=== PATIENT | female | born 1945 | race Caucasian/White ===

== ENCOUNTER → 2016-10-02 | Outpatient (CLI) | payer MEDICARE, OTHER ==
[~2016-10-02] MED LIST: CARV3.122 PO; CLOP75TA PO; HYDR-2161 PO; MELO-156 PO; TOFA5TAB PO; TRAM50TA PO; VALS1TAB27 PO
--- NOTE | 2016-10-02 08:47 | KCIC ---
Ultrasound abdomen limited Indication: Elevated liver enzymes. The pancreas and IVC are poorly visualized. The liver is normal in size. There is diffuse increased echogenicity consistent with fatty infiltration. No discrete liver mass is detected. The gallbladder is stone filled. This does make evaluation of the gallbladder wall difficult. The right kidney is unremarkable. There is no biliary ductal dilatation. No ascites is seen. Impression: Fatty infiltration of the liver. Cholelithiasis. Electronically signed by: Edil Castro MD (Oct 02, 2016 08:45:56)
== END | disposition home or self-care (01) ==
LOC: KCIC US 07:51
PROVIDERS: ATTEND Internal Medicine
DX: R74.8 Abnormal levels of other serum enzymes (principal); K76.0 Fatty (change of) liver, not elsewhere classified; K80.20 Calculus of gallbladder without cholecystitis without obstruction
CPT/HCPCS: 76705

== ENCOUNTER 2017-03-24 19:18 | Inpatient (IN) | payer MEDICARE, OTHER ==
[~2017-03-24] VITALS: Ht 157.5 cm; Wt 107.7 kg
[~2017-03-24 19:18] MED LIST changes: -MELO-156 PO; +MELO7.5T29 PO
[2017-03-24] MEDS ORDERED: CARVEDILOL 12.5 MG TABLET. PO ONE (20:15)
[2017-03-24] MEDS ORDERED: LOSARTAN POTASSIUM 50 MG TABLET. PO ONE (20:15)
[2017-03-24] MEDS ORDERED: CLOPIDOGREL BISULFATE 75 MG TABLET PO ONE (20:15)
[2017-03-24] MEDS ORDERED: MORPHINE SULFATE 10 MG/ML VIAL. IM ONE (20:15)
[2017-03-24] MEDS ORDERED: hydroCHLOROthiazide 25 MG TABLET PO ONE (20:18)
--- NOTE | 2017-03-24 22:48 | PHYS DOC ---
Past Medical History Past Medical History: Arthritis, Diabetes-Type II, Hypertension Past Surgical History: Hysterectomy, Oophorectomy Additional Past Surgical Histo: HEART STENTS, PELVIC PROLAPSE, CARPEL TUNNEL, X2 KNEE REPLACEMENTS Alcohol Use: Occasionally Drug Use: None Adult General Chief Complaint Chief Complaint: LOWER BACK PAIN OR INJURY HPI HPI Patient is a 72 year old female brought to the ED by family members with the complaint of severe low back pain for 2 days. She states "I can hardly walk, I don't feel safe trying to walk". Patient states her pain is severe. Yesterday morning, she woke up with back pain. She did not have a fall or any other injury. Cooking and some laundry and she thinks she overdid it. It kept her up all night last night and it bothered her all day today. It so severe that she feels like she is having trouble standing up. She has tried hydrocodone and tramadol at home without any relief at all. The pain does not go down her legs. She has no urinary symptoms. The pain is located on both sides of her low back and goes down a little bit into her hips. Patient has had similar pain before but never this bad. She was seen at the pain center for pain injection along time ago and she believes that helped. Patient states that she did not take her blood pressure medicine this morning because she was in too much pain. She wasn't able to worry about filling her pill minder's because she just couldn't hardly function. Therefore, she has skipped her daily medicine today and took only hydrocodone and tramadol. PCP Dr. Sharma Medications include carvedilol 25 mg twice a day, valsartan/hydrochlorothiazide 320/25, Plavix 75 mg. Review of Systems Review of Systems Constitutional: Denies fever or chills [] Respiratory: Denies cough or shortness of breath [] Cardiovascular: Denies chest pain GI: Denies abdominal pain, nausea, vomiting, bloody stools or diarrhea [] : Denies dysuria or hematuria [] Musculoskeletal: As in history of present illness I Current Medications Current Medications Current Medications Medications (Trade) Dose Ordered Sig/Saul Start Time Stop Time Status Last Admin Dose Admin Carvedilol (Coreg) 25 mg 1X ONCE 03/24/17 20:15 03/24/17 20:18 DC 03/24/17 20:41 25 MG Clopidogrel Bisulfate (Plavix) 75 mg 1X ONCE 03/24/17 20:15 03/24/17 20:18 DC 03/24/17 20:39 75 MG Hydrochlorothiazide (Hydrodiuril) 25 mg 1X ONCE 03/24/17 20:18 03/24/17 20:19 DC 03/24/17 20:41 25 MG Losartan Potassium (Cozaar) 100 mg 1X ONCE 03/24/17 20:15 03/24/17 20:18 DC 03/24/17 20:39 100 MG Morphine Sulfate 5 mg 1X ONCE 03/24/17 20:15 03/24/17 20:18 DC 03/24/17 20:41 5 MG Allergies Allergies Allergies Coded Allergies Type Severity Reaction Last Updated Verified amlodipine Allergy Intermediate 12/15/15 Yes atorvastatin Allergy Intermediate 12/15/15 Yes ciprofloxacin Allergy Intermediate 12/15/15 Yes ezetimibe Allergy Intermediate 12/15/15 Yes lisinopril Allergy Intermediate 12/15/15 Yes metformin Allergy Intermediate 12/15/15 Yes methotrexate Allergy Intermediate 12/15/15 Yes pravastatin Allergy Intermediate 12/15/15 Yes Physical Exam Physical Exam Constitutional: Obese, Well developed, well nourished, alert, mentating normally , warm and dry. Patient is not able to move hardly at all on the cart. She is not able to turn onto her side for exam without help. HENT: Normocephalic, atraumatic, bilateral external ears normal, nose normal. [] Eyes: conjunctiva normal, no discharge. [] Neck: Normal range of motion, no stridor. [] Cardiovascular:Heart rate regular rhythm, no murmur [] Lungs & Thorax: Bilateral breath sounds clear to auscultation [] Abdomen: Bowel sounds normal, soft, no tenderness, no masses, no pulsatile masses. [] Skin: Warm, dry, no erythema, no rash. [] Back: Patient indicates the area of pain across her lower back on both sides at the level of the top of the gluteal crease. She has some pain going down into the upper buttocks bilaterally. There is no skin color change or skin abnormality in the area of pain. There is no significant worsening of pain with palpation in this area. Extremities: No tenderness, no cyanosis, no clubbing, ROM intact, no edema. Patient is able to actively flex and extend the knee. Right straight leg raise is equivocally positive but does not have pain down her leg only into her buttock. Neurologic: Alert and oriented X 3, normal motor function, normal sensory function, no focal deficits noted. [] Current Patient Data Vital Signs Vital Signs Date Time Temp Pulse Resp B/P (MAP) Pulse Ox O2 Delivery O2 Flow Rate FiO2 03/24/17 22:30 96 18 152/65 (94) 93 Room Air 03/24/17 19:51 99.4 99.4 EKG EKG [] Radiology/Procedures Radiology/Procedures Lumbosacral spine x-ray read by me. There is significant degenerative disease multilevel of the lumbosacral spine. There is multilevel disc space narrowing, osteophyte formation, and L1 and L2 appear to be fused. There is spondylolisthesis of L3-4. There does not appear to be any significant acute abnormality.[] Course & Med Decision Making Course & Med Decision Making Pertinent Labs and Imaging studies reviewed. (See chart for details) 72-year-old female with severe low back pain. She was given a pain shot and that was allowed to work before going to x-ray. X-ray shows significant degenerative disease. The patient has intractable pain and will require inpatient hospitalization for pain management. She is not able to even reposition herself on the bed much less safely stand or ambulate. I believe she' ll need to be admitted for this. I discussed this with the patient and her family who are agreeable. I discussed the case with Dr. Sharma, primary care physician. He will admit the patient. I wrote bridge orders. [] Dragon Disclaimer Dragon Disclaimer This electronic medical record was generated, in whole or in part, using a voice recognition dictation system. Departure Departure Impression: Primary Impression: Low back pain Disposition: ADMITTED INPATIENT Admitting Physician: Shashi Sharma Condition: STABLE Referrals: SHASHI SHARMA MD (PCP) JENNIFER MOODY MD Mar 24, 2017 22:48
[2017-03-24] MEDS ORDERED: fentaNYL PF VIAL 100 MCG/2 ML VIAL IV PRN (23:00)
[2017-03-24] MEDS ORDERED: ONDANSETRON PF 4 MG/2 ML VIAL. IV PRN (23:00)
[2017-03-24] MEDS ORDERED: hydrALAZINE 25 MG TABLET PO PRN (23:00)
[2017-03-24 23:13] LABS: BASO % 0 % (0-3); EOS % 0 % (0-3); HEMATOCRIT 35.8 % (36.0-47.0); LYMPH % 8 % (24-48); MEAN CORPUSCULAR HEMOGLOBIN 31 pg (25-35); MEAN CORPUSCULAR HGB CONC 34 g/dL (31-37); MEAN CORPUSCULAR VOLUME 93 fL (79-100); MONO % 9 % (0-9); NEUT % 83 % (31-73); PLATELET COUNT 219 x10^3/uL (140-400); RED BLOOD COUNT 3.84 x10^6/uL (3.50-5.40); RED CELL DISTRIBUTION WIDTH 13.4 % (11.5-14.5); WHITE BLOOD COUNT 12.3 x10^3/uL (4.0-11.0)
[2017-03-24 23:20] LABS: CALCIUM 9.2 mg/dL (8.5-10.1); CREATININE 0.8 mg/dL (0.6-1.0); GFR 70.1; POTASSIUM 3.7 mmol/L (3.5-5.1)
[2017-03-24 23:26] LABS: ALBUMIN 3.6 g/dL (3.4-5.0); TOTAL BILIRUBIN 1.7 mg/dL (0.2-1.0); TOTAL PROTEIN 7.2 g/dL (6.4-8.2)
[2017-03-24 23:30] VITALS: BP 139/55
[2017-03-25] MEDS ORDERED: OMEG100021 PO (01:50)
[2017-03-25] MEDS ORDERED: MULT1TAB52 PO (01:50)
[2017-03-25] MEDS ORDERED: HYDR-2762 PO (01:50)
[2017-03-25] MEDS ORDERED: VALS1TAB33 PO (01:50)
[2017-03-25] MEDS ORDERED: TOFA5TAB PO (01:50)
[2017-03-25] MEDS ORDERED: MELO15TA23 PO (01:50)
[2017-03-25] MEDS ORDERED: CHOL2000 PO (01:50)
[2017-03-25] MEDS ORDERED: CARV25TA2 PO (01:50)
[2017-03-25] MEDS ORDERED: ASPI-612 PO (01:50)
[2017-03-25] MEDS: fentaNYL PF VIAL 100 MCG/2 ML VIAL IV PRN ×5 (02:50→16:19)
[2017-03-25 03:00] VITALS: BP 124/45
[2017-03-25] MEDS ORDERED: traMADol 50 MG TABLET PO PRN (06:15)
[2017-03-25] MEDS ORDERED: OMEP20CA9 PO (06:50)
[2017-03-25] MEDS ORDERED: CARVEDILOL 12.5 MG TABLET. PO SCH (08:00)
[2017-03-25] MEDS: LOSARTAN POTASSIUM 50 MG TABLET. PO SCH (08:15)
[2017-03-25] MEDS: hydroCHLOROthiazide 25 MG TABLET PO SCH (08:16)
[2017-03-25] MEDS: CLOPIDOGREL BISULFATE 75 MG TABLET PO SCH (08:16)
[2017-03-25] MEDS: CHOLECALCIFEROL (VITAMIN D3) 1,000 UNIT TABLET PO SCH (08:16)
[2017-03-25] MEDS: OMEGA-3 FATTY ACIDS/FISH OIL 1,000 MG CAPSULE. PO SCH (08:16)
[2017-03-25] MEDS: MULTIVITAMIN with MINERAL TABLET. PO SCH (08:16)
[2017-03-25] MEDS: MELOXICAM 7.5 MG TABLET PO SCH (08:17)
[2017-03-25] MEDS: ASPIRIN ENTERIC COATED 81 MG TABLET.DR. PO SCH (08:17)
--- NOTE | 2017-03-25 08:18 | RAD ---
Lumbar spine, 3 views, 03/24/2017: History: Pain, no injury The bony structures are demineralized. There is disc space narrowing throughout the lumbar spine with scattered vacuum discs. There is considerable associated endplate sclerosis at L3-4. There is fusion of the L1 and L2 vertebral bodies. No acute fracture is identified. There are extensive degenerative changes involving the facet joints, particularly in the mid and lower lumbar spine. There is a mild associated grade 1 spondylolisthesis at L3-4, unchanged since CT images of 12/15/2015. Extensive aortoiliac calcific plaquing is present. IMPRESSION: 1. Moderately severe multilevel degenerative change as described above. 2. Mild chronic spondylolisthesis at L3-4 due to facet joint arthropathy. 3. No acute abnormality is detected.
--- NOTE | 2017-03-25 08:53 | EKG ---
[facility] [address] [place] [address] Test Date: 2017-03-24 Test Time: 19:49:42 Pat Name: ERVIN VILLAFUERTE Department: Room: [facility] Gender: F Solution Lead: : 1945 Requested By: ALVARO YEN Order Number: [id number] Reading MD: Flakita Ordonez Measurements Intervals [place] Rate: 170 P: [place]: QRS: -24 QRSD: 144 T: 138 QT: 274 QTc: 464 Interpretive Statements SINUS RHYTHM LEFTWARD AXIS NON SPECIFIC INTRAVENTRICULAR BLOCK QRS(T) CONTOUR ABNORMALITY CONSISTENT WITH ANTEROSEPTAL INFARCT PROBABLY OLD Electronically Signed On 03-28-2017 10:57:04 CDT by Flakita Ordonez
--- NOTE | 2017-03-25 08:57 | PDOC ---
Provider Note Provider Note history and physical dictated # [id number] ALVARO YEN MD Mar 25, 2017 08:57
[2017-03-25] MEDS ORDERED: HYDROcodone/APAP 7.5/325MG 1 TAB TABLET PO SCH (09:00)
[2017-03-25] MEDS ORDERED: IOHEXOL 300 MG/ML 75 ML VIAL IV ONE (09:00)
[2017-03-25] MEDS: TOFACITINIB CITRATE 5 MG PO SCH ×2 (09:00→19:25)
[2017-03-25 09:25] LABS: BILIRUBIN,URINE NEGATIVE (NEG); GLUCOSE,URINE NEGATIVE (NEG); NITRITE,URINE NEGATIVE (NEG); PROTEIN,URINE NEGATIVE (NEG-TRACE); UROBILINOGEN,URINE 0.2 mg/dL (0.2 mg/dL)
[2017-03-25] MEDS ORDERED: CONTRAST GIVEN MC PRN (09:30)
[2017-03-25 09:40] LABS: WBC,URINE OCC /HPF (0-4)
[2017-03-25 09:41] LABS: BACTERIA,URINE FEW /HPF (0-FEW); SQUAMOUS EPITHELIAL CELL,UR FEW /LPF
--- NOTE | 2017-03-25 09:52 | HP ---
ADMIT DATE: 03/25/2017 DATE OF SERVICE: 03/24/2017 PATIENT LOCATION: Room #514 HISTORY OF PRESENT ILLNESS: The patient is a 72-year-old white female with history of rheumatoid arthritis, hypertension, coronary artery disease, bilateral total knee arthroplasties and cholelithiasis who noted a 2-day history of low back pain. It hurt when she turned in bed and moved to the point where hydrocodone and Tylenol did not help and she could not navigate and move around the home. She denies any trauma. She has been doing activities of daily living, house chores and laundry, but no fall or significant trauma that she can recall. She denies any sciatica. She has had back pain in the past, but not to this severity. She is admitted for further evaluation and treatment of her intractable low back pain. After admission, her temperature was about 100.8 degrees. She denies any cough, dysuria or abdominal pain or diarrhea. ALLERGIES AND INTOLERANCES: INCLUDE METHOTREXATE, PRINIVIL, NORVASC, ZETIA, LIPITOR, PRAVASTATIN, AMLODIPINE, METFORMIN, AND CIPROFLOXACIN. MEDICATIONS: Include Plavix 75 mg every day, Meloxicam 15 mg everyday, carvedilol 25 mg b.i.d., losartan HCT 320/25 mg 1 every day, ____ 5 mg 2 tablets daily, tramadol 50 mg 1 tablet t.i.d. p.r.n., multiple vitamin once a day, aspirin 81 mg every day, hydrocodone 7.5/325 mg 1 b.i.d., fish oil 1 g daily, vitamin D 2000 units every day. 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 She also has had bilateral total knee arthroplasties, hysterectomy and unilateral oophorectomy and had the other ovary removed for benign cyst recently. She had surgery for bladder prolapse which has recurred she said. She had bilateral cataract extractions and bilateral carpal tunnel release and bilateral total knee arthroplasties. SOCIAL HISTORY: She does not drink alcohol nor does she smoke cigarettes. She is . Uses a walker. FAMILY HISTORY: Noncontributory. REVIEW OF SYSTEMS: GENERAL: There has been no fever, chills or sweats at home, but she had a fever at this hospital since admission. CARDIOVASCULAR: No chest pain. PULMONARY: No cough or shortness of breath. GASTROINTESTINAL: No diarrhea, abdominal pain. GENITOURINARY: No dysuria. ENDOCRINE: No diabetes mellitus, but she has borderline diabetes. SKIN: No rashes. The rest of systems reviewed are negative except as stated in history of present illness. PHYSICAL EXAMINATION: VITAL SIGNS: Temperature is 100.9 degrees, apical pulse is about 100, respiratory rate is 18, blood pressure 117/59, oxygen saturation was 98% on room air. HEENT: Eyes: Gaze is conjugate. Extraocular muscles are intact. Mouth: Tongue is midline. NECK: There is no cervical lymphadenopathy or thyroid enlargement. HEART: Reveals an S1, S2. There is no S3 or murmur. LUNGS: Clear. ABDOMEN: Soft, nontender. EXTREMITIES: Lower extremities without edema. SKIN: No rashes. Examination of back shows tenderness in the lumbosacral area. NEUROLOGIC: Revealed no focal weakness of arms or legs. She has got scars over her knees from previous bilateral total knee arthroplasty. LABORATORY DATA: White count was 12.3, hemoglobin was 12.0, platelet count was 219,000 with 83 polys and 8 lymphocytes in white cell differential. Sodium 132, potassium 3.7, chloride 95, total CO2 of 28, blood sugar is 153, total bilirubin was increased to 1.7, SGOT 54, SGPT of 76, alkaline phosphatase 88, albumin 3.6. IMAGING: She had an x-ray of her lumbar spine done, which showed moderately severe multilevel degenerative disease and chronic mild spondylosis at L3-L4 with facet joint arthropathy. No acute abnormality. ASSESSMENT: 1. Intractable low back pain. 2. Fever. 3. Hypertension. 4. Coronary artery disease. 5. Rheumatoid arthritis. 6. Elevated liver function tests. 7. Cholelithiasis. PLAN: At this time is to get blood cultures x 2, consult Dr. Arevalo and will order physical therapy. K-pad to the lower back and Lidoderm patch, discontinue the p.r.n. tramadol and hydrocodone ____ oxycodone 5 mg every 4 hours p.r.n. and Flexeril 10 mg t.i.d. p.r.n. and we will change her fentanyl to 25 mcg IV every 4 hours p.r.n. for pain control. We will get an ultrasound of the abdomen with the fever, blood cultures x2, urinalysis, urine culture, get a CAT scan of the lumbar spine with IV contrast given the fever, to rule out diskitis. Again, at baseline get an EKG and a chest x-ray. ALVARO YEN MD DR: LUCINA/jason JOB#: [id number] / [id number]
[2017-03-25] MEDS ORDERED: methylPREDNISolone ACETATE 40 MG/ML VIAL. IM ONE (10:00)
[2017-03-25] MEDS ORDERED: BUPIVACAINE MPF 0.25% 10 ML VIAL. IJ ONE (10:00)
--- NOTE | 2017-03-25 10:21 | RAD ---
Portable chest, 03/25/2017: History: Fever Comparison is made to a study from 01/03/2016. The heart appears to be within normal limits in size. There is calcific plaquing of the aorta. The pulmonary vascularity is normal. There are unchanged linear parenchymal opacities in the left upper lobe laterally compatible scarring versus recurrent atelectasis. The lungs are otherwise clear. There is no evidence of pleural fluid. Moderate hypertrophic spurring is present in the spine. IMPRESSION: Mild left upper lobe linear scarring or atelectasis.
--- NOTE | 2017-03-25 10:26 | RAD ---
Indication:Abnormal liver function tests Grayscale images of the abdomen were obtained. Comparison none. Note is made of a limited ultrasound examination 10/02/2016. Liver:There is increased attenuation of the ultrasound beam by the liver compatible with fatty infiltration. A focal mass lesion is not seen in the visualized liver Gallbladder:Cholelithiasis is noted compatible with the previous right upper quadrant abdominal ultrasound exam. The common bile duct diameter of approximately 7 mm is within normal limits given the patient's age. Spleen:Normal Pancreas:Partially obscured. That portion of the pancreatic head and body which was seen appeared normal Kidneys:Normal Abdominal aorta and IVC:The portion of the inferior vena cava which was seen appeared unremarkable. Only the proximal abdominal aorta was seen which appeared normal. The mid and distal abdominal aorta were obscured by gas Ancillary findings:None Impression:Cholelithiasis Fatty infiltration of the liver. Midline structures partially obscured
[2017-03-25 11:00] VITALS: BP 109/44
[2017-03-25] MEDS ORDERED: methylPREDNISolone ACETATE 40 MG/ML VIAL. ONE (11:00)
[2017-03-25] MEDS ORDERED: BUPIVACAINE MPF 0.25% 10 ML VIAL. ONE (11:00)
[2017-03-25] MEDS: LIDOCAINE (700MG/PATCH) PATCH. TD SCH (11:08)
--- NOTE | 2017-03-25 11:22 | EKG ---
[facility] [address] [place] [address] Test Date: 2017-03-25 Test Time: 11:19:06 Pat Name: ERVIN VILLAFUERTE Department: Room: [facility] Gender: F Compounding Scaler: MARISSA : 1945 Requested By: ALVARO YEN Order Number: [id number] Reading MD: Flakita Ordonez Measurements Intervals [place] Rate: 105 P: [place]: QRS: -29 QRSD: 156 T: 144 QT: 380 QTc: 507 Interpretive Statements IRREGULAR RHYTHM, NO P-WAVE FOUND LEFTWARD AXIS NON SPECIFIC INTRAVENTRICULAR BLOCK QRS(T) CONTOUR ABNORMALITY CONSIDER ANTEROSEPTAL MYOCARDIAL DAMAGE ABNORMAL ECG Electronically Signed On 03-28-2017 11:05:40 CDT by Flakita Ordonez
--- NOTE | 2017-03-25 11:52 | PDOC2 ---
MONALISA KHAN SENIOR USER EXPERIENCE ARCHITECT 03/25/17 1152: CARDIAC CONSULT DATE OF CONSULT Date of Consult DATE: 03/25/17 TIME: 11:35 REASON FOR CONSULT Reason for Consult: New onset AFIB REFERRING PHYSICIAN Referring Physician: Edith SOURCE Source: Chart review, Patient HISTORY OF PRESENT ILLNESS HISTORY OF PRESENT ILLNESS This is a 72 yo female admitted for complains of severe low back pain. Due to this her mobility has been limited the last 2 days. Prior to it she was busy with gathering in the [facility] where she resides, has been cooking and has been doing extra loads of laundry. The day after is when her back started hurting radiating to her right back thigh. No recent falls or injury. It is worse when standing up and no analgesic has helped at home. Upon admission she was noted with elevated BP mainly due to her pain and was also noted with fever. Denies no chills or fever prior to hospitalizations. She then was noted with AFIB RVR. Prior to her admission there has been no complains of chest pain, palpitations, SOA. nausea. She has no prior hx of AFIB. PAST MEDICAL HISTORY Cardiovascular: CAD, HTN, Hyperlipidemia Pulmonary: No pertinent hx CENTRAL NERVOUS SYSTEM: Other (no pertinent history) GI: Diverticulosis Heme/Onc: No pertinent hx Hepatobiliary: Cholelithiasis Psych: No pertinent hx Musculoskeletal: low back pain (lumbar stenosis), Osteoarthritis Rheumatologic: Rheumatoid arthritis Infectious disease: No pertinent hx ENT: Other (cataract) Renal/: Urinary Incontinence (bladder prolapse with repir), Other (bladder prolapse) Endocrine: Diabetes (2) Dermatology: No pertinent hx Grav: 3 Para: 3 PAST SURGICAL HISTORY Past Surgical History: Cataract Removal, Total knee replacement (bilateral), Hysterectomy, Other (carpal tunnel surgery; PCI) FAMILY HISTORY Family History: Heart Disease, Hypertension SOCIAL HISTORY Smoke: No ALCOHOL: none Drugs: None Lives: with Family CURRENT MEDICATIONS CURRENT MEDICATIONS Current Medications Medications (Trade) Dose Ordered Sig/Saul Route PRN Reason Start Time Stop Time Status Last Admin Dose Admin Carvedilol (Coreg) 25 mg 1X ONCE PO 03/24/17 20:15 03/24/17 20:18 DC 03/24/17 20:41 Clopidogrel Bisulfate (Plavix) 75 mg 1X ONCE PO 03/24/17 20:15 03/24/17 20:18 DC 03/24/17 20:39 Losartan Potassium (Cozaar) 100 mg 1X ONCE PO 03/24/17 20:15 03/24/17 20:18 DC 03/24/17 20:39 Hydrochlorothiazide (Hydrodiuril) 25 mg 1X ONCE PO 03/24/17 20:18 03/24/17 20:19 DC 03/24/17 20:41 Morphine Sulfate 5 mg 1X ONCE IM 03/24/17 20:15 03/24/17 20:18 DC 03/24/17 20:41 Fentanyl Citrate (Fentanyl 2ml Vial) 50 mcg PRN Q15MIN PRN IV PAIN GREATER THAN 3/10 03/24/17 23:00 03/25/17 00:00 DC 03/24/17 23:30 Fentanyl Citrate (Fentanyl 2ml Vial) 50 mcg PRN Q2HR PRN IV SEVERE PAIN 03/24/17 23:30 03/25/17 08:46 DC 03/25/17 08:19 Aspirin (Ecotrin) 81 mg DAILY PO 03/25/17 09:00 03/25/17 08:17 Clopidogrel Bisulfate (Plavix) 75 mg DAILY PO 03/25/17 09:00 03/25/17 08:16 Acetaminophen/ Hydrocodone Bitart (Lortab 7.5/325) 1 tab BID PO 03/25/17 09:00 03/25/17 09:00 DC 03/25/17 08:18 Carvedilol (Coreg) 25 mg BIDWMEALS PO 03/25/17 08:00 03/25/17 08:18 Vitamin D (Vitamin D3) 2,000 unit DAILY PO 03/25/17 09:00 03/25/17 08:16 Meloxicam (Mobic) 15 mg DAILY PO 03/25/17 09:00 03/25/17 08:17 Multivitamins (Thera M Plus) 1 tab DAILY PO 03/25/17 09:00 03/25/17 08:16 Fish Oil (Fish Oil) 1,000 mg DAILY PO 03/25/17 09:00 03/25/17 08:16 Losartan Potassium (Cozaar) 100 mg DAILY PO 03/25/17 09:00 03/25/17 08:15 Hydrochlorothiazide (Hydrodiuril) 25 mg DAILY PO 03/25/17 09:00 03/25/17 08:16 Fentanyl Citrate (Fentanyl 2ml Vial) 25 mcg PRN Q4HRS PRN IV SEVERE PAIN 03/25/17 08:45 03/25/17 11:15 Lidocaine (Lidoderm) 1 patch DAILY TD 03/25/17 09:00 03/25/17 11:08 ALLERGIES ALLERGIES: Coded Allergies: amlodipine (Verified Allergy, Intermediate, 12/15/15) atorvastatin (Verified Allergy, Intermediate, 12/15/15) ciprofloxacin (Verified Allergy, Intermediate, 12/15/15) ezetimibe (Verified Allergy, Intermediate, 12/15/15) lisinopril (Verified Allergy, Intermediate, 12/15/15) metformin (Verified Allergy, Intermediate, 12/15/15) methotrexate (Verified Allergy, Intermediate, 12/15/15) pravastatin (Verified Allergy, Intermediate, 12/15/15) ROS Review of System 14 point ROS evaluated with pertinent positives noted per HPI PHYSICAL EXAM General: Alert, Oriented X3, Cooperative, No acute distress HEENT: Atraumatic, Mucous membr. moist/pink Lungs: Other (diffuse faint wheeze) Heart: Other (distant heart sounds) Abdomen: Soft, Other (obese) Extremities: No cyanosis, No edema Skin: No breakdown, No significant lesion Neuro: Normal speech, Sensation intact Psych/Mental Status: Mental status NL, Mood NL MUSCULOSKELETAL: Osteoarthritic changes both hands VITALS VITALS Vital Signs Date Time Temp Pulse Resp B/P (MAP) Pulse Ox O2 Delivery O2 Flow Rate FiO2 03/25/17 11:15 18 03/25/17 08:19 Room Air 03/25/17 08:18 135 117/59 03/25/17 06:38 92 03/25/17 03:00 100.9 100.9 LABS Lab: Laboratory Tests Test 03/24/17 23:00 03/25/17 09:10 White Blood Count 12.3 x10^3/uL (4.0-11.0) Red Blood Count 3.84 x10^6/uL (3.50-5.40) Hemoglobin 12.0 g/dL (12.0-15.5) Hematocrit 35.8 % (36.0-47.0) Mean Corpuscular Volume 93 fL (79-100) Mean Corpuscular Hemoglobin 31 pg (25-35) Mean Corpuscular Hemoglobin Concent 34 g/dL (31-37) Red Cell Distribution Width 13.4 % (11.5-14.5) Platelet Count 219 x10^3/uL (140-400) Neutrophils (%) (Auto) 83 % (31-73) Lymphocytes (%) (Auto) 8 % (24-48) Monocytes (%) (Auto) 9 % (0-9) Eosinophils (%) (Auto) 0 % (0-3) Basophils (%) (Auto) 0 % (0-3) Neutrophils # (Auto) 10.2 x10^3uL (1.8-7.7) Lymphocytes # (Auto) 1.0 x10^3/uL (1.0-4.8) Monocytes # (Auto) 1.1 x10^3/uL (0.0-1.1) Eosinophils # (Auto) 0.0 x10^3/uL (0.0-0.7) Basophils # (Auto) 0.0 x10^3/uL (0.0-0.2) Sodium Level 132 mmol/L (136-145) Potassium Level 3.7 mmol/L (3.5-5.1) Chloride Level 95 mmol/L (98-107) Carbon Dioxide Level 28 mmol/L (21-32) Anion Gap 9 (6-14) Blood Urea Nitrogen 16 mg/dL (7-20) Creatinine 0.8 mg/dL (0.6-1.0) Estimated GFR (Cockcroft-Gault) 70.1 BUN/Creatinine Ratio 20 (6-20) Glucose Level 153 mg/dL (70-99) Calcium Level 9.2 mg/dL (8.5-10.1) Total Bilirubin 1.7 mg/dL (0.2-1.0) Aspartate Amino Transf (AST/SGOT) 54 U/L (15-37) Alanine Aminotransferase (ALT/SGPT) 76 U/L (14-59) Alkaline Phosphatase 88 U/L (46-116) Total Protein 7.2 g/dL (6.4-8.2) Albumin 3.6 g/dL (3.4-5.0) Albumin/Globulin Ratio 1.0 (1.0-1.7) Urine Collection Type Unknown Urine Color Kathy Urine Clarity Clear Urine pH 6.0 Urine Specific [place] 1.015 Urine Protein Negative mg/dL (NEG-TRACE) Urine Glucose (UA) Negative mg/dL (NEG) Urine Ketones (Stick) 15 mg/dL (NEG) Urine Blood Moderate (NEG) Urine Nitrite Negative (NEG) Urine Bilirubin Negative (NEG) Urine Urobilinogen Dipstick 0.2 mg/dL (0.2 mg/dL) Urine Leukocyte Esterase Negative (NEG) Urine RBC 6-10 /HPF (0-2) Urine WBC Occ /HPF (0-4) Urine Squamous Epithelial Cells Few /LPF Urine Bacteria Few /HPF (0-FEW) ECHOCARDIOGRAM ECHOCARDIOGRAM <Conclusion> The left ventricular systolic function is normal. The Ejection Fraction is estimated at 55-60%. Septal motion consistent with conduction abnormality. Mild mitral regurgitation. Mild tricuspid regurgitation. The PA pressure was estimated at 38 mmHg. There is no evidence of significant pericardial effusion. DATE: 01/10/16 1510 ASSESSMENT/PLAN ASSESSMENT/PLAN 1. New onset AFIB with RVR: likely induced by intractable pain and fever. 2. Fever/wheeze: Per PCP 3. Low back pain/lumbar stenosis/radiculopathy: CT pending 4. Accelerated HTN: better 5. CAD: PCI/stent in the past, unknown date but remote. No cardiac symptoms 6. HLP: intolerant to statin 7. 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 TTE has been ordered. Check TSH and lipids 2. Dig IV x1. Will convert coreg to metoprolol for better chronotropic control and notable wheeze. 3. ASA and plavix. Continue with secondary prevention measures. 4. If pt does not convert to SR in the next 24-48 hours then will consider placing on NOAC and reevaluate any need for cardioversion. 5. Will plan for outpt event monitor. Problems: ANNA LENZ MD 03/25/17 1434: CARDIAC CONSULT ALLERGIES ALLERGIES: Coded Allergies: amlodipine (Verified Allergy, Intermediate, 12/15/15) atorvastatin (Verified Allergy, Intermediate, 12/15/15) ciprofloxacin (Verified Allergy, Intermediate, 12/15/15) ezetimibe (Verified Allergy, Intermediate, 12/15/15) lisinopril (Verified Allergy, Intermediate, 12/15/15) metformin (Verified Allergy, Intermediate, 12/15/15) methotrexate (Verified Allergy, Intermediate, 12/15/15) pravastatin (Verified Allergy, Intermediate, 12/15/15) ASSESSMENT/PLAN ASSESSMENT/PLAN Pt. seen and examined. Agree with above BANKING AND FINANCE INSTRUCTOR note. Will follow along. Problems: MONALISA KHAN APRN Mar 25, 2017 11:52 ANNA LENZ MD Mar 25, 2017 14:34
[2017-03-25] MEDS ORDERED: DIGOXIN IV 500 MCG/2 ML AMPUL. IV ONE (12:15)
[2017-03-25] MEDS ORDERED: ALBUTEROL SULFATE 2.5 MG/3 ML NEBU. NEB PRN (14:00)
[2017-03-25] MEDS ORDERED: IPRATROPIUM BROMIDE 0.5 MG/2.5 ML NEBU. NEB PRN (14:15)
[2017-03-25] MEDS: IPRATROPIUM BROMIDE 0.5 MG/2.5 ML NEBU. NEB SCH ×2 (14:54→19:30)
[2017-03-25 15:00] VITALS: BP 120/55
--- NOTE | 2017-03-25 15:49 | CARD ---
APPROVED REPORT EXAM: Two-dimensional and M-mode echocardiogram with Doppler and color Doppler. Other Information Quality : GoodHR: 95bpm Rhythm : Atrial Fibrillation INDICATION Atrial Fibrillation RISK FACTORS Obesity 2D DIMENSIONS RVDd3.5 (2.9-3.5cm)Left Atrium(2D)3.7 (1.6-4.0cm) IVSd0.9 (0.7-1.1cm)Aortic Root(2D)2.0 (2.0-3.7cm) LVDd4.3 (3.9-5.9cm)LVOT Diameter2.3 (1.8-2.4cm) PWd0.9 (0.7-1.1cm)LVDs2.7 (2.5-4.0cm) FS (%) 38.3 %SV57.8 ml LVEF(%)68.9 (>50%) Aortic Valve AoV Peak Cornelio.144.9cm/sAoV VTI26.9cm AO Peak GR.8.4mmHgLVOT Peak Cornelio.129.5cm/s AO Mean GR.5mmHgAVA (VMAX)3.72cm2 Mitral Valve MV E Peak Gr.5mmHgMV E Mean Gr.3mmHg Pulmonary Valve PV Peak Mayjtqpf039.8cm/s Tricuspid Valve TR P. [id number]/sTR Peak Gr.24mmHg LEFT VENTRICLE The left ventricle is normal size. There is normal left ventricular wall thickness. The left ventricu lar systolic function is normal and the ejection fraction is within normal range. The Ejection Fracti on is 65-70%. Septal motion consistent with conduction abnormality. Tissue Doppler imaging reveals mo derate left ventricular diastolic dysfunction. RIGHT VENTRICLE The right ventricle is normal size. There is normal right ventricular wall thickness. The right ventr icular systolic function is normal. ATRIA The left atrium size is normal. The right atrium size is normal. The interatrial septum is intact wit h no evidence for an atrial septal defect or patent foramen ovale as noted on 2-D or Doppler imaging. AORTIC VALVE The aortic valve is mildly sclerotic. The aortic valve is trileaflet. Doppler and Color Flow revealed no significant aortic regurgitation. There is no significant aortic valvular stenosis. MITRAL VALVE Mitral annular calcification is mild. The mitral valve leaflets are thickened. There is no evidence o f mitral valve prolapse. There is no mitral valve stenosis. Doppler and Color Flow revealed no mitral valve regurgitation noted. TRICUSPID VALVE Doppler and Color Flow revealed mild tricuspid regurgitation. The pulmonary artery systolic pressure is estimated at 27 mmHg. PULMONIC VALVE The pulmonary valve is not well visualized but appears to open adequately. Doppler and Color Flow rev ealed no pulmonic valvular regurgitation. There is no pulmonic valvular stenosis by spectral Doppler. GREAT VESSELS The aortic root is normal in size. The ascending aorta is normal in size. The IVC is normal in size a nd collapses >50% with inspiration. PERICARDIAL EFFUSION There is no evidence of significant pericardial effusion. Critical Notification Critical Value: No <Conclusion> The left ventricular systolic function is normal and the ejection fraction is within normal range. Th e Ejection Fraction is 65-70%. Septal motion consistent with conduction abnormality. Tissue Doppler imaging reveals moderate left ventricular diastolic dysfunction. Doppler and Color Flow revealed mild tricuspid regurgitation. The pulmonary artery systolic pressure is estimated at 27 mmHg.
[2017-03-25] MEDS: CYCLOBENZAPRINE 10 MG TABLET. PO PRN (16:15)
--- NOTE | 2017-03-25 16:27 | RAD ---
CT of the lumbar spine without contrast, 03/25/2017: History: Low back pain, fever, possible discitis Noncontrast scans were obtained with multiplanar reconstructions produced. Comparison is made to sagittal reconstructions from a CT abdomen study from 12/15/2015. There is fusion of the L1 and L2 vertebral bodies as also evident on the previous exam. There are vacuum discs at L2-3, L3-4 and L4-5. There are extensive degenerative changes involving the facet joints throughout the lumbar spine. No acute fracture or destructive bony lesion is identified. At L1-2 there is mild posterior marginal spurring. There is moderate posterior ligamentous thickening related to facet joint arthropathy. The central spinal canal is not significantly stenotic. There is mild foraminal encroachment, more so on the right. At L2-3 there is mild posterior disc bulging and spurring. There is moderate posterior ligamentous thickening related to facet joint arthropathy. The combination of findings is causing mild central spinal stenosis in a triangular configuration. The neural foramina are mildly narrowed. At L3-4 there is a mild chronic spondylolisthesis related to extensive facet joint arthropathy. This appears unchanged since 12/15/2015. There is moderate broad-based posterior disc bulging and marginal spurring. There is moderate posterior ligamentous thickening. The combination of findings is causing moderate central spinal stenosis and foraminal encroachment more so on the left. At L4-5 there are extensive degenerative changes involving the facet joints with mild posterior ligamentous thickening. There is mild broad-based posterior disc bulging. The combination of findings is causing borderline narrowing of the central spinal canal and mild bilateral foraminal encroachment. There is a transitional-type vertebra at L5 with a prominent right transverse process at L5 which articulates with the right sacrum and iliac bone. The facet joints at L5-S1 are partially fused. Posterior spurring and disc bulging is causing borderline central spinal stenosis the neural foramina are only minimally narrowed. Incidental note is made of multiple sigmoid diverticula. There is extensive aortoiliac calcific plaquing. IMPRESSION: 1. Moderately severe multilevel degenerative change as described above. 2. Moderate associated central spinal stenosis at L3-4. 3. No acute bony abnormality is detected. PQRS Compliance Statement: One or more of the following individualized dose reduction techniques were utilized for this examination: 1. Automated exposure control 2. Adjustment of the mA and/or kV according to patient size 3. Use of iterative reconstruction technique
[2017-03-25 19:00] VITALS: BP 110/44
[2017-03-25] MEDS: ACETAMINOPHEN 325 MG TABLET. PO PRN (19:32)
[2017-03-25] MEDS: oxyCODONE IR 5 MG TABLET PO PRN (19:35)
[2017-03-25] MEDS: METOPROLOL TART IMMED RELEASE 50 MG TABLET. PO SCH (21:52)
--- NOTE | 2017-03-25 22:06 | CONS ---
DATE OF CONSULTATION: 03/25/2017 ATTENDING PHYSICIAN: Dr. Sharma. REASON FOR CONSULTATION: The patient was seen at the request of Dr. Sharma for rehab evaluation. HISTORY OF PRESENT ILLNESS: This is a 72-year-old female with rheumatoid arthritis, hypertension, coronary artery disease, bilateral total knee arthroplasties, cholelithiasis, admitted with a 2-day history of lower back pain, without any specific injury. She usually takes tramadol and hydrocodone for pain. The patient apparently overdid it, cooking at her high-rise apartment for some green party, and had increased pain. So, she was admitted on 03/24/2017. She was noted with temperature of 100.8 degrees Fahrenheit. She denied any cough, dyspnea, dysuria, abdominal pain or diarrhea. THE PATIENT WITH KNOWN ALLERGIES TO METHOTREXATE, PRINIVIL, NORVASC, ZETIA, LIPITOR, PRAVASTATIN, AMLODIPINE, METFORMIN AND CIPRO. The patient lives in a high-rise apartment. The patient usually gets around. She had surgery for bladder prolapse, but still not working properly. She also had bilateral cataract surgeries, carpal tunnel release and total knee arthroplasties, hysterectomy, unilateral oophorectomy for removal of benign cyst. The patient usually walks with a walker. She does not have any back support brace. PHYSICAL EXAMINATION: Today revealed an elderly female. She is alert, oriented to time, place, person and circumstance, and follows commands appropriately. Moves all 4 extremities voluntarily where she had 4+/5 grade muscle strength with relatively increased weakness in hand intrinsic muscles. She had deformity of both wrists and hands from degenerative changes and rheumatoid arthritis. The patient had equal perceptions of touch and pinprick sensations bilaterally. Deep tendon reflexes are 1-2+ and symmetrical, and she had painful limited movements of her lumbar spine with tenderness to palpation over lumbar paraspinal muscles, extending over to sacroiliac joint area. Straight leg raising test is negative bilaterally. I have not tested her ambulation skills at this time. ASSESSMENT: An elderly female with degenerative joint disease and degenerative disk disease of lumbar vertebrae, with chronic back pain on and off, with increased back pain the last few days. No clinical evidence of ongoing lumbar radiculopathy. The patient with deformities of both hands from degenerative changes and deformities from rheumatoid arthritis. Also with known hypertension, coronary artery disease, status post bilateral total knee arthroplasties, cholelithiasis, obesity. RECOMMENDATIONS: To proceed with injecting painful right sacroiliac joint area with Marcaine and Depo-Medrol solution, which I performed under aseptic skin technique at her request, and she tolerated the procedure satisfactorily, without any side effects. To try her with lumbar corset. I have suggested MRI scan of her lumbar vertebrae to rule out any lumbar spinal stenosis, but she is very hesitant as she could not take any scans without put to sleep. Dr. Sharma, I appreciate asking me to participate in the care of this interesting patient. I will be glad to follow her with you as needed for her rehabilitation. BLAKE GARCIA MD DR: RIDDHI/jason JOB#: [id number] / [id number]
[2017-03-25 23:00] VITALS: BP 120/53
[2017-03-26 03:00] VITALS: BP 164/65
[2017-03-26] MEDS: oxyCODONE IR 5 MG TABLET PO PRN ×3 (04:54→20:14)
[2017-03-26] MEDS: fentaNYL PF VIAL 100 MCG/2 ML VIAL IV PRN (05:42)
[2017-03-26 07:00] VITALS: BP 162/76
[2017-03-26] MEDS: IPRATROPIUM BROMIDE 0.5 MG/2.5 ML NEBU. NEB SCH ×4 (07:47→19:13)
[2017-03-26] MEDS: OMEGA-3 FATTY ACIDS/FISH OIL 1,000 MG CAPSULE. PO SCH (08:22)
[2017-03-26] MEDS: LOSARTAN POTASSIUM 50 MG TABLET. PO SCH (08:22)
[2017-03-26] MEDS: MELOXICAM 7.5 MG TABLET PO SCH (08:23)
[2017-03-26] MEDS: CHOLECALCIFEROL (VITAMIN D3) 1,000 UNIT TABLET PO SCH (08:24)
[2017-03-26] MEDS: MULTIVITAMIN with MINERAL TABLET. PO SCH (08:24)
[2017-03-26] MEDS: METOPROLOL TART IMMED RELEASE 50 MG TABLET. PO SCH ×2 (08:27→20:14)
[2017-03-26] MEDS: LIDOCAINE (700MG/PATCH) PATCH. TD SCH (08:27)
[2017-03-26] MEDS: CLOPIDOGREL BISULFATE 75 MG TABLET PO SCH (08:27)
[2017-03-26] MEDS: CYCLOBENZAPRINE 10 MG TABLET. PO PRN (08:27)
[2017-03-26] MEDS: hydroCHLOROthiazide 25 MG TABLET PO SCH (08:28)
[2017-03-26] MEDS: ASPIRIN ENTERIC COATED 81 MG TABLET.DR. PO SCH (08:28)
--- NOTE | 2017-03-26 08:43 | PDOC ---
PROGRESS NOTES Subjective Subjective She feels better with sacroiliac joint injection. Objective Objective Vital Signs Date Time Temp Pulse Resp B/P (MAP) Pulse Ox O2 Delivery O2 Flow Rate FiO2 03/26/17 08:27 99 162/76 03/26/17 07:49 94 Room Air 03/26/17 06:12 20 03/26/17 03:00 98.8 98.8 Physical Exam Physical Exam She is sitting at edge of bed without lumbar corset and seems to be comfortable. Assessment Assessment Problems Medical Problems: (1) Low back pain Status: Acute Plan Plan of Care To see how she does getting aroun with roller walker and lumbar corset and home with home health follow up or transfer to SNF when medically stable. Comment Review of Relevant I have reviewed the following items russell (where applicable) has been applied. Labs Laboratory Tests Test 03/24/17 23:00 03/25/17 09:10 03/25/17 10:50 White Blood Count 12.3 x10^3/uL (4.0-11.0) Red Blood Count 3.84 x10^6/uL (3.50-5.40) Hemoglobin 12.0 g/dL (12.0-15.5) Hematocrit 35.8 % (36.0-47.0) Mean Corpuscular Volume 93 fL (79-100) Mean Corpuscular Hemoglobin 31 pg (25-35) Mean Corpuscular Hemoglobin Concent 34 g/dL (31-37) Red Cell Distribution Width 13.4 % (11.5-14.5) Platelet Count 219 x10^3/uL (140-400) Neutrophils (%) (Auto) 83 % (31-73) Lymphocytes (%) (Auto) 8 % (24-48) Monocytes (%) (Auto) 9 % (0-9) Eosinophils (%) (Auto) 0 % (0-3) Basophils (%) (Auto) 0 % (0-3) Neutrophils # (Auto) 10.2 x10^3uL (1.8-7.7) Lymphocytes # (Auto) 1.0 x10^3/uL (1.0-4.8) Monocytes # (Auto) 1.1 x10^3/uL (0.0-1.1) Eosinophils # (Auto) 0.0 x10^3/uL (0.0-0.7) Basophils # (Auto) 0.0 x10^3/uL (0.0-0.2) Sodium Level 132 mmol/L (136-145) Potassium Level 3.7 mmol/L (3.5-5.1) Chloride Level 95 mmol/L (98-107) Carbon Dioxide Level 28 mmol/L (21-32) Anion Gap 9 (6-14) Blood Urea Nitrogen 16 mg/dL (7-20) Creatinine 0.8 mg/dL (0.6-1.0) Estimated GFR (Cockcroft-Gault) 70.1 BUN/Creatinine Ratio 20 (6-20) Glucose Level 153 mg/dL (70-99) Calcium Level 9.2 mg/dL (8.5-10.1) Total Bilirubin 1.7 mg/dL (0.2-1.0) Aspartate Amino Transf (AST/SGOT) 54 U/L (15-37) Alanine Aminotransferase (ALT/SGPT) 76 U/L (14-59) Alkaline Phosphatase 88 U/L (46-116) Total Protein 7.2 g/dL (6.4-8.2) Albumin 3.6 g/dL (3.4-5.0) Albumin/Globulin Ratio 1.0 (1.0-1.7) Urine Collection Type Unknown Urine Color Kathy Urine Clarity Clear Urine pH 6.0 Urine Specific [place] 1.015 Urine Protein Negative mg/dL (NEG-TRACE) Urine Glucose (UA) Negative mg/dL (NEG) Urine Ketones (Stick) 15 mg/dL (NEG) Urine Blood Moderate (NEG) Urine Nitrite Negative (NEG) Urine Bilirubin Negative (NEG) Urine Urobilinogen Dipstick 0.2 mg/dL (0.2 mg/dL) Urine Leukocyte Esterase Negative (NEG) Urine RBC 6-10 /HPF (0-2) Urine WBC Occ /HPF (0-4) Urine Squamous Epithelial Cells Few /LPF Urine Bacteria Few /HPF (0-FEW) Magnesium Level 1.9 mg/dL (1.8-2.4) Thyroid Stimulating Hormone (TSH) 0.781 uIU/mL (0.358-3.74) Laboratory Tests Test 03/25/17 09:10 03/25/17 10:50 Urine Collection Type Unknown Urine Color Kathy Urine Clarity Clear Urine pH 6.0 Urine Specific [place] 1.015 Urine Protein Negative mg/dL (NEG-TRACE) Urine Glucose (UA) Negative mg/dL (NEG) Urine Ketones (Stick) 15 mg/dL (NEG) Urine Blood Moderate (NEG) Urine Nitrite Negative (NEG) Urine Bilirubin Negative (NEG) Urine Urobilinogen Dipstick 0.2 mg/dL (0.2 mg/dL) Urine Leukocyte Esterase Negative (NEG) Urine RBC 6-10 /HPF (0-2) Urine WBC Occ /HPF (0-4) Urine Squamous Epithelial Cells Few /LPF Urine Bacteria Few /HPF (0-FEW) Magnesium Level 1.9 mg/dL (1.8-2.4) Thyroid Stimulating Hormone (TSH) 0.781 uIU/mL (0.358-3.74) Medications Current Medications Carvedilol (Coreg) 25 mg 1X ONCE PO Last administered on 03/24/17 20:41; Start 03/24/17 at 20:15; Stop 03/24/17 at 20:18; Status DC Clopidogrel Bisulfate (Plavix) 75 mg 1X ONCE PO Last administered on 20:39; Start 03/24/17 at 20:15; Stop 03/24/17 at 20:18; Status DC Losartan Potassium (Cozaar) 100 mg 1X ONCE PO Last administered on 03/24/17 20:39; Start 03/24/17 at 20:15; Stop 03/24/17 at 20:18; Status DC Hydrochlorothiazide (Hydrodiuril) 25 mg 1X ONCE PO Last administered on 20:41; Start 03/24/17 at 20:18; Stop 03/24/17 at 20:19; Status DC Morphine Sulfate 5 mg 1X ONCE IM Last administered on 03/24/17 20:41; Start 03/24/17 at 20:15; Stop 03/24/17 at 20:18; Status DC Fentanyl Citrate (Fentanyl 2ml Vial) 50 mcg PRN Q15MIN PRN IV PAIN GREATER THAN 3/10 Last administered on 03/24/17 23:30; Start 03/24/17 at 23:00; Stop at 00:00; Status DC Ondansetron HCl (Zofran) 4 mg PRN Q8HRS PRN IV NAUSEA/VOMITING; Start 03/24/17 at 23:00; Stop 03/25/17 at 22:59; Status DC Hydralazine HCl (Apresoline) 25 mg PRN TID PRN PO BP OVER 160; Start 03/24/17 at 23:00 Fentanyl Citrate (Fentanyl 2ml Vial) 50 mcg PRN Q2HR PRN IV SEVERE PAIN Last administered on 03/25/17 08:19; Start 03/24/17 at 23:30; Stop 03/25/17 at 08:46 ; Status DC Aspirin (Ecotrin) 81 mg DAILY PO Last administered on 03/26/17 08:28; Start at 09:00 Clopidogrel Bisulfate (Plavix) 75 mg DAILY PO Last administered on 03/26/17 08 :27; Start 03/25/17 at 09:00 Acetaminophen/ Hydrocodone Bitart (Lortab 7.5/325) 1 tab BID PO Last administered on 03/25/17 08:18; Start 03/25/17 at 09:00; Stop 03/25/17 at 09:00 ; Status DC Tramadol HCl (Ultram) 50 mg PRN TID PRN PO MODERATE PAIN; Start 03/25/17 at 06: 15; Stop 03/25/17 at 08:46; Status DC Carvedilol (Coreg) 25 mg BIDWMEALS PO Last administered on 03/25/17 08:18; Start 03/25/17 at 08:00; Stop 03/25/17 at 12:23; Status DC Vitamin D (Vitamin D3) 2,000 unit DAILY PO Last administered on 03/26/17 08:24 ; Start 03/25/17 at 09:00 Meloxicam (Mobic) 15 mg DAILY PO Last administered on 03/26/17 08:23; Start at 09:00 Multivitamins (Thera M Plus) 1 tab DAILY PO Last administered on 03/26/17 08: 24; Start 03/25/17 at 09:00 Fish Oil (Fish Oil) 1,000 mg DAILY PO Last administered on 03/26/17 08:22; Start 03/25/17 at 09:00 Non-Formulary Medication 5 mg BID PO ; Start 03/25/17 at 09:00; Status UNV Losartan Potassium (Cozaar) 100 mg DAILY PO Last administered on 03/26/17 08: 22; Start 03/25/17 at 09:00 Hydrochlorothiazide (Hydrodiuril) 25 mg DAILY PO Last administered on 08:28; Start 03/25/17 at 09:00 Fentanyl Citrate (Fentanyl 2ml Vial) 25 mcg PRN Q4HRS PRN IV SEVERE PAIN Last administered on 03/26/17 05:42; Start 03/25/17 at 08:45 Lidocaine (Lidoderm) 1 patch DAILY TD Last administered on 03/26/17 08:27; Start 03/25/17 at 09:00 Cyclobenzaprine HCl (Flexeril) 10 mg PRN TID PRN PO MUSCLE SPASMS Last administered on 03/26/17 08:27; Start 03/25/17 at 08:45 Oxycodone HCl (Roxicodone) 5 mg PRN Q6HRS PRN PO PAIN Last administered on 03/26 04:54; Start 03/25/17 at 08:45 Acetaminophen (Tylenol) 325 mg PRN Q4HRS PRN PO MILD PAIN / TEMP Last administered on 03/25/17 19:32; Start 03/25/17 at 08:45 Iohexol (Omnipaque 300 Mg/ml) 75 ml 1X ONCE IV Last administered on 03/25/17 11:43; Start 03/25/17 at 09:00; Stop 03/25/17 at 09:22; Status DC Info (Do NOT chart on this entry -- for MONITORING) 1 each PRN DAILY PRN MC SEE COMMENTS; Start 03/25/17 at 09:30; Stop 03/27/17 at 09:29 Methylprednisolone Acetate (DEPO-Medrol 40MG VIAL) 40 mg 1X ONCE IM ; Start at 10:00; Stop 03/25/17 at 10:02; Status DC Bupivacaine HCl (Sensorcaine-Mpf 0.25%) 10 ml 1X ONCE IJ ; Start 03/25/17 at 10 :00; Stop 03/25/17 at 10:02; Status DC Digoxin (Lanoxin) 500 mcg 1X ONCE IV Last administered on 03/25/17 12:40; Start 03/25/17 at 12:15; Stop 03/25/17 at 12:32; Status DC Metoprolol Tartrate (Lopressor) 100 mg BID PO Last administered on 03/26/17 08 :27; Start 03/25/17 at 21:00 Ipratropium [place] (Atrovent) 0.5 mg RTQID NEB Last administered on 03/26/17 07:47; Start 03/25/17 at 16:00 Albuterol Sulfate (Ventolin Neb Soln) 2.5 mg PRN Q4HRS PRN NEB WHEEZING; Start 03/25/17 at 14:00; Stop 03/25/17 at 14:04; Status DC Ipratropium [place] (Atrovent) 0.5 mg PRN Q4HRS PRN NEB SHORTNESS OF BREATH; Start 03/25/17 at 14:15 Active Scripts Active Reported Omeprazole 20 Mg Capsule.dr 1 Cap PO DAILY Vitamin D (Cholecalciferol (Vitamin D3)) 2,000 Unit Capsule 1 Cap PO DAILY Fish Oil 1,000 mg Softgel ([place]-3/Dha/Epa/Fish Oil) 1,000 Mg Capsule 1,000 Mg PO DAILY Hydrocodone-Apap 7.5-325 (Hydrocodone Bit/Acetaminophen) 1 Each Tablet 1 Tab PO BID Aspirin Ec (Aspirin) 81 Mg Tablet. 1 Tab PO DAILY Multivitamins (Multivitamin) 1 Each Tablet 1 Tab PO DAILY Xeljanz (Tofacitinib Citrate) 5 Mg Tablet 5 Mg PO BID Valsartan-Hctz 320-25 Mg Tab (Valsartan/Hydrochlorothiazide) 1 Each Tablet 1 Each PO DAILY Meloxicam 15 Mg Tablet 1 Tab PO DAILY Carvedilol 25 Mg Tablet 1 Tab PO BID Tramadol Hcl 50 Mg Tablet 1 Tab PO TID PRN Clopidogrel (Clopidogrel Bisulfate) 75 Mg Tablet 1 Tab PO DAILY Vitals/I & O Vital Sign - Last 24 Hours 03/25/17 03/25/17 03/25/17 03/25/17 11:00 11:15 12:40 14:59 Temp 97.7 97.7 Pulse 90 110 Resp 17 18 B/P (MAP) 109/44 (65) Pulse Ox 92 90 O2 Delivery Room Air Room Air 03/25/17 03/25/17 03/25/17 03/25/17 15:00 16:19 19:00 19:32 Temp 97.9 97.9 97.9 97.9 Pulse 89 77 Resp 20 18 22 B/P (MAP) 120/55 (76) 110/44 (66) Pulse Ox 91 92 93 O2 Delivery Room Air Room Air Room Air Room Air 03/25/17 03/25/17 03/25/17 03/25/17 19:35 20:00 21:52 23:00 Temp 99.1 99.1 Pulse 99 93 Resp 18 22 B/P (MAP) 133/66 120/53 (75) Pulse Ox 93 94 O2 Delivery Room Air Room Air Room Air 03/26/17 03/26/17 03/26/17 03/26/17 03:00 04:54 05:42 05:54 Temp 98.8 98.8 Pulse 106 Resp 22 20 20 20 B/P (MAP) 164/65 (98) Pulse Ox 94 94 94 94 O2 Delivery Room Air Room Air Room Air Room Air 03/26/17 03/26/17 03/26/17 03/26/17 06:12 07:49 08:22 08:27 Pulse 99 99 Resp 20 B/P (MAP) 162/76 162/76 Pulse Ox 94 94 O2 Delivery Room Air Room Air BLAKE GARCIA MD Mar 26, 2017 08:43
[2017-03-26] MEDS: TOFACITINIB CITRATE 5 MG PO SCH ×2 (09:00→20:15)
[2017-03-26 10:01] LABS: BASO % 0 % (0-3); EOS % 0 % (0-3); HEMATOCRIT 37.2 % (36.0-47.0); HEMOGLOBIN 12.9 g/dL (12.0-15.5); LYMPH # 0.4 x10^3/uL (1.0-4.8); LYMPH % 3 % (24-48); MEAN CORPUSCULAR HEMOGLOBIN 32 pg (25-35); MEAN CORPUSCULAR HGB CONC 35 g/dL (31-37); MEAN CORPUSCULAR VOLUME 92 fL (79-100); MONO % 5 % (0-9); NEUT % 93 % (31-73); PLATELET COUNT 218 x10^3/uL (140-400); RED BLOOD COUNT 4.03 x10^6/uL (3.50-5.40); RED CELL DISTRIBUTION WIDTH 13.3 % (11.5-14.5); WHITE BLOOD COUNT 15.3 x10^3/uL (4.0-11.0)
--- NOTE | 2017-03-26 10:02 | PDOC ---
PROGRESS NOTES Subjective Subjective back pain a little better but still has a lot of pain. atrial fibrillation yesterday and seen by artist blacksmith. appears nsr on telemetry now. echo with mod LV diastolic dysfunction with prewerved LVEF. ultrasound of abdomen shows cholelithiasis. ct scan of lumbar spine shows spondylosis with L3-4 central spinal stenosis. denies sciatica. Objective Objective Vital Signs Date Time Temp Pulse Resp B/P (MAP) Pulse Ox O2 Delivery O2 Flow Rate FiO2 03/26/17 08:27 99 162/76 03/26/17 07:49 94 Room Air 03/26/17 07:00 98.6 18 98.6 Physical Exam Abdomen: Soft Heart: Regular rate, Normal S1, Normal S2 Extremities: No edema General: Alert HEENT: Atraumatic Lungs: Clear to auscultation Neuro: Normal speech Psych/Mental Status: Mental status NL Skin: No rashes Assessment Assessment Problems1. 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 Fever.resolved 3. Hypertension. 4. Coronary artery disease. 5. Rheumatoid arthritis. 6. Elevated liver function tests. 7. Cholelithiasis. paroxysmal atrial fibrillation fatty liver Medical Problems: (1) Low back pain Status: Acute Plan Plan of Care continue analgeiscs and PT await cardiology input continue metoprolol lab tomorrow Comment Review of Relevant I have reviewed the following items russell (where applicable) has been applied. Labs Laboratory Tests Test 03/24/17 23:00 03/25/17 09:10 03/25/17 10:50 White Blood Count 12.3 x10^3/uL (4.0-11.0) Red Blood Count 3.84 x10^6/uL (3.50-5.40) Hemoglobin 12.0 g/dL (12.0-15.5) Hematocrit 35.8 % (36.0-47.0) Mean Corpuscular Volume 93 fL (79-100) Mean Corpuscular Hemoglobin 31 pg (25-35) Mean Corpuscular Hemoglobin Concent 34 g/dL (31-37) Red Cell Distribution Width 13.4 % (11.5-14.5) Platelet Count 219 x10^3/uL (140-400) Neutrophils (%) (Auto) 83 % (31-73) Lymphocytes (%) (Auto) 8 % (24-48) Monocytes (%) (Auto) 9 % (0-9) Eosinophils (%) (Auto) 0 % (0-3) Basophils (%) (Auto) 0 % (0-3) Neutrophils # (Auto) 10.2 x10^3uL (1.8-7.7) Lymphocytes # (Auto) 1.0 x10^3/uL (1.0-4.8) Monocytes # (Auto) 1.1 x10^3/uL (0.0-1.1) Eosinophils # (Auto) 0.0 x10^3/uL (0.0-0.7) Basophils # (Auto) 0.0 x10^3/uL (0.0-0.2) Sodium Level 132 mmol/L (136-145) Potassium Level 3.7 mmol/L (3.5-5.1) Chloride Level 95 mmol/L (98-107) Carbon Dioxide Level 28 mmol/L (21-32) Anion Gap 9 (6-14) Blood Urea Nitrogen 16 mg/dL (7-20) Creatinine 0.8 mg/dL (0.6-1.0) Estimated GFR (Cockcroft-Gault) 70.1 BUN/Creatinine Ratio 20 (6-20) Glucose Level 153 mg/dL (70-99) Calcium Level 9.2 mg/dL (8.5-10.1) Total Bilirubin 1.7 mg/dL (0.2-1.0) Aspartate Amino Transf (AST/SGOT) 54 U/L (15-37) Alanine Aminotransferase (ALT/SGPT) 76 U/L (14-59) Alkaline Phosphatase 88 U/L (46-116) Total Protein 7.2 g/dL (6.4-8.2) Albumin 3.6 g/dL (3.4-5.0) Albumin/Globulin Ratio 1.0 (1.0-1.7) Urine Collection Type Unknown Urine Color Kathy Urine Clarity Clear Urine pH 6.0 Urine Specific [place] 1.015 Urine Protein Negative mg/dL (NEG-TRACE) Urine Glucose (UA) Negative mg/dL (NEG) Urine Ketones (Stick) 15 mg/dL (NEG) Urine Blood Moderate (NEG) Urine Nitrite Negative (NEG) Urine Bilirubin Negative (NEG) Urine Urobilinogen Dipstick 0.2 mg/dL (0.2 mg/dL) Urine Leukocyte Esterase Negative (NEG) Urine RBC 6-10 /HPF (0-2) Urine WBC Occ /HPF (0-4) Urine Squamous Epithelial Cells Few /LPF Urine Bacteria Few /HPF (0-FEW) Magnesium Level 1.9 mg/dL (1.8-2.4) Thyroid Stimulating Hormone (TSH) 0.781 uIU/mL (0.358-3.74) Laboratory Tests Test 03/25/17 10:50 Magnesium Level 1.9 mg/dL (1.8-2.4) Thyroid Stimulating Hormone (TSH) 0.781 uIU/mL (0.358-3.74) Medications Current Medications Carvedilol (Coreg) 25 mg 1X ONCE PO Last administered on 03/24/17 20:41; Start 03/24/17 at 20:15; Stop 03/24/17 at 20:18; Status DC Clopidogrel Bisulfate (Plavix) 75 mg 1X ONCE PO Last administered on 20:39; Start 03/24/17 at 20:15; Stop 03/24/17 at 20:18; Status DC Losartan Potassium (Cozaar) 100 mg 1X ONCE PO Last administered on 03/24/17 20:39; Start 03/24/17 at 20:15; Stop 03/24/17 at 20:18; Status DC Hydrochlorothiazide (Hydrodiuril) 25 mg 1X ONCE PO Last administered on 20:41; Start 03/24/17 at 20:18; Stop 03/24/17 at 20:19; Status DC Morphine Sulfate 5 mg 1X ONCE IM Last administered on 03/24/17 20:41; Start 03/24/17 at 20:15; Stop 03/24/17 at 20:18; Status DC Fentanyl Citrate (Fentanyl 2ml Vial) 50 mcg PRN Q15MIN PRN IV PAIN GREATER THAN 3/10 Last administered on 03/24/17 23:30; Start 03/24/17 at 23:00; Stop at 00:00; Status DC Ondansetron HCl (Zofran) 4 mg PRN Q8HRS PRN IV NAUSEA/VOMITING; Start 03/24/17 at 23:00; Stop 03/25/17 at 22:59; Status DC Hydralazine HCl (Apresoline) 25 mg PRN TID PRN PO BP OVER 160; Start 03/24/17 at 23:00 Fentanyl Citrate (Fentanyl 2ml Vial) 50 mcg PRN Q2HR PRN IV SEVERE PAIN Last administered on 03/25/17 08:19; Start 03/24/17 at 23:30; Stop 03/25/17 at 08:46 ; Status DC Aspirin (Ecotrin) 81 mg DAILY PO Last administered on 03/26/17 08:28; Start at 09:00 Clopidogrel Bisulfate (Plavix) 75 mg DAILY PO Last administered on 03/26/17 08 :27; Start 03/25/17 at 09:00 Acetaminophen/ Hydrocodone Bitart (Lortab 7.5/325) 1 tab BID PO Last administered on 03/25/17 08:18; Start 03/25/17 at 09:00; Stop 03/25/17 at 09:00 ; Status DC Tramadol HCl (Ultram) 50 mg PRN TID PRN PO MODERATE PAIN; Start 03/25/17 at 06: 15; Stop 03/25/17 at 08:46; Status DC Carvedilol (Coreg) 25 mg BIDWMEALS PO Last administered on 03/25/17 08:18; Start 03/25/17 at 08:00; Stop 03/25/17 at 12:23; Status DC Vitamin D (Vitamin D3) 2,000 unit DAILY PO Last administered on 03/26/17 08:24 ; Start 03/25/17 at 09:00 Meloxicam (Mobic) 15 mg DAILY PO Last administered on 03/26/17 08:23; Start at 09:00 Multivitamins (Thera M Plus) 1 tab DAILY PO Last administered on 03/26/17 08: 24; Start 03/25/17 at 09:00 Fish Oil (Fish Oil) 1,000 mg DAILY PO Last administered on 03/26/17 08:22; Start 03/25/17 at 09:00 Non-Formulary Medication 5 mg BID PO ; Start 03/25/17 at 09:00; Status UNV Losartan Potassium (Cozaar) 100 mg DAILY PO Last administered on 03/26/17 08: 22; Start 03/25/17 at 09:00 Hydrochlorothiazide (Hydrodiuril) 25 mg DAILY PO Last administered on 08:28; Start 03/25/17 at 09:00 Fentanyl Citrate (Fentanyl 2ml Vial) 25 mcg PRN Q4HRS PRN IV SEVERE PAIN Last administered on 03/26/17 05:42; Start 03/25/17 at 08:45 Lidocaine (Lidoderm) 1 patch DAILY TD Last administered on 03/26/17 08:27; Start 03/25/17 at 09:00 Cyclobenzaprine HCl (Flexeril) 10 mg PRN TID PRN PO MUSCLE SPASMS Last administered on 03/26/17 08:27; Start 03/25/17 at 08:45 Oxycodone HCl (Roxicodone) 5 mg PRN Q6HRS PRN PO PAIN Last administered on 03/26 04:54; Start 03/25/17 at 08:45 Acetaminophen (Tylenol) 325 mg PRN Q4HRS PRN PO MILD PAIN / TEMP Last administered on 03/25/17 19:32; Start 03/25/17 at 08:45 Iohexol (Omnipaque 300 Mg/ml) 75 ml 1X ONCE IV Last administered on 03/25/17 11:43; Start 03/25/17 at 09:00; Stop 03/25/17 at 09:22; Status DC Info (Do NOT chart on this entry -- for MONITORING) 1 each PRN DAILY PRN MC SEE COMMENTS; Start 03/25/17 at 09:30; Stop 03/27/17 at 09:29 Methylprednisolone Acetate (DEPO-Medrol 40MG VIAL) 40 mg 1X ONCE IM ; Start at 10:00; Stop 03/25/17 at 10:02; Status DC Bupivacaine HCl (Sensorcaine-Mpf 0.25%) 10 ml 1X ONCE IJ ; Start 03/25/17 at 10 :00; Stop 03/25/17 at 10:02; Status DC Digoxin (Lanoxin) 500 mcg 1X ONCE IV Last administered on 03/25/17 12:40; Start 03/25/17 at 12:15; Stop 03/25/17 at 12:32; Status DC Metoprolol Tartrate (Lopressor) 100 mg BID PO Last administered on 03/26/17 08 :27; Start 03/25/17 at 21:00 Ipratropium [place] (Atrovent) 0.5 mg RTQID NEB Last administered on 03/26/17 07:47; Start 03/25/17 at 16:00 Albuterol Sulfate (Ventolin Neb Soln) 2.5 mg PRN Q4HRS PRN NEB WHEEZING; Start 03/25/17 at 14:00; Stop 03/25/17 at 14:04; Status DC Ipratropium [place] (Atrovent) 0.5 mg PRN Q4HRS PRN NEB SHORTNESS OF BREATH; Start 03/25/17 at 14:15 Active Scripts Active Reported Omeprazole 20 Mg Capsule.dr 1 Cap PO DAILY Vitamin D (Cholecalciferol (Vitamin D3)) 2,000 Unit Capsule 1 Cap PO DAILY Fish Oil 1,000 mg Softgel ([place]-3/Dha/Epa/Fish Oil) 1,000 Mg Capsule 1,000 Mg PO DAILY Hydrocodone-Apap 7.5-325 (Hydrocodone Bit/Acetaminophen) 1 Each Tablet 1 Tab PO BID Aspirin Ec (Aspirin) 81 Mg Tablet.dr 1 Tab PO DAILY Multivitamins (Multivitamin) 1 Each Tablet 1 Tab PO DAILY Xeljanz (Tofacitinib Citrate) 5 Mg Tablet 5 Mg PO BID Valsartan-Hctz 320-25 Mg Tab (Valsartan/Hydrochlorothiazide) 1 Each Tablet 1 Each PO DAILY Meloxicam 15 Mg Tablet 1 Tab PO DAILY Carvedilol 25 Mg Tablet 1 Tab PO BID Tramadol Hcl 50 Mg Tablet 1 Tab PO TID PRN Clopidogrel (Clopidogrel Bisulfate) 75 Mg Tablet 1 Tab PO DAILY Vitals/I & O Vital Sign - Last 24 Hours 03/25/17 03/25/17 03/25/17 03/25/17 11:00 11:15 12:40 14:59 Temp 97.7 97.7 Pulse 90 110 Resp 17 18 B/P (MAP) 109/44 (65) Pulse Ox 92 90 O2 Delivery Room Air Room Air 03/25/17 03/25/17 03/25/17 03/25/17 15:00 16:19 19:00 19:32 Temp 97.9 97.9 97.9 97.9 Pulse 89 77 Resp 20 18 22 B/P (MAP) 120/55 (76) 110/44 (66) Pulse Ox 91 92 93 O2 Delivery Room Air Room Air Room Air Room Air 03/25/17 03/25/17 03/25/17 03/25/17 19:35 20:00 21:52 23:00 Temp 99.1 99.1 Pulse 99 93 Resp 18 22 B/P (MAP) 133/66 120/53 (75) Pulse Ox 93 94 O2 Delivery Room Air Room Air Room Air 03/26/17 03/26/17 03/26/17 03/26/17 03:00 04:54 05:42 05:54 Temp 98.8 98.8 Pulse 106 Resp 22 20 20 20 B/P (MAP) 164/65 (98) Pulse Ox 94 94 94 94 O2 Delivery Room Air Room Air Room Air Room Air 03/26/17 03/26/17 03/26/17 03/26/17 06:12 07:00 07:49 08:22 Temp 98.6 98.6 Pulse 99 99 Resp 20 18 B/P (MAP) 162/76 (104) 162/76 Pulse Ox 94 93 94 O2 Delivery Room Air Room Air Room Air 03/26/17 08:27 Pulse 99 B/P (MAP) 162/76 ALVARO YEN MD Mar 26, 2017 10:02
[2017-03-26 10:06] LABS: INR 1.2 (0.8-1.1); PROTHROMBIN TIME PATIENT 14.5 SEC (11.7-14.0)
[2017-03-26 10:17] LABS: ALBUMIN/GLOBULIN RATIO 0.8 (1.0-1.7); CALCIUM 9.3 mg/dL (8.5-10.1); CREATININE 0.9 mg/dL (0.6-1.0); GFR 61.2; POTASSIUM 3.4 mmol/L (3.5-5.1); TOTAL BILIRUBIN 1.8 mg/dL (0.2-1.0); TOTAL PROTEIN 6.6 g/dL (6.4-8.2)
--- NOTE | 2017-03-26 10:28 | PDOC ---
MONALISA KHAN PROGRAM PROJECT MANAGER 03/26/17 1028: CARDIO Progress Notes Date and Time Date of Service 03/26/2017 Time of Evaluation 1000 Subjective Subjective: No Chest Pain, No shortness of breath, No Palpitations, Other ( still has lower back pain) Vitals Vitals Vital Signs Date Time Temp Pulse Resp B/P (MAP) Pulse Ox O2 Delivery O2 Flow Rate FiO2 03/26/17 08:27 99 162/76 03/26/17 08:00 Room Air 03/26/17 07:49 94 03/26/17 07:00 98.6 18 98.6 Weight Weight [ ] Laboratory Labs Laboratory Tests Test 03/25/17 10:50 Magnesium Level 1.9 mg/dL (1.8-2.4) Thyroid Stimulating Hormone (TSH) 0.781 uIU/mL (0.358-3.74) Physical Exam HEENT: Neck Supple W Full Motion Chest: Symmetric LUNGS: Clear to Auscultation Heart: S1S2, irregularly irregular (AFIB) Abdomen: Soft N/T Extremities: No Calf Tenderness Neurology: alert, oriented, follow commands Assessment Assessment 1. New onset AFIB with RVR: remains on AFIB with RVR episodes.Asymptomatic. EF and wall motion normal per TTE 2. Fever/wheeze: better. 3. Low back pain/lumbar stenosis/radiculopathy 4. Accelerated HTN: labile 5. CAD: PCI/stent in the past, unknown date but remote. No cardiac symptoms 6. HLP: intolerant to statin 7. 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 TTE has been ordered. 2. Dig IV 250 mcg x1. Continue metoprolol, will decrease losartan to accommodate addition of cardizem as well as uptitration 3. DC ASA and continue plavix with addition of xarelto. Discussed this with pt. 4. If pt does not convert to SR tomorrow then will consider for TONI cardioversion. NPO after midnight. 5. Will plan for outpt event monitor. . ANNA LENZ MD 03/26/17 1118: CARDIO Progress Notes Plan Plan Pt. seen and examined. She wishes to pursue conservative rate control Plan for titration of dilt/toprol and I discussed with her possibility of tachybrady and pacer in the future if needed. Treat pain issues first, close f/u on an outpt basis for consideration of TONI/ CVN then. thanks. Will follow along. MONALISA KHAN APRN Mar 26, 2017 10:28 ANNA LENZ MD Mar 26, 2017 11:18
[2017-03-26] MEDS ORDERED: DIGOXIN IV 500 MCG/2 ML AMPUL. IV ONE (10:45)
[2017-03-26 10:54] LABS: CHOLESTEROL/HDL RATIO 5.3
[2017-03-26 11:23] VITALS: BP 140/61
[2017-03-26 13:23] LABS: PLT ESTIMATE ADEQUATE (ADEQUATE)
[2017-03-26] MEDS: ACETAMINOPHEN 325 MG TABLET. PO PRN (15:07)
[2017-03-26 15:17] VITALS: BP 163/79
[2017-03-26] MEDS: RIVAROXABAN 10 MG TABLET. PO SCH (17:16)
[2017-03-26 19:00] VITALS: BP 145/80
[2017-03-26 23:00] VITALS: BP 136/56
[2017-03-27] MEDS: oxyCODONE IR 5 MG TABLET PO PRN ×3 (02:22→20:56)
[2017-03-27 03:00] VITALS: BP 128/53
[2017-03-27 07:00] VITALS: BP 144/60
[2017-03-27] MEDS: IPRATROPIUM BROMIDE 0.5 MG/2.5 ML NEBU. NEB SCH ×4 (07:20→19:31)
[2017-03-27] MEDS: LIDOCAINE (700MG/PATCH) PATCH. TD SCH (08:15)
[2017-03-27] MEDS: fentaNYL PF VIAL 100 MCG/2 ML VIAL IV PRN (08:15)
[2017-03-27] MEDS ORDERED: VANCOMYCIN 2 GM in IV NORMAL SALINE 500ML BAG 500 ML IV ONE (09:00)
[2017-03-27] MEDS: TOFACITINIB CITRATE 5 MG PO SCH ×2 (09:00→20:54)
[2017-03-27] MEDS ORDERED: VANCOMYCIN 1 GM in IV NORMAL SALINE 250ML 250 ML IV ONE (09:00)
--- NOTE | 2017-03-27 09:21 | PDOC ---
Infectious Disease Note Vital Sign Vital Signs Vital Signs Date Time Temp Pulse Resp B/P (MAP) Pulse Ox O2 Delivery O2 Flow Rate FiO2 03/27/17 08:15 Nasal Cannula 03/27/17 07:21 95 2.0 03/27/17 07:00 98.4 97 20 144/60 (88) 98.4 Labs Lab Laboratory Tests Test 03/26/17 09:30 White Blood Count 15.3 x10^3/uL (4.0-11.0) Red Blood Count 4.03 x10^6/uL (3.50-5.40) Hemoglobin 12.9 g/dL (12.0-15.5) Hematocrit 37.2 % (36.0-47.0) Mean Corpuscular Volume 92 fL (79-100) Mean Corpuscular Hemoglobin 32 pg (25-35) Mean Corpuscular Hemoglobin Concent 35 g/dL (31-37) Red Cell Distribution Width 13.3 % (11.5-14.5) Platelet Count 218 x10^3/uL (140-400) Neutrophils (%) (Auto) 93 % (31-73) Lymphocytes (%) (Auto) 3 % (24-48) Monocytes (%) (Auto) 5 % (0-9) Eosinophils (%) (Auto) 0 % (0-3) Basophils (%) (Auto) 0 % (0-3) Neutrophils # (Auto) 14.2 x10^3uL (1.8-7.7) Lymphocytes # (Auto) 0.4 x10^3/uL (1.0-4.8) Monocytes # (Auto) 0.7 x10^3/uL (0.0-1.1) Eosinophils # (Auto) 0.0 x10^3/uL (0.0-0.7) Basophils # (Auto) 0.0 x10^3/uL (0.0-0.2) Segmented Neutrophils % 79 % (35-66) Band Neutrophils % 14 % (0-9) Lymphocytes % 4 % (24-48) Monocytes % 3 % (0-10) Platelet Estimate Adequate (ADEQUATE) Prothrombin Time 14.5 SEC (11.7-14.0) Prothromb Time International Ratio 1.2 (0.8-1.1) Sodium Level 131 mmol/L (136-145) Potassium Level 3.4 mmol/L (3.5-5.1) Chloride Level 93 mmol/L (98-107) Carbon Dioxide Level 27 mmol/L (21-32) Anion Gap 11 (6-14) Blood Urea Nitrogen 23 mg/dL (7-20) Creatinine 0.9 mg/dL (0.6-1.0) Estimated GFR (Cockcroft-Gault) 61.2 BUN/Creatinine Ratio 26 (6-20) Glucose Level 230 mg/dL (70-99) Calcium Level 9.3 mg/dL (8.5-10.1) Total Bilirubin 1.8 mg/dL (0.2-1.0) Aspartate Amino Transf (AST/SGOT) 45 U/L (15-37) Alanine Aminotransferase (ALT/SGPT) 59 U/L (14-59) Alkaline Phosphatase 80 U/L (46-116) Total Protein 6.6 g/dL (6.4-8.2) Albumin 3.0 g/dL (3.4-5.0) Albumin/Globulin Ratio 0.8 (1.0-1.7) Triglycerides Level 159 mg/dL (0-150) Cholesterol Level 212 mg/dL (0-200) LDL Cholesterol, Calculated 140 mg/dL (0-100) VLDL Cholesterol, Calculated 32 mg/dL (0-40) Non-HDL Cholesterol Calculated 172 mg/dL (0-129) HDL Cholesterol 40 mg/dL (40-60) Cholesterol/HDL Ratio 5.3 Objective Assessment BC + G + cocci Fever Back pain RA Plan Plan of Care vancomycin for now will check culture final results and adjust further workup to see where this is coming from pt is immunosuppressed SELINA CORTES MD Mar 27, 2017 09:21
--- NOTE | 2017-03-27 09:40 | PDOC ---
PROGRESS NOTES Subjective Subjective She admits continued low back pain and would like to have injection on left side of her low back. Objective Objective Vital Signs Date Time Temp Pulse Resp B/P (MAP) Pulse Ox O2 Delivery O2 Flow Rate FiO2 03/27/17 08:15 Nasal Cannula 03/27/17 07:21 95 2.0 03/27/17 07:00 98.4 97 20 144/60 (88) 98.4 Physical Exam Physical Exam She is sitting up in bedside chair and seems to be in no acute distress. She dis not have lumbar corset on and she continues with tenderness to palpation ove lumbar aprea with painfully limited lumbar spine ROM. Assessment Assessment Problems Medical Problems: (1) Low back pain Status: Acute Plan Plan of Care To consider injecting left sacroiliac joint tomorrow or on out patient basis if she goes home.She is not interested in going to SNF. Comment Review of Relevant I have reviewed the following items russell (where applicable) has been applied. Labs Laboratory Tests Test 03/25/17 10:50 03/26/17 09:30 Magnesium Level 1.9 mg/dL (1.8-2.4) Thyroid Stimulating Hormone (TSH) 0.781 uIU/mL (0.358-3.74) White Blood Count 15.3 x10^3/uL (4.0-11.0) Red Blood Count 4.03 x10^6/uL (3.50-5.40) Hemoglobin 12.9 g/dL (12.0-15.5) Hematocrit 37.2 % (36.0-47.0) Mean Corpuscular Volume 92 fL (79-100) Mean Corpuscular Hemoglobin 32 pg (25-35) Mean Corpuscular Hemoglobin Concent 35 g/dL (31-37) Red Cell Distribution Width 13.3 % (11.5-14.5) Platelet Count 218 x10^3/uL (140-400) Neutrophils (%) (Auto) 93 % (31-73) Lymphocytes (%) (Auto) 3 % (24-48) Monocytes (%) (Auto) 5 % (0-9) Eosinophils (%) (Auto) 0 % (0-3) Basophils (%) (Auto) 0 % (0-3) Neutrophils # (Auto) 14.2 x10^3uL (1.8-7.7) Lymphocytes # (Auto) 0.4 x10^3/uL (1.0-4.8) Monocytes # (Auto) 0.7 x10^3/uL (0.0-1.1) Eosinophils # (Auto) 0.0 x10^3/uL (0.0-0.7) Basophils # (Auto) 0.0 x10^3/uL (0.0-0.2) Segmented Neutrophils % 79 % (35-66) Band Neutrophils % 14 % (0-9) Lymphocytes % 4 % (24-48) Monocytes % 3 % (0-10) Platelet Estimate Adequate (ADEQUATE) Prothrombin Time 14.5 SEC (11.7-14.0) Prothromb Time International Ratio 1.2 (0.8-1.1) Sodium Level 131 mmol/L (136-145) Potassium Level 3.4 mmol/L (3.5-5.1) Chloride Level 93 mmol/L (98-107) Carbon Dioxide Level 27 mmol/L (21-32) Anion Gap 11 (6-14) Blood Urea Nitrogen 23 mg/dL (7-20) Creatinine 0.9 mg/dL (0.6-1.0) Estimated GFR (Cockcroft-Gault) 61.2 BUN/Creatinine Ratio 26 (6-20) Glucose Level 230 mg/dL (70-99) Calcium Level 9.3 mg/dL (8.5-10.1) Total Bilirubin 1.8 mg/dL (0.2-1.0) Aspartate Amino Transf (AST/SGOT) 45 U/L (15-37) Alanine Aminotransferase (ALT/SGPT) 59 U/L (14-59) Alkaline Phosphatase 80 U/L (46-116) Total Protein 6.6 g/dL (6.4-8.2) Albumin 3.0 g/dL (3.4-5.0) Albumin/Globulin Ratio 0.8 (1.0-1.7) Triglycerides Level 159 mg/dL (0-150) Cholesterol Level 212 mg/dL (0-200) LDL Cholesterol, Calculated 140 mg/dL (0-100) VLDL Cholesterol, Calculated 32 mg/dL (0-40) Non-HDL Cholesterol Calculated 172 mg/dL (0-129) HDL Cholesterol 40 mg/dL (40-60) Cholesterol/HDL Ratio 5.3 Microbiology 9/18/17 Blood Culture - Final, Complete 03/25/17 Urine Culture - Preliminary, Resulted 03/25/17 Urine Culture Result 1 (XENIA) - Preliminary, Resulted Medications Current Medications Carvedilol (Coreg) 25 mg 1X ONCE PO Last administered on 03/24/17 20:41; Start 03/24/17 at 20:15; Stop 03/24/17 at 20:18; Status DC Clopidogrel Bisulfate (Plavix) 75 mg 1X ONCE PO Last administered on 20:39; Start 03/24/17 at 20:15; Stop 03/24/17 at 20:18; Status DC Losartan Potassium (Cozaar) 100 mg 1X ONCE PO Last administered on 03/24/17 20:39; Start 03/24/17 at 20:15; Stop 03/24/17 at 20:18; Status DC Hydrochlorothiazide (Hydrodiuril) 25 mg 1X ONCE PO Last administered on 20:41; Start 03/24/17 at 20:18; Stop 03/24/17 at 20:19; Status DC Morphine Sulfate 5 mg 1X ONCE IM Last administered on 03/24/17 20:41; Start 03/24/17 at 20:15; Stop 03/24/17 at 20:18; Status DC Fentanyl Citrate (Fentanyl 2ml Vial) 50 mcg PRN Q15MIN PRN IV PAIN GREATER THAN 3/10 Last administered on 03/24/17 23:30; Start 03/24/17 at 23:00; Stop at 00:00; Status DC Ondansetron HCl (Zofran) 4 mg PRN Q8HRS PRN IV NAUSEA/VOMITING; Start 03/24/17 at 23:00; Stop 03/25/17 at 22:59; Status DC Hydralazine HCl (Apresoline) 25 mg PRN TID PRN PO BP OVER 160; Start 03/24/17 at 23:00 Fentanyl Citrate (Fentanyl 2ml Vial) 50 mcg PRN Q2HR PRN IV SEVERE PAIN Last administered on 03/25/17 08:19; Start 03/24/17 at 23:30; Stop 03/25/17 at 08:46 ; Status DC Aspirin (Ecotrin) 81 mg DAILY PO Last administered on 03/26/17 08:28; Start at 09:00; Stop 03/26/17 at 10:25; Status DC Clopidogrel Bisulfate (Plavix) 75 mg DAILY PO Last administered on 03/26/17 08 :27; Start 03/25/17 at 09:00 Acetaminophen/ Hydrocodone Bitart (Lortab 7.5/325) 1 tab BID PO Last administered on 03/25/17 08:18; Start 03/25/17 at 09:00; Stop 03/25/17 at 09:00 ; Status DC Tramadol HCl (Ultram) 50 mg PRN TID PRN PO MODERATE PAIN; Start 03/25/17 at 06: 15; Stop 03/25/17 at 08:46; Status DC Carvedilol (Coreg) 25 mg BIDWMEALS PO Last administered on 03/25/17 08:18; Start 03/25/17 at 08:00; Stop 03/25/17 at 12:23; Status DC Vitamin D (Vitamin D3) 2,000 unit DAILY PO Last administered on 03/26/17 08:24 ; Start 03/25/17 at 09:00 Meloxicam (Mobic) 15 mg DAILY PO Last administered on 03/26/17 08:23; Start at 09:00 Multivitamins (Thera M Plus) 1 tab DAILY PO Last administered on 03/26/17 08: 24; Start 03/25/17 at 09:00 Fish Oil (Fish Oil) 1,000 mg DAILY PO Last administered on 03/26/17 08:22; Start 03/25/17 at 09:00 Non-Formulary Medication 5 mg BID PO ; Start 03/25/17 at 09:00; Status UNV Losartan Potassium (Cozaar) 100 mg DAILY PO Last administered on 03/26/17 08: 22; Start 03/25/17 at 09:00; Stop 03/26/17 at 10:25; Status DC Hydrochlorothiazide (Hydrodiuril) 25 mg DAILY PO Last administered on 08:28; Start 03/25/17 at 09:00 Fentanyl Citrate (Fentanyl 2ml Vial) 25 mcg PRN Q4HRS PRN IV SEVERE PAIN Last administered on 03/27/17 08:15; Start 03/25/17 at 08:45 Lidocaine (Lidoderm) 1 patch DAILY TD Last administered on 03/27/17 08:15; Start 03/25/17 at 09:00 Cyclobenzaprine HCl (Flexeril) 10 mg PRN TID PRN PO MUSCLE SPASMS Last administered on 03/26/17 08:27; Start 03/25/17 at 08:45 Oxycodone HCl (Roxicodone) 5 mg PRN Q6HRS PRN PO PAIN Last administered on 03/27 02:22; Start 03/25/17 at 08:45 Acetaminophen (Tylenol) 325 mg PRN Q4HRS PRN PO MILD PAIN / TEMP Last administered on 03/26/17 15:07; Start 03/25/17 at 08:45 Iohexol (Omnipaque 300 Mg/ml) 75 ml 1X ONCE IV Last administered on 03/25/17 11:43; Start 03/25/17 at 09:00; Stop 03/25/17 at 09:22; Status DC Info (Do NOT chart on this entry -- for MONITORING) 1 each PRN DAILY PRN MC SEE COMMENTS; Start 03/25/17 at 09:30; Stop 03/27/17 at 09:29; Status DC Methylprednisolone Acetate (DEPO-Medrol 40MG VIAL) 40 mg 1X ONCE IM ; Start at 10:00; Stop 03/25/17 at 10:02; Status DC Bupivacaine HCl (Sensorcaine-Mpf 0.25%) 10 ml 1X ONCE IJ ; Start 03/25/17 at 10 :00; Stop 03/25/17 at 10:02; Status DC Digoxin (Lanoxin) 500 mcg 1X ONCE IV Last administered on 03/25/17 12:40; Start 03/25/17 at 12:15; Stop 03/25/17 at 12:32; Status DC Metoprolol Tartrate (Lopressor) 100 mg BID PO Last administered on 03/26/17 20 :14; Start 03/25/17 at 21:00 Ipratropium [place] (Atrovent) 0.5 mg RTQID NEB Last administered on 03/27/17 07:20; Start 03/25/17 at 16:00 Albuterol Sulfate (Ventolin Neb Soln) 2.5 mg PRN Q4HRS PRN NEB WHEEZING; Start 03/25/17 at 14:00; Stop 03/25/17 at 14:04; Status DC Ipratropium [place] (Atrovent) 0.5 mg PRN Q4HRS PRN NEB SHORTNESS OF BREATH; Start 03/25/17 at 14:15 Losartan Potassium (Cozaar) 50 mg DAILY PO ; Start 03/27/17 at 09:00 Diltiazem HCl (Cardizem 24hr Cd) 120 mg DAILY PO Last administered on 11:38; Start 03/26/17 at 11:00 Rivaroxaban (Xarelto) 20 mg DAILYWSUP PO Last administered on 03/26/17 17:16; Start 03/26/17 at 17:00 Digoxin (Lanoxin) 250 mcg 1X ONCE IV Last administered on 03/26/17 11:41; Start 03/26/17 at 10:45; Stop 03/26/17 at 10:46; Status DC Info (Anti-Coagulation Monitoring By Pharmacy) 1 each PRN DAILY PRN MC SEE COMMENTS; Start 03/26/17 at 10:30 Vancomycin HCl 1 gm/Sodium Chloride 250 ml @ 250 mls/hr 1X ONCE IV ; Start at 09:00; Stop 03/27/17 at 09:59; Status UNV Vancomycin HCl (Vanco Per Pharmacy) 1 each PRN DAILY PRN MC SEE COMMENTS; Start 03/27/17 at 09:00 Vancomycin HCl 2 gm/Sodium Chloride 500 ml @ 250 mls/hr 1X ONCE IV ; Start at 09:00; Stop 03/27/17 at 10:59 Active Scripts Active Reported Omeprazole 20 Mg Capsule. 1 Cap PO DAILY Vitamin D (Cholecalciferol (Vitamin D3)) 2,000 Unit Capsule 1 Cap PO DAILY Fish Oil 1,000 mg Softgel ([place]-3/Dha/Epa/Fish Oil) 1,000 Mg Capsule 1,000 Mg PO DAILY Hydrocodone-Apap 7.5-325 (Hydrocodone Bit/Acetaminophen) 1 Each Tablet 1 Tab PO BID Aspirin Ec (Aspirin) 81 Mg Tablet. 1 Tab PO DAILY Multivitamins (Multivitamin) 1 Each Tablet 1 Tab PO DAILY Xeljanz (Tofacitinib Citrate) 5 Mg Tablet 5 Mg PO BID Valsartan-Hctz 320-25 Mg Tab (Valsartan/Hydrochlorothiazide) 1 Each Tablet 1 Each PO DAILY Meloxicam 15 Mg Tablet 1 Tab PO DAILY Carvedilol 25 Mg Tablet 1 Tab PO BID Tramadol Hcl 50 Mg Tablet 1 Tab PO TID PRN Clopidogrel (Clopidogrel Bisulfate) 75 Mg Tablet 1 Tab PO DAILY Vitals/I & O Vital Sign - Last 24 Hours 03/26/17 03/26/17 03/26/17 03/26/17 10:36 11:23 11:24 11:38 Temp 98.2 98.2 Pulse 98 Resp 18 B/P (MAP) 140/61 (87) Pulse Ox 94 O2 Delivery Room Air Room Air Room Air Room Air 03/26/17 03/26/17 03/26/17 03/26/17 11:38 11:41 15:17 15:41 Temp 103.3 103.3 Pulse 98 98 96 Resp 18 B/P (MAP) 140/61 140/61 163/79 (107) Pulse Ox 94 O2 Delivery Room Air Room Air 03/26/17 03/26/17 03/26/17 03/26/17 19:00 19:15 20:00 20:14 Temp 97.9 97.9 Pulse 78 Resp 20 B/P (MAP) 145/80 (101) Pulse Ox 92 93 93 O2 Delivery Room Air Room Air Room Air Room Air 03/26/17 03/26/17 03/27/17 03/27/17 20:14 23:00 02:22 03:00 Temp 99.3 99.9 99.3 99.9 Pulse 78 89 86 Resp 20 20 B/P (MAP) 145/80 136/56 (82) 128/53 (78) Pulse Ox 91 94 95 O2 Delivery Room Air Nasal Cannula Room Air O2 Flow Rate 2.0 03/27/17 03/27/17 03/27/17 03/27/17 03:22 07:00 07:21 08:15 Temp 98.4 98.4 Pulse 97 Resp 20 B/P (MAP) 144/60 (88) Pulse Ox 95 95 95 O2 Delivery Room Air Room Air Nasal Cannula Nasal Cannula O2 Flow Rate 2.0 2.0 BLAKE GARCIA MD Mar 27, 2017 09:40
[2017-03-27] MEDS ORDERED: IOHEXOL 300 MG/ML 75 ML VIAL IV ONE (09:45)
[2017-03-27] MEDS ORDERED: IOHEXOL 240 MG/ML 50ML VIAL. PO ONE (09:45)
[2017-03-27] MEDS ORDERED: CONTRAST GIVEN MC PRN (09:45)
--- NOTE | 2017-03-27 09:57 | PDOC ---
MONALISA KHAN ICT CUSTOMER SUPPORT OFFICER 03/27/17 0957: CARDIO Progress Notes Date and Time Date of Service 03/27/2017 Time of Evaluation 0950 Subjective Subjective: No Chest Pain, No shortness of breath, No Palpitations, Other (pt sitting up more comfortable today) Vitals Vitals Vital Signs Date Time Temp Pulse Resp B/P (MAP) Pulse Ox O2 Delivery O2 Flow Rate FiO2 03/27/17 08:15 Nasal Cannula 03/27/17 07:21 95 2.0 03/27/17 07:00 98.4 97 20 144/60 (88) 98.4 Weight Weight [ ] Microbiology Micro Microbiology 03/25/17 Blood Culture - Final, Complete 03/25/17 Urine Culture - Preliminary, Resulted 03/25/17 Urine Culture Result 1 (XENIA) - Preliminary, Resulted Physical Exam HEENT: Neck Supple W Full Motion Chest: Symmetric LUNGS: Clear to Auscultation Heart: S1S2, irregularly irregular (AFIB) Abdomen: Soft N/T Extremities: No Edema, No Calf Tenderness Neurology: alert, oriented, follow commands Assessment Assessment 1. New onset AFIB with RVR: remains on AFIB (asymptomatic) but better controlled HR 80-90s. EF and wall motion normal per TTE 2. Fever/wheeze: Tmax overnight 103s 3. Low back pain/lumbar stenosis/radiculopathy 4. Accelerated HTN: controlled 5. CAD: PCI/stent in the past, unknown date but remote. No cardiac symptoms 6. HLP: intolerant to statin. LDL 141 7. 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 May consider praluent or repatha with noted statin intolerance. 2. Continue with cardizem/metoprolol. Plavix and xarelto. No ASA. Replace K 3. Discussed with pt and was expecting cardioversion today. Given that pt still has refractory lower back pain and still having episodes of fever will defer CV 4. Will arrange for [facility] to also note tolerance to AV marisela blocking agents and further evaluate for any tachy bharati issue. Will also consider stress test as an outpt 5. Pending result of [facility]OT and if pacemaker is not warranted then will reevaluate in 3-4 weeks for cardioversion unless pt converts to SR. ANNA LENZ MD 03/27/17 7823: CARDIO Progress Notes Plan Plan Pt. seen and examined. 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 Rate controlled. On anticoagulation Supportive care for now. Outpt f/u in 2-4 weeks. Will follow along peripherally. MONALISA KHAN APRN Mar 27, 2017 09:57 ANNA LENZ MD Mar 27, 2017 18:13
[2017-03-27] MEDS ORDERED: POTASSIUM CHLORIDE 20 MEQ TABLET.ER. PO ONE ×2 (10:00→16:45)
[2017-03-27] MEDS ORDERED: IOHEXOL 300 MG/ML 75 ML VIAL ONE (10:58)
[2017-03-27] MEDS ORDERED: IOHEXOL 240 MG/ML 50ML VIAL. ONE (10:58)
[2017-03-27 11:00] VITALS: BP 143/74
[2017-03-27] MEDS: MELOXICAM 7.5 MG TABLET PO SCH (11:30)
[2017-03-27] MEDS: CHOLECALCIFEROL (VITAMIN D3) 1,000 UNIT TABLET PO SCH (11:31)
[2017-03-27] MEDS: OMEGA-3 FATTY ACIDS/FISH OIL 1,000 MG CAPSULE. PO SCH (11:31)
[2017-03-27] MEDS: CLOPIDOGREL BISULFATE 75 MG TABLET PO SCH (11:31)
[2017-03-27] MEDS: hydroCHLOROthiazide 25 MG TABLET PO SCH (11:31)
[2017-03-27] MEDS: METOPROLOL TART IMMED RELEASE 50 MG TABLET. PO SCH ×2 (11:34→20:56)
[2017-03-27] MEDS: LOSARTAN POTASSIUM 50 MG TABLET. PO SCH (11:34)
[2017-03-27] MEDS: VANCOMYCIN PER PHARMACY MC PRN (11:41)
--- NOTE | 2017-03-27 11:46 | RAD ---
Indication fever. Assess for occult infection. Axial images through the chest abdomen and pelvis were obtained. Both oral and IV contrast were administered. Approximately 75 cc of Omnipaque 300 was administered intravenously. No prior CT imaging of the chest is available. Note is made of a previous examination of the abdomen and pelvis 12/15/2015. CT chest: Findings. The right lobe of the thyroid is enlarged with some associated mediastinal extension. Additionally there is a suggested 2.5 cm nodule associated with the right lobe of the thyroid. This could be further evaluated with ultrasound. The thoracic aorta is unremarkable. Moderately extensive coronary artery calcification is noted. There is no significant hilar or mediastinal adenopathy. There is some volume loss in the left upper lobe likely reflecting pleural-parenchymal scarring. Similar changes are seen on a plain film examination of the chest 01/03/2016. An acute finding in the chest or dominant soft tissue mass in either lung is not seen. There are degenerative changes about the shoulders. CT abdomen and pelvis: Findings. There is a small ventral abdominal wall hernia containing only fat and appears uncomplicated. The liver appears essentially unremarkable. There is likely a small flash hemangioma in the right lobe. This is suggested on the previous exam. The spleen appears unremarkable. There is cholelithiasis. Tiny hiatus hernia is noted. No pancreatic abnormality is seen. There are no adrenal masses. There are small bilateral renal cysts. An acute finding in the abdomen is not seen. In the pelvis occasional diverticula are seen associated with the large bowel. These are most numerous in the sigmoid colon. Active inflammation is is not seen. Acute finding in the pelvis is not apparent. Degenerative changes are noted in the lumbar spine IMPRESSION: No acute finding seen in the chest, abdomen or pelvis. Chronic pleural parenchymal changes in the left upper lobe Enlargement of the right lobe of the thyroid. There is a 2.5 cm nodule additionally noted in the right lobe. PQRS Compliance Statement: One or more of the following individualized dose reduction techniques were utilized for this examination: 1. Automated exposure control 2. Adjustment of the mA and/or kV according to patient size 3. Use of iterative reconstruction technique
[2017-03-27] MEDS: MULTIVITAMIN with MINERAL TABLET. PO SCH (11:51)
--- NOTE | 2017-03-27 12:20 | CONS ---
DATE OF CONSULTATION: 03/27/2017 REQUESTING PHYSICIAN: Dr. Shashi Sharma. REASON FOR CONSULTATION: Blood culture positive. HISTORY OF PRESENT ILLNESS: This is a 72-year-old female who has multiple medical problems including obesity who suddenly started having severe low back pain on Saturday. She says off and on she has back pain, but nothing like this. She came in. She did not have any fever at home, but she was noted to have 103 fever here. The patient had blood culture done, is now positive. The patient is started on vancomycin and consult has been requested. The patient did have leukocytosis. The patient had chest x-ray, which was unremarkable. Lumbar spine CT, which was not showing any acute changes. The patient did get SI joint steroid injection by Dr. Nelson. The patient denies any nausea, vomiting, diarrhea. Denies any chest pain, shortness of breath, abdominal pain. Back pain is a little bit better, she says. PAST MEDICAL HISTORY: Positive for rheumatoid arthritis. The patient is immunosuppressed by ____ that she is taking. The patient also has coronary artery disease, morbid obesity, diabetes mellitus, hypertension, cholelithiasis, bilateral knee replacement done. The patient had surgery for bladder prolapse, hysterectomy and oophorectomy done. SOCIAL HISTORY: Negative for smoking, alcohol, or illicit drug use. ALLERGIES: SHE IS ALLERGIC TO AMLODIPINE, ATORVASTATIN, CIPROFLOXACIN, EZETIMIBE, LISINOPRIL, METFORMIN, METHOTREXATE AND PRAVASTATIN. CURRENT MEDICATIONS: Reviewed. The patient is on vancomycin. REVIEW OF SYSTEMS: As per HPI, all other systems reviewed are negative. PHYSICAL EXAMINATION: GENERAL: Alert, oriented female, not in distress. VITAL SIGNS: Stable. Temperatures have improved from 103.3. HEENT: NAD. NECK: Supple, no JVP, no lymphadenopathy. LUNGS: Clear. HEART: S1, S2 regular. ABDOMEN: Benign. EXTREMITIES: No edema, cyanosis. SKIN: Unremarkable. NEUROLOGIC: The patient is neurologically intact. LABORATORY DATA: White count is 15,000. BUN and creatinine is normal. Urinalysis unremarkable. Blood culture is positive with tiny gram-positive cocci 3 out of 4 bottles. Further ID is pending. IMPRESSION: 1. Blood culture positive with tiny gram-positive cocci, identification pending. Origin is unclear. 2. Fever. 3. Leukocytosis. 4. Rheumatoid arthritis, on immunosuppression. 5. Diabetes. 6. Hypertension. 7. Obesity. 8. Coronary artery disease. 9. Severe back pain. RECOMMENDATIONS: I would continue vancomycin for the time being. Once the identification of the organism is known, we will adjust and will further workup to see where this is coming from. The patient clearly with blood culture positive and back pain is concerning for diskitis. It has not shown yet with lumbar spine CT. We will also get chest CT and continue to follow. Thank you very much, Dr. Sharma, for giving me the opportunity to participate in this patient's care. SELINA CORTES MD DR: ASTRID/jason JOB#: [id number] / [id number]
[2017-03-27] MEDS: ANTI-COAG MONITOR BY PHARMACY. MC PRN (12:55)
[2017-03-27 15:00] VITALS: BP 135/74
--- NOTE | 2017-03-27 16:40 | PDOC ---
PROGRESS NOTES Subjective Subjective seen earlier today. blood cultures positive for small GPC. . started iv vancomycin. has leukocytosis and fever. temp 103.3 yesterday and was not notified. low grade fever today. still in a fibe with controlled VR. still has low back pain but better.,ct scan of abdomenand plevis and chest negative for infection. has thyroid nodule right lobe. 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 Fever 3. Hypertension. 4. Coronary artery disease. 5. Rheumatoid arthritis. 6. Elevated liver function tests. 7. Cholelithiasis. paroxysmal atrial fibrillation fatty liver GPC small cocci bacteremia leukocytosis nodule right thyroid lobe Medical Problems: (1) Low back pain Status: Acute Plan Plan of Care continue iv vancomycin await final blood culture results continue xarelto and metoprolol and diltiazem continue analgesics continue PT lab tomorrow kcl today novolog insulin sliding scale Comment Review of Relevant I have reviewed the following items russell (where applicable) has been applied. Labs Laboratory Tests Test 03/26/17 09:30 White Blood Count 15.3 x10^3/uL (4.0-11.0) Red Blood Count 4.03 x10^6/uL (3.50-5.40) Hemoglobin 12.9 g/dL (12.0-15.5) Hematocrit 37.2 % (36.0-47.0) Mean Corpuscular Volume 92 fL (79-100) Mean Corpuscular Hemoglobin 32 pg (25-35) Mean Corpuscular Hemoglobin Concent 35 g/dL (31-37) Red Cell Distribution Width 13.3 % (11.5-14.5) Platelet Count 218 x10^3/uL (140-400) Neutrophils (%) (Auto) 93 % (31-73) Lymphocytes (%) (Auto) 3 % (24-48) Monocytes (%) (Auto) 5 % (0-9) Eosinophils (%) (Auto) 0 % (0-3) Basophils (%) (Auto) 0 % (0-3) Neutrophils # (Auto) 14.2 x10^3uL (1.8-7.7) Lymphocytes # (Auto) 0.4 x10^3/uL (1.0-4.8) Monocytes # (Auto) 0.7 x10^3/uL (0.0-1.1) Eosinophils # (Auto) 0.0 x10^3/uL (0.0-0.7) Basophils # (Auto) 0.0 x10^3/uL (0.0-0.2) Segmented Neutrophils % 79 % (35-66) Band Neutrophils % 14 % (0-9) Lymphocytes % 4 % (24-48) Monocytes % 3 % (0-10) Platelet Estimate Adequate (ADEQUATE) Prothrombin Time 14.5 SEC (11.7-14.0) Prothromb Time International Ratio 1.2 (0.8-1.1) Sodium Level 131 mmol/L (136-145) Potassium Level 3.4 mmol/L (3.5-5.1) Chloride Level 93 mmol/L (98-107) Carbon Dioxide Level 27 mmol/L (21-32) Anion Gap 11 (6-14) Blood Urea Nitrogen 23 mg/dL (7-20) Creatinine 0.9 mg/dL (0.6-1.0) Estimated GFR (Cockcroft-Gault) 61.2 BUN/Creatinine Ratio 26 (6-20) Glucose Level 230 mg/dL (70-99) Calcium Level 9.3 mg/dL (8.5-10.1) Total Bilirubin 1.8 mg/dL (0.2-1.0) Aspartate Amino Transf (AST/SGOT) 45 U/L (15-37) Alanine Aminotransferase (ALT/SGPT) 59 U/L (14-59) Alkaline Phosphatase 80 U/L (46-116) Total Protein 6.6 g/dL (6.4-8.2) Albumin 3.0 g/dL (3.4-5.0) Albumin/Globulin Ratio 0.8 (1.0-1.7) Triglycerides Level 159 mg/dL (0-150) Cholesterol Level 212 mg/dL (0-200) LDL Cholesterol, Calculated 140 mg/dL (0-100) VLDL Cholesterol, Calculated 32 mg/dL (0-40) Non-HDL Cholesterol Calculated 172 mg/dL (0-129) HDL Cholesterol 40 mg/dL (40-60) Cholesterol/HDL Ratio 5.3 Microbiology 03/25/17 Blood Culture - Final, Complete 03/25/17 Urine Culture - Final, Complete 03/25/17 Urine Culture Result 1 (XENIA) - Final, Complete Medications Current Medications Carvedilol (Coreg) 25 mg 1X ONCE PO Last administered on 03/24/17 20:41; Start 03/24/17 at 20:15; Stop 03/24/17 at 20:18; Status DC Clopidogrel Bisulfate (Plavix) 75 mg 1X ONCE PO Last administered on 20:39; Start 03/24/17 at 20:15; Stop 03/24/17 at 20:18; Status DC Losartan Potassium (Cozaar) 100 mg 1X ONCE PO Last administered on 03/24/17 20:39; Start 03/24/17 at 20:15; Stop 03/24/17 at 20:18; Status DC Hydrochlorothiazide (Hydrodiuril) 25 mg 1X ONCE PO Last administered on 20:41; Start 03/24/17 at 20:18; Stop 03/24/17 at 20:19; Status DC Morphine Sulfate 5 mg 1X ONCE IM Last administered on 03/24/17 20:41; Start 03/24/17 at 20:15; Stop 03/24/17 at 20:18; Status DC Fentanyl Citrate (Fentanyl 2ml Vial) 50 mcg PRN Q15MIN PRN IV PAIN GREATER THAN 3/10 Last administered on 03/24/17 23:30; Start 03/24/17 at 23:00; Stop at 00:00; Status DC Ondansetron HCl (Zofran) 4 mg PRN Q8HRS PRN IV NAUSEA/VOMITING; Start 03/24/17 at 23:00; Stop 03/25/17 at 22:59; Status DC Hydralazine HCl (Apresoline) 25 mg PRN TID PRN PO BP OVER 160; Start 03/24/17 at 23:00 Fentanyl Citrate (Fentanyl 2ml Vial) 50 mcg PRN Q2HR PRN IV SEVERE PAIN Last administered on 03/25/17 08:19; Start 03/24/17 at 23:30; Stop 03/25/17 at 08:46 ; Status DC Aspirin (Ecotrin) 81 mg DAILY PO Last administered on 03/26/17 08:28; Start at 09:00; Stop 03/26/17 at 10:25; Status DC Clopidogrel Bisulfate (Plavix) 75 mg DAILY PO Last administered on 03/27/17 11 :31; Start 03/25/17 at 09:00 Acetaminophen/ Hydrocodone Bitart (Lortab 7.5/325) 1 tab BID PO Last administered on 03/25/17 08:18; Start 03/25/17 at 09:00; Stop 03/25/17 at 09:00 ; Status DC Tramadol HCl (Ultram) 50 mg PRN TID PRN PO MODERATE PAIN; Start 03/25/17 at 06: 15; Stop 03/25/17 at 08:46; Status DC Carvedilol (Coreg) 25 mg BIDWMEALS PO Last administered on 03/25/17 08:18; Start 03/25/17 at 08:00; Stop 03/25/17 at 12:23; Status DC Vitamin D (Vitamin D3) 2,000 unit DAILY PO Last administered on 03/27/17 11:31 ; Start 03/25/17 at 09:00 Meloxicam (Mobic) 15 mg DAILY PO Last administered on 03/27/17 11:30; Start at 09:00 Multivitamins (Thera M Plus) 1 tab DAILY PO Last administered on 03/27/17 11: 51; Start 03/25/17 at 09:00 Fish Oil (Fish Oil) 1,000 mg DAILY PO Last administered on 03/27/17 11:31; Start 03/25/17 at 09:00 Non-Formulary Medication 5 mg BID PO ; Start 03/25/17 at 09:00; Status UNV Losartan Potassium (Cozaar) 100 mg DAILY PO Last administered on 03/26/17 08: 22; Start 03/25/17 at 09:00; Stop 03/26/17 at 10:25; Status DC Hydrochlorothiazide (Hydrodiuril) 25 mg DAILY PO Last administered on 11:31; Start 03/25/17 at 09:00 Fentanyl Citrate (Fentanyl 2ml Vial) 25 mcg PRN Q4HRS PRN IV SEVERE PAIN Last administered on 03/27/17 08:15; Start 03/25/17 at 08:45 Lidocaine (Lidoderm) 1 patch DAILY TD Last administered on 03/27/17 08:15; Start 03/25/17 at 09:00 Cyclobenzaprine HCl (Flexeril) 10 mg PRN TID PRN PO MUSCLE SPASMS Last administered on 03/26/17 08:27; Start 03/25/17 at 08:45 Oxycodone HCl (Roxicodone) 5 mg PRN Q6HRS PRN PO PAIN Last administered on 03/27 11:30; Start 03/25/17 at 08:45 Acetaminophen (Tylenol) 325 mg PRN Q4HRS PRN PO MILD PAIN / TEMP Last administered on 03/26/17 15:07; Start 03/25/17 at 08:45 Iohexol (Omnipaque 300 Mg/ml) 75 ml 1X ONCE IV Last administered on 03/25/17 11:43; Start 03/25/17 at 09:00; Stop 03/25/17 at 09:22; Status DC Info (Do NOT chart on this entry -- for MONITORING) 1 each PRN DAILY PRN MC SEE COMMENTS; Start 03/25/17 at 09:30; Stop 03/27/17 at 09:29; Status DC Methylprednisolone Acetate (DEPO-Medrol 40MG VIAL) 40 mg 1X ONCE IM ; Start at 10:00; Stop 03/25/17 at 10:02; Status DC Bupivacaine HCl (Sensorcaine-Mpf 0.25%) 10 ml 1X ONCE IJ ; Start 03/25/17 at 10 :00; Stop 03/25/17 at 10:02; Status DC Digoxin (Lanoxin) 500 mcg 1X ONCE IV Last administered on 03/25/17 12:40; Start 03/25/17 at 12:15; Stop 03/25/17 at 12:32; Status DC Metoprolol Tartrate (Lopressor) 100 mg BID PO Last administered on 03/27/17 11 :34; Start 03/25/17 at 21:00 Ipratropium [place] (Atrovent) 0.5 mg RTQID NEB Last administered on 03/27/17 14:47; Start 03/25/17 at 16:00 Albuterol Sulfate (Ventolin Neb Soln) 2.5 mg PRN Q4HRS PRN NEB WHEEZING; Start 03/25/17 at 14:00; Stop 03/25/17 at 14:04; Status DC Ipratropium [place] (Atrovent) 0.5 mg PRN Q4HRS PRN NEB SHORTNESS OF BREATH; Start 03/25/17 at 14:15 Losartan Potassium (Cozaar) 50 mg DAILY PO Last administered on 03/27/17 11:34 ; Start 03/27/17 at 09:00 Diltiazem HCl (Cardizem 24hr Cd) 120 mg DAILY PO Last administered on 11:29; Start 03/26/17 at 11:00 Rivaroxaban (Xarelto) 20 mg DAILYWSUP PO Last administered on 03/26/17 17:16; Start 03/26/17 at 17:00 Digoxin (Lanoxin) 250 mcg 1X ONCE IV Last administered on 03/26/17 11:41; Start 03/26/17 at 10:45; Stop 03/26/17 at 10:46; Status DC Info (Anti-Coagulation Monitoring By Pharmacy) 1 each PRN DAILY PRN MC SEE COMMENTS Last administered on 03/27/17 12:55; Start 03/26/17 at 10:30 Vancomycin HCl 1 gm/Sodium Chloride 250 ml @ 250 mls/hr 1X ONCE IV ; Start at 09:00; Stop 03/27/17 at 09:59; Status UNV Vancomycin HCl (Vanco Per Pharmacy) 1 each PRN DAILY PRN MC SEE COMMENTS Last administered on 03/27/17 11:41; Start 03/27/17 at 09:00 Vancomycin HCl 2 gm/Sodium Chloride 500 ml @ 250 mls/hr 1X ONCE IV Last administered on 03/27/17 11:35; Start 03/27/17 at 09:00; Stop 03/27/17 at 10:59 ; Status DC Iohexol (Omnipaque 240 Mg/ml) 30 ml 1X ONCE PO Last administered on 03/27/17 11:08; Start 03/27/17 at 09:45; Stop 03/27/17 at 09:46; Status DC Iohexol (Omnipaque 300 Mg/ml) 75 ml 1X ONCE IV Last administered on 03/27/17 09:45; Start 03/27/17 at 09:45; Stop 03/27/17 at 09:46; Status DC Info (Do NOT chart on this entry -- for MONITORING) 1 each PRN DAILY PRN MC SEE COMMENTS; Start 03/27/17 at 09:45; Stop 03/29/17 at 09:44 Potassium Chloride (Klor-Con) 20 meq 1X ONCE PO Last administered on 11:31; Start 03/27/17 at 10:00; Stop 03/27/17 at 10:01; Status DC Iohexol (Omnipaque 240 Mg/ml) 50 ml STK-MED ONCE .ROUTE ; Start 03/27/17 at 10: 58; Stop 03/27/17 at 10:59; Status DC Iohexol (Omnipaque 300 Mg/ml) 75 ml STK-MED ONCE .ROUTE ; Start 03/27/17 at 10: 58; Stop 03/27/17 at 10:59; Status DC Vancomycin HCl 1.75 gm/Sodium Chloride 500 ml @ 250 mls/hr Q24H IV ; Start at 11:00 Vancomycin HCl 1 each 1X ONCE MC ; Start 03/29/17 at 10:30; Stop 03/29/17 at 10 :31 Active Scripts Active Reported Omeprazole 20 Mg Capsule. 1 Cap PO DAILY Vitamin D (Cholecalciferol (Vitamin D3)) 2,000 Unit Capsule 1 Cap PO DAILY Fish Oil 1,000 mg Softgel ([place]-3/Dha/Epa/Fish Oil) 1,000 Mg Capsule 1,000 Mg PO DAILY Hydrocodone-Apap 7.5-325 (Hydrocodone Bit/Acetaminophen) 1 Each Tablet 1 Tab PO BID Aspirin Ec (Aspirin) 81 Mg Tablet. 1 Tab PO DAILY Multivitamins (Multivitamin) 1 Each Tablet 1 Tab PO DAILY Xeljanz (Tofacitinib Citrate) 5 Mg Tablet 5 Mg PO BID Valsartan-Hctz 320-25 Mg Tab (Valsartan/Hydrochlorothiazide) 1 Each Tablet 1 Each PO DAILY Meloxicam 15 Mg Tablet 1 Tab PO DAILY Carvedilol 25 Mg Tablet 1 Tab PO BID Tramadol Hcl 50 Mg Tablet 1 Tab PO TID PRN Clopidogrel (Clopidogrel Bisulfate) 75 Mg Tablet 1 Tab PO DAILY Vitals/I & O Vital Sign - Last 24 Hours 03/26/17 03/26/17 03/26/17 03/26/17 19:00 19:15 20:00 20:14 Temp 97.9 97.9 Pulse 78 Resp 20 B/P (MAP) 145/80 (101) Pulse Ox 92 93 93 O2 Delivery Room Air Room Air Room Air Room Air 03/26/17 03/26/17 03/27/17 03/27/17 20:14 23:00 02:22 03:00 Temp 99.3 99.9 99.3 99.9 Pulse 78 89 86 Resp 20 20 B/P (MAP) 145/80 136/56 (82) 128/53 (78) Pulse Ox 91 94 95 O2 Delivery Room Air Nasal Cannula Room Air O2 Flow Rate 2.0 03/27/17 03/27/17 03/27/17 03/27/17 03:22 07:00 07:21 08:00 Temp 98.4 98.4 Pulse 97 Resp 20 B/P (MAP) 144/60 (88) Pulse Ox 95 95 95 O2 Delivery Room Air Nasal Cannula Room Air O2 Flow Rate 2.0 2.0 2.0 03/27/17 03/27/17 03/27/17 03/27/17 08:15 10:40 11:00 11:29 Temp 99.7 99.7 Pulse 98 98 Resp 20 B/P (MAP) 143/74 (97) 143/74 Pulse Ox 95 94 O2 Delivery Nasal Cannula Room Air Room Air O2 Flow Rate 2.0 03/27/17 03/27/17 03/27/17 03/27/17 11:30 11:34 11:34 11:41 Pulse 98 98 B/P (MAP) 143/74 143/74 Pulse Ox 95 O2 Delivery Room Air Room Air 03/27/17 03/27/17 12:30 14:48 O2 Delivery Room Air Room Air Intake and Output 03/27/17 03/27/17 03/28/17 15:00 23:00 07:00 Intake Total 240 ml Balance 240 ml ALVARO YEN MD Mar 27, 2017 16:40
[2017-03-27] MEDS: RIVAROXABAN 10 MG TABLET. PO SCH (17:28)
[2017-03-27] MEDS: INSULIN ASPART 300 UNITS/3 ML INSULN.PEN SQ SCH (17:33)
[2017-03-27 19:15] VITALS: BP 151/83
[2017-03-27 23:09] VITALS: BP 154/59
[2017-03-28 03:00] VITALS: BP 144/66
[2017-03-28] MEDS: oxyCODONE IR 5 MG TABLET PO PRN ×4 (03:55→23:21)
[2017-03-28 07:00] VITALS: BP 161/97
[2017-03-28] MEDS: IPRATROPIUM BROMIDE 0.5 MG/2.5 ML NEBU. NEB SCH ×4 (07:19→19:11)
[2017-03-28] MEDS: LOSARTAN POTASSIUM 50 MG TABLET. PO SCH (08:21)
[2017-03-28] MEDS: CHOLECALCIFEROL (VITAMIN D3) 1,000 UNIT TABLET PO SCH (08:21)
[2017-03-28] MEDS: OMEGA-3 FATTY ACIDS/FISH OIL 1,000 MG CAPSULE. PO SCH (08:21)
[2017-03-28] MEDS: hydroCHLOROthiazide 25 MG TABLET PO SCH (08:21)
[2017-03-28] MEDS: MULTIVITAMIN with MINERAL TABLET. PO SCH (08:21)
[2017-03-28] MEDS: METOPROLOL TART IMMED RELEASE 50 MG TABLET. PO SCH ×2 (08:22→19:56)
[2017-03-28] MEDS: CLOPIDOGREL BISULFATE 75 MG TABLET PO SCH (08:22)
[2017-03-28] MEDS: MELOXICAM 7.5 MG TABLET PO SCH (08:22)
[2017-03-28] MEDS: LIDOCAINE (700MG/PATCH) PATCH. TD SCH (08:23)
[2017-03-28] MEDS: INSULIN ASPART 300 UNITS/3 ML INSULN.PEN SQ SCH ×3 (08:32→16:30)
[2017-03-28 08:34] LABS: BASO % 0 % (0-3); EOS % 1 % (0-3); HEMATOCRIT 35.4 % (36.0-47.0); HEMOGLOBIN 12.4 g/dL (12.0-15.5); LYMPH # 0.6 x10^3/uL (1.0-4.8); LYMPH % 4 % (24-48); MEAN CORPUSCULAR HEMOGLOBIN 32 pg (25-35); MEAN CORPUSCULAR HGB CONC 35 g/dL (31-37); MEAN CORPUSCULAR VOLUME 90 fL (79-100); MONO % 8 % (0-9); NEUT % 87 % (31-73); PLATELET COUNT 257 x10^3/uL (140-400); RED BLOOD COUNT 3.93 x10^6/uL (3.50-5.40); RED CELL DISTRIBUTION WIDTH 13.5 % (11.5-14.5); WHITE BLOOD COUNT 15.9 x10^3/uL (4.0-11.0)
[2017-03-28 08:39] LABS: CALCIUM 8.8 mg/dL (8.5-10.1); CREATININE 0.8 mg/dL (0.6-1.0); GFR 70.1
[2017-03-28] MEDS: TOFACITINIB CITRATE 5 MG PO SCH (09:00)
--- NOTE | 2017-03-28 09:31 | PDOC ---
PROGRESS NOTES Subjective Subjective She admits continued low back pain and would like to have injection to her left side of her low back. Objective Objective Vital Signs Date Time Temp Pulse Resp B/P (MAP) Pulse Ox O2 Delivery O2 Flow Rate FiO2 03/28/17 08:23 96 144/66 03/28/17 08:00 Room Air 2.0 03/28/17 07:25 98 03/28/17 07:00 98.1 18 98.1 Physical Exam Physical Exam She is comfortable sitting in bedside chair and does not like to wear back brace as it is too tight and squeezes. Assessment Assessment Problems Medical Problems: (1) Low back pain Status: Acute Plan Plan of Care To hold off injection at this time,as she had bacteremia. Comment Review of Relevant I have reviewed the following items russell (where applicable) has been applied. Labs Laboratory Tests Test 03/26/17 09:30 03/27/17 17:09 03/27/17 20:48 03/28/17 07:07 White Blood Count 15.3 x10^3/uL (4.0-11.0) Red Blood Count 4.03 x10^6/uL (3.50-5.40) Hemoglobin 12.9 g/dL (12.0-15.5) Hematocrit 37.2 % (36.0-47.0) Mean Corpuscular Volume 92 fL (79-100) Mean Corpuscular Hemoglobin 32 pg (25-35) Mean Corpuscular Hemoglobin Concent 35 g/dL (31-37) Red Cell Distribution Width 13.3 % (11.5-14.5) Platelet Count 218 x10^3/uL (140-400) Neutrophils (%) (Auto) 93 % (31-73) Lymphocytes (%) (Auto) 3 % (24-48) Monocytes (%) (Auto) 5 % (0-9) Eosinophils (%) (Auto) 0 % (0-3) Basophils (%) (Auto) 0 % (0-3) Neutrophils # (Auto) 14.2 x10^3uL (1.8-7.7) Lymphocytes # (Auto) 0.4 x10^3/uL (1.0-4.8) Monocytes # (Auto) 0.7 x10^3/uL (0.0-1.1) Eosinophils # (Auto) 0.0 x10^3/uL (0.0-0.7) Basophils # (Auto) 0.0 x10^3/uL (0.0-0.2) Segmented Neutrophils % 79 % (35-66) Band Neutrophils % 14 % (0-9) Lymphocytes % 4 % (24-48) Monocytes % 3 % (0-10) Platelet Estimate Adequate (ADEQUATE) Prothrombin Time 14.5 SEC (11.7-14.0) Prothromb Time International Ratio 1.2 (0.8-1.1) Sodium Level 131 mmol/L (136-145) Potassium Level 3.4 mmol/L (3.5-5.1) Chloride Level 93 mmol/L (98-107) Carbon Dioxide Level 27 mmol/L (21-32) Anion Gap 11 (6-14) Blood Urea Nitrogen 23 mg/dL (7-20) Creatinine 0.9 mg/dL (0.6-1.0) Estimated GFR (Cockcroft-Gault) 61.2 BUN/Creatinine Ratio 26 (6-20) Glucose Level 230 mg/dL (70-99) Calcium Level 9.3 mg/dL (8.5-10.1) Total Bilirubin 1.8 mg/dL (0.2-1.0) Aspartate Amino Transf (AST/SGOT) 45 U/L (15-37) Alanine Aminotransferase (ALT/SGPT) 59 U/L (14-59) Alkaline Phosphatase 80 U/L (46-116) Total Protein 6.6 g/dL (6.4-8.2) Albumin 3.0 g/dL (3.4-5.0) Albumin/Globulin Ratio 0.8 (1.0-1.7) Triglycerides Level 159 mg/dL (0-150) Cholesterol Level 212 mg/dL (0-200) LDL Cholesterol, Calculated 140 mg/dL (0-100) VLDL Cholesterol, Calculated 32 mg/dL (0-40) Non-HDL Cholesterol Calculated 172 mg/dL (0-129) HDL Cholesterol 40 mg/dL (40-60) Cholesterol/HDL Ratio 5.3 Glucose (Fingerstick) 178 mg/dL (70-99) 190 mg/dL (70-99) 153 mg/dL (70-99) Test 03/28/17 08:10 White Blood Count 15.9 x10^3/uL (4.0-11.0) Red Blood Count 3.93 x10^6/uL (3.50-5.40) Hemoglobin 12.4 g/dL (12.0-15.5) Hematocrit 35.4 % (36.0-47.0) Mean Corpuscular Volume 90 fL (79-100) Mean Corpuscular Hemoglobin 32 pg (25-35) Mean Corpuscular Hemoglobin Concent 35 g/dL (31-37) Red Cell Distribution Width 13.5 % (11.5-14.5) Platelet Count 257 x10^3/uL (140-400) Neutrophils (%) (Auto) 87 % (31-73) Lymphocytes (%) (Auto) 4 % (24-48) Monocytes (%) (Auto) 8 % (0-9) Eosinophils (%) (Auto) 1 % (0-3) Basophils (%) (Auto) 0 % (0-3) Neutrophils # (Auto) 13.8 x10^3uL (1.8-7.7) Lymphocytes # (Auto) 0.6 x10^3/uL (1.0-4.8) Monocytes # (Auto) 1.3 x10^3/uL (0.0-1.1) Eosinophils # (Auto) 0.1 x10^3/uL (0.0-0.7) Basophils # (Auto) 0.0 x10^3/uL (0.0-0.2) Sodium Level 125 mmol/L (136-145) Potassium Level 3.0 mmol/L (3.5-5.1) Chloride Level 89 mmol/L (98-107) Carbon Dioxide Level 27 mmol/L (21-32) Anion Gap 9 (6-14) Blood Urea Nitrogen 18 mg/dL (7-20) Creatinine 0.8 mg/dL (0.6-1.0) Estimated GFR (Cockcroft-Gault) 70.1 Glucose Level 162 mg/dL (70-99) Calcium Level 8.8 mg/dL (8.5-10.1) Laboratory Tests Test 03/27/17 17:09 03/27/17 20:48 03/28/17 07:07 03/28/17 08:10 Glucose (Fingerstick) 178 mg/dL (70-99) 190 mg/dL (70-99) 153 mg/dL (70-99) White Blood Count 15.9 x10^3/uL (4.0-11.0) Red Blood Count 3.93 x10^6/uL (3.50-5.40) Hemoglobin 12.4 g/dL (12.0-15.5) Hematocrit 35.4 % (36.0-47.0) Mean Corpuscular Volume 90 fL (79-100) Mean Corpuscular Hemoglobin 32 pg (25-35) Mean Corpuscular Hemoglobin Concent 35 g/dL (31-37) Red Cell Distribution Width 13.5 % (11.5-14.5) Platelet Count 257 x10^3/uL (140-400) Neutrophils (%) (Auto) 87 % (31-73) Lymphocytes (%) (Auto) 4 % (24-48) Monocytes (%) (Auto) 8 % (0-9) Eosinophils (%) (Auto) 1 % (0-3) Basophils (%) (Auto) 0 % (0-3) Neutrophils # (Auto) 13.8 x10^3uL (1.8-7.7) Lymphocytes # (Auto) 0.6 x10^3/uL (1.0-4.8) Monocytes # (Auto) 1.3 x10^3/uL (0.0-1.1) Eosinophils # (Auto) 0.1 x10^3/uL (0.0-0.7) Basophils # (Auto) 0.0 x10^3/uL (0.0-0.2) Sodium Level 125 mmol/L (136-145) Potassium Level 3.0 mmol/L (3.5-5.1) Chloride Level 89 mmol/L (98-107) Carbon Dioxide Level 27 mmol/L (21-32) Anion Gap 9 (6-14) Blood Urea Nitrogen 18 mg/dL (7-20) Creatinine 0.8 mg/dL (0.6-1.0) Estimated GFR (Cockcroft-Gault) 70.1 Glucose Level 162 mg/dL (70-99) Calcium Level 8.8 mg/dL (8.5-10.1) Microbiology 03/25/17 Blood Culture - Final, Complete 03/25/17 Urine Culture - Final, Complete 03/25/17 Urine Culture Result 1 (XENIA) - Final, Complete Medications Current Medications Carvedilol (Coreg) 25 mg 1X ONCE PO Last administered on 03/24/17 20:41; Start 03/24/17 at 20:15; Stop 03/24/17 at 20:18; Status DC Clopidogrel Bisulfate (Plavix) 75 mg 1X ONCE PO Last administered on 20:39; Start 03/24/17 at 20:15; Stop 03/24/17 at 20:18; Status DC Losartan Potassium (Cozaar) 100 mg 1X ONCE PO Last administered on 03/24/17 20:39; Start 03/24/17 at 20:15; Stop 03/24/17 at 20:18; Status DC Hydrochlorothiazide (Hydrodiuril) 25 mg 1X ONCE PO Last administered on 20:41; Start 03/24/17 at 20:18; Stop 03/24/17 at 20:19; Status DC Morphine Sulfate 5 mg 1X ONCE IM Last administered on 03/24/17 20:41; Start 03/24/17 at 20:15; Stop 03/24/17 at 20:18; Status DC Fentanyl Citrate (Fentanyl 2ml Vial) 50 mcg PRN Q15MIN PRN IV PAIN GREATER THAN 3/10 Last administered on 03/24/17 23:30; Start 03/24/17 at 23:00; Stop at 00:00; Status DC Ondansetron HCl (Zofran) 4 mg PRN Q8HRS PRN IV NAUSEA/VOMITING; Start 03/24/17 at 23:00; Stop 03/25/17 at 22:59; Status DC Hydralazine HCl (Apresoline) 25 mg PRN TID PRN PO BP OVER 160; Start 03/24/17 at 23:00 Fentanyl Citrate (Fentanyl 2ml Vial) 50 mcg PRN Q2HR PRN IV SEVERE PAIN Last administered on 03/25/17 08:19; Start 03/24/17 at 23:30; Stop 03/25/17 at 08:46 ; Status DC Aspirin (Ecotrin) 81 mg DAILY PO Last administered on 03/26/17 08:28; Start at 09:00; Stop 03/26/17 at 10:25; Status DC Clopidogrel Bisulfate (Plavix) 75 mg DAILY PO Last administered on 03/28/17 08 :22; Start 03/25/17 at 09:00 Acetaminophen/ Hydrocodone Bitart (Lortab 7.5/325) 1 tab BID PO Last administered on 03/25/17 08:18; Start 03/25/17 at 09:00; Stop 03/25/17 at 09:00 ; Status DC Tramadol HCl (Ultram) 50 mg PRN TID PRN PO MODERATE PAIN; Start 03/25/17 at 06: 15; Stop 03/25/17 at 08:46; Status DC Carvedilol (Coreg) 25 mg BIDWMEALS PO Last administered on 03/25/17 08:18; Start 03/25/17 at 08:00; Stop 03/25/17 at 12:23; Status DC Vitamin D (Vitamin D3) 2,000 unit DAILY PO Last administered on 03/28/17 08:21 ; Start 03/25/17 at 09:00 Meloxicam (Mobic) 15 mg DAILY PO Last administered on 03/28/17 08:22; Start at 09:00 Multivitamins (Thera M Plus) 1 tab DAILY PO Last administered on 03/28/17 08: 21; Start 03/25/17 at 09:00 Fish Oil (Fish Oil) 1,000 mg DAILY PO Last administered on 03/28/17 08:21; Start 03/25/17 at 09:00 Non-Formulary Medication 5 mg BID PO ; Start 03/25/17 at 09:00; Status UNV Losartan Potassium (Cozaar) 100 mg DAILY PO Last administered on 03/26/17 08: 22; Start 03/25/17 at 09:00; Stop 03/26/17 at 10:25; Status DC Hydrochlorothiazide (Hydrodiuril) 25 mg DAILY PO Last administered on 08:21; Start 03/25/17 at 09:00 Fentanyl Citrate (Fentanyl 2ml Vial) 25 mcg PRN Q4HRS PRN IV SEVERE PAIN Last administered on 03/27/17 08:15; Start 03/25/17 at 08:45 Lidocaine (Lidoderm) 1 patch DAILY TD Last administered on 03/28/17 08:23; Start 03/25/17 at 09:00 Cyclobenzaprine HCl (Flexeril) 10 mg PRN TID PRN PO MUSCLE SPASMS Last administered on 03/26/17 08:27; Start 03/25/17 at 08:45 Oxycodone HCl (Roxicodone) 5 mg PRN Q6HRS PRN PO PAIN Last administered on 03/28 03:55; Start 03/25/17 at 08:45 Acetaminophen (Tylenol) 325 mg PRN Q4HRS PRN PO MILD PAIN / TEMP Last administered on 03/26/17 15:07; Start 03/25/17 at 08:45 Iohexol (Omnipaque 300 Mg/ml) 75 ml 1X ONCE IV Last administered on 03/25/17 11:43; Start 03/25/17 at 09:00; Stop 03/25/17 at 09:22; Status DC Info (Do NOT chart on this entry -- for MONITORING) 1 each PRN DAILY PRN MC SEE COMMENTS; Start 03/25/17 at 09:30; Stop 03/27/17 at 09:29; Status DC Methylprednisolone Acetate (DEPO-Medrol 40MG VIAL) 40 mg 1X ONCE IM ; Start at 10:00; Stop 03/25/17 at 10:02; Status DC Bupivacaine HCl (Sensorcaine-Mpf 0.25%) 10 ml 1X ONCE IJ ; Start 03/25/17 at 10 :00; Stop 03/25/17 at 10:02; Status DC Digoxin (Lanoxin) 500 mcg 1X ONCE IV Last administered on 03/25/17 12:40; Start 03/25/17 at 12:15; Stop 03/25/17 at 12:32; Status DC Metoprolol Tartrate (Lopressor) 100 mg BID PO Last administered on 03/28/17 08 :22; Start 03/25/17 at 21:00 Ipratropium [place] (Atrovent) 0.5 mg RTQID NEB Last administered on 03/28/17 07:19; Start 03/25/17 at 16:00 Albuterol Sulfate (Ventolin Neb Soln) 2.5 mg PRN Q4HRS PRN NEB WHEEZING; Start 03/25/17 at 14:00; Stop 03/25/17 at 14:04; Status DC Ipratropium [place] (Atrovent) 0.5 mg PRN Q4HRS PRN NEB SHORTNESS OF BREATH; Start 03/25/17 at 14:15 Losartan Potassium (Cozaar) 50 mg DAILY PO Last administered on 03/28/17 08:21 ; Start 03/27/17 at 09:00 Diltiazem HCl (Cardizem 24hr Cd) 120 mg DAILY PO Last administered on 08:23; Start 03/26/17 at 11:00 Rivaroxaban (Xarelto) 20 mg DAILYWSUP PO Last administered on 03/27/17 17:28; Start 03/26/17 at 17:00 Digoxin (Lanoxin) 250 mcg 1X ONCE IV Last administered on 03/26/17 11:41; Start 03/26/17 at 10:45; Stop 03/26/17 at 10:46; Status DC Info (Anti-Coagulation Monitoring By Pharmacy) 1 each PRN DAILY PRN MC SEE COMMENTS Last administered on 03/27/17 12:55; Start 03/26/17 at 10:30 Vancomycin HCl 1 gm/Sodium Chloride 250 ml @ 250 mls/hr 1X ONCE IV ; Start at 09:00; Stop 03/27/17 at 09:59; Status UNV Vancomycin HCl (Vanco Per Pharmacy) 1 each PRN DAILY PRN MC SEE COMMENTS Last administered on 03/27/17 11:41; Start 03/27/17 at 09:00 Vancomycin HCl 2 gm/Sodium Chloride 500 ml @ 250 mls/hr 1X ONCE IV Last administered on 03/27/17 11:35; Start 03/27/17 at 09:00; Stop 03/27/17 at 10:59 ; Status DC Iohexol (Omnipaque 240 Mg/ml) 30 ml 1X ONCE PO Last administered on 03/27/17 11:08; Start 03/27/17 at 09:45; Stop 03/27/17 at 09:46; Status DC Iohexol (Omnipaque 300 Mg/ml) 75 ml 1X ONCE IV Last administered on 03/27/17 09:45; Start 03/27/17 at 09:45; Stop 03/27/17 at 09:46; Status DC Info (Do NOT chart on this entry -- for MONITORING) 1 each PRN DAILY PRN MC SEE COMMENTS; Start 03/27/17 at 09:45; Stop 03/29/17 at 09:44 Potassium Chloride (Klor-Con) 20 meq 1X ONCE PO Last administered on 11:31; Start 03/27/17 at 10:00; Stop 03/27/17 at 10:01; Status DC Iohexol (Omnipaque 240 Mg/ml) 50 ml STK-MED ONCE .ROUTE ; Start 03/27/17 at 10: 58; Stop 03/27/17 at 10:59; Status DC Iohexol (Omnipaque 300 Mg/ml) 75 ml STK-MED ONCE .ROUTE ; Start 03/27/17 at 10: 58; Stop 03/27/17 at 10:59; Status DC Vancomycin HCl 1.75 gm/Sodium Chloride 500 ml @ 250 mls/hr Q24H IV ; Start at 11:00 Vancomycin HCl 1 each 1X ONCE MC ; Start 03/29/17 at 10:30; Stop 03/29/17 at 10 :31 Potassium Chloride (Klor-Con) 20 meq 1X ONCE PO Last administered on 17:27; Start 03/27/17 at 16:45; Stop 03/27/17 at 16:46; Status DC Insulin Aspart (NovoLOG) 0-6 UNITS TIDWMEALS SQ Last administered on 03/28/17 08:32; Start 03/27/17 at 17:00 Active Scripts Active Reported Omeprazole 20 Mg Capsule. 1 Cap PO DAILY Vitamin D (Cholecalciferol (Vitamin D3)) 2,000 Unit Capsule 1 Cap PO DAILY Fish Oil 1,000 mg Softgel ([place]-3/Dha/Epa/Fish Oil) 1,000 Mg Capsule 1,000 Mg PO DAILY Hydrocodone-Apap 7.5-325 (Hydrocodone Bit/Acetaminophen) 1 Each Tablet 1 Tab PO BID Aspirin Ec (Aspirin) 81 Mg Tablet. 1 Tab PO DAILY Multivitamins (Multivitamin) 1 Each Tablet 1 Tab PO DAILY Xeljanz (Tofacitinib Citrate) 5 Mg Tablet 5 Mg PO BID Valsartan-Hctz 320-25 Mg Tab (Valsartan/Hydrochlorothiazide) 1 Each Tablet 1 Each PO DAILY Meloxicam 15 Mg Tablet 1 Tab PO DAILY Carvedilol 25 Mg Tablet 1 Tab PO BID Tramadol Hcl 50 Mg Tablet 1 Tab PO TID PRN Clopidogrel (Clopidogrel Bisulfate) 75 Mg Tablet 1 Tab PO DAILY Vitals/I & O Vital Sign - Last 24 Hours 03/27/17 03/27/17 03/27/17 03/27/17 10:40 11:00 11:29 11:30 Temp 99.7 99.7 Pulse 98 98 Resp 20 B/P (MAP) 143/74 (97) 143/74 Pulse Ox 95 94 O2 Delivery Room Air Room Air Room Air O2 Flow Rate 2.0 03/27/17 03/27/17 03/27/17 03/27/17 11:34 11:34 11:41 14:48 Pulse 98 98 B/P (MAP) 143/74 143/74 Pulse Ox 95 O2 Delivery Room Air Room Air 03/27/17 03/27/17 03/27/17 03/27/17 15:00 19:15 19:32 20:00 Temp 99.7 98.6 99.7 98.6 Pulse 80 109 Resp 20 16 B/P (MAP) 135/74 (94) 151/83 (105) Pulse Ox 94 91 O2 Delivery Room Air Room Air Room Air Room Air 03/27/17 03/27/17 03/27/17 03/28/17 20:56 20:56 23:09 03:00 Temp 99.1 98.7 99.1 98.7 Pulse 109 104 96 Resp 16 16 B/P (MAP) 151/83 154/59 (90) 144/66 (92) Pulse Ox 93 94 91 O2 Delivery Room Air Room Air Room Air 03/28/17 03/28/17 03/28/17 03/28/17 03:55 05:00 07:00 07:25 Temp 98.1 98.1 Pulse 90 Resp 18 B/P (MAP) 161/97 (118) Pulse Ox 93 93 92 98 O2 Delivery Room Air Room Air Room Air Room Air 03/28/17 03/28/17 03/28/17 03/28/17 08:00 08:21 08:22 08:23 Pulse 96 96 96 B/P (MAP) 144/66 144/66 144/66 O2 Delivery Room Air O2 Flow Rate 2.0 BLAKE GARCIA MD Mar 28, 2017 09:31
--- NOTE | 2017-03-28 09:53 | PDOC ---
Infectious Disease Note Subjective Subjective pt feeling better, back pain is better ROS ROS GEN: Denies fevers, chills, sweats HEENT: Denies blurred vision, sore throat CV: Denies chest pain RESP: Denies shortness of air, cough GI: Denies n/v/d NEURO: Denies confusion, dizziness MSK: Denies weakness, joint pain/swelling Vital Sign Vital Signs Vital Signs Date Time Temp Pulse Resp B/P (MAP) Pulse Ox O2 Delivery O2 Flow Rate FiO2 03/28/17 09:42 98 Room Air 2.0 03/28/17 08:23 96 144/66 03/28/17 07:00 98.1 18 98.1 Physical Exam PHYSICAL EXAM GENERAL: NAD, Alert HEENT: PERRL, OC/OP NECK: Supple, no JVD, no LN LUNGS: Clear HEART: S1S2, no gallop, no murmur ABD: Soft, NT, no organomegaly, no rebound EXT: No edema, no cyanosis 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, 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, no focal neurologic deficit SKIN: No rash IV: ok Labs Lab Laboratory Tests Test 03/27/17 17:09 03/27/17 20:48 03/28/17 07:07 03/28/17 08:10 Glucose (Fingerstick) 178 mg/dL (70-99) 190 mg/dL (70-99) 153 mg/dL (70-99) White Blood Count 15.9 x10^3/uL (4.0-11.0) Red Blood Count 3.93 x10^6/uL (3.50-5.40) Hemoglobin 12.4 g/dL (12.0-15.5) Hematocrit 35.4 % (36.0-47.0) Mean Corpuscular Volume 90 fL (79-100) Mean Corpuscular Hemoglobin 32 pg (25-35) Mean Corpuscular Hemoglobin Concent 35 g/dL (31-37) Red Cell Distribution Width 13.5 % (11.5-14.5) Platelet Count 257 x10^3/uL (140-400) Neutrophils (%) (Auto) 87 % (31-73) Lymphocytes (%) (Auto) 4 % (24-48) Monocytes (%) (Auto) 8 % (0-9) Eosinophils (%) (Auto) 1 % (0-3) Basophils (%) (Auto) 0 % (0-3) Neutrophils # (Auto) 13.8 x10^3uL (1.8-7.7) Lymphocytes # (Auto) 0.6 x10^3/uL (1.0-4.8) Monocytes # (Auto) 1.3 x10^3/uL (0.0-1.1) Eosinophils # (Auto) 0.1 x10^3/uL (0.0-0.7) Basophils # (Auto) 0.0 x10^3/uL (0.0-0.2) Sodium Level 125 mmol/L (136-145) Potassium Level 3.0 mmol/L (3.5-5.1) Chloride Level 89 mmol/L (98-107) Carbon Dioxide Level 27 mmol/L (21-32) Anion Gap 9 (6-14) Blood Urea Nitrogen 18 mg/dL (7-20) Creatinine 0.8 mg/dL (0.6-1.0) Estimated GFR (Cockcroft-Gault) 70.1 Glucose Level 162 mg/dL (70-99) Calcium Level 8.8 mg/dL (8.5-10.1) Micro BLOOD CULTURE Final TINY GRAM POSITIVE COCCI IN 3 OF 4 BOTTLES OF 2 SETS DRAWN. CALLED TO JOEY BAUTISTA ON 5N 03/27/17 AT 0835 BY Kirk INIGUEZ. CULTURES HAVE BEEN SENT TO [facility] FOR FURTHER IDENTIFICATION. Objective Assessment BC + G + cocci , id pending Fever Back pain RA Plan Plan of Care vancomycin for now will check culture final results and adjust further workup to see where this is coming from pt is immunosuppressed ct neg SELINA CORTES MD Mar 28, 2017 09:53
[2017-03-28 11:00] VITALS: BP 174/72
--- NOTE | 2017-03-28 11:03 | PDOC ---
PROGRESS NOTES Subjective Subjective low back pain improved . walked with PT. lab reviewed. serum sodium 125 and potassium 3.0. bun and creatinine okay. will d/c hctz and mobic and place on fluid restriction and order osmolality studies. ldl 140 but has statin intolerance. 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 better 2. Fever. better 3. Hypertension. 4. Coronary artery disease. 5. Rheumatoid arthritis. 6. Elevated liver function tests. 7. Cholelithiasis. new onset atrial fibrillation fatty liver GPC small cocci bacteremia leukocytosis nodule right thyroid lobe hyponatremia hypokalemia Medical Problems: (1) Low back pain Status: Acute Plan Plan of Care replete kcl oral fluid restriction 1200 cc serum and urine osmolality and random urine sodium d/c hctz d/c meloxicam lab tomorrow PT await final blood cultures continue iv vancomycin continue xarelto and metoprolol and diltiazem Comment Review of Relevant I have reviewed the following items russell (where applicable) has been applied. Labs Laboratory Tests Test 03/27/17 17:09 03/27/17 20:48 03/28/17 07:07 03/28/17 08:10 Glucose (Fingerstick) 178 mg/dL (70-99) 190 mg/dL (70-99) 153 mg/dL (70-99) White Blood Count 15.9 x10^3/uL (4.0-11.0) Red Blood Count 3.93 x10^6/uL (3.50-5.40) Hemoglobin 12.4 g/dL (12.0-15.5) Hematocrit 35.4 % (36.0-47.0) Mean Corpuscular Volume 90 fL (79-100) Mean Corpuscular Hemoglobin 32 pg (25-35) Mean Corpuscular Hemoglobin Concent 35 g/dL (31-37) Red Cell Distribution Width 13.5 % (11.5-14.5) Platelet Count 257 x10^3/uL (140-400) Neutrophils (%) (Auto) 87 % (31-73) Lymphocytes (%) (Auto) 4 % (24-48) Monocytes (%) (Auto) 8 % (0-9) Eosinophils (%) (Auto) 1 % (0-3) Basophils (%) (Auto) 0 % (0-3) Neutrophils # (Auto) 13.8 x10^3uL (1.8-7.7) Lymphocytes # (Auto) 0.6 x10^3/uL (1.0-4.8) Monocytes # (Auto) 1.3 x10^3/uL (0.0-1.1) Eosinophils # (Auto) 0.1 x10^3/uL (0.0-0.7) Basophils # (Auto) 0.0 x10^3/uL (0.0-0.2) Sodium Level 125 mmol/L (136-145) Potassium Level 3.0 mmol/L (3.5-5.1) Chloride Level 89 mmol/L (98-107) Carbon Dioxide Level 27 mmol/L (21-32) Anion Gap 9 (6-14) Blood Urea Nitrogen 18 mg/dL (7-20) Creatinine 0.8 mg/dL (0.6-1.0) Estimated GFR (Cockcroft-Gault) 70.1 Glucose Level 162 mg/dL (70-99) Calcium Level 8.8 mg/dL (8.5-10.1) Laboratory Tests Test 03/27/17 17:09 03/27/17 20:48 03/28/17 07:07 03/28/17 08:10 Glucose (Fingerstick) 178 mg/dL (70-99) 190 mg/dL (70-99) 153 mg/dL (70-99) White Blood Count 15.9 x10^3/uL (4.0-11.0) Red Blood Count 3.93 x10^6/uL (3.50-5.40) Hemoglobin 12.4 g/dL (12.0-15.5) Hematocrit 35.4 % (36.0-47.0) Mean Corpuscular Volume 90 fL (79-100) Mean Corpuscular Hemoglobin 32 pg (25-35) Mean Corpuscular Hemoglobin Concent 35 g/dL (31-37) Red Cell Distribution Width 13.5 % (11.5-14.5) Platelet Count 257 x10^3/uL (140-400) Neutrophils (%) (Auto) 87 % (31-73) Lymphocytes (%) (Auto) 4 % (24-48) Monocytes (%) (Auto) 8 % (0-9) Eosinophils (%) (Auto) 1 % (0-3) Basophils (%) (Auto) 0 % (0-3) Neutrophils # (Auto) 13.8 x10^3uL (1.8-7.7) Lymphocytes # (Auto) 0.6 x10^3/uL (1.0-4.8) Monocytes # (Auto) 1.3 x10^3/uL (0.0-1.1) Eosinophils # (Auto) 0.1 x10^3/uL (0.0-0.7) Basophils # (Auto) 0.0 x10^3/uL (0.0-0.2) Sodium Level 125 mmol/L (136-145) Potassium Level 3.0 mmol/L (3.5-5.1) Chloride Level 89 mmol/L (98-107) Carbon Dioxide Level 27 mmol/L (21-32) Anion Gap 9 (6-14) Blood Urea Nitrogen 18 mg/dL (7-20) Creatinine 0.8 mg/dL (0.6-1.0) Estimated GFR (Cockcroft-Gault) 70.1 Glucose Level 162 mg/dL (70-99) Calcium Level 8.8 mg/dL (8.5-10.1) Microbiology 03/27/17 Blood Culture - Preliminary, Resulted NO GROWTH AFTER 1 DAY 03/25/17 Urine Culture - Final, Complete 03/25/17 Urine Culture Result 1 ([facility]) - Final, Complete Medications Current Medications Carvedilol (Coreg) 25 mg 1X ONCE PO Last administered on 03/24/17t 20:41; Start 03/24/17 at 20:15; Stop 03/24/17 at 20:18; Status DC Clopidogrel Bisulfate (Plavix) 75 mg 1X ONCE PO Last administered on 20:39; Start 03/24/17 at 20:15; Stop 03/24/17 at 20:18; Status DC Losartan Potassium (Cozaar) 100 mg 1X ONCE PO Last administered on 03/24/17 20:39; Start 03/24/17 at 20:15; Stop 03/24/17 at 20:18; Status DC Hydrochlorothiazide (Hydrodiuril) 25 mg 1X ONCE PO Last administered on 20:41; Start 03/24/17 at 20:18; Stop 03/24/17 at 20:19; Status DC Morphine Sulfate 5 mg 1X ONCE IM Last administered on 03/24/17 20:41; Start 03/24/17 at 20:15; Stop 03/24/17 at 20:18; Status DC Fentanyl Citrate (Fentanyl 2ml Vial) 50 mcg PRN Q15MIN PRN IV PAIN GREATER THAN 3/10 Last administered on 03/24/17 23:30; Start 03/24/17 at 23:00; Stop at 00:00; Status DC Ondansetron HCl (Zofran) 4 mg PRN Q8HRS PRN IV NAUSEA/VOMITING; Start 03/24/17 at 23:00; Stop 03/25/17 at 22:59; Status DC Hydralazine HCl (Apresoline) 25 mg PRN TID PRN PO BP OVER 160; Start 03/24/17 at 23:00 Fentanyl Citrate (Fentanyl 2ml Vial) 50 mcg PRN Q2HR PRN IV SEVERE PAIN Last administered on 03/25/17 08:19; Start 03/24/17 at 23:30; Stop 03/25/17 at 08:46 ; Status DC Aspirin (Ecotrin) 81 mg DAILY PO Last administered on 03/26/17 08:28; Start at 09:00; Stop 03/26/17 at 10:25; Status DC Clopidogrel Bisulfate (Plavix) 75 mg DAILY PO Last administered on 03/28/17 08 :22; Start 03/25/17 at 09:00 Acetaminophen/ Hydrocodone Bitart (Lortab 7.5/325) 1 tab BID PO Last administered on 03/25/17 08:18; Start 03/25/17 at 09:00; Stop 03/25/17 at 09:00 ; Status DC Tramadol HCl (Ultram) 50 mg PRN TID PRN PO MODERATE PAIN; Start 03/25/17 at 06: 15; Stop 03/25/17 at 08:46; Status DC Carvedilol (Coreg) 25 mg BIDWMEALS PO Last administered on 03/25/17 08:18; Start 03/25/17 at 08:00; Stop 03/25/17 at 12:23; Status DC Vitamin D (Vitamin D3) 2,000 unit DAILY PO Last administered on 03/28/17 08:21 ; Start 03/25/17 at 09:00 Meloxicam (Mobic) 15 mg DAILY PO Last administered on 03/28/17 08:22; Start at 09:00 Multivitamins (Thera M Plus) 1 tab DAILY PO Last administered on 03/28/17 08: 21; Start 03/25/17 at 09:00 Fish Oil (Fish Oil) 1,000 mg DAILY PO Last administered on 03/28/17 08:21; Start 03/25/17 at 09:00 Non-Formulary Medication 5 mg BID PO ; Start 03/25/17 at 09:00; Status UNV Losartan Potassium (Cozaar) 100 mg DAILY PO Last administered on 03/26/17 08: 22; Start 03/25/17 at 09:00; Stop 03/26/17 at 10:25; Status DC Hydrochlorothiazide (Hydrodiuril) 25 mg DAILY PO Last administered on 08:21; Start 03/25/17 at 09:00 Fentanyl Citrate (Fentanyl 2ml Vial) 25 mcg PRN Q4HRS PRN IV SEVERE PAIN Last administered on 03/27/17 08:15; Start 03/25/17 at 08:45 Lidocaine (Lidoderm) 1 patch DAILY TD Last administered on 03/28/17 08:23; Start 03/25/17 at 09:00 Cyclobenzaprine HCl (Flexeril) 10 mg PRN TID PRN PO MUSCLE SPASMS Last administered on 03/26/17 08:27; Start 03/25/17 at 08:45 Oxycodone HCl (Roxicodone) 5 mg PRN Q6HRS PRN PO PAIN Last administered on 03/28 09:42; Start 03/25/17 at 08:45 Acetaminophen (Tylenol) 325 mg PRN Q4HRS PRN PO MILD PAIN / TEMP Last administered on 03/26/17 15:07; Start 03/25/17 at 08:45 Iohexol (Omnipaque 300 Mg/ml) 75 ml 1X ONCE IV Last administered on 03/25/17 11:43; Start 03/25/17 at 09:00; Stop 03/25/17 at 09:22; Status DC Info (Do NOT chart on this entry -- for MONITORING) 1 each PRN DAILY PRN MC SEE COMMENTS; Start 03/25/17 at 09:30; Stop 03/27/17 at 09:29; Status DC Methylprednisolone Acetate (DEPO-Medrol 40MG VIAL) 40 mg 1X ONCE IM ; Start at 10:00; Stop 03/25/17 at 10:02; Status DC Bupivacaine HCl (Sensorcaine-Mpf 0.25%) 10 ml 1X ONCE IJ ; Start 03/25/17 at 10 :00; Stop 03/25/17 at 10:02; Status DC Digoxin (Lanoxin) 500 mcg 1X ONCE IV Last administered on 03/25/17 12:40; Start 03/25/17 at 12:15; Stop 03/25/17 at 12:32; Status DC Metoprolol Tartrate (Lopressor) 100 mg BID PO Last administered on 03/28/17 08 :22; Start 03/25/17 at 21:00 Ipratropium [place] (Atrovent) 0.5 mg RTQID NEB Last administered on 03/28/17 07:19; Start 03/25/17 at 16:00 Albuterol Sulfate (Ventolin Neb Soln) 2.5 mg PRN Q4HRS PRN NEB WHEEZING; Start 03/25/17 at 14:00; Stop 03/25/17 at 14:04; Status DC Ipratropium [place] (Atrovent) 0.5 mg PRN Q4HRS PRN NEB SHORTNESS OF BREATH; Start 03/25/17 at 14:15 Losartan Potassium (Cozaar) 50 mg DAILY PO Last administered on 03/28/17 08:21 ; Start 03/27/17 at 09:00 Diltiazem HCl (Cardizem 24hr Cd) 120 mg DAILY PO Last administered on 08:23; Start 03/26/17 at 11:00 Rivaroxaban (Xarelto) 20 mg DAILYWSUP PO Last administered on 03/27/17 17:28; Start 03/26/17 at 17:00 Digoxin (Lanoxin) 250 mcg 1X ONCE IV Last administered on 03/26/17 11:41; Start 03/26/17 at 10:45; Stop 03/26/17 at 10:46; Status DC Info (Anti-Coagulation Monitoring By Pharmacy) 1 each PRN DAILY PRN MC SEE COMMENTS Last administered on 03/27/17 12:55; Start 03/26/17 at 10:30 Vancomycin HCl 1 gm/Sodium Chloride 250 ml @ 250 mls/hr 1X ONCE IV ; Start at 09:00; Stop 03/27/17 at 09:59; Status UNV Vancomycin HCl (Vanco Per Pharmacy) 1 each PRN DAILY PRN MC SEE COMMENTS Last administered on 03/27/17 11:41; Start 03/27/17 at 09:00 Vancomycin HCl 2 gm/Sodium Chloride 500 ml @ 250 mls/hr 1X ONCE IV Last administered on 03/27/17 11:35; Start 03/27/17 at 09:00; Stop 03/27/17 at 10:59 ; Status DC Iohexol (Omnipaque 240 Mg/ml) 30 ml 1X ONCE PO Last administered on 03/27/17 11:08; Start 03/27/17 at 09:45; Stop 03/27/17 at 09:46; Status DC Iohexol (Omnipaque 300 Mg/ml) 75 ml 1X ONCE IV Last administered on 03/27/17 09:45; Start 03/27/17 at 09:45; Stop 03/27/17 at 09:46; Status DC Info (Do NOT chart on this entry -- for MONITORING) 1 each PRN DAILY PRN MC SEE COMMENTS; Start 03/27/17 at 09:45; Stop 03/29/17 at 09:44 Potassium Chloride (Klor-Con) 20 meq 1X ONCE PO Last administered on 11:31; Start 03/27/17 at 10:00; Stop 03/27/17 at 10:01; Status DC Iohexol (Omnipaque 240 Mg/ml) 50 ml STK-MED ONCE .ROUTE ; Start 03/27/17 at 10: 58; Stop 03/27/17 at 10:59; Status DC Iohexol (Omnipaque 300 Mg/ml) 75 ml STK-MED ONCE .ROUTE ; Start 03/27/17 at 10: 58; Stop 03/27/17 at 10:59; Status DC Vancomycin HCl 1.75 gm/Sodium Chloride 500 ml @ 250 mls/hr Q24H IV ; Start at 11:00 Vancomycin HCl 1 each 1X ONCE MC ; Start 03/29/17 at 10:30; Stop 03/29/17 at 10 :31 Potassium Chloride (Klor-Con) 20 meq 1X ONCE PO Last administered on 17:27; Start 03/27/17 at 16:45; Stop 03/27/17 at 16:46; Status DC Insulin Aspart (NovoLOG) 0-6 UNITS TIDWMEALS SQ Last administered on 03/28/17 08:32; Start 03/27/17 at 17:00 Active Scripts Active Reported Omeprazole 20 Mg Capsule. 1 Cap PO DAILY Vitamin D (Cholecalciferol (Vitamin D3)) 2,000 Unit Capsule 1 Cap PO DAILY Fish Oil 1,000 mg Softgel ([place]-3/Dha/Epa/Fish Oil) 1,000 Mg Capsule 1,000 Mg PO DAILY Hydrocodone-Apap 7.5-325 (Hydrocodone Bit/Acetaminophen) 1 Each Tablet 1 Tab PO BID Aspirin Ec (Aspirin) 81 Mg Tablet. 1 Tab PO DAILY Multivitamins (Multivitamin) 1 Each Tablet 1 Tab PO DAILY Xeljanz (Tofacitinib Citrate) 5 Mg Tablet 5 Mg PO BID Valsartan-Hctz 320-25 Mg Tab (Valsartan/Hydrochlorothiazide) 1 Each Tablet 1 Each PO DAILY Meloxicam 15 Mg Tablet 1 Tab PO DAILY Carvedilol 25 Mg Tablet 1 Tab PO BID Tramadol Hcl 50 Mg Tablet 1 Tab PO TID PRN Clopidogrel (Clopidogrel Bisulfate) 75 Mg Tablet 1 Tab PO DAILY Vitals/I & O Vital Sign - Last 24 Hours 03/27/17 03/27/17 03/27/17 03/27/17 11:00 11:29 11:30 11:34 Temp 99.7 99.7 Pulse 98 98 98 Resp 20 B/P (MAP) 143/74 (97) 143/74 143/74 Pulse Ox 94 O2 Delivery Room Air Room Air 03/27/17 03/27/17 03/27/17 03/27/17 11:34 11:41 14:48 15:00 Temp 99.7 99.7 Pulse 98 80 Resp 20 B/P (MAP) 143/74 135/74 (94) Pulse Ox 95 94 O2 Delivery Room Air Room Air Room Air 03/27/17 03/27/17 03/27/17 03/27/17 19:15 19:32 20:00 20:56 Temp 98.6 98.6 Pulse 109 Resp 16 B/P (MAP) 151/83 (105) Pulse Ox 91 93 O2 Delivery Room Air Room Air Room Air Room Air 03/27/17 03/27/17 03/28/17 03/28/17 20:56 23:09 03:00 03:55 Temp 99.1 98.7 99.1 98.7 Pulse 109 104 96 Resp 16 16 B/P (MAP) 151/83 154/59 (90) 144/66 (92) Pulse Ox 94 91 93 O2 Delivery Room Air Room Air Room Air 03/28/17 03/28/17 03/28/17 03/28/17 07:00 07:25 08:00 08:21 Temp 98.1 98.1 Pulse 90 96 Resp 18 B/P (MAP) 161/97 (118) 144/66 Pulse Ox 92 98 O2 Delivery Room Air Room Air Room Air O2 Flow Rate 2.0 03/28/17 03/28/17 03/28/17 03/28/17 08:22 08:23 09:42 10:52 Pulse 96 96 B/P (MAP) 144/66 144/66 Pulse Ox 98 98 O2 Delivery Room Air Room Air O2 Flow Rate 2.0 2.0 Intake and Output 03/28/17 03/28/17 03/29/17 14:59 22:59 06:59 Intake Total 480 ml Balance 480 ml ALVARO YEN MD Mar 28, 2017 11:03
[2017-03-28] MEDS ORDERED: POTASSIUM CHLORIDE 20 MEQ TABLET.ER. PO ONE (11:30)
[2017-03-28] MEDS ORDERED: ANTI-COAG MONITOR BY PHARMACY. MC PRN (12:00)
[2017-03-28] MEDS: VANCOMYCIN 1.75 GM in IV NORMAL SALINE 500ML BAG 500 ML IV SCH (12:02)
[2017-03-28] MEDS: ANTI-COAG MONITOR BY PHARMACY. MC PRN (12:30)
[2017-03-28] MEDS: VANCOMYCIN PER PHARMACY MC PRN (12:47)
[2017-03-28 15:00] VITALS: BP 140/88
[2017-03-28] MEDS: RIVAROXABAN 10 MG TABLET. PO SCH (17:00)
[2017-03-28 19:15] VITALS: BP 175/82
[2017-03-28] MEDS: fentaNYL PF VIAL 100 MCG/2 ML VIAL IV PRN (19:57)
[2017-03-28 23:13] VITALS: BP 184/79
[2017-03-29] VITALS (7 sets, daily range): BP systolic 135–173; BP diastolic 60–97
[2017-03-29] MEDS: oxyCODONE IR 5 MG TABLET PO PRN ×3 (05:14→20:43)
[2017-03-29] MEDS: IPRATROPIUM BROMIDE 0.5 MG/2.5 ML NEBU. NEB SCH ×4 (07:22→19:29)
[2017-03-29] MEDS: LOSARTAN POTASSIUM 50 MG TABLET. PO SCH ×2 (08:38→09:21)
[2017-03-29] MEDS: OMEGA-3 FATTY ACIDS/FISH OIL 1,000 MG CAPSULE. PO SCH (08:38)
[2017-03-29] MEDS: METOPROLOL TART IMMED RELEASE 50 MG TABLET. PO SCH ×2 (08:39→20:42)
[2017-03-29] MEDS: CLOPIDOGREL BISULFATE 75 MG TABLET PO SCH (08:40)
[2017-03-29] MEDS: MULTIVITAMIN with MINERAL TABLET. PO SCH (08:40)
[2017-03-29] MEDS: CHOLECALCIFEROL (VITAMIN D3) 1,000 UNIT TABLET PO SCH (08:41)
[2017-03-29] MEDS: INSULIN ASPART 300 UNITS/3 ML INSULN.PEN SQ SCH ×3 (08:47→17:00)
[2017-03-29] MEDS: fentaNYL PF VIAL 100 MCG/2 ML VIAL IV PRN (08:57)
[2017-03-29] MEDS: LIDOCAINE (700MG/PATCH) PATCH. TD SCH (09:01)
--- NOTE | 2017-03-29 09:08 | PDOC ---
PROGRESS NOTES Subjective Subjective lab pending. blood pressure is high and will increase losartan. blood sugars are high and will start glimepiride. blood cultures pending. back pain better. afebrile. Objective Objective Vital Signs Date Time Temp Pulse Resp B/P (MAP) Pulse Ox O2 Delivery O2 Flow Rate FiO2 03/29/17 08:57 20 96 Room Air 03/29/17 08:39 95 165/97 03/29/17 07:00 98.0 98.0 03/28/17 18:22 2.0 Physical Exam Abdomen: Soft Heart: Regular rate, Normal S1, Normal S2 Extremities: Other (trace edema legs) General: Alert HEENT: Atraumatic Lungs: Clear to auscultation Neuro: Normal speech Psych/Mental Status: Mental status NL Skin: No rashes Assessment Assessment ProblemsIntractable low back pain due to lumbar DJD. better 2. Fever. better 3. Hypertension. 4. Coronary artery disease. 5. Rheumatoid arthritis. 6. Elevated liver function tests. 7. Cholelithiasis. new onset atrial fibrillation fatty liver GPC small cocci bacteremia leukocytosis nodule right thyroid lobe hyponatremia hypokalemia diabetes mellitus type 2 with hyperglycemia Medical Problems: (1) Low back pain Status: Acute Plan Plan of Care increase losartan start glimepiride and continue novolog insulin sliding scale await final blood cultures continue iv vancomycin lab pending and repeat tomorrow fluid restrict continue PT continue xarelto and diltiazem and metoprolol Comment Review of Relevant I have reviewed the following items russell (where applicable) has been applied. Labs Laboratory Tests Test 03/27/17 17:09 03/27/17 20:48 03/28/17 07:07 03/28/17 08:10 Glucose (Fingerstick) 178 mg/dL (70-99) 190 mg/dL (70-99) 153 mg/dL (70-99) White Blood Count 15.9 x10^3/uL (4.0-11.0) Red Blood Count 3.93 x10^6/uL (3.50-5.40) Hemoglobin 12.4 g/dL (12.0-15.5) Hematocrit 35.4 % (36.0-47.0) Mean Corpuscular Volume 90 fL (79-100) Mean Corpuscular Hemoglobin 32 pg (25-35) Mean Corpuscular Hemoglobin Concent 35 g/dL (31-37) Red Cell Distribution Width 13.5 % (11.5-14.5) Platelet Count 257 x10^3/uL (140-400) Neutrophils (%) (Auto) 87 % (31-73) Lymphocytes (%) (Auto) 4 % (24-48) Monocytes (%) (Auto) 8 % (0-9) Eosinophils (%) (Auto) 1 % (0-3) Basophils (%) (Auto) 0 % (0-3) Neutrophils # (Auto) 13.8 x10^3uL (1.8-7.7) Lymphocytes # (Auto) 0.6 x10^3/uL (1.0-4.8) Monocytes # (Auto) 1.3 x10^3/uL (0.0-1.1) Eosinophils # (Auto) 0.1 x10^3/uL (0.0-0.7) Basophils # (Auto) 0.0 x10^3/uL (0.0-0.2) Sodium Level 125 mmol/L (136-145) Potassium Level 3.0 mmol/L (3.5-5.1) Chloride Level 89 mmol/L (98-107) Carbon Dioxide Level 27 mmol/L (21-32) Anion Gap 9 (6-14) Blood Urea Nitrogen 18 mg/dL (7-20) Creatinine 0.8 mg/dL (0.6-1.0) Estimated GFR (Cockcroft-Gault) 70.1 Glucose Level 162 mg/dL (70-99) Serum Osmolality 267 mOsm/Kg (279-304) Calcium Level 8.8 mg/dL (8.5-10.1) Test 03/28/17 10:59 03/28/17 16:15 03/28/17 20:53 03/29/17 07:22 Glucose (Fingerstick) 203 mg/dL (70-99) 129 mg/dL (70-99) 179 mg/dL (70-99) 169 mg/dL (70-99) Laboratory Tests Test 03/28/17 10:59 03/28/17 16:15 03/28/17 20:53 03/29/17 07:22 Glucose (Fingerstick) 203 mg/dL (70-99) 129 mg/dL (70-99) 179 mg/dL (70-99) 169 mg/dL (70-99) Microbiology 03/27/17 Blood Culture - Final, Complete 03/25/17 Urine Culture - Final, Complete 03/25/17 Urine Culture Result 1 (XENIA) - Final, Complete Medications Current Medications Carvedilol (Coreg) 25 mg 1X ONCE PO Last administered on 03/24/17 20:41; Start 03/24/17 at 20:15; Stop 03/24/17 at 20:18; Status DC Clopidogrel Bisulfate (Plavix) 75 mg 1X ONCE PO Last administered on 20:39; Start 03/24/17 at 20:15; Stop 03/24/17 at 20:18; Status DC Losartan Potassium (Cozaar) 100 mg 1X ONCE PO Last administered on 03/24/17 20:39; Start 03/24/17 at 20:15; Stop 03/24/17 at 20:18; Status DC Hydrochlorothiazide (Hydrodiuril) 25 mg 1X ONCE PO Last administered on 20:41; Start 03/24/17 at 20:18; Stop 03/24/17 at 20:19; Status DC Morphine Sulfate 5 mg 1X ONCE IM Last administered on 03/24/17 20:41; Start 03/24/17 at 20:15; Stop 03/24/17 at 20:18; Status DC Fentanyl Citrate (Fentanyl 2ml Vial) 50 mcg PRN Q15MIN PRN IV PAIN GREATER THAN 3/10 Last administered on 03/24/17 23:30; Start 03/24/17 at 23:00; Stop at 00:00; Status DC Ondansetron HCl (Zofran) 4 mg PRN Q8HRS PRN IV NAUSEA/VOMITING; Start 03/24/17 at 23:00; Stop 03/25/17 at 22:59; Status DC Hydralazine HCl (Apresoline) 25 mg PRN TID PRN PO BP OVER 160 Last administered on 03/28/17 23:21; Start 03/24/17 at 23:00 Fentanyl Citrate (Fentanyl 2ml Vial) 50 mcg PRN Q2HR PRN IV SEVERE PAIN Last administered on 03/25/17 08:19; Start 03/24/17 at 23:30; Stop 03/25/17 at 08:46 ; Status DC Aspirin (Ecotrin) 81 mg DAILY PO Last administered on 03/26/17 08:28; Start at 09:00; Stop 03/26/17 at 10:25; Status DC Clopidogrel Bisulfate (Plavix) 75 mg DAILY PO Last administered on 03/29/17 08 :40; Start 03/25/17 at 09:00 Acetaminophen/ Hydrocodone Bitart (Lortab 7.5/325) 1 tab BID PO Last administered on 03/25/17 08:18; Start 03/25/17 at 09:00; Stop 03/25/17 at 09:00 ; Status DC Tramadol HCl (Ultram) 50 mg PRN TID PRN PO MODERATE PAIN; Start 03/25/17 at 06: 15; Stop 03/25/17 at 08:46; Status DC Carvedilol (Coreg) 25 mg BIDWMEALS PO Last administered on 03/25/17 08:18; Start 03/25/17 at 08:00; Stop 03/25/17 at 12:23; Status DC Vitamin D (Vitamin D3) 2,000 unit DAILY PO Last administered on 03/29/17 08:41 ; Start 03/25/17 at 09:00 Meloxicam (Mobic) 15 mg DAILY PO Last administered on 03/28/17 08:22; Start at 09:00; Stop 03/28/17 at 10:57; Status DC Multivitamins (Thera M Plus) 1 tab DAILY PO Last administered on 03/29/17 08: 40; Start 03/25/17 at 09:00 Fish Oil (Fish Oil) 1,000 mg DAILY PO Last administered on 03/29/17 08:38; Start 03/25/17 at 09:00 Non-Formulary Medication 5 mg BID PO ; Start 03/25/17 at 09:00; Stop 03/28/17 at 15:40; Status DC Losartan Potassium (Cozaar) 100 mg DAILY PO Last administered on 03/26/17 08: 22; Start 03/25/17 at 09:00; Stop 03/26/17 at 10:25; Status DC Hydrochlorothiazide (Hydrodiuril) 25 mg DAILY PO Last administered on 08:21; Start 03/25/17 at 09:00; Stop 03/28/17 at 10:57; Status DC Fentanyl Citrate (Fentanyl 2ml Vial) 25 mcg PRN Q4HRS PRN IV SEVERE PAIN Last administered on 03/29/17 08:57; Start 03/25/17 at 08:45 Lidocaine (Lidoderm) 1 patch DAILY TD Last administered on 03/29/17 09:01; Start 03/25/17 at 09:00 Cyclobenzaprine HCl (Flexeril) 10 mg PRN TID PRN PO MUSCLE SPASMS Last administered on 03/26/17 08:27; Start 03/25/17 at 08:45 Oxycodone HCl (Roxicodone) 5 mg PRN Q6HRS PRN PO PAIN Last administered on 03/29 05:14; Start 03/25/17 at 08:45 Acetaminophen (Tylenol) 325 mg PRN Q4HRS PRN PO MILD PAIN / TEMP Last administered on 03/26/17 15:07; Start 03/25/17 at 08:45 Iohexol (Omnipaque 300 Mg/ml) 75 ml 1X ONCE IV Last administered on 03/25/17 11:43; Start 03/25/17 at 09:00; Stop 03/25/17 at 09:22; Status DC Info (Do NOT chart on this entry -- for MONITORING) 1 each PRN DAILY PRN MC SEE COMMENTS; Start 03/25/17 at 09:30; Stop 03/27/17 at 09:29; Status DC Methylprednisolone Acetate (DEPO-Medrol 40MG VIAL) 40 mg 1X ONCE IM ; Start at 10:00; Stop 03/25/17 at 10:02; Status DC Bupivacaine HCl (Sensorcaine-Mpf 0.25%) 10 ml 1X ONCE IJ ; Start 03/25/17 at 10 :00; Stop 03/25/17 at 10:02; Status DC Digoxin (Lanoxin) 500 mcg 1X ONCE IV Last administered on 03/25/17 12:40; Start 03/25/17 at 12:15; Stop 03/25/17 at 12:32; Status DC Metoprolol Tartrate (Lopressor) 100 mg BID PO Last administered on 03/29/17 08 :39; Start 03/25/17 at 21:00 Ipratropium [place] (Atrovent) 0.5 mg RTQID NEB Last administered on 03/29/17 07:22; Start 03/25/17 at 16:00 Albuterol Sulfate (Ventolin Neb Soln) 2.5 mg PRN Q4HRS PRN NEB WHEEZING; Start 03/25/17 at 14:00; Stop 03/25/17 at 14:04; Status DC Ipratropium [place] (Atrovent) 0.5 mg PRN Q4HRS PRN NEB SHORTNESS OF BREATH; Start 03/25/17 at 14:15 Losartan Potassium (Cozaar) 50 mg DAILY PO Last administered on 03/29/17 08:38 ; Start 03/27/17 at 09:00; Stop 03/29/17 at 09:02; Status DC Diltiazem HCl (Cardizem 24hr Cd) 120 mg DAILY PO Last administered on 08:38; Start 03/26/17 at 11:00 Rivaroxaban (Xarelto) 20 mg DAILYWSUP PO Last administered on 03/28/17 17:00; Start 03/26/17 at 17:00 Digoxin (Lanoxin) 250 mcg 1X ONCE IV Last administered on 03/26/17 11:41; Start 03/26/17 at 10:45; Stop 03/26/17 at 10:46; Status DC Info (Anti-Coagulation Monitoring By Pharmacy) 1 each PRN DAILY PRN MC SEE COMMENTS Last administered on 03/28/17 12:30; Start 03/26/17 at 10:30 Vancomycin HCl 1 gm/Sodium Chloride 250 ml @ 250 mls/hr 1X ONCE IV ; Start at 09:00; Stop 03/27/17 at 09:59; Status UNV Vancomycin HCl (Vanco Per Pharmacy) 1 each PRN DAILY PRN MC SEE COMMENTS Last administered on 03/28/17 12:47; Start 03/27/17 at 09:00 Vancomycin HCl 2 gm/Sodium Chloride 500 ml @ 250 mls/hr 1X ONCE IV Last administered on 03/27/17 11:35; Start 03/27/17 at 09:00; Stop 03/27/17 at 10:59 ; Status DC Iohexol (Omnipaque 240 Mg/ml) 30 ml 1X ONCE PO Last administered on 03/27/17 11:08; Start 03/27/17 at 09:45; Stop 03/27/17 at 09:46; Status DC Iohexol (Omnipaque 300 Mg/ml) 75 ml 1X ONCE IV Last administered on 03/27/17 09:45; Start 03/27/17 at 09:45; Stop 03/27/17 at 09:46; Status DC Info (Do NOT chart on this entry -- for MONITORING) 1 each PRN DAILY PRN MC SEE COMMENTS; Start 03/27/17 at 09:45; Stop 03/29/17 at 09:44 Potassium Chloride (Klor-Con) 20 meq 1X ONCE PO Last administered on 11:31; Start 03/27/17 at 10:00; Stop 03/27/17 at 10:01; Status DC Iohexol (Omnipaque 240 Mg/ml) 50 ml STK-MED ONCE .ROUTE ; Start 03/27/17 at 10: 58; Stop 03/27/17 at 10:59; Status DC Iohexol (Omnipaque 300 Mg/ml) 75 ml STK-MED ONCE .ROUTE ; Start 03/27/17 at 10: 58; Stop 03/27/17 at 10:59; Status DC Vancomycin HCl 1.75 gm/Sodium Chloride 500 ml @ 250 mls/hr Q24H IV Last administered on 03/28/17 12:02; Start 03/28/17 at 11:00 Vancomycin HCl 1 each 1X ONCE MC ; Start 03/29/17 at 10:30; Stop 03/29/17 at 10 :31 Potassium Chloride (Klor-Con) 20 meq 1X ONCE PO Last administered on 17:27; Start 03/27/17 at 16:45; Stop 03/27/17 at 16:46; Status DC Insulin Aspart (NovoLOG) 0-6 UNITS TIDWMEALS SQ Last administered on 03/29/17 08:47; Start 03/27/17 at 17:00 Potassium Chloride (Klor-Con) 40 meq 1X ONCE PO Last administered on 11:17; Start 03/28/17 at 11:30; Stop 03/28/17 at 11:31; Status DC Info (Anti-Coagulation Monitoring By Pharmacy) 1 each PRN DAILY PRN MC SEE COMMENTS; Start 03/28/17 at 12:00; Status Cancel Losartan Potassium (Cozaar) 100 mg DAILY PO ; Start 03/29/17 at 09:00; Status UNV Active Scripts Active Reported Omeprazole 20 Mg Capsule. 1 Cap PO DAILY Vitamin D (Cholecalciferol (Vitamin D3)) 2,000 Unit Capsule 1 Cap PO DAILY Fish Oil 1,000 mg Softgel ([place]-3/Dha/Epa/Fish Oil) 1,000 Mg Capsule 1,000 Mg PO DAILY Hydrocodone-Apap 7.5-325 (Hydrocodone Bit/Acetaminophen) 1 Each Tablet 1 Tab PO BID Aspirin Ec (Aspirin) 81 Mg Tablet. 1 Tab PO DAILY Multivitamins (Multivitamin) 1 Each Tablet 1 Tab PO DAILY Xeljanz (Tofacitinib Citrate) 5 Mg Tablet 5 Mg PO BID Valsartan-Hctz 320-25 Mg Tab (Valsartan/Hydrochlorothiazide) 1 Each Tablet 1 Each PO DAILY Meloxicam 15 Mg Tablet 1 Tab PO DAILY Carvedilol 25 Mg Tablet 1 Tab PO BID Tramadol Hcl 50 Mg Tablet 1 Tab PO TID PRN Clopidogrel (Clopidogrel Bisulfate) 75 Mg Tablet 1 Tab PO DAILY Vitals/I & O Vital Sign - Last 24 Hours 03/28/17 03/28/17 03/28/17 03/28/17 09:42 11:00 11:20 15:00 Temp 99.7 97.5 99.7 97.5 Pulse 88 85 Resp 18 18 B/P (MAP) 174/72 (106) 140/88 (105) Pulse Ox 98 94 96 95 O2 Delivery Room Air Room Air Room Air Room Air O2 Flow Rate 2.0 03/28/17 03/28/17 03/28/17 03/28/17 15:16 17:11 18:22 19:13 Pulse Ox 95 95 O2 Delivery Room Air Room Air Room Air Room Air O2 Flow Rate 2.0 2.0 03/28/17 03/28/17 03/28/17 03/28/17 19:15 19:56 19:57 23:13 Temp 98.3 98.4 98.3 98.4 Pulse 98 98 90 Resp 16 20 16 B/P (MAP) 175/82 (113) 175/82 184/79 (114) Pulse Ox 92 95 O2 Delivery Room Air Room Air Room Air 03/28/17 03/28/17 03/29/17 03/29/17 23:21 23:21 00:30 03:00 Temp 98.1 98.1 Pulse 90 95 Resp 18 19 B/P (MAP) 184/79 137/65 (89) 151/92 (111) Pulse Ox 96 O2 Delivery Room Air 03/29/17 03/29/17 03/29/17 03/29/17 05:14 07:00 07:24 08:38 Temp 98.0 98.0 Pulse 95 95 Resp 18 17 B/P (MAP) 165/97 (119) 165/97 Pulse Ox 97 96 O2 Delivery Room Air Room Air Room Air 03/29/17 03/29/17 03/29/17 08:38 08:39 08:57 Pulse 95 95 Resp 20 B/P (MAP) 165/97 165/97 Pulse Ox 96 O2 Delivery Room Air ALVARO YEN MD Mar 29, 2017 09:08
[2017-03-29] MEDS: GLIMEPIRIDE 2 MG TABLET. PO SCH (09:21)
--- NOTE | 2017-03-29 10:06 | PDOC ---
Infectious Disease Note Subjective Subjective pt feeling better, back pain is better ROS ROS GEN: Denies fevers, chills, sweats HEENT: Denies blurred vision, sore throat CV: Denies chest pain RESP: Denies shortness of air, cough GI: Denies n/v/d NEURO: Denies confusion, dizziness MSK: Denies weakness, joint pain/swelling Vital Sign Vital Signs Vital Signs Date Time Temp Pulse Resp B/P (MAP) Pulse Ox O2 Delivery O2 Flow Rate FiO2 03/29/17 09:21 95 165/97 03/29/17 08:57 20 96 Room Air 03/29/17 07:00 98.0 98.0 03/28/17 18:22 2.0 Physical Exam PHYSICAL EXAM GENERAL: NAD, Alert HEENT: PERRL, OC/OP NECK: Supple, no JVD, no LN LUNGS: Clear HEART: S1S2, no gallop, no murmur ABD: Soft, NT, no organomegaly, no rebound EXT: No edema, no cyanosis ACCOUNT ADMINISTRATOR: Alert, 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, no focal neurologic deficit SKIN: No rash IV: ok Labs Lab Laboratory Tests Test 03/28/17 10:59 03/28/17 16:15 03/28/17 20:53 03/29/17 07:22 Glucose (Fingerstick) 203 mg/dL (70-99) 129 mg/dL (70-99) 179 mg/dL (70-99) 169 mg/dL (70-99) Micro BLOOD CULTURE Final TINY GRAM POSITIVE COCCI IN 3 OF 4 BOTTLES OF 2 SETS DRAWN. CALLED TO JOEY BAUTISTA ON 5N 03/27/17 AT 0835 BY Kirk INIGUEZ. CULTURES HAVE BEEN SENT TO [facility] FOR FURTHER IDENTIFICATION. Objective Assessment BC + G + cocci , id pending,,, repeat bc on 03/27 is also +, endocarditis possible Fever Back pain RA Plan Plan of Care vancomycin for now, add rocephine will check culture final results and adjust further workup to see where this is coming from pt is immunosuppressed ct neg d/w dr Sharma, TONI saturday SELINA CORTES MD Mar 29, 2017 10:06
[2017-03-29 11:00] LABS: BASO % 0 % (0-3); EOS % 0 % (0-3); HEMATOCRIT 35.6 % (36.0-47.0); HEMOGLOBIN 12.5 g/dL (12.0-15.5); LYMPH # 0.7 x10^3/uL (1.0-4.8); LYMPH % 5 % (24-48); MEAN CORPUSCULAR HEMOGLOBIN 32 pg (25-35); MEAN CORPUSCULAR HGB CONC 35 g/dL (31-37); MEAN CORPUSCULAR VOLUME 91 fL (79-100); MONO % 10 % (0-9); NEUT % 85 % (31-73); PLATELET COUNT 277 x10^3/uL (140-400); RED CELL DISTRIBUTION WIDTH 13.6 % (11.5-14.5); WHITE BLOOD COUNT 16.1 x10^3/uL (4.0-11.0)
[2017-03-29] MEDS: VANCOMYCIN 1.75 GM in IV NORMAL SALINE 500ML BAG 500 ML IV SCH (11:00)
[2017-03-29 11:07] LABS: CALCIUM 8.6 mg/dL (8.5-10.1); CREATININE 0.7 mg/dL (0.6-1.0); GFR 81.8; MAGNESIUM 1.9 mg/dL (1.8-2.4)
[2017-03-29] MEDS: VANCOMYCIN PER PHARMACY MC PRN ×3 (12:31→14:03)
[2017-03-29] MEDS: VANCOMYCIN 1.5 GM in IV NORMAL SALINE 500ML BAG 500 ML IV SCH (13:14)
[2017-03-29] MEDS: ACETAMINOPHEN 325 MG TABLET. PO PRN (13:14)
[2017-03-29] MEDS: CYCLOBENZAPRINE 10 MG TABLET. PO PRN ×2 (13:15→20:42)
[2017-03-29] MEDS: ANTI-COAG MONITOR BY PHARMACY. MC PRN (14:01)
[2017-03-29] MEDS: RIVAROXABAN 10 MG TABLET. PO SCH (17:33)
--- NOTE | 2017-03-29 19:31 | PDOC ---
PROGRESS NOTES Subjective Subjective She feels better. Objective Objective Vital Signs Date Time Temp Pulse Resp B/P (MAP) Pulse Ox O2 Delivery O2 Flow Rate FiO2 03/29/17 15:31 Room Air 03/29/17 15:00 97.9 94 16 135/60 (85) 99 97.9 03/28/17 18:22 2.0 Intake and Output 03/30/17 07:00 Intake Total 1220 ml Balance 1220 ml Intake Oral 1220 ml # Voids 4 Physical Exam Physical Exam She is lying on her left side and does not seem to be in any significant pain. Assessment Assessment Problems Medical Problems: (1) Low back pain Status: Acute Plan Plan of Care I spoke to . Comment Review of Relevant I have reviewed the following items russell (where applicable) has been applied. Labs Laboratory Tests Test 03/27/17 20:48 03/28/17 07:07 03/28/17 08:10 03/28/17 10:59 Glucose (Fingerstick) 190 mg/dL (70-99) 153 mg/dL (70-99) 203 mg/dL (70-99) White Blood Count 15.9 x10^3/uL (4.0-11.0) Red Blood Count 3.93 x10^6/uL (3.50-5.40) Hemoglobin 12.4 g/dL (12.0-15.5) Hematocrit 35.4 % (36.0-47.0) Mean Corpuscular Volume 90 fL (79-100) Mean Corpuscular Hemoglobin 32 pg (25-35) Mean Corpuscular Hemoglobin Concent 35 g/dL (31-37) Red Cell Distribution Width 13.5 % (11.5-14.5) Platelet Count 257 x10^3/uL (140-400) Neutrophils (%) (Auto) 87 % (31-73) Lymphocytes (%) (Auto) 4 % (24-48) Monocytes (%) (Auto) 8 % (0-9) Eosinophils (%) (Auto) 1 % (0-3) Basophils (%) (Auto) 0 % (0-3) Neutrophils # (Auto) 13.8 x10^3uL (1.8-7.7) Lymphocytes # (Auto) 0.6 x10^3/uL (1.0-4.8) Monocytes # (Auto) 1.3 x10^3/uL (0.0-1.1) Eosinophils # (Auto) 0.1 x10^3/uL (0.0-0.7) Basophils # (Auto) 0.0 x10^3/uL (0.0-0.2) Sodium Level 125 mmol/L (136-145) Potassium Level 3.0 mmol/L (3.5-5.1) Chloride Level 89 mmol/L (98-107) Carbon Dioxide Level 27 mmol/L (21-32) Anion Gap 9 (6-14) Blood Urea Nitrogen 18 mg/dL (7-20) Creatinine 0.8 mg/dL (0.6-1.0) Estimated GFR (Cockcroft-Gault) 70.1 Glucose Level 162 mg/dL (70-99) Serum Osmolality 267 mOsm/Kg (279-304) Calcium Level 8.8 mg/dL (8.5-10.1) Test 03/28/17 16:15 03/28/17 20:53 03/29/17 07:22 03/29/17 10:45 Glucose (Fingerstick) 129 mg/dL (70-99) 179 mg/dL (70-99) 169 mg/dL (70-99) White Blood Count 16.1 x10^3/uL (4.0-11.0) Red Blood Count 3.90 x10^6/uL (3.50-5.40) Hemoglobin 12.5 g/dL (12.0-15.5) Hematocrit 35.6 % (36.0-47.0) Mean Corpuscular Volume 91 fL (79-100) Mean Corpuscular Hemoglobin 32 pg (25-35) Mean Corpuscular Hemoglobin Concent 35 g/dL (31-37) Red Cell Distribution Width 13.6 % (11.5-14.5) Platelet Count 277 x10^3/uL (140-400) Neutrophils (%) (Auto) 85 % (31-73) Lymphocytes (%) (Auto) 5 % (24-48) Monocytes (%) (Auto) 10 % (0-9) Eosinophils (%) (Auto) 0 % (0-3) Basophils (%) (Auto) 0 % (0-3) Neutrophils # (Auto) 13.7 x10^3uL (1.8-7.7) Lymphocytes # (Auto) 0.7 x10^3/uL (1.0-4.8) Monocytes # (Auto) 1.6 x10^3/uL (0.0-1.1) Eosinophils # (Auto) 0.1 x10^3/uL (0.0-0.7) Basophils # (Auto) 0.0 x10^3/uL (0.0-0.2) Sodium Level 125 mmol/L (136-145) Potassium Level 3.0 mmol/L (3.5-5.1) Chloride Level 89 mmol/L (98-107) Carbon Dioxide Level 29 mmol/L (21-32) Anion Gap 7 (6-14) Blood Urea Nitrogen 16 mg/dL (7-20) Creatinine 0.7 mg/dL (0.6-1.0) Estimated GFR (Cockcroft-Gault) 81.8 Glucose Level 206 mg/dL (70-99) Calcium Level 8.6 mg/dL (8.5-10.1) Magnesium Level 1.9 mg/dL (1.8-2.4) Vancomycin Level Trough 6.0 mcg/mL (10.0-20.0) Vancomycin Last Dose Date Vancomycin Last Dose Time 1100 Test 03/29/17 11:59 03/29/17 16:32 Glucose (Fingerstick) 151 mg/dL (70-99) 137 mg/dL (70-99) Laboratory Tests Test 03/28/17 20:53 03/29/17 07:22 03/29/17 10:45 03/29/17 11:59 Glucose (Fingerstick) 179 mg/dL (70-99) 169 mg/dL (70-99) 151 mg/dL (70-99) White Blood Count 16.1 x10^3/uL (4.0-11.0) Red Blood Count 3.90 x10^6/uL (3.50-5.40) Hemoglobin 12.5 g/dL (12.0-15.5) Hematocrit 35.6 % (36.0-47.0) Mean Corpuscular Volume 91 fL (79-100) Mean Corpuscular Hemoglobin 32 pg (25-35) Mean Corpuscular Hemoglobin Concent 35 g/dL (31-37) Red Cell Distribution Width 13.6 % (11.5-14.5) Platelet Count 277 x10^3/uL (140-400) Neutrophils (%) (Auto) 85 % (31-73) Lymphocytes (%) (Auto) 5 % (24-48) Monocytes (%) (Auto) 10 % (0-9) Eosinophils (%) (Auto) 0 % (0-3) Basophils (%) (Auto) 0 % (0-3) Neutrophils # (Auto) 13.7 x10^3uL (1.8-7.7) Lymphocytes # (Auto) 0.7 x10^3/uL (1.0-4.8) Monocytes # (Auto) 1.6 x10^3/uL (0.0-1.1) Eosinophils # (Auto) 0.1 x10^3/uL (0.0-0.7) Basophils # (Auto) 0.0 x10^3/uL (0.0-0.2) Sodium Level 125 mmol/L (136-145) Potassium Level 3.0 mmol/L (3.5-5.1) Chloride Level 89 mmol/L (98-107) Carbon Dioxide Level 29 mmol/L (21-32) Anion Gap 7 (6-14) Blood Urea Nitrogen 16 mg/dL (7-20) Creatinine 0.7 mg/dL (0.6-1.0) Estimated GFR (Cockcroft-Gault) 81.8 Glucose Level 206 mg/dL (70-99) Calcium Level 8.6 mg/dL (8.5-10.1) Magnesium Level 1.9 mg/dL (1.8-2.4) Vancomycin Level Trough 6.0 mcg/mL (10.0-20.0) Vancomycin Last Dose Date Vancomycin Last Dose Time 1100 Test 03/29/17 16:32 Glucose (Fingerstick) 137 mg/dL (70-99) Microbiology 03/27/17 Blood Culture - Final, Complete 03/25/17 Urine Culture - Final, Complete 03/25/17 Urine Culture Result 1 (XENIA) - Final, Complete Medications Current Medications Carvedilol (Coreg) 25 mg 1X ONCE PO Last administered on 03/24/17t 20:41; Start 03/24/17 at 20:15; Stop 03/24/17 at 20:18; Status DC Clopidogrel Bisulfate (Plavix) 75 mg 1X ONCE PO Last administered on 20:39; Start 03/24/17 at 20:15; Stop 03/24/17 at 20:18; Status DC Losartan Potassium (Cozaar) 100 mg 1X ONCE PO Last administered on 03/24/17 20:39; Start 03/24/17 at 20:15; Stop 03/24/17 at 20:18; Status DC Hydrochlorothiazide (Hydrodiuril) 25 mg 1X ONCE PO Last administered on 20:41; Start 03/24/17 at 20:18; Stop 03/24/17 at 20:19; Status DC Morphine Sulfate 5 mg 1X ONCE IM Last administered on 03/24/17 20:41; Start 03/24/17 at 20:15; Stop 03/24/17 at 20:18; Status DC Fentanyl Citrate (Fentanyl 2ml Vial) 50 mcg PRN Q15MIN PRN IV PAIN GREATER THAN 3/10 Last administered on 03/24/17 23:30; Start 03/24/17 at 23:00; Stop at 00:00; Status DC Ondansetron HCl (Zofran) 4 mg PRN Q8HRS PRN IV NAUSEA/VOMITING; Start 03/24/17 at 23:00; Stop 03/25/17 at 22:59; Status DC Hydralazine HCl (Apresoline) 25 mg PRN TID PRN PO BP OVER 160 Last administered on 03/28/17 23:21; Start 03/24/17 at 23:00 Fentanyl Citrate (Fentanyl 2ml Vial) 50 mcg PRN Q2HR PRN IV SEVERE PAIN Last administered on 03/25/17 08:19; Start 03/24/17 at 23:30; Stop 03/25/17 at 08:46 ; Status DC Aspirin (Ecotrin) 81 mg DAILY PO Last administered on 03/26/17 08:28; Start at 09:00; Stop 03/26/17 at 10:25; Status DC Clopidogrel Bisulfate (Plavix) 75 mg DAILY PO Last administered on 03/29/17 08 :40; Start 03/25/17 at 09:00 Acetaminophen/ Hydrocodone Bitart (Lortab 7.5/325) 1 tab BID PO Last administered on 03/25/17 08:18; Start 03/25/17 at 09:00; Stop 03/25/17 at 09:00 ; Status DC Tramadol HCl (Ultram) 50 mg PRN TID PRN PO MODERATE PAIN; Start 03/25/17 at 06: 15; Stop 03/25/17 at 08:46; Status DC Carvedilol (Coreg) 25 mg BIDWMEALS PO Last administered on 03/25/17 08:18; Start 03/25/17 at 08:00; Stop 03/25/17 at 12:23; Status DC Vitamin D (Vitamin D3) 2,000 unit DAILY PO Last administered on 03/29/17 08:41 ; Start 03/25/17 at 09:00 Meloxicam (Mobic) 15 mg DAILY PO Last administered on 03/28/17 08:22; Start at 09:00; Stop 03/28/17 at 10:57; Status DC Multivitamins (Thera M Plus) 1 tab DAILY PO Last administered on 03/29/17 08: 40; Start 03/25/17 at 09:00 Fish Oil (Fish Oil) 1,000 mg DAILY PO Last administered on 03/29/17 08:38; Start 03/25/17 at 09:00 Non-Formulary Medication 5 mg BID PO ; Start 03/25/17 at 09:00; Stop 03/28/17 at 15:40; Status DC Losartan Potassium (Cozaar) 100 mg DAILY PO Last administered on 03/26/17 08: 22; Start 03/25/17 at 09:00; Stop 03/26/17 at 10:25; Status DC Hydrochlorothiazide (Hydrodiuril) 25 mg DAILY PO Last administered on 08:21; Start 03/25/17 at 09:00; Stop 03/28/17 at 10:57; Status DC Fentanyl Citrate (Fentanyl 2ml Vial) 25 mcg PRN Q4HRS PRN IV SEVERE PAIN Last administered on 03/29/17 08:57; Start 03/25/17 at 08:45 Lidocaine (Lidoderm) 1 patch DAILY TD Last administered on 03/29/17 09:01; Start 03/25/17 at 09:00 Cyclobenzaprine HCl (Flexeril) 10 mg PRN TID PRN PO MUSCLE SPASMS Last administered on 03/29/17 13:15; Start 03/25/17 at 08:45 Oxycodone HCl (Roxicodone) 5 mg PRN Q6HRS PRN PO PAIN Last administered on 03/29 13:15; Start 03/25/17 at 08:45 Acetaminophen (Tylenol) 325 mg PRN Q4HRS PRN PO MILD PAIN / TEMP Last administered on 03/29/17 13:14; Start 03/25/17 at 08:45 Iohexol (Omnipaque 300 Mg/ml) 75 ml 1X ONCE IV Last administered on 03/25/17 11:43; Start 03/25/17 at 09:00; Stop 03/25/17 at 09:22; Status DC Info (Do NOT chart on this entry -- for MONITORING) 1 each PRN DAILY PRN MC SEE COMMENTS; Start 03/25/17 at 09:30; Stop 03/27/17 at 09:29; Status DC Methylprednisolone Acetate (DEPO-Medrol 40MG VIAL) 40 mg 1X ONCE IM ; Start at 10:00; Stop 03/25/17 at 10:02; Status DC Bupivacaine HCl (Sensorcaine-Mpf 0.25%) 10 ml 1X ONCE IJ ; Start 03/25/17 at 10 :00; Stop 03/25/17 at 10:02; Status DC Digoxin (Lanoxin) 500 mcg 1X ONCE IV Last administered on 03/25/17 12:40; Start 03/25/17 at 12:15; Stop 03/25/17 at 12:32; Status DC Metoprolol Tartrate (Lopressor) 100 mg BID PO Last administered on 03/29/17 08 :39; Start 03/25/17 at 21:00 Ipratropium [place] (Atrovent) 0.5 mg RTQID NEB Last administered on 03/29/17 15:30; Start 03/25/17 at 16:00 Albuterol Sulfate (Ventolin Neb Soln) 2.5 mg PRN Q4HRS PRN NEB WHEEZING; Start 03/25/17 at 14:00; Stop 03/25/17 at 14:04; Status DC Ipratropium [place] (Atrovent) 0.5 mg PRN Q4HRS PRN NEB SHORTNESS OF BREATH; Start 03/25/17 at 14:15 Losartan Potassium (Cozaar) 50 mg DAILY PO Last administered on 03/29/17 08:38 ; Start 03/27/17 at 09:00; Stop 03/29/17 at 09:02; Status DC Diltiazem HCl (Cardizem 24hr Cd) 120 mg DAILY PO Last administered on 08:38; Start 03/26/17 at 11:00 Rivaroxaban (Xarelto) 20 mg DAILYWSUP PO Last administered on 03/29/17 17:33; Start 03/26/17 at 17:00 Digoxin (Lanoxin) 250 mcg 1X ONCE IV Last administered on 03/26/17 11:41; Start 03/26/17 at 10:45; Stop 03/26/17 at 10:46; Status DC Info (Anti-Coagulation Monitoring By Pharmacy) 1 each PRN DAILY PRN MC SEE COMMENTS Last administered on 03/29/17 14:01; Start 03/26/17 at 10:30 Vancomycin HCl 1 gm/Sodium Chloride 250 ml @ 250 mls/hr 1X ONCE IV ; Start at 09:00; Stop 03/27/17 at 09:59; Status UNV Vancomycin HCl (Vanco Per Pharmacy) 1 each PRN DAILY PRN MC SEE COMMENTS Last administered on 03/29/17 14:03; Start 03/27/17 at 09:00 Vancomycin HCl 2 gm/Sodium Chloride 500 ml @ 250 mls/hr 1X ONCE IV Last administered on 03/27/17 11:35; Start 03/27/17 at 09:00; Stop 03/27/17 at 10:59 ; Status DC Iohexol (Omnipaque 240 Mg/ml) 30 ml 1X ONCE PO Last administered on 03/27/17 11:08; Start 03/27/17 at 09:45; Stop 03/27/17 at 09:46; Status DC Iohexol (Omnipaque 300 Mg/ml) 75 ml 1X ONCE IV Last administered on 03/27/17 09:45; Start 03/27/17 at 09:45; Stop 03/27/17 at 09:46; Status DC Info (Do NOT chart on this entry -- for MONITORING) 1 each PRN DAILY PRN MC SEE COMMENTS; Start 03/27/17 at 09:45; Stop 03/29/17 at 09:44; Status DC Potassium Chloride (Klor-Con) 20 meq 1X ONCE PO Last administered on 11:31; Start 03/27/17 at 10:00; Stop 03/27/17 at 10:01; Status DC Iohexol (Omnipaque 240 Mg/ml) 50 ml STK-MED ONCE .ROUTE ; Start 03/27/17 at 10: 58; Stop 03/27/17 at 10:59; Status DC Iohexol (Omnipaque 300 Mg/ml) 75 ml STK-MED ONCE .ROUTE ; Start 03/27/17 at 10: 58; Stop 03/27/17 at 10:59; Status DC Vancomycin HCl 1.75 gm/Sodium Chloride 500 ml @ 250 mls/hr Q24H IV Last administered on 03/28/17 12:02; Start 03/28/17 at 11:00; Stop 03/29/17 at 12:29 ; Status DC Vancomycin HCl 1 each 1X ONCE MC ; Start 03/29/17 at 10:30; Stop 03/29/17 at 10 :31; Status DC Potassium Chloride (Klor-Con) 20 meq 1X ONCE PO Last administered on 17:27; Start 03/27/17 at 16:45; Stop 03/27/17 at 16:46; Status DC Insulin Aspart (NovoLOG) 0-6 UNITS TIDWMEALS SQ Last administered on 03/29/17 13:26; Start 03/27/17 at 17:00 Potassium Chloride (Klor-Con) 40 meq 1X ONCE PO Last administered on 11:17; Start 03/28/17 at 11:30; Stop 03/28/17 at 11:31; Status DC Info (Anti-Coagulation Monitoring By Pharmacy) 1 each PRN DAILY PRN MC SEE COMMENTS; Start 03/28/17 at 12:00; Status Cancel Losartan Potassium (Cozaar) 100 mg DAILY PO Last administered on 03/29/17 09: 21; Start 03/29/17 at 09:00 Glimepiride (Amaryl) 1 mg DAILY PO Last administered on 03/29/17 09:21; Start 03/29/17 at 10:00 Ceftriaxone Sodium 2 gm/ Sodium Chloride 100 ml @ 200 mls/hr Q12HR IV Last administered on 03/29/17 11:13; Start 03/29/17 at 10:00 Vancomycin HCl 1.5 gm/Sodium Chloride 500 ml @ 250 mls/hr Q12H IV Last administered on 03/29/17 13:14; Start 03/29/17 at 13:00 Active Scripts Active Reported Omeprazole 20 Mg Capsule.dr 1 Cap PO DAILY Vitamin D (Cholecalciferol (Vitamin D3)) 2,000 Unit Capsule 1 Cap PO DAILY Fish Oil 1,000 mg Softgel ([place]-3/Dha/Epa/Fish Oil) 1,000 Mg Capsule 1,000 Mg PO DAILY Hydrocodone-Apap 7.5-325 (Hydrocodone Bit/Acetaminophen) 1 Each Tablet 1 Tab PO BID Aspirin Ec (Aspirin) 81 Mg Tablet. 1 Tab PO DAILY Multivitamins (Multivitamin) 1 Each Tablet 1 Tab PO DAILY Xeljanz (Tofacitinib Citrate) 5 Mg Tablet 5 Mg PO BID Valsartan-Hctz 320-25 Mg Tab (Valsartan/Hydrochlorothiazide) 1 Each Tablet 1 Each PO DAILY Meloxicam 15 Mg Tablet 1 Tab PO DAILY Carvedilol 25 Mg Tablet 1 Tab PO BID Tramadol Hcl 50 Mg Tablet 1 Tab PO TID PRN Clopidogrel (Clopidogrel Bisulfate) 75 Mg Tablet 1 Tab PO DAILY Vitals/I & O Vital Sign - Last 24 Hours 03/28/17 03/28/17 03/28/17 03/28/17 19:56 19:57 23:13 23:21 Temp 98.4 98.4 Pulse 98 90 90 Resp 20 16 B/P (MAP) 175/82 184/79 (114) 184/79 Pulse Ox 95 O2 Delivery Room Air Room Air 03/28/17 03/29/17 03/29/17 03/29/17 23:21 00:30 03:00 05:14 Temp 98.1 98.1 Pulse 95 Resp 18 19 18 B/P (MAP) 137/65 (89) 151/92 (111) Pulse Ox 96 O2 Delivery Room Air Room Air 03/29/17 03/29/17 03/29/17/22/17 07:00 07:24 08:00 08:38 Temp 98.0 98.0 Pulse 95 95 Resp 17 B/P (MAP) 165/97 (119) 165/97 Pulse Ox 97 96 O2 Delivery Room Air Room Air Room Air 03/29/17 03/29/17 03/29/17 03/29/17 08:38 08:39 08:57 09:21 Pulse 95 95 95 Resp 20 B/P (MAP) 165/97 165/97 165/97 Pulse Ox 96 O2 Delivery Room Air 03/29/17 03/29/17 03/29/17 03/29/17 09:27 11:00 11:20 13:15 Temp 98.1 98.1 Pulse 90 Resp 20 17 20 B/P (MAP) 149/95 (113) Pulse Ox 96 94 96 O2 Delivery Room Air Room Air Room Air Room Air 03/29/17 03/29/17 03/29/17 14:15 15:00 15:31 Temp 97.9 97.9 Pulse 94 Resp 20 16 B/P (MAP) 135/60 (85) Pulse Ox 99 99 O2 Delivery Room Air Room Air Room Air Intake and Output 03/29/17 03/29/17 03/30/17 15:00 23:00 07:00 Intake Total 1220 ml Balance 1220 ml BLAKE GARCIA MD Mar 29, 2017 19:31
[2017-03-30] MEDS: ACETAMINOPHEN 325 MG TABLET. PO PRN ×2 (01:07→18:13)
[2017-03-30] MEDS: VANCOMYCIN 1.5 GM in IV NORMAL SALINE 500ML BAG 500 ML IV SCH ×2 (01:07→13:27)
[2017-03-30 03:00] VITALS: BP 146/85
[2017-03-30 06:23] LABS: BASO # 0.1 x10^3/uL (0.0-0.2); BASO % 0 % (0-3); EOS % 0 % (0-3); HEMATOCRIT 37.2 % (36.0-47.0); HEMOGLOBIN 12.6 g/dL (12.0-15.5); LYMPH # 1.1 x10^3/uL (1.0-4.8); LYMPH % 6 % (24-48); MEAN CORPUSCULAR HEMOGLOBIN 31 pg (25-35); MEAN CORPUSCULAR HGB CONC 34 g/dL (31-37); MEAN CORPUSCULAR VOLUME 91 fL (79-100); MONO % 12 % (0-9); NEUT % 81 % (31-73); PLATELET COUNT 290 x10^3/uL (140-400); RED BLOOD COUNT 4.07 x10^6/uL (3.50-5.40); RED CELL DISTRIBUTION WIDTH 14.2 % (11.5-14.5); WHITE BLOOD COUNT 18.6 x10^3/uL (4.0-11.0)
[2017-03-30 06:35] LABS: CALCIUM 9.2 mg/dL (8.5-10.1); CREATININE 0.6 mg/dL (0.6-1.0); GFR 97.7
[2017-03-30 06:41] LABS: POTASSIUM 2.9 mmol/L (3.5-5.1)
[2017-03-30 07:00] VITALS: BP_SYST 167; BP_SYST 177; BP_DIAS 100; BP_DIAS 104
[2017-03-30] MEDS: IPRATROPIUM BROMIDE 0.5 MG/2.5 ML NEBU. NEB SCH ×4 (07:06→18:36)
[2017-03-30] MEDS ORDERED: POTASSIUM CHLORIDE 20 MEQ TABLET.ER. PO ONE ×2 (07:30→12:00)
[2017-03-30] MEDS: oxyCODONE IR 5 MG TABLET PO PRN ×2 (07:46→16:11)
[2017-03-30] MEDS: INSULIN ASPART 300 UNITS/3 ML INSULN.PEN SQ SCH ×3 (07:54→16:54)
[2017-03-30] MEDS: GLIMEPIRIDE 2 MG TABLET. PO SCH (08:55)
[2017-03-30] MEDS: OMEGA-3 FATTY ACIDS/FISH OIL 1,000 MG CAPSULE. PO SCH (08:56)
[2017-03-30] MEDS: CHOLECALCIFEROL (VITAMIN D3) 1,000 UNIT TABLET PO SCH (08:56)
[2017-03-30] MEDS: LIDOCAINE (700MG/PATCH) PATCH. TD SCH (08:56)
[2017-03-30] MEDS: LOSARTAN POTASSIUM 50 MG TABLET. PO SCH (08:56)
[2017-03-30] MEDS: METOPROLOL TART IMMED RELEASE 50 MG TABLET. PO SCH ×2 (08:56→21:02)
[2017-03-30] MEDS: CLOPIDOGREL BISULFATE 75 MG TABLET PO SCH (08:56)
[2017-03-30] MEDS: MULTIVITAMIN with MINERAL TABLET. PO SCH (08:56)
--- NOTE | 2017-03-30 10:08 | PDOC ---
PROGRESS NOTES Subjective Subjective low back pain better. afebrile. wbc higher 28.6. sodium better 131. potassium low 2.9 . no diuretics or vomiting or diarrhea. fbs 159. blood pressure is high. Objective Objective Vital Signs Date Time Temp Pulse Resp B/P (MAP) Pulse Ox O2 Delivery O2 Flow Rate FiO2 03/30/17 08:56 88 177/100 03/30/17 08:46 18 96 Room Air 2.0 03/30/17 07:00 97.5 97.5 Physical Exam Abdomen: Soft Heart: Regular rate, Normal S1, Normal S2 Extremities: No edema General: Alert HEENT: Atraumatic Lungs: Clear to auscultation Neuro: Normal speech Psych/Mental Status: Mental status NL Skin: No rashes Assessment Assessment Problemsntractable low back pain due to lumbar DJD. better 2. Fever. better 3. Hypertension.BP high 4. Coronary artery disease. 5. Rheumatoid arthritis. 6. Elevated liver function tests. 7. Cholelithiasis. new onset atrial fibrillation. VR controlled fatty liver GPC small cocci bacteremia leukocytosis nodule right thyroid lobe hyponatremia better hypokalemia diabetes mellitus type 2 with hyperglycemia Medical Problems: (1) Low back pain Status: Acute Plan Plan of Care continue iv rocephin and vancomycin await final blood culture report start spironolactone and increase diltiazem and continue metoprolol continue losartan replete kcl fluid restriction continue glimepiride TONI saturday Comment Review of Relevant I have reviewed the following items russell (where applicable) has been applied. Labs Laboratory Tests Test 03/28/17 10:59 03/28/17 16:15 03/28/17 20:53 03/29/17 07:22 Glucose (Fingerstick) 203 mg/dL (70-99) 129 mg/dL (70-99) 179 mg/dL (70-99) 169 mg/dL (70-99) Test 03/29/17 10:45 03/29/17 11:59 03/29/17 16:32 03/29/17 22:08 White Blood Count 16.1 x10^3/uL (4.0-11.0) Red Blood Count 3.90 x10^6/uL (3.50-5.40) Hemoglobin 12.5 g/dL (12.0-15.5) Hematocrit 35.6 % (36.0-47.0) Mean Corpuscular Volume 91 fL (79-100) Mean Corpuscular Hemoglobin 32 pg (25-35) Mean Corpuscular Hemoglobin Concent 35 g/dL (31-37) Red Cell Distribution Width 13.6 % (11.5-14.5) Platelet Count 277 x10^3/uL (140-400) Neutrophils (%) (Auto) 85 % (31-73) Lymphocytes (%) (Auto) 5 % (24-48) Monocytes (%) (Auto) 10 % (0-9) Eosinophils (%) (Auto) 0 % (0-3) Basophils (%) (Auto) 0 % (0-3) Neutrophils # (Auto) 13.7 x10^3uL (1.8-7.7) Lymphocytes # (Auto) 0.7 x10^3/uL (1.0-4.8) Monocytes # (Auto) 1.6 x10^3/uL (0.0-1.1) Eosinophils # (Auto) 0.1 x10^3/uL (0.0-0.7) Basophils # (Auto) 0.0 x10^3/uL (0.0-0.2) Sodium Level 125 mmol/L (136-145) Potassium Level 3.0 mmol/L (3.5-5.1) Chloride Level 89 mmol/L (98-107) Carbon Dioxide Level 29 mmol/L (21-32) Anion Gap 7 (6-14) Blood Urea Nitrogen 16 mg/dL (7-20) Creatinine 0.7 mg/dL (0.6-1.0) Estimated GFR (Cockcroft-Gault) 81.8 Glucose Level 206 mg/dL (70-99) Calcium Level 8.6 mg/dL (8.5-10.1) Magnesium Level 1.9 mg/dL (1.8-2.4) Vancomycin Level Trough 6.0 mcg/mL (10.0-20.0) Vancomycin Last Dose Date Vancomycin Last Dose Time 1100 Glucose (Fingerstick) 151 mg/dL (70-99) 137 mg/dL (70-99) 189 mg/dL (70-99) Test 03/30/17 06:15 03/30/17 07:10 White Blood Count 18.6 x10^3/uL (4.0-11.0) Red Blood Count 4.07 x10^6/uL (3.50-5.40) Hemoglobin 12.6 g/dL (12.0-15.5) Hematocrit 37.2 % (36.0-47.0) Mean Corpuscular Volume 91 fL (79-100) Mean Corpuscular Hemoglobin 31 pg (25-35) Mean Corpuscular Hemoglobin Concent 34 g/dL (31-37) Red Cell Distribution Width 14.2 % (11.5-14.5) Platelet Count 290 x10^3/uL (140-400) Neutrophils (%) (Auto) 81 % (31-73) Lymphocytes (%) (Auto) 6 % (24-48) Monocytes (%) (Auto) 12 % (0-9) Eosinophils (%) (Auto) 0 % (0-3) Basophils (%) (Auto) 0 % (0-3) Neutrophils # (Auto) 15.1 x10^3uL (1.8-7.7) Lymphocytes # (Auto) 1.1 x10^3/uL (1.0-4.8) Monocytes # (Auto) 2.3 x10^3/uL (0.0-1.1) Eosinophils # (Auto) 0.1 x10^3/uL (0.0-0.7) Basophils # (Auto) 0.1 x10^3/uL (0.0-0.2) Sodium Level 131 mmol/L (136-145) Potassium Level 2.9 mmol/L (3.5-5.1) Chloride Level 94 mmol/L (98-107) Carbon Dioxide Level 26 mmol/L (21-32) Anion Gap 11 (6-14) Blood Urea Nitrogen 15 mg/dL (7-20) Creatinine 0.6 mg/dL (0.6-1.0) Estimated GFR (Cockcroft-Gault) 97.7 Glucose Level 164 mg/dL (70-99) Calcium Level 9.2 mg/dL (8.5-10.1) Glucose (Fingerstick) 159 mg/dL (70-99) Laboratory Tests Test 03/29/17 10:45 03/29/17 11:59 03/29/17 16:32 03/29/17 22:08 White Blood Count 16.1 x10^3/uL (4.0-11.0) Red Blood Count 3.90 x10^6/uL (3.50-5.40) Hemoglobin 12.5 g/dL (12.0-15.5) Hematocrit 35.6 % (36.0-47.0) Mean Corpuscular Volume 91 fL (79-100) Mean Corpuscular Hemoglobin 32 pg (25-35) Mean Corpuscular Hemoglobin Concent 35 g/dL (31-37) Red Cell Distribution Width 13.6 % (11.5-14.5) Platelet Count 277 x10^3/uL (140-400) Neutrophils (%) (Auto) 85 % (31-73) Lymphocytes (%) (Auto) 5 % (24-48) Monocytes (%) (Auto) 10 % (0-9) Eosinophils (%) (Auto) 0 % (0-3) Basophils (%) (Auto) 0 % (0-3) Neutrophils # (Auto) 13.7 x10^3uL (1.8-7.7) Lymphocytes # (Auto) 0.7 x10^3/uL (1.0-4.8) Monocytes # (Auto) 1.6 x10^3/uL (0.0-1.1) Eosinophils # (Auto) 0.1 x10^3/uL (0.0-0.7) Basophils # (Auto) 0.0 x10^3/uL (0.0-0.2) Sodium Level 125 mmol/L (136-145) Potassium Level 3.0 mmol/L (3.5-5.1) Chloride Level 89 mmol/L (98-107) Carbon Dioxide Level 29 mmol/L (21-32) Anion Gap 7 (6-14) Blood Urea Nitrogen 16 mg/dL (7-20) Creatinine 0.7 mg/dL (0.6-1.0) Estimated GFR (Cockcroft-Gault) 81.8 Glucose Level 206 mg/dL (70-99) Calcium Level 8.6 mg/dL (8.5-10.1) Magnesium Level 1.9 mg/dL (1.8-2.4) Vancomycin Level Trough 6.0 mcg/mL (10.0-20.0) Vancomycin Last Dose Date Vancomycin Last Dose Time 1100 Glucose (Fingerstick) 151 mg/dL (70-99) 137 mg/dL (70-99) 189 mg/dL (70-99) Test 03/30/17 06:15 03/30/17 07:10 White Blood Count 18.6 x10^3/uL (4.0-11.0) Red Blood Count 4.07 x10^6/uL (3.50-5.40) Hemoglobin 12.6 g/dL (12.0-15.5) Hematocrit 37.2 % (36.0-47.0) Mean Corpuscular Volume 91 fL (79-100) Mean Corpuscular Hemoglobin 31 pg (25-35) Mean Corpuscular Hemoglobin Concent 34 g/dL (31-37) Red Cell Distribution Width 14.2 % (11.5-14.5) Platelet Count 290 x10^3/uL (140-400) Neutrophils (%) (Auto) 81 % (31-73) Lymphocytes (%) (Auto) 6 % (24-48) Monocytes (%) (Auto) 12 % (0-9) Eosinophils (%) (Auto) 0 % (0-3) Basophils (%) (Auto) 0 % (0-3) Neutrophils # (Auto) 15.1 x10^3uL (1.8-7.7) Lymphocytes # (Auto) 1.1 x10^3/uL (1.0-4.8) Monocytes # (Auto) 2.3 x10^3/uL (0.0-1.1) Eosinophils # (Auto) 0.1 x10^3/uL (0.0-0.7) Basophils # (Auto) 0.1 x10^3/uL (0.0-0.2) Sodium Level 131 mmol/L (136-145) Potassium Level 2.9 mmol/L (3.5-5.1) Chloride Level 94 mmol/L (98-107) Carbon Dioxide Level 26 mmol/L (21-32) Anion Gap 11 (6-14) Blood Urea Nitrogen 15 mg/dL (7-20) Creatinine 0.6 mg/dL (0.6-1.0) Estimated GFR (Cockcroft-Gault) 97.7 Glucose Level 164 mg/dL (70-99) Calcium Level 9.2 mg/dL (8.5-10.1) Glucose (Fingerstick) 159 mg/dL (70-99) Microbiology 03/27/17 Blood Culture - Final, Complete 03/25/17 Urine Culture - Final, Complete 03/25/17 Urine Culture Result 1 (XENIA) - Final, Complete Medications Current Medications Carvedilol (Coreg) 25 mg 1X ONCE PO Last administered on 03/24/17 20:41; Start 03/24/17 at 20:15; Stop 03/24/17 at 20:18; Status DC Clopidogrel Bisulfate (Plavix) 75 mg 1X ONCE PO Last administered on 20:39; Start 03/24/17 at 20:15; Stop 03/24/17 at 20:18; Status DC Losartan Potassium (Cozaar) 100 mg 1X ONCE PO Last administered on 03/24/17 20:39; Start 03/24/17 at 20:15; Stop 03/24/17 at 20:18; Status DC Hydrochlorothiazide (Hydrodiuril) 25 mg 1X ONCE PO Last administered on 20:41; Start 03/24/17 at 20:18; Stop 03/24/17 at 20:19; Status DC Morphine Sulfate 5 mg 1X ONCE IM Last administered on 03/24/17 20:41; Start 03/24/17 at 20:15; Stop 03/24/17 at 20:18; Status DC Fentanyl Citrate (Fentanyl 2ml Vial) 50 mcg PRN Q15MIN PRN IV PAIN GREATER THAN 3/10 Last administered on 03/24/17 23:30; Start 03/24/17 at 23:00; Stop at 00:00; Status DC Ondansetron HCl (Zofran) 4 mg PRN Q8HRS PRN IV NAUSEA/VOMITING; Start 03/24/17 at 23:00; Stop 03/25/17 at 22:59; Status DC Hydralazine HCl (Apresoline) 25 mg PRN TID PRN PO BP OVER 160 Last administered on 03/28/17 23:21; Start 03/24/17 at 23:00 Fentanyl Citrate (Fentanyl 2ml Vial) 50 mcg PRN Q2HR PRN IV SEVERE PAIN Last administered on 03/25/17 08:19; Start 03/24/17 at 23:30; Stop 03/25/17 at 08:46 ; Status DC Aspirin (Ecotrin) 81 mg DAILY PO Last administered on 03/26/17 08:28; Start at 09:00; Stop 03/26/17 at 10:25; Status DC Clopidogrel Bisulfate (Plavix) 75 mg DAILY PO Last administered on 03/30/17 08 :56; Start 03/25/17 at 09:00 Acetaminophen/ Hydrocodone Bitart (Lortab 7.5/325) 1 tab BID PO Last administered on 03/25/17 08:18; Start 03/25/17 at 09:00; Stop 03/25/17 at 09:00 ; Status DC Tramadol HCl (Ultram) 50 mg PRN TID PRN PO MODERATE PAIN; Start 03/25/17 at 06: 15; Stop 03/25/17 at 08:46; Status DC Carvedilol (Coreg) 25 mg BIDWMEALS PO Last administered on 03/25/17 08:18; Start 03/25/17 at 08:00; Stop 03/25/17 at 12:23; Status DC Vitamin D (Vitamin D3) 2,000 unit DAILY PO Last administered on 03/30/17 08:56 ; Start 03/25/17 at 09:00 Meloxicam (Mobic) 15 mg DAILY PO Last administered on 03/28/17 08:22; Start at 09:00; Stop 03/28/17 at 10:57; Status DC Multivitamins (Thera M Plus) 1 tab DAILY PO Last administered on 03/30/17 08: 56; Start 03/25/17 at 09:00 Fish Oil (Fish Oil) 1,000 mg DAILY PO Last administered on 03/30/17 08:56; Start 03/25/17 at 09:00 Non-Formulary Medication 5 mg BID PO ; Start 03/25/17 at 09:00; Stop 03/28/17 at 15:40; Status DC Losartan Potassium (Cozaar) 100 mg DAILY PO Last administered on 03/26/17 08: 22; Start 03/25/17 at 09:00; Stop 03/26/17 at 10:25; Status DC Hydrochlorothiazide (Hydrodiuril) 25 mg DAILY PO Last administered on 08:21; Start 03/25/17 at 09:00; Stop 03/28/17 at 10:57; Status DC Fentanyl Citrate (Fentanyl 2ml Vial) 25 mcg PRN Q4HRS PRN IV SEVERE PAIN Last administered on 03/29/17 08:57; Start 03/25/17 at 08:45 Lidocaine (Lidoderm) 1 patch DAILY TD Last administered on 03/30/17 08:56; Start 03/25/17 at 09:00 Cyclobenzaprine HCl (Flexeril) 10 mg PRN TID PRN PO MUSCLE SPASMS Last administered on 03/29/17 20:42; Start 03/25/17 at 08:45 Oxycodone HCl (Roxicodone) 5 mg PRN Q6HRS PRN PO PAIN Last administered on 03/30 07:46; Start 03/25/17 at 08:45 Acetaminophen (Tylenol) 325 mg PRN Q4HRS PRN PO MILD PAIN / TEMP Last administered on 03/30/17 01:07; Start 03/25/17 at 08:45 Iohexol (Omnipaque 300 Mg/ml) 75 ml 1X ONCE IV Last administered on 03/25/17 11:43; Start 03/25/17 at 09:00; Stop 03/25/17 at 09:22; Status DC Info (Do NOT chart on this entry -- for MONITORING) 1 each PRN DAILY PRN MC SEE COMMENTS; Start 03/25/17 at 09:30; Stop 03/27/17 at 09:29; Status DC Methylprednisolone Acetate (DEPO-Medrol 40MG VIAL) 40 mg 1X ONCE IM ; Start at 10:00; Stop 03/25/17 at 10:02; Status DC Bupivacaine HCl (Sensorcaine-Mpf 0.25%) 10 ml 1X ONCE IJ ; Start 03/25/17 at 10 :00; Stop 03/25/17 at 10:02; Status DC Digoxin (Lanoxin) 500 mcg 1X ONCE IV Last administered on 03/25/17 12:40; Start 03/25/17 at 12:15; Stop 03/25/17 at 12:32; Status DC Metoprolol Tartrate (Lopressor) 100 mg BID PO Last administered on 03/30/17 08 :56; Start 03/25/17 at 21:00 Ipratropium [place] (Atrovent) 0.5 mg RTQID NEB Last administered on 03/30/17 07:06; Start 03/25/17 at 16:00 Albuterol Sulfate (Ventolin Neb Soln) 2.5 mg PRN Q4HRS PRN NEB WHEEZING; Start 03/25/17 at 14:00; Stop 03/25/17 at 14:04; Status DC Ipratropium [place] (Atrovent) 0.5 mg PRN Q4HRS PRN NEB SHORTNESS OF BREATH; Start 03/25/17 at 14:15 Losartan Potassium (Cozaar) 50 mg DAILY PO Last administered on 03/29/17 08:38 ; Start 03/27/17 at 09:00; Stop 03/29/17 at 09:02; Status DC Diltiazem HCl (Cardizem 24hr Cd) 120 mg DAILY PO Last administered on 08:55; Start 03/26/17 at 11:00 Rivaroxaban (Xarelto) 20 mg DAILYWSUP PO Last administered on 03/29/17 17:33; Start 03/26/17 at 17:00 Digoxin (Lanoxin) 250 mcg 1X ONCE IV Last administered on 03/26/17 11:41; Start 03/26/17 at 10:45; Stop 03/26/17 at 10:46; Status DC Info (Anti-Coagulation Monitoring By Pharmacy) 1 each PRN DAILY PRN MC SEE COMMENTS Last administered on 03/29/17 14:01; Start 03/26/17 at 10:30 Vancomycin HCl 1 gm/Sodium Chloride 250 ml @ 250 mls/hr 1X ONCE IV ; Start at 09:00; Stop 03/27/17 at 09:59; Status UNV Vancomycin HCl (Vanco Per Pharmacy) 1 each PRN DAILY PRN MC SEE COMMENTS Last administered on 03/29/17 14:03; Start 03/27/17 at 09:00 Vancomycin HCl 2 gm/Sodium Chloride 500 ml @ 250 mls/hr 1X ONCE IV Last administered on 03/27/17 11:35; Start 03/27/17 at 09:00; Stop 03/27/17 at 10:59 ; Status DC Iohexol (Omnipaque 240 Mg/ml) 30 ml 1X ONCE PO Last administered on 03/27/17 11:08; Start 03/27/17 at 09:45; Stop 03/27/17 at 09:46; Status DC Iohexol (Omnipaque 300 Mg/ml) 75 ml 1X ONCE IV Last administered on 03/27/17 09:45; Start 03/27/17 at 09:45; Stop 03/27/17 at 09:46; Status DC Info (Do NOT chart on this entry -- for MONITORING) 1 each PRN DAILY PRN MC SEE COMMENTS; Start 03/27/17 at 09:45; Stop 03/29/17 at 09:44; Status DC Potassium Chloride (Klor-Con) 20 meq 1X ONCE PO Last administered on 11:31; Start 03/27/17 at 10:00; Stop 03/27/17 at 10:01; Status DC Iohexol (Omnipaque 240 Mg/ml) 50 ml STK-MED ONCE .ROUTE ; Start 03/27/17 at 10: 58; Stop 03/27/17 at 10:59; Status DC Iohexol (Omnipaque 300 Mg/ml) 75 ml STK-MED ONCE .ROUTE ; Start 03/27/17 at 10: 58; Stop 03/27/17 at 10:59; Status DC Vancomycin HCl 1.75 gm/Sodium Chloride 500 ml @ 250 mls/hr Q24H IV Last administered on 03/28/17 12:02; Start 03/28/17 at 11:00; Stop 03/29/17 at 12:29 ; Status DC Vancomycin HCl 1 each 1X ONCE MC ; Start 03/29/17 at 10:30; Stop 03/29/17 at 10 :31; Status DC Potassium Chloride (Klor-Con) 20 meq 1X ONCE PO Last administered on 17:27; Start 03/27/17 at 16:45; Stop 03/27/17 at 16:46; Status DC Insulin Aspart (NovoLOG) 0-6 UNITS TIDWMEALS SQ Last administered on 03/30/17 07:54; Start 03/27/17 at 17:00 Potassium Chloride (Klor-Con) 40 meq 1X ONCE PO Last administered on 11:17; Start 03/28/17 at 11:30; Stop 03/28/17 at 11:31; Status DC Info (Anti-Coagulation Monitoring By Pharmacy) 1 each PRN DAILY PRN MC SEE COMMENTS; Start 03/28/17 at 12:00; Status Cancel Losartan Potassium (Cozaar) 100 mg DAILY PO Last administered on 03/30/17 08: 56; Start 03/29/17 at 09:00 Glimepiride (Amaryl) 1 mg DAILY PO Last administered on 03/30/17 08:55; Start 03/29/17 at 10:00 Ceftriaxone Sodium 2 gm/ Sodium Chloride 100 ml @ 200 mls/hr Q12HR IV Last administered on 03/30/17 08:55; Start 03/29/17 at 10:00 Vancomycin HCl 1.5 gm/Sodium Chloride 500 ml @ 250 mls/hr Q12H IV Last administered on 03/30/17 01:07; Start 03/29/17 at 13:00 Potassium Chloride (Klor-Con) 40 meq 1X ONCE PO ; Start 03/30/17 at 12:00; Stop 03/30/17 at 12:01 Potassium Chloride (Klor-Con) 40 meq 1X ONCE PO Last administered on 07:45; Start 03/30/17 at 07:30; Stop 03/30/17 at 07:31; Status DC Active Scripts Active Reported Omeprazole 20 Mg Capsule. 1 Cap PO DAILY Vitamin D (Cholecalciferol (Vitamin D3)) 2,000 Unit Capsule 1 Cap PO DAILY Fish Oil 1,000 mg Softgel ([place]-3/Dha/Epa/Fish Oil) 1,000 Mg Capsule 1,000 Mg PO DAILY Hydrocodone-Apap 7.5-325 (Hydrocodone Bit/Acetaminophen) 1 Each Tablet 1 Tab PO BID Aspirin Ec (Aspirin) 81 Mg Tablet. 1 Tab PO DAILY Multivitamins (Multivitamin) 1 Each Tablet 1 Tab PO DAILY Xeljanz (Tofacitinib Citrate) 5 Mg Tablet 5 Mg PO BID Valsartan-Hctz 320-25 Mg Tab (Valsartan/Hydrochlorothiazide) 1 Each Tablet 1 Each PO DAILY Meloxicam 15 Mg Tablet 1 Tab PO DAILY Carvedilol 25 Mg Tablet 1 Tab PO BID Tramadol Hcl 50 Mg Tablet 1 Tab PO TID PRN Clopidogrel (Clopidogrel Bisulfate) 75 Mg Tablet 1 Tab PO DAILY Vitals/I & O Vital Sign - Last 24 Hours 03/29/17 03/29/17 03/29/17 03/29/17 11:00 11:20 13:15 15:00 Temp 98.1 97.9 98.1 97.9 Pulse 90 94 Resp 17 20 16 B/P (MAP) 149/95 (113) 135/60 (85) Pulse Ox 94 96 99 O2 Delivery Room Air Room Air Room Air Room Air 03/29/17 03/29/17 03/29/17 03/29/17 15:31 19:00 19:30 20:01 Temp 98.7 98.7 Pulse 98 Resp 18 B/P (MAP) 173/82 (112) Pulse Ox 97 96 O2 Delivery Room Air Room Air Room Air Room Air 03/29/17 03/29/17 03/29/17 03/30/17 20:42 20:43 23:00 03:00 Temp 98.6 96.5 98.6 96.5 Pulse 98 84 89 Resp 18 18 18 B/P (MAP) 173/82 149/83 (105) 146/85 (105) Pulse Ox 96 95 97 O2 Delivery Room Air Room Air Room Air 03/30/17 03/30/17 03/30/17 03/30/17 07:00 07:00 07:06 07:46 Temp 97.5 97.5 Pulse 88 Resp 18 18 B/P (MAP) 167/104 (125) 177/100 (125) Pulse Ox 97 96 96 O2 Delivery Room Air Room Air Room Air O2 Flow Rate 2.0 03/30/17 03/30/17 03/30/17 03/30/17 07:50 08:46 08:55 08:56 Pulse 88 88 Resp 18 B/P (MAP) 177/100 177/100 Pulse Ox 96 O2 Delivery Room Air Room Air O2 Flow Rate 2.0 03/30/17 08:56 Pulse 88 B/P (MAP) 177/100 ALVARO YEN MD Mar 30, 2017 10:08
[2017-03-30 11:00] VITALS: BP 182/92
[2017-03-30] MEDS: SPIRONOLACTONE 25 MG TABLET PO SCH (11:19)
--- NOTE | 2017-03-30 13:24 | PDOC ---
PROGRESS NOTES Subjective Subjective She feels better with her low back pain. Objective Objective Vital Signs Date Time Temp Pulse Resp B/P (MAP) Pulse Ox O2 Delivery O2 Flow Rate FiO2 03/30/17 11:19 Room Air 03/30/17 11:19 88 177/100 03/30/17 11:00 97.6 18 96 97.6 03/30/17 08:46 2.0 Intake and Output 03/31/17 07:00 Intake Total 240 ml Balance 240 ml Intake Oral 240 ml Physical Exam Physical Exam She is independent with her mobility at roller walker level. Assessment Assessment Problems Medical Problems: (1) Low back pain Status: Acute Plan Plan of Care Agree with present care efforts. Comment Review of Relevant I have reviewed the following items russell (where applicable) has been applied. Labs Laboratory Tests Test 03/28/17 16:15 03/28/17 20:53 03/29/17 07:22 03/29/17 10:45 Glucose (Fingerstick) 129 mg/dL (70-99) 179 mg/dL (70-99) 169 mg/dL (70-99) White Blood Count 16.1 x10^3/uL (4.0-11.0) Red Blood Count 3.90 x10^6/uL (3.50-5.40) Hemoglobin 12.5 g/dL (12.0-15.5) Hematocrit 35.6 % (36.0-47.0) Mean Corpuscular Volume 91 fL (79-100) Mean Corpuscular Hemoglobin 32 pg (25-35) Mean Corpuscular Hemoglobin Concent 35 g/dL (31-37) Red Cell Distribution Width 13.6 % (11.5-14.5) Platelet Count 277 x10^3/uL (140-400) Neutrophils (%) (Auto) 85 % (31-73) Lymphocytes (%) (Auto) 5 % (24-48) Monocytes (%) (Auto) 10 % (0-9) Eosinophils (%) (Auto) 0 % (0-3) Basophils (%) (Auto) 0 % (0-3) Neutrophils # (Auto) 13.7 x10^3uL (1.8-7.7) Lymphocytes # (Auto) 0.7 x10^3/uL (1.0-4.8) Monocytes # (Auto) 1.6 x10^3/uL (0.0-1.1) Eosinophils # (Auto) 0.1 x10^3/uL (0.0-0.7) Basophils # (Auto) 0.0 x10^3/uL (0.0-0.2) Sodium Level 125 mmol/L (136-145) Potassium Level 3.0 mmol/L (3.5-5.1) Chloride Level 89 mmol/L (98-107) Carbon Dioxide Level 29 mmol/L (21-32) Anion Gap 7 (6-14) Blood Urea Nitrogen 16 mg/dL (7-20) Creatinine 0.7 mg/dL (0.6-1.0) Estimated GFR (Cockcroft-Gault) 81.8 Glucose Level 206 mg/dL (70-99) Calcium Level 8.6 mg/dL (8.5-10.1) Magnesium Level 1.9 mg/dL (1.8-2.4) Vancomycin Level Trough 6.0 mcg/mL (10.0-20.0) Vancomycin Last Dose Date Vancomycin Last Dose Time 1100 Test 03/29/17 11:59 03/29/17 16:32 03/29/17 22:08 03/30/17 06:15 Glucose (Fingerstick) 151 mg/dL (70-99) 137 mg/dL (70-99) 189 mg/dL (70-99) White Blood Count 18.6 x10^3/uL (4.0-11.0) Red Blood Count 4.07 x10^6/uL (3.50-5.40) Hemoglobin 12.6 g/dL (12.0-15.5) Hematocrit 37.2 % (36.0-47.0) Mean Corpuscular Volume 91 fL (79-100) Mean Corpuscular Hemoglobin 31 pg (25-35) Mean Corpuscular Hemoglobin Concent 34 g/dL (31-37) Red Cell Distribution Width 14.2 % (11.5-14.5) Platelet Count 290 x10^3/uL (140-400) Neutrophils (%) (Auto) 81 % (31-73) Lymphocytes (%) (Auto) 6 % (24-48) Monocytes (%) (Auto) 12 % (0-9) Eosinophils (%) (Auto) 0 % (0-3) Basophils (%) (Auto) 0 % (0-3) Neutrophils # (Auto) 15.1 x10^3uL (1.8-7.7) Lymphocytes # (Auto) 1.1 x10^3/uL (1.0-4.8) Monocytes # (Auto) 2.3 x10^3/uL (0.0-1.1) Eosinophils # (Auto) 0.1 x10^3/uL (0.0-0.7) Basophils # (Auto) 0.1 x10^3/uL (0.0-0.2) Sodium Level 131 mmol/L (136-145) Potassium Level 2.9 mmol/L (3.5-5.1) Chloride Level 94 mmol/L (98-107) Carbon Dioxide Level 26 mmol/L (21-32) Anion Gap 11 (6-14) Blood Urea Nitrogen 15 mg/dL (7-20) Creatinine 0.6 mg/dL (0.6-1.0) Estimated GFR (Cockcroft-Gault) 97.7 Glucose Level 164 mg/dL (70-99) Calcium Level 9.2 mg/dL (8.5-10.1) Test 03/30/17 07:10 03/30/17 11:15 Glucose (Fingerstick) 159 mg/dL (70-99) 218 mg/dL (70-99) Laboratory Tests Test 03/29/17 16:32 03/29/17 22:08 03/30/17 06:15 03/30/17 07:10 Glucose (Fingerstick) 137 mg/dL (70-99) 189 mg/dL (70-99) 159 mg/dL (70-99) White Blood Count 18.6 x10^3/uL (4.0-11.0) Red Blood Count 4.07 x10^6/uL (3.50-5.40) Hemoglobin 12.6 g/dL (12.0-15.5) Hematocrit 37.2 % (36.0-47.0) Mean Corpuscular Volume 91 fL (79-100) Mean Corpuscular Hemoglobin 31 pg (25-35) Mean Corpuscular Hemoglobin Concent 34 g/dL (31-37) Red Cell Distribution Width 14.2 % (11.5-14.5) Platelet Count 290 x10^3/uL (140-400) Neutrophils (%) (Auto) 81 % (31-73) Lymphocytes (%) (Auto) 6 % (24-48) Monocytes (%) (Auto) 12 % (0-9) Eosinophils (%) (Auto) 0 % (0-3) Basophils (%) (Auto) 0 % (0-3) Neutrophils # (Auto) 15.1 x10^3uL (1.8-7.7) Lymphocytes # (Auto) 1.1 x10^3/uL (1.0-4.8) Monocytes # (Auto) 2.3 x10^3/uL (0.0-1.1) Eosinophils # (Auto) 0.1 x10^3/uL (0.0-0.7) Basophils # (Auto) 0.1 x10^3/uL (0.0-0.2) Sodium Level 131 mmol/L (136-145) Potassium Level 2.9 mmol/L (3.5-5.1) Chloride Level 94 mmol/L (98-107) Carbon Dioxide Level 26 mmol/L (21-32) Anion Gap 11 (6-14) Blood Urea Nitrogen 15 mg/dL (7-20) Creatinine 0.6 mg/dL (0.6-1.0) Estimated GFR (Cockcroft-Gault) 97.7 Glucose Level 164 mg/dL (70-99) Calcium Level 9.2 mg/dL (8.5-10.1) Test 03/30/17 11:15 Glucose (Fingerstick) 218 mg/dL (70-99) Microbiology 03/29/17 Blood Culture - Preliminary, Resulted NO GROWTH AFTER 1 DAY 03/25/17 Urine Culture - Final, Complete 03/25/17 Urine Culture Result 1 (XENIA) - Final, Complete Medications Current Medications Carvedilol (Coreg) 25 mg 1X ONCE PO Last administered on 03/24/17 20:41; Start 03/24/17 at 20:15; Stop 03/24/17 at 20:18; Status DC Clopidogrel Bisulfate (Plavix) 75 mg 1X ONCE PO Last administered on 20:39; Start 03/24/17 at 20:15; Stop 03/24/17 at 20:18; Status DC Losartan Potassium (Cozaar) 100 mg 1X ONCE PO Last administered on 03/24/17 20:39; Start 03/24/17 at 20:15; Stop 03/24/17 at 20:18; Status DC Hydrochlorothiazide (Hydrodiuril) 25 mg 1X ONCE PO Last administered on 20:41; Start 03/24/17 at 20:18; Stop 03/24/17 at 20:19; Status DC Morphine Sulfate 5 mg 1X ONCE IM Last administered on 03/24/17 20:41; Start 03/24/17 at 20:15; Stop 03/24/17 at 20:18; Status DC Fentanyl Citrate (Fentanyl 2ml Vial) 50 mcg PRN Q15MIN PRN IV PAIN GREATER THAN 3/10 Last administered on 03/24/17 23:30; Start 03/24/17 at 23:00; Stop at 00:00; Status DC Ondansetron HCl (Zofran) 4 mg PRN Q8HRS PRN IV NAUSEA/VOMITING; Start 03/24/17 at 23:00; Stop 03/25/17 at 22:59; Status DC Hydralazine HCl (Apresoline) 25 mg PRN TID PRN PO BP OVER 160 Last administered on 03/28/17 23:21; Start 03/24/17 at 23:00 Fentanyl Citrate (Fentanyl 2ml Vial) 50 mcg PRN Q2HR PRN IV SEVERE PAIN Last administered on 03/25/17 08:19; Start 03/24/17 at 23:30; Stop 03/25/17 at 08:46 ; Status DC Aspirin (Ecotrin) 81 mg DAILY PO Last administered on 03/26/17 08:28; Start at 09:00; Stop 03/26/17 at 10:25; Status DC Clopidogrel Bisulfate (Plavix) 75 mg DAILY PO Last administered on 03/30/17 08 :56; Start 03/25/17 at 09:00 Acetaminophen/ Hydrocodone Bitart (Lortab 7.5/325) 1 tab BID PO Last administered on 03/25/17 08:18; Start 03/25/17 at 09:00; Stop 03/25/17 at 09:00 ; Status DC Tramadol HCl (Ultram) 50 mg PRN TID PRN PO MODERATE PAIN; Start 03/25/17 at 06: 15; Stop 03/25/17 at 08:46; Status DC Carvedilol (Coreg) 25 mg BIDWMEALS PO Last administered on 03/25/17 08:18; Start 03/25/17 at 08:00; Stop 03/25/17 at 12:23; Status DC Vitamin D (Vitamin D3) 2,000 unit DAILY PO Last administered on 03/30/17 08:56 ; Start 03/25/17 at 09:00 Meloxicam (Mobic) 15 mg DAILY PO Last administered on 03/28/17 08:22; Start at 09:00; Stop 03/28/17 at 10:57; Status DC Multivitamins (Thera M Plus) 1 tab DAILY PO Last administered on 03/30/17 08: 56; Start 03/25/17 at 09:00 Fish Oil (Fish Oil) 1,000 mg DAILY PO Last administered on 03/30/17 08:56; Start 03/25/17 at 09:00 Non-Formulary Medication 5 mg BID PO ; Start 03/25/17 at 09:00; Stop 03/28/17 at 15:40; Status DC Losartan Potassium (Cozaar) 100 mg DAILY PO Last administered on 03/26/17 08: 22; Start 03/25/17 at 09:00; Stop 03/26/17 at 10:25; Status DC Hydrochlorothiazide (Hydrodiuril) 25 mg DAILY PO Last administered on 08:21; Start 03/25/17 at 09:00; Stop 03/28/17 at 10:57; Status DC Fentanyl Citrate (Fentanyl 2ml Vial) 25 mcg PRN Q4HRS PRN IV SEVERE PAIN Last administered on 03/29/17 08:57; Start 03/25/17 at 08:45 Lidocaine (Lidoderm) 1 patch DAILY TD Last administered on 03/30/17 08:56; Start 03/25/17 at 09:00 Cyclobenzaprine HCl (Flexeril) 10 mg PRN TID PRN PO MUSCLE SPASMS Last administered on 03/29/17 20:42; Start 03/25/17 at 08:45 Oxycodone HCl (Roxicodone) 5 mg PRN Q6HRS PRN PO PAIN Last administered on 03/30 07:46; Start 03/25/17 at 08:45 Acetaminophen (Tylenol) 325 mg PRN Q4HRS PRN PO MILD PAIN / TEMP Last administered on 03/30/17 01:07; Start 03/25/17 at 08:45 Iohexol (Omnipaque 300 Mg/ml) 75 ml 1X ONCE IV Last administered on 03/25/17 11:43; Start 03/25/17 at 09:00; Stop 03/25/17 at 09:22; Status DC Info (Do NOT chart on this entry -- for MONITORING) 1 each PRN DAILY PRN MC SEE COMMENTS; Start 03/25/17 at 09:30; Stop 03/27/17 at 09:29; Status DC Methylprednisolone Acetate (DEPO-Medrol 40MG VIAL) 40 mg 1X ONCE IM ; Start at 10:00; Stop 03/25/17 at 10:02; Status DC Bupivacaine HCl (Sensorcaine-Mpf 0.25%) 10 ml 1X ONCE IJ ; Start 03/25/17 at 10 :00; Stop 03/25/17 at 10:02; Status DC Digoxin (Lanoxin) 500 mcg 1X ONCE IV Last administered on 03/25/17 12:40; Start 03/25/17 at 12:15; Stop 03/25/17 at 12:32; Status DC Metoprolol Tartrate (Lopressor) 100 mg BID PO Last administered on 03/30/17 08 :56; Start 03/25/17 at 21:00 Ipratropium [place] (Atrovent) 0.5 mg RTQID NEB Last administered on 03/30/17 11:18; Start 03/25/17 at 16:00 Albuterol Sulfate (Ventolin Neb Soln) 2.5 mg PRN Q4HRS PRN NEB WHEEZING; Start 03/25/17 at 14:00; Stop 03/25/17 at 14:04; Status DC Ipratropium [place] (Atrovent) 0.5 mg PRN Q4HRS PRN NEB SHORTNESS OF BREATH; Start 03/25/17 at 14:15 Losartan Potassium (Cozaar) 50 mg DAILY PO Last administered on 03/29/17 08:38 ; Start 03/27/17 at 09:00; Stop 03/29/17 at 09:02; Status DC Diltiazem HCl (Cardizem 24hr Cd) 120 mg DAILY PO Last administered on 08:55; Start 03/26/17 at 11:00; Stop 03/30/17 at 10:06; Status DC Rivaroxaban (Xarelto) 20 mg DAILYWSUP PO Last administered on 03/29/17 17:33; Start 03/26/17 at 17:00 Digoxin (Lanoxin) 250 mcg 1X ONCE IV Last administered on 03/26/17 11:41; Start 03/26/17 at 10:45; Stop 03/26/17 at 10:46; Status DC Info (Anti-Coagulation Monitoring By Pharmacy) 1 each PRN DAILY PRN MC SEE COMMENTS Last administered on 03/29/17 14:01; Start 03/26/17 at 10:30 Vancomycin HCl 1 gm/Sodium Chloride 250 ml @ 250 mls/hr 1X ONCE IV ; Start at 09:00; Stop 03/27/17 at 09:59; Status UNV Vancomycin HCl (Vanco Per Pharmacy) 1 each PRN DAILY PRN MC SEE COMMENTS Last administered on 03/29/17 14:03; Start 03/27/17 at 09:00 Vancomycin HCl 2 gm/Sodium Chloride 500 ml @ 250 mls/hr 1X ONCE IV Last administered on 03/27/17 11:35; Start 03/27/17 at 09:00; Stop 03/27/17 at 10:59 ; Status DC Iohexol (Omnipaque 240 Mg/ml) 30 ml 1X ONCE PO Last administered on 03/27/17 11:08; Start 03/27/17 at 09:45; Stop 03/27/17 at 09:46; Status DC Iohexol (Omnipaque 300 Mg/ml) 75 ml 1X ONCE IV Last administered on 03/27/17 09:45; Start 03/27/17 at 09:45; Stop 03/27/17 at 09:46; Status DC Info (Do NOT chart on this entry -- for MONITORING) 1 each PRN DAILY PRN MC SEE COMMENTS; Start 03/27/17 at 09:45; Stop 03/29/17 at 09:44; Status DC Potassium Chloride (Klor-Con) 20 meq 1X ONCE PO Last administered on 11:31; Start 03/27/17 at 10:00; Stop 03/27/17 at 10:01; Status DC Iohexol (Omnipaque 240 Mg/ml) 50 ml STK-MED ONCE .ROUTE ; Start 03/27/17 at 10: 58; Stop 03/27/17 at 10:59; Status DC Iohexol (Omnipaque 300 Mg/ml) 75 ml STK-MED ONCE .ROUTE ; Start 03/27/17 at 10: 58; Stop 03/27/17 at 10:59; Status DC Vancomycin HCl 1.75 gm/Sodium Chloride 500 ml @ 250 mls/hr Q24H IV Last administered on 03/28/17 12:02; Start 03/28/17 at 11:00; Stop 03/29/17 at 12:29 ; Status DC Vancomycin HCl 1 each 1X ONCE MC ; Start 03/29/17 at 10:30; Stop 03/29/17 at 10 :31; Status DC Potassium Chloride (Klor-Con) 20 meq 1X ONCE PO Last administered on 17:27; Start 03/27/17 at 16:45; Stop 03/27/17 at 16:46; Status DC Insulin Aspart (NovoLOG) 0-6 UNITS TIDWMEALS SQ Last administered on 03/30/17 11:40; Start 03/27/17 at 17:00 Potassium Chloride (Klor-Con) 40 meq 1X ONCE PO Last administered on 11:17; Start 03/28/17 at 11:30; Stop 03/28/17 at 11:31; Status DC Info (Anti-Coagulation Monitoring By Pharmacy) 1 each PRN DAILY PRN MC SEE COMMENTS; Start 03/28/17 at 12:00; Status Cancel Losartan Potassium (Cozaar) 100 mg DAILY PO Last administered on 03/30/17 08: 56; Start 03/29/17 at 09:00 Glimepiride (Amaryl) 1 mg DAILY PO Last administered on 03/30/17 08:55; Start 03/29/17 at 10:00 Ceftriaxone Sodium 2 gm/ Sodium Chloride 100 ml @ 200 mls/hr Q12HR IV Last administered on 03/30/17 08:55; Start 03/29/17 at 10:00 Vancomycin HCl 1.5 gm/Sodium Chloride 500 ml @ 250 mls/hr Q12H IV Last administered on 03/30/17 01:07; Start 03/29/17 at 13:00 Potassium Chloride (Klor-Con) 40 meq 1X ONCE PO Last administered on 11:24; Start 03/30/17 at 12:00; Stop 03/30/17 at 12:01; Status DC Potassium Chloride (Klor-Con) 40 meq 1X ONCE PO Last administered on 07:45; Start 03/30/17 at 07:30; Stop 03/30/17 at 07:31; Status DC Diltiazem HCl (Cardizem 24hr Cd) 240 mg DAILY PO ; Start 03/31/17 at 09:00 Spironolactone (Aldactone) 25 mg DAILY PO Last administered on 03/30/17 11:19 ; Start 03/30/17 at 11:00 Diltiazem HCl (Cardizem 24hr Cd) 120 mg 1X ONCE PO Last administered on 11:19; Start 03/30/17 at 10:30; Stop 03/30/17 at 10:31; Status DC Active Scripts Active Reported Omeprazole 20 Mg Capsule.dr 1 Cap PO DAILY Vitamin D (Cholecalciferol (Vitamin D3)) 2,000 Unit Capsule 1 Cap PO DAILY Fish Oil 1,000 mg Softgel ([place]-3/Dha/Epa/Fish Oil) 1,000 Mg Capsule 1,000 Mg PO DAILY Hydrocodone-Apap 7.5-325 (Hydrocodone Bit/Acetaminophen) 1 Each Tablet 1 Tab PO BID Aspirin Ec (Aspirin) 81 Mg Tablet.dr 1 Tab PO DAILY Multivitamins (Multivitamin) 1 Each Tablet 1 Tab PO DAILY Xeljanz (Tofacitinib Citrate) 5 Mg Tablet 5 Mg PO BID Valsartan-Hctz 320-25 Mg Tab (Valsartan/Hydrochlorothiazide) 1 Each Tablet 1 Each PO DAILY Meloxicam 15 Mg Tablet 1 Tab PO DAILY Carvedilol 25 Mg Tablet 1 Tab PO BID Tramadol Hcl 50 Mg Tablet 1 Tab PO TID PRN Clopidogrel (Clopidogrel Bisulfate) 75 Mg Tablet 1 Tab PO DAILY Vitals/I & O Vital Sign - Last 24 Hours 03/29/17 03/29/17 03/29/17 03/29/17 15:00 15:31 19:00 19:30 Temp 97.9 98.7 97.9 98.7 Pulse 94 98 Resp 16 18 B/P (MAP) 135/60 (85) 173/82 (112) Pulse Ox 99 97 96 O2 Delivery Room Air Room Air Room Air Room Air 03/29/17 03/29/17 03/29/17 03/29/17 20:01 20:42 20:43 23:00 Temp 98.6 98.6 Pulse 98 84 Resp 18 18 B/P (MAP) 173/82 149/83 (105) Pulse Ox 96 95 O2 Delivery Room Air Room Air Room Air 03/30/17 03/30/17 03/30/17 03/30/17 03:00 07:00 07:00 07:06 Temp 96.5 97.5 96.5 97.5 Pulse 89 88 Resp 18 18 B/P (MAP) 146/85 (105) 167/104 (125) 177/100 (125) Pulse Ox 97 97 96 O2 Delivery Room Air Room Air Room Air 03/30/17 03/30/17 03/30/17 03/30/17 07:46 07:50 08:46 08:55 Pulse 88 Resp 18 18 B/P (MAP) 177/100 Pulse Ox 96 96 O2 Delivery Room Air Room Air Room Air O2 Flow Rate 2.0 2.0 03/30/17 03/30/17 03/30/17 03/30/17 08:56 08:56 11:00 11:19 Temp 97.6 97.6 Pulse 88 88 83 88 Resp 18 B/P (MAP) 177/100 177/100 182/92 (122) 177/100 Pulse Ox 96 O2 Delivery Room Air 03/30/17 11:19 O2 Delivery Room Air Intake and Output 03/30/17 03/30/17 03/31/17 15:00 23:00 07:00 Intake Total 240 ml Balance 240 ml BLAKE GARCIA MD Mar 30, 2017 13:23
[2017-03-30] MEDS: VANCOMYCIN PER PHARMACY MC PRN (13:48)
[2017-03-30 15:00] VITALS: BP 142/64
[2017-03-30] MEDS: RIVAROXABAN 10 MG TABLET. PO SCH (16:11)
[2017-03-30 19:00] VITALS: BP_SYST 169; BP_SYST 187; BP_DIAS 91; BP_DIAS 92
[2017-03-30] MEDS: CYCLOBENZAPRINE 10 MG TABLET. PO PRN (21:10)
--- NOTE | 2017-03-30 21:41 | PN ---
DATE: 03/30/2017 SUBJECTIVE: The patient is a 72-year-old female with history of rheumatoid arthritis, on Humira. She has had bilateral knee arthroplasties and presented with lower back pain. Subsequently, blood cultures have shown 5/8 positive for Streptococcus constellatus. She is on vancomycin and is feeling much better; however, she is waiting for a TONI on Saturday. REVIEW OF SYSTEMS: Otherwise negative. MEDICATIONS: She is currently on vancomycin and Rocephin. OBJECTIVE: VITAL SIGNS: Temperature is 97.6, pulse rate is 88, respiratory rate is 18, blood pressure 177/100, SpO2 is 96% on room air. GENERAL: Reveals an elderly lady, in no apparent distress at rest. She is sitting up in a chair eating her dinner. Otherwise, she is alert, awake, oriented. HEENT: Eyes, nose, mouth and throat are unremarkable. NECK: Supple, with no JVD, carotid bruits or thyromegaly. CHEST: Has equal excursion bilaterally. LUNGS: Clear to auscultation. Bases are reduced. CARDIAC: Reveals S1 and S2, which are regular. I do not hear any murmurs. ABDOMEN: Obese, soft, nontender with no masses. SKIN: Warm and dry with no rashes. EXTREMITIES: Reveal no cyanosis or clubbing. She has no Os[place] nodes or [place] lesions. NEUROLOGIC: She is alert, awake, oriented with no focal neuro deficits observed. LABORATORY DATA: Show hemoglobin of 12, hematocrit of 36, white cell count of 12.3 down from 15.3, platelet count is 219. She has 83 polys and 8 lymphocytes. Blood cultures done on 03/29/2017 are negative. On 03/27/2017, she had 1 positive out of 2 with Streptococcus constellatus. On 03/25/2017, she had 3/4 positive with Streptococcus constellatus. BUN is 15, creatinine 0.6, sodium is 131, potassium 2.9, chloride 94, CO2 of 26. ASSESSMENT: 1. Streptococcal bacteremia. 2. Back pain, rule out epidural or vertebral osteomyelitis. 3. Bilateral knee arthroplasties, so far do not seem to be affected. 4. Leukocytosis. 5. Hypertension. PLAN: The patient will proceed for TONI on Saturday. A CRP, ESR and rheumatoid factor have been ordered. Continue vancomycin dosed by pharmacy as well as Rocephin. QUAN TIERNEY MD DR: Ricardo JOB#: [id number] / [id number]
[2017-03-30 23:00] VITALS: BP 133/65
[2017-03-31] MEDS: VANCOMYCIN 1.5 GM in IV NORMAL SALINE 500ML BAG 500 ML IV SCH ×2 (00:29→13:04)
[2017-03-31] MEDS: oxyCODONE IR 5 MG TABLET PO PRN ×4 (00:29→21:07)
[2017-03-31] MEDS: ACETAMINOPHEN 325 MG TABLET. PO PRN ×3 (00:36→21:07)
[2017-03-31 07:00] VITALS: BP 202/89
[2017-03-31] MEDS: IPRATROPIUM BROMIDE 0.5 MG/2.5 ML NEBU. NEB SCH ×5 (07:17→19:55)
[2017-03-31] MEDS: INSULIN ASPART 300 UNITS/3 ML INSULN.PEN SQ SCH ×3 (08:02→16:27)
[2017-03-31 08:10] LABS: BASO % 0 % (0-3); EOS % 1 % (0-3); HEMOGLOBIN 12.1 g/dL (12.0-15.5); LYMPH % 6 % (24-48); MEAN CORPUSCULAR HEMOGLOBIN 31 pg (25-35); MEAN CORPUSCULAR HGB CONC 34 g/dL (31-37); MEAN CORPUSCULAR VOLUME 92 fL (79-100); MONO % 9 % (0-9); NEUT % 84 % (31-73); PLATELET COUNT 323 x10^3/uL (140-400); RED BLOOD COUNT 3.91 x10^6/uL (3.50-5.40); RED CELL DISTRIBUTION WIDTH 13.6 % (11.5-14.5); WHITE BLOOD COUNT 18.6 x10^3/uL (4.0-11.0)
[2017-03-31 08:16] LABS: CALCIUM 8.6 mg/dL (8.5-10.1); CREATININE 0.6 mg/dL (0.6-1.0); GFR 97.7; POTASSIUM 3.3 mmol/L (3.5-5.1)
[2017-03-31] MEDS: GLIMEPIRIDE 2 MG TABLET. PO SCH (08:52)
[2017-03-31] MEDS: SPIRONOLACTONE 25 MG TABLET PO SCH (08:52)
[2017-03-31] MEDS: CHOLECALCIFEROL (VITAMIN D3) 1,000 UNIT TABLET PO SCH (08:53)
[2017-03-31] MEDS: OMEGA-3 FATTY ACIDS/FISH OIL 1,000 MG CAPSULE. PO SCH (08:53)
[2017-03-31] MEDS: METOPROLOL TART IMMED RELEASE 50 MG TABLET. PO SCH ×2 (08:53→21:02)
[2017-03-31] MEDS: LOSARTAN POTASSIUM 50 MG TABLET. PO SCH (08:53)
[2017-03-31] MEDS: CLOPIDOGREL BISULFATE 75 MG TABLET PO SCH (08:53)
[2017-03-31] MEDS: LIDOCAINE (700MG/PATCH) PATCH. TD SCH (08:54)
[2017-03-31] MEDS: MULTIVITAMIN with MINERAL TABLET. PO SCH (09:06)
--- NOTE | 2017-03-31 09:51 | PDOC ---
PROGRESS NOTES Subjective Subjective blood cultures grew streptococcus constellatus. repeat blood culture from 03/29 als o positive for GPC. feels better with less back pain. notes constipation. lab reviewed. sodium 134 and potassium low 3.3 and wbc 18.6.. blood pressure high yesterday and okay this morning.. blood sugars are high. Objective Objective Vital Signs Date Time Temp Pulse Resp B/P (MAP) Pulse Ox O2 Delivery O2 Flow Rate FiO2 03/31/17 08:54 18 99 Room Air 03/31/17 08:53 98 133/65 03/31/17 07:00 99.1 99.1 03/30/17 19:50 2.0 Intake and Output 04/01/17 07:00 Intake Total 350 ml Balance 350 ml Intake Oral 350 ml Physical Exam Abdomen: Soft Heart: Regular rate, Normal S1, Normal S2 Extremities: No edema General: Alert HEENT: Atraumatic Lungs: Clear to auscultation Neuro: Normal speech Psych/Mental Status: Mental status NL Skin: No rashes Assessment Assessment Problems 1. streptococcus constellatus bacteremia 2. low back pain improved 3. Hypertension.BP high 4. Coronary artery disease. 5. Rheumatoid arthritis. 6. Elevated liver function tests. 7. Cholelithiasis. new onset atrial fibrillation. VR mildly increased fatty liver leukocytosis nodule right thyroid lobe hyponatremia better hypokalemia diabetes mellitus type 2 with hyperglycemia constipation Medical Problems: (1) Low back pain Status: Acute Plan Plan of Care continue iv vancomycin and rocephin TONI tomorrow replete kcl continue fluid restriction lactulose today continue xarelto and diltiazem and metoprolol increase glimepiride Comment Review of Relevant I have reviewed the following items russell (where applicable) has been applied. Labs Laboratory Tests Test 03/29/17 10:45 03/29/17 11:59 03/29/17 16:32 03/29/17 22:08 White Blood Count 16.1 x10^3/uL (4.0-11.0) Red Blood Count 3.90 x10^6/uL (3.50-5.40) Hemoglobin 12.5 g/dL (12.0-15.5) Hematocrit 35.6 % (36.0-47.0) Mean Corpuscular Volume 91 fL (79-100) Mean Corpuscular Hemoglobin 32 pg (25-35) Mean Corpuscular Hemoglobin Concent 35 g/dL (31-37) Red Cell Distribution Width 13.6 % (11.5-14.5) Platelet Count 277 x10^3/uL (140-400) Neutrophils (%) (Auto) 85 % (31-73) Lymphocytes (%) (Auto) 5 % (24-48) Monocytes (%) (Auto) 10 % (0-9) Eosinophils (%) (Auto) 0 % (0-3) Basophils (%) (Auto) 0 % (0-3) Neutrophils # (Auto) 13.7 x10^3uL (1.8-7.7) Lymphocytes # (Auto) 0.7 x10^3/uL (1.0-4.8) Monocytes # (Auto) 1.6 x10^3/uL (0.0-1.1) Eosinophils # (Auto) 0.1 x10^3/uL (0.0-0.7) Basophils # (Auto) 0.0 x10^3/uL (0.0-0.2) Sodium Level 125 mmol/L (136-145) Potassium Level 3.0 mmol/L (3.5-5.1) Chloride Level 89 mmol/L (98-107) Carbon Dioxide Level 29 mmol/L (21-32) Anion Gap 7 (6-14) Blood Urea Nitrogen 16 mg/dL (7-20) Creatinine 0.7 mg/dL (0.6-1.0) Estimated GFR (Cockcroft-Gault) 81.8 Glucose Level 206 mg/dL (70-99) Calcium Level 8.6 mg/dL (8.5-10.1) Magnesium Level 1.9 mg/dL (1.8-2.4) Vancomycin Level Trough 6.0 mcg/mL (10.0-20.0) Vancomycin Last Dose Date Vancomycin Last Dose Time 1100 Glucose (Fingerstick) 151 mg/dL (70-99) 137 mg/dL (70-99) 189 mg/dL (70-99) Test 03/30/17 06:15 03/30/17 07:10 03/30/17 11:15 03/30/17 16:23 White Blood Count 18.6 x10^3/uL (4.0-11.0) Red Blood Count 4.07 x10^6/uL (3.50-5.40) Hemoglobin 12.6 g/dL (12.0-15.5) Hematocrit 37.2 % (36.0-47.0) Mean Corpuscular Volume 91 fL (79-100) Mean Corpuscular Hemoglobin 31 pg (25-35) Mean Corpuscular Hemoglobin Concent 34 g/dL (31-37) Red Cell Distribution Width 14.2 % (11.5-14.5) Platelet Count 290 x10^3/uL (140-400) Neutrophils (%) (Auto) 81 % (31-73) Lymphocytes (%) (Auto) 6 % (24-48) Monocytes (%) (Auto) 12 % (0-9) Eosinophils (%) (Auto) 0 % (0-3) Basophils (%) (Auto) 0 % (0-3) Neutrophils # (Auto) 15.1 x10^3uL (1.8-7.7) Lymphocytes # (Auto) 1.1 x10^3/uL (1.0-4.8) Monocytes # (Auto) 2.3 x10^3/uL (0.0-1.1) Eosinophils # (Auto) 0.1 x10^3/uL (0.0-0.7) Basophils # (Auto) 0.1 x10^3/uL (0.0-0.2) Sodium Level 131 mmol/L (136-145) Potassium Level 2.9 mmol/L (3.5-5.1) Chloride Level 94 mmol/L (98-107) Carbon Dioxide Level 26 mmol/L (21-32) Anion Gap 11 (6-14) Blood Urea Nitrogen 15 mg/dL (7-20) Creatinine 0.6 mg/dL (0.6-1.0) Estimated GFR (Cockcroft-Gault) 97.7 Glucose Level 164 mg/dL (70-99) Calcium Level 9.2 mg/dL (8.5-10.1) Glucose (Fingerstick) 159 mg/dL (70-99) 218 mg/dL (70-99) 146 mg/dL (70-99) Test 03/30/17 19:35 03/30/17 21:11 03/31/17 07:03/31/17 07:41 Erythrocyte Sedimentation Rate 89 (0-25) C-Reactive Protein, Quantitative 169.1 mg/L (0-3.3) Glucose (Fingerstick) 160 mg/dL (70-99) White Blood Count 18.6 x10^3/uL (4.0-11.0) Red Blood Count 3.91 x10^6/uL (3.50-5.40) Hemoglobin 12.1 g/dL (12.0-15.5) Hematocrit 36.0 % (36.0-47.0) Mean Corpuscular Volume 92 fL (79-100) Mean Corpuscular Hemoglobin 31 pg (25-35) Mean Corpuscular Hemoglobin Concent 34 g/dL (31-37) Red Cell Distribution Width 13.6 % (11.5-14.5) Platelet Count 323 x10^3/uL (140-400) Neutrophils (%) (Auto) 84 % (31-73) Lymphocytes (%) (Auto) 6 % (24-48) Monocytes (%) (Auto) 9 % (0-9) Eosinophils (%) (Auto) 1 % (0-3) Basophils (%) (Auto) 0 % (0-3) Neutrophils # (Auto) 15.6 x10^3uL (1.8-7.7) Lymphocytes # (Auto) 1.0 x10^3/uL (1.0-4.8) Monocytes # (Auto) 1.7 x10^3/uL (0.0-1.1) Eosinophils # (Auto) 0.2 x10^3/uL (0.0-0.7) Basophils # (Auto) 0.0 x10^3/uL (0.0-0.2) Sodium Level 134 mmol/L (136-145) Potassium Level 3.3 mmol/L (3.5-5.1) Chloride Level 95 mmol/L (98-107) Carbon Dioxide Level 30 mmol/L (21-32) Anion Gap 9 (6-14) Blood Urea Nitrogen 12 mg/dL (7-20) Creatinine 0.6 mg/dL (0.6-1.0) Estimated GFR (Cockcroft-Gault) 97.7 Glucose Level 151 mg/dL (70-99) Calcium Level 8.6 mg/dL (8.5-10.1) Magnesium Level 2.0 mg/dL (1.8-2.4) Laboratory Tests Test 03/30/17 11:15 03/30/17 16:23 03/30/17 19:35 03/30/17 21:11 Glucose (Fingerstick) 218 mg/dL (70-99) 146 mg/dL (70-99) 160 mg/dL (70-99) Erythrocyte Sedimentation Rate 89 (0-25) C-Reactive Protein, Quantitative 169.1 mg/L (0-3.3) Test 03/31/17 07:27 03/31/17 07:41 White Blood Count 18.6 x10^3/uL (4.0-11.0) Red Blood Count 3.91 x10^6/uL (3.50-5.40) Hemoglobin 12.1 g/dL (12.0-15.5) Hematocrit 36.0 % (36.0-47.0) Mean Corpuscular Volume 92 fL (79-100) Mean Corpuscular Hemoglobin 31 pg (25-35) Mean Corpuscular Hemoglobin Concent 34 g/dL (31-37) Red Cell Distribution Width 13.6 % (11.5-14.5) Platelet Count 323 x10^3/uL (140-400) Neutrophils (%) (Auto) 84 % (31-73) Lymphocytes (%) (Auto) 6 % (24-48) Monocytes (%) (Auto) 9 % (0-9) Eosinophils (%) (Auto) 1 % (0-3) Basophils (%) (Auto) 0 % (0-3) Neutrophils # (Auto) 15.6 x10^3uL (1.8-7.7) Lymphocytes # (Auto) 1.0 x10^3/uL (1.0-4.8) Monocytes # (Auto) 1.7 x10^3/uL (0.0-1.1) Eosinophils # (Auto) 0.2 x10^3/uL (0.0-0.7) Basophils # (Auto) 0.0 x10^3/uL (0.0-0.2) Sodium Level 134 mmol/L (136-145) Potassium Level 3.3 mmol/L (3.5-5.1) Chloride Level 95 mmol/L (98-107) Carbon Dioxide Level 30 mmol/L (21-32) Anion Gap 9 (6-14) Blood Urea Nitrogen 12 mg/dL (7-20) Creatinine 0.6 mg/dL (0.6-1.0) Estimated GFR (Cockcroft-Gault) 97.7 Glucose Level 151 mg/dL (70-99) Calcium Level 8.6 mg/dL (8.5-10.1) Magnesium Level 2.0 mg/dL (1.8-2.4) Microbiology 03/29/17 Blood Culture - Preliminary, Resulted NO GROWTH AFTER 1 DAY 03/25/17 Urine Culture - Final, Complete 03/25/17 Urine Culture Result 1 (XENIA) - Final, Complete Medications Current Medications Carvedilol (Coreg) 25 mg 1X ONCE PO Last administered on 03/24/17 20:41; Start 03/24/17 at 20:15; Stop 03/24/17 at 20:18; Status DC Clopidogrel Bisulfate (Plavix) 75 mg 1X ONCE PO Last administered on 20:39; Start 03/24/17 at 20:15; Stop 03/24/17 at 20:18; Status DC Losartan Potassium (Cozaar) 100 mg 1X ONCE PO Last administered on 03/24/17 20:39; Start 03/24/17 at 20:15; Stop 03/24/17 at 20:18; Status DC Hydrochlorothiazide (Hydrodiuril) 25 mg 1X ONCE PO Last administered on 20:41; Start 03/24/17 at 20:18; Stop 03/24/17 at 20:19; Status DC Morphine Sulfate 5 mg 1X ONCE IM Last administered on 03/24/17 20:41; Start 03/24/17 at 20:15; Stop 03/24/17 at 20:18; Status DC Fentanyl Citrate (Fentanyl 2ml Vial) 50 mcg PRN Q15MIN PRN IV PAIN GREATER THAN 3/10 Last administered on 03/24/17 23:30; Start 03/24/17 at 23:00; Stop at 00:00; Status DC Ondansetron HCl (Zofran) 4 mg PRN Q8HRS PRN IV NAUSEA/VOMITING; Start 03/24/17 at 23:00; Stop 03/25/17 at 22:59; Status DC Hydralazine HCl (Apresoline) 25 mg PRN TID PRN PO BP OVER 160 Last administered on 03/28/17 23:21; Start 03/24/17 at 23:00 Fentanyl Citrate (Fentanyl 2ml Vial) 50 mcg PRN Q2HR PRN IV SEVERE PAIN Last administered on 03/25/17 08:19; Start 03/24/17 at 23:30; Stop 03/25/17 at 08:46 ; Status DC Aspirin (Ecotrin) 81 mg DAILY PO Last administered on 03/26/17 08:28; Start at 09:00; Stop 03/26/17 at 10:25; Status DC Clopidogrel Bisulfate (Plavix) 75 mg DAILY PO Last administered on 03/31/17 08 :53; Start 03/25/17 at 09:00 Acetaminophen/ Hydrocodone Bitart (Lortab 7.5/325) 1 tab BID PO Last administered on 03/25/17 08:18; Start 03/25/17 at 09:00; Stop 03/25/17 at 09:00 ; Status DC Tramadol HCl (Ultram) 50 mg PRN TID PRN PO MODERATE PAIN; Start 03/25/17 at 06: 15; Stop 03/25/17 at 08:46; Status DC Carvedilol (Coreg) 25 mg BIDWMEALS PO Last administered on 03/25/17 08:18; Start 03/25/17 at 08:00; Stop 03/25/17 at 12:23; Status DC Vitamin D (Vitamin D3) 2,000 unit DAILY PO Last administered on 03/31/17 08:53 ; Start 03/25/17 at 09:00 Meloxicam (Mobic) 15 mg DAILY PO Last administered on 03/28/17 08:22; Start at 09:00; Stop 03/28/17 at 10:57; Status DC Multivitamins (Thera M Plus) 1 tab DAILY PO Last administered on 03/31/17 09: 06; Start 03/25/17 at 09:00 Fish Oil (Fish Oil) 1,000 mg DAILY PO Last administered on 03/31/17 08:53; Start 03/25/17 at 09:00 Non-Formulary Medication 5 mg BID PO ; Start 03/25/17 at 09:00; Stop 03/28/17 at 15:40; Status DC Losartan Potassium (Cozaar) 100 mg DAILY PO Last administered on 03/26/17 08: 22; Start 03/25/17 at 09:00; Stop 03/26/17 at 10:25; Status DC Hydrochlorothiazide (Hydrodiuril) 25 mg DAILY PO Last administered on 08:21; Start 03/25/17 at 09:00; Stop 03/28/17 at 10:57; Status DC Fentanyl Citrate (Fentanyl 2ml Vial) 25 mcg PRN Q4HRS PRN IV SEVERE PAIN Last administered on 03/29/17 08:57; Start 03/25/17 at 08:45 Lidocaine (Lidoderm) 1 patch DAILY TD Last administered on 03/31/17 08:54; Start 03/25/17 at 09:00 Cyclobenzaprine HCl (Flexeril) 10 mg PRN TID PRN PO MUSCLE SPASMS Last administered on 03/30/17 21:10; Start 03/25/17 at 08:45 Oxycodone HCl (Roxicodone) 5 mg PRN Q6HRS PRN PO PAIN Last administered on 03/31 08:54; Start 03/25/17 at 08:45 Acetaminophen (Tylenol) 325 mg PRN Q4HRS PRN PO MILD PAIN / TEMP Last administered on 03/31/17 00:36; Start 03/25/17 at 08:45 Iohexol (Omnipaque 300 Mg/ml) 75 ml 1X ONCE IV Last administered on 03/25/17 11:43; Start 03/25/17 at 09:00; Stop 03/25/17 at 09:22; Status DC Info (Do NOT chart on this entry -- for MONITORING) 1 each PRN DAILY PRN MC SEE COMMENTS; Start 03/25/17 at 09:30; Stop 03/27/17 at 09:29; Status DC Methylprednisolone Acetate (DEPO-Medrol 40MG VIAL) 40 mg 1X ONCE IM ; Start at 10:00; Stop 03/25/17 at 10:02; Status DC Bupivacaine HCl (Sensorcaine-Mpf 0.25%) 10 ml 1X ONCE IJ ; Start 03/25/17 at 10 :00; Stop 03/25/17 at 10:02; Status DC Digoxin (Lanoxin) 500 mcg 1X ONCE IV Last administered on 03/25/17 12:40; Start 03/25/17 at 12:15; Stop 03/25/17 at 12:32; Status DC Metoprolol Tartrate (Lopressor) 100 mg BID PO Last administered on 03/31/17 08 :53; Start 03/25/17 at 21:00 Ipratropium [place] (Atrovent) 0.5 mg RTQID NEB Last administered on 03/31/17 07:17; Start 03/25/17 at 16:00 Albuterol Sulfate (Ventolin Neb Soln) 2.5 mg PRN Q4HRS PRN NEB WHEEZING; Start 03/25/17 at 14:00; Stop 03/25/17 at 14:04; Status DC Ipratropium [place] (Atrovent) 0.5 mg PRN Q4HRS PRN NEB SHORTNESS OF BREATH; Start 03/25/17 at 14:15 Losartan Potassium (Cozaar) 50 mg DAILY PO Last administered on 03/29/17 08:38 ; Start 03/27/17 at 09:00; Stop 03/29/17 at 09:02; Status DC Diltiazem HCl (Cardizem 24hr Cd) 120 mg DAILY PO Last administered on 08:55; Start 03/26/17 at 11:00; Stop 03/30/17 at 10:06; Status DC Rivaroxaban (Xarelto) 20 mg DAILYWSUP PO Last administered on 03/30/17 16:11; Start 03/26/17 at 17:00 Digoxin (Lanoxin) 250 mcg 1X ONCE IV Last administered on 03/26/17 11:41; Start 03/26/17 at 10:45; Stop 03/26/17 at 10:46; Status DC Info (Anti-Coagulation Monitoring By Pharmacy) 1 each PRN DAILY PRN MC SEE COMMENTS Last administered on 03/29/17 14:01; Start 03/26/17 at 10:30 Vancomycin HCl 1 gm/Sodium Chloride 250 ml @ 250 mls/hr 1X ONCE IV ; Start at 09:00; Stop 03/27/17 at 09:59; Status UNV Vancomycin HCl (Vanco Per Pharmacy) 1 each PRN DAILY PRN MC SEE COMMENTS Last administered on 03/30/17 13:48; Start 03/27/17 at 09:00 Vancomycin HCl 2 gm/Sodium Chloride 500 ml @ 250 mls/hr 1X ONCE IV Last administered on 03/27/17 11:35; Start 03/27/17 at 09:00; Stop 03/27/17 at 10:59 ; Status DC Iohexol (Omnipaque 240 Mg/ml) 30 ml 1X ONCE PO Last administered on 03/27/17 11:08; Start 03/27/17 at 09:45; Stop 03/27/17 at 09:46; Status DC Iohexol (Omnipaque 300 Mg/ml) 75 ml 1X ONCE IV Last administered on 03/27/17 09:45; Start 03/27/17 at 09:45; Stop 03/27/17 at 09:46; Status DC Info (Do NOT chart on this entry -- for MONITORING) 1 each PRN DAILY PRN MC SEE COMMENTS; Start 03/27/17 at 09:45; Stop 03/29/17 at 09:44; Status DC Potassium Chloride (Klor-Con) 20 meq 1X ONCE PO Last administered on 11:31; Start 03/27/17 at 10:00; Stop 03/27/17 at 10:01; Status DC Iohexol (Omnipaque 240 Mg/ml) 50 ml STK-MED ONCE .ROUTE ; Start 03/27/17 at 10: 58; Stop 03/27/17 at 10:59; Status DC Iohexol (Omnipaque 300 Mg/ml) 75 ml STK-MED ONCE .ROUTE ; Start 03/27/17 at 10: 58; Stop 03/27/17 at 10:59; Status DC Vancomycin HCl 1.75 gm/Sodium Chloride 500 ml @ 250 mls/hr Q24H IV Last administered on 03/28/17 12:02; Start 03/28/17 at 11:00; Stop 03/29/17 at 12:29 ; Status DC Vancomycin HCl 1 each 1X ONCE MC ; Start 03/29/17 at 10:30; Stop 03/29/17 at 10 :31; Status DC Potassium Chloride (Klor-Con) 20 meq 1X ONCE PO Last administered on 17:27; Start 03/27/17 at 16:45; Stop 03/27/17 at 16:46; Status DC Insulin Aspart (NovoLOG) 0-6 UNITS TIDWMEALS SQ Last administered on 03/31/17 08:02; Start 03/27/17 at 17:00 Potassium Chloride (Klor-Con) 40 meq 1X ONCE PO Last administered on 11:17; Start 03/28/17 at 11:30; Stop 03/28/17 at 11:31; Status DC Info (Anti-Coagulation Monitoring By Pharmacy) 1 each PRN DAILY PRN MC SEE COMMENTS; Start 03/28/17 at 12:00; Status Cancel Losartan Potassium (Cozaar) 100 mg DAILY PO Last administered on 03/31/17 08: 53; Start 03/29/17 at 09:00 Glimepiride (Amaryl) 1 mg DAILY PO Last administered on 03/31/17 08:52; Start 03/29/17 at 10:00 Ceftriaxone Sodium 2 gm/ Sodium Chloride 100 ml @ 200 mls/hr Q12HR IV Last administered on 03/31/17 08:52; Start 03/29/17 at 10:00 Vancomycin HCl 1.5 gm/Sodium Chloride 500 ml @ 250 mls/hr Q12H IV Last administered on 03/31/17 00:29; Start 03/29/17 at 13:00 Potassium Chloride (Klor-Con) 40 meq 1X ONCE PO Last administered on 11:24; Start 03/30/17 at 12:00; Stop 03/30/17 at 12:01; Status DC Potassium Chloride (Klor-Con) 40 meq 1X ONCE PO Last administered on 07:45; Start 03/30/17 at 07:30; Stop 03/30/17 at 07:31; Status DC Diltiazem HCl (Cardizem 24hr Cd) 240 mg DAILY PO Last administered on 08:52; Start 03/31/17 at 09:00 Spironolactone (Aldactone) 25 mg DAILY PO Last administered on 03/31/17 08:52 ; Start 03/30/17 at 11:00 Diltiazem HCl (Cardizem 24hr Cd) 120 mg 1X ONCE PO Last administered on t 11:19; Start 03/30/17 at 10:30; Stop 03/30/17 at 10:31; Status DC Bupivacaine HCl (Sensorcaine-Mpf 0.25%) 10 ml STK-MED ONCE .ROUTE ; Start at 11:00; Stop 03/30/17 at 15:10; Status DC Methylprednisolone Acetate (DEPO-Medrol 40MG VIAL) 40 mg STK-MED ONCE .ROUTE ; Start 03/25/17 at 11:00; Stop 03/30/17 at 15:10; Status DC Active Scripts Active Reported Omeprazole 20 Mg Capsule.dr 1 Cap PO DAILY Vitamin D (Cholecalciferol (Vitamin D3)) 2,000 Unit Capsule 1 Cap PO DAILY Fish Oil 1,000 mg Softgel ([place]-3/Dha/Epa/Fish Oil) 1,000 Mg Capsule 1,000 Mg PO DAILY Hydrocodone-Apap 7.5-325 (Hydrocodone Bit/Acetaminophen) 1 Each Tablet 1 Tab PO BID Aspirin Ec (Aspirin) 81 Mg Tablet.dr 1 Tab PO DAILY Multivitamins (Multivitamin) 1 Each Tablet 1 Tab PO DAILY Xeljanz (Tofacitinib Citrate) 5 Mg Tablet 5 Mg PO BID Valsartan-Hctz 320-25 Mg Tab (Valsartan/Hydrochlorothiazide) 1 Each Tablet 1 Each PO DAILY Meloxicam 15 Mg Tablet 1 Tab PO DAILY Carvedilol 25 Mg Tablet 1 Tab PO BID Tramadol Hcl 50 Mg Tablet 1 Tab PO TID PRN Clopidogrel (Clopidogrel Bisulfate) 75 Mg Tablet 1 Tab PO DAILY Vitals/I & O Vital Sign - Last 24 Hours 03/30/17 03/30/17 03/30/17 03/30/17 11:00 11:19 11:19 15:00 Temp 97.6 97.6 97.6 97.6 Pulse 83 88 89 Resp 18 18 B/P (MAP) 182/92 (122) 177/100 142/64 (90) Pulse Ox 96 98 O2 Delivery Room Air Room Air Room Air 03/30/17 03/30/17 03/30/17 03/30/17 15:24 16:11 17:11 18:38 Resp 18 Pulse Ox 95 95 95 O2 Delivery Room Air Room Air Room Air O2 Flow Rate 2.0 03/30/17 03/30/17 03/30/17 03/30/17 19:00 19:50 21:02 23:00 Temp 98.1 97.3 98.1 97.3 Pulse 79 79 98 Resp 18 18 B/P (MAP) 169/92 (117) 168/92 133/65 (87) Pulse Ox 97 95 O2 Delivery Room Air Room Air Room Air O2 Flow Rate 2.0 03/31/17 03/31/17 03/31/17 03/31/17 00:29 01:29 07:00 07:19 Temp 99.1 99.1 Pulse 107 Resp 20 20 18 B/P (MAP) 202/89 (126) Pulse Ox 97 99 O2 Delivery Room Air Room Air Room Air Room Air 03/31/17 03/31/17 03/31/17 03/31/17 08:52 08:53 08:53 08:54 Pulse 98 98 98 Resp 18 B/P (MAP) 133/65 133/65 133/65 Pulse Ox 99 O2 Delivery Room Air Intake and Output 03/31/17 03/31/17 04/01/17 15:00 23:00 07:00 Intake Total 350 ml Balance 350 ml ALVARO YEN MD Mar 31, 2017 09:51
[2017-03-31] MEDS ORDERED: POTASSIUM CHLORIDE 20 MEQ TABLET.ER. PO ONE (10:00)
[2017-03-31] MEDS: LACTULOSE 20 GM/30 ML SOLUTION. PO SCH ×2 (10:36→13:04)
[2017-03-31 11:00] VITALS: BP 147/85
[2017-03-31] MEDS: VANCOMYCIN PER PHARMACY MC PRN (14:01)
[2017-03-31 15:00] VITALS: BP 148/82
--- NOTE | 2017-03-31 15:32 | PDOC ---
Infectious Disease Note Subjective Subjective Feeling better today, less pain ROS ROS GEN: Denies fevers, chills, sweats CV: Denies chest pain RESP: Denies shortness of air, cough GI: Denies n/v/d Vital Sign Vital Signs Vital Signs Date Time Temp Pulse Resp B/P (MAP) Pulse Ox O2 Delivery O2 Flow Rate FiO2 03/31/17 11:20 Room Air 03/31/17 11:00 98.1 87 18 147/85 (105) 98 98.1 03/30/17 19:50 2.0 Physical Exam PHYSICAL EXAM GENERAL: Up in the chair, smiling LUNGS: Clear HEART: S1 and S2, no murmur appreciated ABD: Soft, NT EXT: No gross edema, no cyanosis [employer]: Alert, 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, no focal neurologic deficit SKIN: No rash IV: ok Labs Lab Laboratory Tests Test 03/30/17 16:23 03/30/17 19:35 03/30/17 21:11 03/31/17 07:27 Glucose (Fingerstick) 146 mg/dL (70-99) 160 mg/dL (70-99) Erythrocyte Sedimentation Rate 89 (0-25) C-Reactive Protein, Quantitative 169.1 mg/L (0-3.3) White Blood Count 18.6 x10^3/uL (4.0-11.0) Red Blood Count 3.91 x10^6/uL (3.50-5.40) Hemoglobin 12.1 g/dL (12.0-15.5) Hematocrit 36.0 % (36.0-47.0) Mean Corpuscular Volume 92 fL (79-100) Mean Corpuscular Hemoglobin 31 pg (25-35) Mean Corpuscular Hemoglobin Concent 34 g/dL (31-37) Red Cell Distribution Width 13.6 % (11.5-14.5) Platelet Count 323 x10^3/uL (140-400) Neutrophils (%) (Auto) 84 % (31-73) Lymphocytes (%) (Auto) 6 % (24-48) Monocytes (%) (Auto) 9 % (0-9) Eosinophils (%) (Auto) 1 % (0-3) Basophils (%) (Auto) 0 % (0-3) Neutrophils # (Auto) 15.6 x10^3uL (1.8-7.7) Lymphocytes # (Auto) 1.0 x10^3/uL (1.0-4.8) Monocytes # (Auto) 1.7 x10^3/uL (0.0-1.1) Eosinophils # (Auto) 0.2 x10^3/uL (0.0-0.7) Basophils # (Auto) 0.0 x10^3/uL (0.0-0.2) Sodium Level 134 mmol/L (136-145) Potassium Level 3.3 mmol/L (3.5-5.1) Chloride Level 95 mmol/L (98-107) Carbon Dioxide Level 30 mmol/L (21-32) Anion Gap 9 (6-14) Blood Urea Nitrogen 12 mg/dL (7-20) Creatinine 0.6 mg/dL (0.6-1.0) Estimated GFR (Cockcroft-Gault) 97.7 Glucose Level 151 mg/dL (70-99) Calcium Level 8.6 mg/dL (8.5-10.1) Rheumatoid Factor 43.6 IU/mL (0.0-13.9) Test 03/31/17 07:41 03/31/17 11:01 Magnesium Level 2.0 mg/dL (1.8-2.4) Glucose (Fingerstick) 185 mg/dL (70-99) CT CHEST ABD PELVIS W/CONTRAST IMPRESSION: No acute finding seen in the chest, abdomen or pelvis. Chronic pleural parenchymal changes in the left upper lobe Enlargement of the right lobe of the thyroid. There is a 2.5 cm nodule additionally noted in the right lobe. Micro 03/29. BLOOD CULTURE Preliminary NO GROWTH AFTER 2 DAYS Objective Assessment Streptococcus constellatus bacteremia. POA, 03/25 & 03/27. Repeat BC from 03/29 NGTD Back pain, rule out epidural or vertebral osteomyelitis. CT degenerative changes & central spinal stenosis, s/p sacroiliac joint injection (Depo-Medrol, 03/25) Bilateral knee arthroplasties, so far do not seem to be affected. Leukocytosis. s/p Depo-Medrol 03/25 Hypertension. Plan Plan of Care vancomycin and Rocephin f/u BC TONI Saturday CRP 169.1 RF 43.6 ESR 89 D/w family Patient seen and examined. Chart reviewed in detail. Case discussed with COMPUTER EQUIPMENT REPAIRER. Agree with above plan. DIAZ ANN APRN Mar 31, 2017 15:32 QUAN TIERNEY MD Mar 31, 2017 21:12
[2017-03-31] MEDS: RIVAROXABAN 10 MG TABLET. PO SCH (16:25)
[2017-03-31 19:00] VITALS: BP 161/88
[2017-03-31 23:00] VITALS: BP 139/104
[2017-04-01] MEDS: VANCOMYCIN PER PHARMACY MC PRN (01:31)
[2017-04-01] MEDS: VANCOMYCIN 1.5 GM in IV NORMAL SALINE 500ML BAG 500 ML IV SCH (01:31)
[2017-04-01 03:00] VITALS: BP 134/88
[2017-04-01] MEDS: oxyCODONE IR 5 MG TABLET PO PRN ×4 (03:00→21:09)
[2017-04-01] MEDS: ACETAMINOPHEN 325 MG TABLET. PO PRN ×4 (03:00→18:45)
[2017-04-01 04:47] LABS: CALCIUM 8.7 mg/dL (8.5-10.1); CREATININE 0.8 mg/dL (0.6-1.0); GFR 70.1; POTASSIUM 3.4 mmol/L (3.5-5.1)
[2017-04-01 05:14] LABS: BASO # 0.1 x10^3/uL (0.0-0.2); BASO % 1 % (0-3); EOS % 1 % (0-3); HEMATOCRIT 34.5 % (36.0-47.0); HEMOGLOBIN 11.8 g/dL (12.0-15.5); LYMPH # 1.3 x10^3/uL (1.0-4.8); LYMPH % 8 % (24-48); MEAN CORPUSCULAR HEMOGLOBIN 31 pg (25-35); MEAN CORPUSCULAR HGB CONC 34 g/dL (31-37); MEAN CORPUSCULAR VOLUME 92 fL (79-100); MONO % 7 % (0-9); NEUT % 83 % (31-73); PLATELET COUNT 361 x10^3/uL (140-400); RED BLOOD COUNT 3.76 x10^6/uL (3.50-5.40); RED CELL DISTRIBUTION WIDTH 14.5 % (11.5-14.5); WHITE BLOOD COUNT 15.9 x10^3/uL (4.0-11.0)
[2017-04-01 07:00] VITALS: BP 156/98
[2017-04-01] MEDS: IPRATROPIUM BROMIDE 0.5 MG/2.5 ML NEBU. NEB SCH ×4 (07:52→20:31)
[2017-04-01] MEDS: INSULIN ASPART 300 UNITS/3 ML INSULN.PEN SQ SCH ×3 (08:00→17:00)
[2017-04-01] MEDS: LIDOCAINE (700MG/PATCH) PATCH. TD SCH (08:59)
[2017-04-01] MEDS ORDERED: 0.9 % SODIUM CHLORIDE 10 ML DISP.SYRIN. IV PRN (09:00)
[2017-04-01] MEDS ORDERED: LIDOCAINE 2% TOPICAL JELLY 5GM TUBE. TP ONE (09:00)
[2017-04-01] MEDS ORDERED: LIDOCAINE 2% VISCOUS 15 ML SOLUTION. MM ONE (09:00)
[2017-04-01] MEDS: METOPROLOL TART IMMED RELEASE 50 MG TABLET. PO SCH ×2 (09:04→21:10)
[2017-04-01] MEDS: LOSARTAN POTASSIUM 50 MG TABLET. PO SCH (09:05)
[2017-04-01] MEDS: SPIRONOLACTONE 25 MG TABLET PO SCH (09:06)
[2017-04-01] MEDS ORDERED: BENZOCAINE ONE 20% MUCOSAL SPRAY. ×2 (09:32→09:33)
[2017-04-01] MEDS ORDERED: LIDOCAINE 2% TOPICAL JELLY 30GM TUBE. TP ONE (09:32)
--- NOTE | 2017-04-01 10:00 | PDOC ---
PROGRESS NOTES Subjective Subjective She admits continued low back pain and would like to have an injection to that area. Objective Objective Vital Signs Date Time Temp Pulse Resp B/P (MAP) Pulse Ox O2 Delivery O2 Flow Rate FiO2 04/01/17 09:06 84 156/98 04/01/17 08:59 96 Room Air 04/01/17 07:00 97.8 20 97.8 03/30/17 19:50 2.0 Physical Exam Physical Exam She is sitting at edge of bed and continues with tenderness to palpation over sacroiliac joints bilaterally and no change noted with her neurological examination. Assessment Assessment Problems Medical Problems: (1) Low back pain Status: Acute Plan Plan of Care With her bacteremia,I am not sure she can have any injections to her joints or spine. Comment Review of Relevant I have reviewed the following items russell (where applicable) has been applied. Labs Laboratory Tests Test 03/30/17 11:15 03/30/17 16:23 03/30/17 19:35 03/30/17 21:11 Glucose (Fingerstick) 218 mg/dL (70-99) 146 mg/dL (70-99) 160 mg/dL (70-99) Erythrocyte Sedimentation Rate 89 (0-25) C-Reactive Protein, Quantitative 169.1 mg/L (0-3.3) Test 03/31/17 07:27 03/31/17 07:41 03/31/17 11:01 03/31/17 16:11 White Blood Count 18.6 x10^3/uL (4.0-11.0) Red Blood Count 3.91 x10^6/uL (3.50-5.40) Hemoglobin 12.1 g/dL (12.0-15.5) Hematocrit 36.0 % (36.0-47.0) Mean Corpuscular Volume 92 fL (79-100) Mean Corpuscular Hemoglobin 31 pg (25-35) Mean Corpuscular Hemoglobin Concent 34 g/dL (31-37) Red Cell Distribution Width 13.6 % (11.5-14.5) Platelet Count 323 x10^3/uL (140-400) Neutrophils (%) (Auto) 84 % (31-73) Lymphocytes (%) (Auto) 6 % (24-48) Monocytes (%) (Auto) 9 % (0-9) Eosinophils (%) (Auto) 1 % (0-3) Basophils (%) (Auto) 0 % (0-3) Neutrophils # (Auto) 15.6 x10^3uL (1.8-7.7) Lymphocytes # (Auto) 1.0 x10^3/uL (1.0-4.8) Monocytes # (Auto) 1.7 x10^3/uL (0.0-1.1) Eosinophils # (Auto) 0.2 x10^3/uL (0.0-0.7) Basophils # (Auto) 0.0 x10^3/uL (0.0-0.2) Sodium Level 134 mmol/L (136-145) Potassium Level 3.3 mmol/L (3.5-5.1) Chloride Level 95 mmol/L (98-107) Carbon Dioxide Level 30 mmol/L (21-32) Anion Gap 9 (6-14) Blood Urea Nitrogen 12 mg/dL (7-20) Creatinine 0.6 mg/dL (0.6-1.0) Estimated GFR (Cockcroft-Gault) 97.7 Glucose Level 151 mg/dL (70-99) Calcium Level 8.6 mg/dL (8.5-10.1) Rheumatoid Factor 43.6 IU/mL (0.0-13.9) Magnesium Level 2.0 mg/dL (1.8-2.4) Glucose (Fingerstick) 185 mg/dL (70-99) 144 mg/dL (70-99) Test 03/31/17 20:58 04/01/17 00:30 04/01/17 04:00 04/01/17 07:15 Glucose (Fingerstick) 141 mg/dL (70-99) 135 mg/dL (70-99) Vancomycin Level Trough 14.6 mcg/mL (10.0-20.0) Vancomycin Last Dose Date Vancomycin Last Dose Time White Blood Count 15.9 x10^3/uL (4.0-11.0) Red Blood Count 3.76 x10^6/uL (3.50-5.40) Hemoglobin 11.8 g/dL (12.0-15.5) Hematocrit 34.5 % (36.0-47.0) Mean Corpuscular Volume 92 fL (79-100) Mean Corpuscular Hemoglobin 31 pg (25-35) Mean Corpuscular Hemoglobin Concent 34 g/dL (31-37) Red Cell Distribution Width 14.5 % (11.5-14.5) Platelet Count 361 x10^3/uL (140-400) Neutrophils (%) (Auto) 83 % (31-73) Lymphocytes (%) (Auto) 8 % (24-48) Monocytes (%) (Auto) 7 % (0-9) Eosinophils (%) (Auto) 1 % (0-3) Basophils (%) (Auto) 1 % (0-3) Neutrophils # (Auto) 13.1 x10^3uL (1.8-7.7) Lymphocytes # (Auto) 1.3 x10^3/uL (1.0-4.8) Monocytes # (Auto) 1.2 x10^3/uL (0.0-1.1) Eosinophils # (Auto) 0.2 x10^3/uL (0.0-0.7) Basophils # (Auto) 0.1 x10^3/uL (0.0-0.2) Sodium Level 134 mmol/L (136-145) Potassium Level 3.4 mmol/L (3.5-5.1) Chloride Level 98 mmol/L (98-107) Carbon Dioxide Level 30 mmol/L (21-32) Anion Gap 6 (6-14) Blood Urea Nitrogen 12 mg/dL (7-20) Creatinine 0.8 mg/dL (0.6-1.0) Estimated GFR (Cockcroft-Gault) 70.1 Glucose Level 163 mg/dL (70-99) Calcium Level 8.7 mg/dL (8.5-10.1) Laboratory Tests Test 03/31/17 11:01 03/31/17 16:11 03/31/17 20:58 04/01/17 00:30 Glucose (Fingerstick) 185 mg/dL (70-99) 144 mg/dL (70-99) 141 mg/dL (70-99) Vancomycin Level Trough 14.6 mcg/mL (10.0-20.0) Vancomycin Last Dose Date Vancomycin Last Dose Time Test 04/01/17 04:00 04/01/17 07:15 White Blood Count 15.9 x10^3/uL (4.0-11.0) Red Blood Count 3.76 x10^6/uL (3.50-5.40) Hemoglobin 11.8 g/dL (12.0-15.5) Hematocrit 34.5 % (36.0-47.0) Mean Corpuscular Volume 92 fL (79-100) Mean Corpuscular Hemoglobin 31 pg (25-35) Mean Corpuscular Hemoglobin Concent 34 g/dL (31-37) Red Cell Distribution Width 14.5 % (11.5-14.5) Platelet Count 361 x10^3/uL (140-400) Neutrophils (%) (Auto) 83 % (31-73) Lymphocytes (%) (Auto) 8 % (24-48) Monocytes (%) (Auto) 7 % (0-9) Eosinophils (%) (Auto) 1 % (0-3) Basophils (%) (Auto) 1 % (0-3) Neutrophils # (Auto) 13.1 x10^3uL (1.8-7.7) Lymphocytes # (Auto) 1.3 x10^3/uL (1.0-4.8) Monocytes # (Auto) 1.2 x10^3/uL (0.0-1.1) Eosinophils # (Auto) 0.2 x10^3/uL (0.0-0.7) Basophils # (Auto) 0.1 x10^3/uL (0.0-0.2) Sodium Level 134 mmol/L (136-145) Potassium Level 3.4 mmol/L (3.5-5.1) Chloride Level 98 mmol/L (98-107) Carbon Dioxide Level 30 mmol/L (21-32) Anion Gap 6 (6-14) Blood Urea Nitrogen 12 mg/dL (7-20) Creatinine 0.8 mg/dL (0.6-1.0) Estimated GFR (Cockcroft-Gault) 70.1 Glucose Level 163 mg/dL (70-99) Calcium Level 8.7 mg/dL (8.5-10.1) Glucose (Fingerstick) 135 mg/dL (70-99) Microbiology 03/29/17 Blood Culture - Preliminary, Resulted NO GROWTH AFTER 2 DAYS 03/25/17 Urine Culture - Final, Complete 03/25/17 Urine Culture Result 1 (XENIA) - Final, Complete Medications Current Medications Carvedilol (Coreg) 25 mg 1X ONCE PO Last administered on 03/24/17 20:41; Start 03/24/17 at 20:15; Stop 03/24/17 at 20:18; Status DC Clopidogrel Bisulfate (Plavix) 75 mg 1X ONCE PO Last administered on 20:39; Start 03/24/17 at 20:15; Stop 03/24/17 at 20:18; Status DC Losartan Potassium (Cozaar) 100 mg 1X ONCE PO Last administered on 03/24/17 20:39; Start 03/24/17 at 20:15; Stop 03/24/17 at 20:18; Status DC Hydrochlorothiazide (Hydrodiuril) 25 mg 1X ONCE PO Last administered on 20:41; Start 03/24/17 at 20:18; Stop 03/24/17 at 20:19; Status DC Morphine Sulfate 5 mg 1X ONCE IM Last administered on 03/24/17 20:41; Start 03/24/17 at 20:15; Stop 03/24/17 at 20:18; Status DC Fentanyl Citrate (Fentanyl 2ml Vial) 50 mcg PRN Q15MIN PRN IV PAIN GREATER THAN 3/10 Last administered on 03/24/17 23:30; Start 03/24/17 at 23:00; Stop at 00:00; Status DC Ondansetron HCl (Zofran) 4 mg PRN Q8HRS PRN IV NAUSEA/VOMITING; Start 03/24/17 at 23:00; Stop 03/25/17 at 22:59; Status DC Hydralazine HCl (Apresoline) 25 mg PRN TID PRN PO BP OVER 160 Last administered on 03/28/17 23:21; Start 03/24/17 at 23:00 Fentanyl Citrate (Fentanyl 2ml Vial) 50 mcg PRN Q2HR PRN IV SEVERE PAIN Last administered on 03/25/17 08:19; Start 03/24/17 at 23:30; Stop 03/25/17 at 08:46 ; Status DC Aspirin (Ecotrin) 81 mg DAILY PO Last administered on 03/26/17 08:28; Start at 09:00; Stop 03/26/17 at 10:25; Status DC Clopidogrel Bisulfate (Plavix) 75 mg DAILY PO Last administered on 03/31/17 08 :53; Start 03/25/17 at 09:00 Acetaminophen/ Hydrocodone Bitart (Lortab 7.5/325) 1 tab BID PO Last administered on 03/25/17 08:18; Start 03/25/17 at 09:00; Stop 03/25/17 at 09:00 ; Status DC Tramadol HCl (Ultram) 50 mg PRN TID PRN PO MODERATE PAIN; Start 03/25/17 at 06: 15; Stop 03/25/17 at 08:46; Status DC Carvedilol (Coreg) 25 mg BIDWMEALS PO Last administered on 03/25/17 08:18; Start 03/25/17 at 08:00; Stop 03/25/17 at 12:23; Status DC Vitamin D (Vitamin D3) 2,000 unit DAILY PO Last administered on 03/31/17 08:53 ; Start 03/25/17 at 09:00 Meloxicam (Mobic) 15 mg DAILY PO Last administered on 03/28/17 08:22; Start at 09:00; Stop 03/28/17 at 10:57; Status DC Multivitamins (Thera M Plus) 1 tab DAILY PO Last administered on 03/31/17 09: 06; Start 03/25/17 at 09:00 Fish Oil (Fish Oil) 1,000 mg DAILY PO Last administered on 03/31/17 08:53; Start 03/25/17 at 09:00 Non-Formulary Medication 5 mg BID PO ; Start 03/25/17 at 09:00; Stop 03/28/17 at 15:40; Status DC Losartan Potassium (Cozaar) 100 mg DAILY PO Last administered on 03/26/17 08: 22; Start 03/25/17 at 09:00; Stop 03/26/17 at 10:25; Status DC Hydrochlorothiazide (Hydrodiuril) 25 mg DAILY PO Last administered on 08:21; Start 03/25/17 at 09:00; Stop 03/28/17 at 10:57; Status DC Fentanyl Citrate (Fentanyl 2ml Vial) 25 mcg PRN Q4HRS PRN IV SEVERE PAIN Last administered on 03/29/17 08:57; Start 03/25/17 at 08:45 Lidocaine (Lidoderm) 1 patch DAILY TD Last administered on 04/01/17 08:59; Start 03/25/17 at 09:00 Cyclobenzaprine HCl (Flexeril) 10 mg PRN TID PRN PO MUSCLE SPASMS Last administered on 03/30/17 21:10; Start 03/25/17 at 08:45 Oxycodone HCl (Roxicodone) 5 mg PRN Q6HRS PRN PO PAIN Last administered on 04/01 08:59; Start 03/25/17 at 08:45 Acetaminophen (Tylenol) 325 mg PRN Q4HRS PRN PO MILD PAIN / TEMP Last administered on 04/01/17 08:59; Start 03/25/17 at 08:45 Iohexol (Omnipaque 300 Mg/ml) 75 ml 1X ONCE IV Last administered on 03/25/17 11:43; Start 03/25/17 at 09:00; Stop 03/25/17 at 09:22; Status DC Info (Do NOT chart on this entry -- for MONITORING) 1 each PRN DAILY PRN MC SEE COMMENTS; Start 03/25/17 at 09:30; Stop 03/27/17 at 09:29; Status DC Methylprednisolone Acetate (DEPO-Medrol 40MG VIAL) 40 mg 1X ONCE IM ; Start at 10:00; Stop 03/25/17 at 10:02; Status DC Bupivacaine HCl (Sensorcaine-Mpf 0.25%) 10 ml 1X ONCE IJ ; Start 03/25/17 at 10 :00; Stop 03/25/17 at 10:02; Status DC Digoxin (Lanoxin) 500 mcg 1X ONCE IV Last administered on 03/25/17 12:40; Start 03/25/17 at 12:15; Stop 03/25/17 at 12:32; Status DC Metoprolol Tartrate (Lopressor) 100 mg BID PO Last administered on 04/01/17 09 :04; Start 03/25/17 at 21:00 Ipratropium [place] (Atrovent) 0.5 mg RTQID NEB Last administered on 04/01/17 07:52; Start 03/25/17 at 16:00 Albuterol Sulfate (Ventolin Neb Soln) 2.5 mg PRN Q4HRS PRN NEB WHEEZING; Start 03/25/17 at 14:00; Stop 03/25/17 at 14:04; Status DC Ipratropium [place] (Atrovent) 0.5 mg PRN Q4HRS PRN NEB SHORTNESS OF BREATH; Start 03/25/17 at 14:15 Losartan Potassium (Cozaar) 50 mg DAILY PO Last administered on 03/29/17 08:38 ; Start 03/27/17 at 09:00; Stop 03/29/17 at 09:02; Status DC Diltiazem HCl (Cardizem 24hr Cd) 120 mg DAILY PO Last administered on 08:55; Start 03/26/17 at 11:00; Stop 03/30/17 at 10:06; Status DC Rivaroxaban (Xarelto) 20 mg DAILYWSUP PO Last administered on 03/31/17 16:25; Start 03/26/17 at 17:00 Digoxin (Lanoxin) 250 mcg 1X ONCE IV Last administered on 03/26/17 11:41; Start 03/26/17 at 10:45; Stop 03/26/17 at 10:46; Status DC Info (Anti-Coagulation Monitoring By Pharmacy) 1 each PRN DAILY PRN MC SEE COMMENTS Last administered on 03/29/17 14:01; Start 03/26/17 at 10:30 Vancomycin HCl 1 gm/Sodium Chloride 250 ml @ 250 mls/hr 1X ONCE IV ; Start at 09:00; Stop 03/27/17 at 09:59; Status UNV Vancomycin HCl (Vanco Per Pharmacy) 1 each PRN DAILY PRN MC SEE COMMENTS Last administered on 04/01/17 01:31; Start 03/27/17 at 09:00 Vancomycin HCl 2 gm/Sodium Chloride 500 ml @ 250 mls/hr 1X ONCE IV Last administered on 03/27/17 11:35; Start 03/27/17 at 09:00; Stop 03/27/17 at 10:59 ; Status DC Iohexol (Omnipaque 240 Mg/ml) 30 ml 1X ONCE PO Last administered on 03/27/17 11:08; Start 03/27/17 at 09:45; Stop 03/27/17 at 09:46; Status DC Iohexol (Omnipaque 300 Mg/ml) 75 ml 1X ONCE IV Last administered on 03/27/17 09:45; Start 03/27/17 at 09:45; Stop 03/27/17 at 09:46; Status DC Info (Do NOT chart on this entry -- for MONITORING) 1 each PRN DAILY PRN MC SEE COMMENTS; Start 03/27/17 at 09:45; Stop 03/29/17 at 09:44; Status DC Potassium Chloride (Klor-Con) 20 meq 1X ONCE PO Last administered on 11:31; Start 03/27/17 at 10:00; Stop 03/27/17 at 10:01; Status DC Iohexol (Omnipaque 240 Mg/ml) 50 ml STK-MED ONCE .ROUTE ; Start 03/27/17 at 10: 58; Stop 03/27/17 at 10:59; Status DC Iohexol (Omnipaque 300 Mg/ml) 75 ml STK-MED ONCE .ROUTE ; Start 03/27/17 at 10: 58; Stop 03/27/17 at 10:59; Status DC Vancomycin HCl 1.75 gm/Sodium Chloride 500 ml @ 250 mls/hr Q24H IV Last administered on 03/28/17 12:02; Start 03/28/17 at 11:00; Stop 03/29/17 at 12:29 ; Status DC Vancomycin HCl 1 each 1X ONCE MC ; Start 03/29/17 at 10:30; Stop 03/29/17 at 10 :31; Status DC Potassium Chloride (Klor-Con) 20 meq 1X ONCE PO Last administered on 17:27; Start 03/27/17 at 16:45; Stop 03/27/17 at 16:46; Status DC Insulin Aspart (NovoLOG) 0-6 UNITS TIDWMEALS SQ Last administered on 03/31/17 11:48; Start 03/27/17 at 17:00 Potassium Chloride (Klor-Con) 40 meq 1X ONCE PO Last administered on 11:17; Start 03/28/17 at 11:30; Stop 03/28/17 at 11:31; Status DC Info (Anti-Coagulation Monitoring By Pharmacy) 1 each PRN DAILY PRN MC SEE COMMENTS; Start 03/28/17 at 12:00; Status Cancel Losartan Potassium (Cozaar) 100 mg DAILY PO Last administered on 04/01/17 09: 05; Start 03/29/17 at 09:00 Glimepiride (Amaryl) 1 mg DAILY PO Last administered on 03/31/17 08:52; Start 03/29/17 at 10:00; Stop 03/31/17 at 09:48; Status DC Ceftriaxone Sodium 2 gm/ Sodium Chloride 100 ml @ 200 mls/hr Q12HR IV Last administered on 04/01/17 09:31; Start 03/29/17 at 10:00 Vancomycin HCl 1.5 gm/Sodium Chloride 500 ml @ 250 mls/hr Q12H IV Last administered on 04/01/17 01:31; Start 03/29/17 at 13:00 Potassium Chloride (Klor-Con) 40 meq 1X ONCE PO Last administered on 11:24; Start 03/30/17 at 12:00; Stop 03/30/17 at 12:01; Status DC Potassium Chloride (Klor-Con) 40 meq 1X ONCE PO Last administered on 07:45; Start 03/30/17 at 07:30; Stop 03/30/17 at 07:31; Status DC Diltiazem HCl (Cardizem 24hr Cd) 240 mg DAILY PO Last administered on 09:06; Start 03/31/17 at 09:00 Spironolactone (Aldactone) 25 mg DAILY PO Last administered on 04/01/17 09:06 ; Start 03/30/17 at 11:00 Diltiazem HCl (Cardizem 24hr Cd) 120 mg 1X ONCE PO Last administered on 11:19; Start 03/30/17 at 10:30; Stop 03/30/17 at 10:31; Status DC Bupivacaine HCl (Sensorcaine-Mpf 0.25%) 10 ml STK-MED ONCE .ROUTE ; Start at 11:00; Stop 03/30/17 at 15:10; Status DC Methylprednisolone Acetate (DEPO-Medrol 40MG VIAL) 40 mg STK-MED ONCE .ROUTE ; Start 03/25/17 at 11:00; Stop 03/30/17 at 15:10; Status DC Glimepiride (Amaryl) 2 mg DAILY PO ; Start 04/01/17 at 09:00 Potassium Chloride (Klor-Con) 40 meq 1X ONCE PO Last administered on 10:36; Start 03/31/17 at 10:00; Stop 03/31/17 at 10:01; Status DC Lactulose 20 gm Q2H PO Last administered on 03/31/17 13:04; Start 03/31/17 at 10:00; Stop 03/31/17 at 12:01; Status DC Vancomycin HCl 1 each 1X ONCE MC Last administered on 04/01/17 00:30; Start 04/01/17 at 00:30; Stop 04/01/17 at 00:31; Status DC Sodium Chloride (Normal Saline Flush) 10 ml QSHIFT PRN IV AFTER MEDS AND BLOOD DRAWS; Start 04/01/17 at 09:00 Lidocaine HCl (Xylocaine 2% Topical 5gm Tube) 1 britt 1X ONCE TP ; Start at 09:00; Stop 04/01/17 at 09:01; Status DC Lidocaine HCl (Viscous Lidocaine) 15 ml 1X ONCE MM ; Start 04/01/17 at 09:00; Stop 04/01/17 at 09:01; Status DC Benzocaine (Hurricaine One) 1 spray STK-MED ONCE .ROUTE ; Start 04/01/17 at 09: 32; Stop 04/01/17 at 09:33; Status DC Lidocaine HCl (Xylocaine 2% Topical 30gm Tube) 30 britt STK-MED ONCE TP ; Start at 09:32; Stop 04/01/17 at 09:33; Status DC Benzocaine (Hurricaine One) 1 spray STK-MED ONCE .ROUTE ; Start 04/01/17 at 09: 33; Stop 04/01/17 at 09:34; Status DC Active Scripts Active Reported Omeprazole 20 Mg Capsule. 1 Cap PO DAILY Vitamin D (Cholecalciferol (Vitamin D3)) 2,000 Unit Capsule 1 Cap PO DAILY Fish Oil 1,000 mg Softgel ([place]-3/Dha/Epa/Fish Oil) 1,000 Mg Capsule 1,000 Mg PO DAILY Hydrocodone-Apap 7.5-325 (Hydrocodone Bit/Acetaminophen) 1 Each Tablet 1 Tab PO BID Aspirin Ec (Aspirin) 81 Mg Tablet. 1 Tab PO DAILY Multivitamins (Multivitamin) 1 Each Tablet 1 Tab PO DAILY Xeljanz (Tofacitinib Citrate) 5 Mg Tablet 5 Mg PO BID Valsartan-Hctz 320-25 Mg Tab (Valsartan/Hydrochlorothiazide) 1 Each Tablet 1 Each PO DAILY Meloxicam 15 Mg Tablet 1 Tab PO DAILY Carvedilol 25 Mg Tablet 1 Tab PO BID Tramadol Hcl 50 Mg Tablet 1 Tab PO TID PRN Clopidogrel (Clopidogrel Bisulfate) 75 Mg Tablet 1 Tab PO DAILY Vitals/I & O Vital Sign - Last 24 Hours 03/31/17 03/31/17 03/31/17 03/31/17 11:00 11:20 15:00 15:44 Temp 98.1 97.6 98.1 97.6 Pulse 87 89 Resp 18 18 B/P (MAP) 147/85 (105) 148/82 (104) Pulse Ox 98 97 O2 Delivery Room Air Room Air Room Air Room Air 03/31/17 03/31/17 03/31/17 03/31/17 16:25 17:25 19:00 19:56 Temp 97.9 97.9 Pulse 99 Resp 18 18 B/P (MAP) 161/88 (112) Pulse Ox 98 98 99 97 O2 Delivery Room Air Room Air Room Air 03/31/17 03/31/17 03/31/17 03/31/17 21:00 21:02 21:07 23:00 Temp 98.2 98.2 Pulse 88 93 Resp 20 18 B/P (MAP) 161/88 139/104 (116) Pulse Ox 95 O2 Delivery Room Air Room Air Room Air 04/01/17 04/01/17 04/01/17 04/01/17 03:00 03:00 04:00 07:00 Temp 98.6 97.8 98.6 97.8 Pulse 88 85 Resp 20 20 20 20 B/P (MAP) 134/88 (103) 156/98 (117) Pulse Ox 95 96 O2 Delivery Room Air Room Air Room Air Room Air 04/01/17 04/01/17 04/01/17 04/01/17 07:52 08:59 09:04 09:05 Pulse 84 84 B/P (MAP) 156/98 156/98 Pulse Ox 96 96 O2 Delivery Room Air Room Air 04/01/17 09:06 Pulse 84 B/P (MAP) 156/98 BLAKE GARCIA MD Apr 01, 2017 09:59
[2017-04-01] MEDS ORDERED: PROPOFOL 20 ML IV ONE (10:30)
--- NOTE | 2017-04-01 10:33 | PDOC ---
PROGRESS NOTES Subjective Subjective has less back pain. feels better. will have TONI this morning. lab reviewed. potassium 3.4 and sodium 134. Objective Objective Vital Signs Date Time Temp Pulse Resp B/P (MAP) Pulse Ox O2 Delivery O2 Flow Rate FiO2 04/01/17 09:06 84 156/98 04/01/17 08:59 96 Room Air 04/01/17 07:00 97.8 20 97.8 03/30/17 19:50 2.0 Physical Exam Abdomen: Soft Heart: Normal S1, Normal S2 Extremities: Other (1 plus edema legs) General: Alert HEENT: Atraumatic Lungs: Clear to auscultation Neuro: Normal gait Psych/Mental Status: Mental status NL Skin: No rashes Assessment Assessment Problems1. streptococcus constellatus bacteremia 2. low back pain improved 3. Hypertension 4. Coronary artery disease. 5. Rheumatoid arthritis. 6. Elevated liver function tests. 7. Cholelithiasis. new onset atrial fibrillation. fatty liver leukocytosis nodule right thyroid lobe hyponatremia better hypokalemia diabetes mellitus type 2 Medical Problems: (1) Low back pain Status: Acute Plan Plan of Care TONI today continue iv vancomycin and rocephin kcl today Comment Review of Relevant I have reviewed the following items russell (where applicable) has been applied. Labs Laboratory Tests Test 03/30/17 11:15 03/30/17 16:23 03/30/17 19:35 03/30/17 21:11 Glucose (Fingerstick) 218 mg/dL (70-99) 146 mg/dL (70-99) 160 mg/dL (70-99) Erythrocyte Sedimentation Rate 89 (0-25) C-Reactive Protein, Quantitative 169.1 mg/L (0-3.3) Test 03/31/17 07:27 03/31/17 07:41 03/31/17 11:01 03/31/17 16:11 White Blood Count 18.6 x10^3/uL (4.0-11.0) Red Blood Count 3.91 x10^6/uL (3.50-5.40) Hemoglobin 12.1 g/dL (12.0-15.5) Hematocrit 36.0 % (36.0-47.0) Mean Corpuscular Volume 92 fL (79-100) Mean Corpuscular Hemoglobin 31 pg (25-35) Mean Corpuscular Hemoglobin Concent 34 g/dL (31-37) Red Cell Distribution Width 13.6 % (11.5-14.5) Platelet Count 323 x10^3/uL (140-400) Neutrophils (%) (Auto) 84 % (31-73) Lymphocytes (%) (Auto) 6 % (24-48) Monocytes (%) (Auto) 9 % (0-9) Eosinophils (%) (Auto) 1 % (0-3) Basophils (%) (Auto) 0 % (0-3) Neutrophils # (Auto) 15.6 x10^3uL (1.8-7.7) Lymphocytes # (Auto) 1.0 x10^3/uL (1.0-4.8) Monocytes # (Auto) 1.7 x10^3/uL (0.0-1.1) Eosinophils # (Auto) 0.2 x10^3/uL (0.0-0.7) Basophils # (Auto) 0.0 x10^3/uL (0.0-0.2) Sodium Level 134 mmol/L (136-145) Potassium Level 3.3 mmol/L (3.5-5.1) Chloride Level 95 mmol/L (98-107) Carbon Dioxide Level 30 mmol/L (21-32) Anion Gap 9 (6-14) Blood Urea Nitrogen 12 mg/dL (7-20) Creatinine 0.6 mg/dL (0.6-1.0) Estimated GFR (Cockcroft-Gault) 97.7 Glucose Level 151 mg/dL (70-99) Calcium Level 8.6 mg/dL (8.5-10.1) Rheumatoid Factor 43.6 IU/mL (0.0-13.9) Magnesium Level 2.0 mg/dL (1.8-2.4) Glucose (Fingerstick) 185 mg/dL (70-99) 144 mg/dL (70-99) Test 03/31/17 20:58 04/01/17 00:30 04/01/17 04:00 04/01/17 07:15 Glucose (Fingerstick) 141 mg/dL (70-99) 135 mg/dL (70-99) Vancomycin Level Trough 14.6 mcg/mL (10.0-20.0) Vancomycin Last Dose Date Vancomycin Last Dose Time White Blood Count 15.9 x10^3/uL (4.0-11.0) Red Blood Count 3.76 x10^6/uL (3.50-5.40) Hemoglobin 11.8 g/dL (12.0-15.5) Hematocrit 34.5 % (36.0-47.0) Mean Corpuscular Volume 92 fL (79-100) Mean Corpuscular Hemoglobin 31 pg (25-35) Mean Corpuscular Hemoglobin Concent 34 g/dL (31-37) Red Cell Distribution Width 14.5 % (11.5-14.5) Platelet Count 361 x10^3/uL (140-400) Neutrophils (%) (Auto) 83 % (31-73) Lymphocytes (%) (Auto) 8 % (24-48) Monocytes (%) (Auto) 7 % (0-9) Eosinophils (%) (Auto) 1 % (0-3) Basophils (%) (Auto) 1 % (0-3) Neutrophils # (Auto) 13.1 x10^3uL (1.8-7.7) Lymphocytes # (Auto) 1.3 x10^3/uL (1.0-4.8) Monocytes # (Auto) 1.2 x10^3/uL (0.0-1.1) Eosinophils # (Auto) 0.2 x10^3/uL (0.0-0.7) Basophils # (Auto) 0.1 x10^3/uL (0.0-0.2) Sodium Level 134 mmol/L (136-145) Potassium Level 3.4 mmol/L (3.5-5.1) Chloride Level 98 mmol/L (98-107) Carbon Dioxide Level 30 mmol/L (21-32) Anion Gap 6 (6-14) Blood Urea Nitrogen 12 mg/dL (7-20) Creatinine 0.8 mg/dL (0.6-1.0) Estimated GFR (Cockcroft-Gault) 70.1 Glucose Level 163 mg/dL (70-99) Calcium Level 8.7 mg/dL (8.5-10.1) Laboratory Tests Test 03/31/17 11:01 03/31/17 16:11 03/31/17 20:58 04/01/17 00:30 Glucose (Fingerstick) 185 mg/dL (70-99) 144 mg/dL (70-99) 141 mg/dL (70-99) Vancomycin Level Trough 14.6 mcg/mL (10.0-20.0) Vancomycin Last Dose Date Vancomycin Last Dose Time Test 04/01/17 04:00 04/01/17 07:15 White Blood Count 15.9 x10^3/uL (4.0-11.0) Red Blood Count 3.76 x10^6/uL (3.50-5.40) Hemoglobin 11.8 g/dL (12.0-15.5) Hematocrit 34.5 % (36.0-47.0) Mean Corpuscular Volume 92 fL (79-100) Mean Corpuscular Hemoglobin 31 pg (25-35) Mean Corpuscular Hemoglobin Concent 34 g/dL (31-37) Red Cell Distribution Width 14.5 % (11.5-14.5) Platelet Count 361 x10^3/uL (140-400) Neutrophils (%) (Auto) 83 % (31-73) Lymphocytes (%) (Auto) 8 % (24-48) Monocytes (%) (Auto) 7 % (0-9) Eosinophils (%) (Auto) 1 % (0-3) Basophils (%) (Auto) 1 % (0-3) Neutrophils # (Auto) 13.1 x10^3uL (1.8-7.7) Lymphocytes # (Auto) 1.3 x10^3/uL (1.0-4.8) Monocytes # (Auto) 1.2 x10^3/uL (0.0-1.1) Eosinophils # (Auto) 0.2 x10^3/uL (0.0-0.7) Basophils # (Auto) 0.1 x10^3/uL (0.0-0.2) Sodium Level 134 mmol/L (136-145) Potassium Level 3.4 mmol/L (3.5-5.1) Chloride Level 98 mmol/L (98-107) Carbon Dioxide Level 30 mmol/L (21-32) Anion Gap 6 (6-14) Blood Urea Nitrogen 12 mg/dL (7-20) Creatinine 0.8 mg/dL (0.6-1.0) Estimated GFR (Cockcroft-Gault) 70.1 Glucose Level 163 mg/dL (70-99) Calcium Level 8.7 mg/dL (8.5-10.1) Glucose (Fingerstick) 135 mg/dL (70-99) Microbiology 03/29/17 Blood Culture - Preliminary, Resulted NO GROWTH AFTER 2 DAYS 03/25/17 Urine Culture - Final, Complete 03/25/17 Urine Culture Result 1 (XENIA) - Final, Complete Medications Current Medications Carvedilol (Coreg) 25 mg 1X ONCE PO Last administered on 03/24/17 20:41; Start 03/24/17 at 20:15; Stop 03/24/17 at 20:18; Status DC Clopidogrel Bisulfate (Plavix) 75 mg 1X ONCE PO Last administered on 20:39; Start 03/24/17 at 20:15; Stop 03/24/17 at 20:18; Status DC Losartan Potassium (Cozaar) 100 mg 1X ONCE PO Last administered on 03/24/17 20:39; Start 03/24/17 at 20:15; Stop 03/24/17 at 20:18; Status DC Hydrochlorothiazide (Hydrodiuril) 25 mg 1X ONCE PO Last administered on 20:41; Start 03/24/17 at 20:18; Stop 03/24/17 at 20:19; Status DC Morphine Sulfate 5 mg 1X ONCE IM Last administered on 03/24/17 20:41; Start 03/24/17 at 20:15; Stop 03/24/17 at 20:18; Status DC Fentanyl Citrate (Fentanyl 2ml Vial) 50 mcg PRN Q15MIN PRN IV PAIN GREATER THAN 3/10 Last administered on 03/24/17 23:30; Start 03/24/17 at 23:00; Stop at 00:00; Status DC Ondansetron HCl (Zofran) 4 mg PRN Q8HRS PRN IV NAUSEA/VOMITING; Start 03/24/17 at 23:00; Stop 03/25/17 at 22:59; Status DC Hydralazine HCl (Apresoline) 25 mg PRN TID PRN PO BP OVER 160 Last administered on 03/28/17 23:21; Start 03/24/17 at 23:00 Fentanyl Citrate (Fentanyl 2ml Vial) 50 mcg PRN Q2HR PRN IV SEVERE PAIN Last administered on 03/25/17 08:19; Start 03/24/17 at 23:30; Stop 03/25/17 at 08:46 ; Status DC Aspirin (Ecotrin) 81 mg DAILY PO Last administered on 03/26/17 08:28; Start at 09:00; Stop 03/26/17 at 10:25; Status DC Clopidogrel Bisulfate (Plavix) 75 mg DAILY PO Last administered on 03/31/17 08 :53; Start 03/25/17 at 09:00 Acetaminophen/ Hydrocodone Bitart (Lortab 7.5/325) 1 tab BID PO Last administered on 03/25/17 08:18; Start 03/25/17 at 09:00; Stop 03/25/17 at 09:00 ; Status DC Tramadol HCl (Ultram) 50 mg PRN TID PRN PO MODERATE PAIN; Start 03/25/17 at 06: 15; Stop 03/25/17 at 08:46; Status DC Carvedilol (Coreg) 25 mg BIDWMEALS PO Last administered on 03/25/17 08:18; Start 03/25/17 at 08:00; Stop 03/25/17 at 12:23; Status DC Vitamin D (Vitamin D3) 2,000 unit DAILY PO Last administered on 03/31/17 08:53 ; Start 03/25/17 at 09:00 Meloxicam (Mobic) 15 mg DAILY PO Last administered on 03/28/17 08:22; Start at 09:00; Stop 03/28/17 at 10:57; Status DC Multivitamins (Thera M Plus) 1 tab DAILY PO Last administered on 03/31/17 09: 06; Start 03/25/17 at 09:00 Fish Oil (Fish Oil) 1,000 mg DAILY PO Last administered on 03/31/17 08:53; Start 03/25/17 at 09:00 Non-Formulary Medication 5 mg BID PO ; Start 03/25/17 at 09:00; Stop 03/28/17 at 15:40; Status DC Losartan Potassium (Cozaar) 100 mg DAILY PO Last administered on 03/26/17 08: 22; Start 03/25/17 at 09:00; Stop 03/26/17 at 10:25; Status DC Hydrochlorothiazide (Hydrodiuril) 25 mg DAILY PO Last administered on 08:21; Start 03/25/17 at 09:00; Stop 03/28/17 at 10:57; Status DC Fentanyl Citrate (Fentanyl 2ml Vial) 25 mcg PRN Q4HRS PRN IV SEVERE PAIN Last administered on 03/29/17 08:57; Start 03/25/17 at 08:45 Lidocaine (Lidoderm) 1 patch DAILY TD Last administered on 04/01/17 08:59; Start 03/25/17 at 09:00 Cyclobenzaprine HCl (Flexeril) 10 mg PRN TID PRN PO MUSCLE SPASMS Last administered on 03/30/17 21:10; Start 03/25/17 at 08:45 Oxycodone HCl (Roxicodone) 5 mg PRN Q6HRS PRN PO PAIN Last administered on 04/01 08:59; Start 03/25/17 at 08:45 Acetaminophen (Tylenol) 325 mg PRN Q4HRS PRN PO MILD PAIN / TEMP Last administered on 04/01/17 08:59; Start 03/25/17 at 08:45 Iohexol (Omnipaque 300 Mg/ml) 75 ml 1X ONCE IV Last administered on 03/25/17 11:43; Start 03/25/17 at 09:00; Stop 03/25/17 at 09:22; Status DC Info (Do NOT chart on this entry -- for MONITORING) 1 each PRN DAILY PRN MC SEE COMMENTS; Start 03/25/17 at 09:30; Stop 03/27/17 at 09:29; Status DC Methylprednisolone Acetate (DEPO-Medrol 40MG VIAL) 40 mg 1X ONCE IM ; Start at 10:00; Stop 03/25/17 at 10:02; Status DC Bupivacaine HCl (Sensorcaine-Mpf 0.25%) 10 ml 1X ONCE IJ ; Start 03/25/17 at 10 :00; Stop 03/25/17 at 10:02; Status DC Digoxin (Lanoxin) 500 mcg 1X ONCE IV Last administered on 03/25/17 12:40; Start 03/25/17 at 12:15; Stop 03/25/17 at 12:32; Status DC Metoprolol Tartrate (Lopressor) 100 mg BID PO Last administered on 04/01/17 09 :04; Start 03/25/17 at 21:00 Ipratropium [place] (Atrovent) 0.5 mg RTQID NEB Last administered on 04/01/17 07:52; Start 03/25/17 at 16:00 Albuterol Sulfate (Ventolin Neb Soln) 2.5 mg PRN Q4HRS PRN NEB WHEEZING; Start 03/25/17 at 14:00; Stop 03/25/17 at 14:04; Status DC Ipratropium [place] (Atrovent) 0.5 mg PRN Q4HRS PRN NEB SHORTNESS OF BREATH; Start 03/25/17 at 14:15 Losartan Potassium (Cozaar) 50 mg DAILY PO Last administered on 03/29/17 08:38 ; Start 03/27/17 at 09:00; Stop 03/29/17 at 09:02; Status DC Diltiazem HCl (Cardizem 24hr Cd) 120 mg DAILY PO Last administered on 08:55; Start 03/26/17 at 11:00; Stop 03/30/17 at 10:06; Status DC Rivaroxaban (Xarelto) 20 mg DAILYWSUP PO Last administered on 03/31/17 16:25; Start 03/26/17 at 17:00 Digoxin (Lanoxin) 250 mcg 1X ONCE IV Last administered on 03/26/17 11:41; Start 03/26/17 at 10:45; Stop 03/26/17 at 10:46; Status DC Info (Anti-Coagulation Monitoring By Pharmacy) 1 each PRN DAILY PRN MC SEE COMMENTS Last administered on 03/29/17 14:01; Start 03/26/17 at 10:30 Vancomycin HCl 1 gm/Sodium Chloride 250 ml @ 250 mls/hr 1X ONCE IV ; Start at 09:00; Stop 03/27/17 at 09:59; Status UNV Vancomycin HCl (Vanco Per Pharmacy) 1 each PRN DAILY PRN MC SEE COMMENTS Last administered on 04/01/17 01:31; Start 03/27/17 at 09:00 Vancomycin HCl 2 gm/Sodium Chloride 500 ml @ 250 mls/hr 1X ONCE IV Last administered on 03/27/17 11:35; Start 03/27/17 at 09:00; Stop 03/27/17 at 10:59 ; Status DC Iohexol (Omnipaque 240 Mg/ml) 30 ml 1X ONCE PO Last administered on 03/27/17 11:08; Start 03/27/17 at 09:45; Stop 03/27/17 at 09:46; Status DC Iohexol (Omnipaque 300 Mg/ml) 75 ml 1X ONCE IV Last administered on 03/27/17 09:45; Start 03/27/17 at 09:45; Stop 03/27/17 at 09:46; Status DC Info (Do NOT chart on this entry -- for MONITORING) 1 each PRN DAILY PRN MC SEE COMMENTS; Start 03/27/17 at 09:45; Stop 03/29/17 at 09:44; Status DC Potassium Chloride (Klor-Con) 20 meq 1X ONCE PO Last administered on 11:31; Start 03/27/17 at 10:00; Stop 03/27/17 at 10:01; Status DC Iohexol (Omnipaque 240 Mg/ml) 50 ml STK-MED ONCE .ROUTE ; Start 03/27/17 at 10: 58; Stop 03/27/17 at 10:59; Status DC Iohexol (Omnipaque 300 Mg/ml) 75 ml STK-MED ONCE .ROUTE ; Start 03/27/17 at 10: 58; Stop 03/27/17 at 10:59; Status DC Vancomycin HCl 1.75 gm/Sodium Chloride 500 ml @ 250 mls/hr Q24H IV Last administered on 03/28/17 12:02; Start 03/28/17 at 11:00; Stop 03/29/17 at 12:29 ; Status DC Vancomycin HCl 1 each 1X ONCE MC ; Start 03/29/17 at 10:30; Stop 03/29/17 at 10 :31; Status DC Potassium Chloride (Klor-Con) 20 meq 1X ONCE PO Last administered on 17:27; Start 03/27/17 at 16:45; Stop 03/27/17 at 16:46; Status DC Insulin Aspart (NovoLOG) 0-6 UNITS TIDWMEALS SQ Last administered on 03/31/17 11:48; Start 03/27/17 at 17:00 Potassium Chloride (Klor-Con) 40 meq 1X ONCE PO Last administered on 11:17; Start 03/28/17 at 11:30; Stop 03/28/17 at 11:31; Status DC Info (Anti-Coagulation Monitoring By Pharmacy) 1 each PRN DAILY PRN MC SEE COMMENTS; Start 03/28/17 at 12:00; Status Cancel Losartan Potassium (Cozaar) 100 mg DAILY PO Last administered on 04/01/17 09: 05; Start 03/29/17 at 09:00 Glimepiride (Amaryl) 1 mg DAILY PO Last administered on 03/31/17 08:52; Start 03/29/17 at 10:00; Stop 03/31/17 at 09:48; Status DC Ceftriaxone Sodium 2 gm/ Sodium Chloride 100 ml @ 200 mls/hr Q12HR IV Last administered on 04/01/17 09:31; Start 03/29/17 at 10:00 Vancomycin HCl 1.5 gm/Sodium Chloride 500 ml @ 250 mls/hr Q12H IV Last administered on 04/01/17 01:31; Start 03/29/17 at 13:00 Potassium Chloride (Klor-Con) 40 meq 1X ONCE PO Last administered on 11:24; Start 03/30/17 at 12:00; Stop 03/30/17 at 12:01; Status DC Potassium Chloride (Klor-Con) 40 meq 1X ONCE PO Last administered on 07:45; Start 03/30/17 at 07:30; Stop 03/30/17 at 07:31; Status DC Diltiazem HCl (Cardizem 24hr Cd) 240 mg DAILY PO Last administered on 09:06; Start 03/31/17 at 09:00 Spironolactone (Aldactone) 25 mg DAILY PO Last administered on 04/01/17 09:06 ; Start 03/30/17 at 11:00 Diltiazem HCl (Cardizem 24hr Cd) 120 mg 1X ONCE PO Last administered on 11:19; Start 03/30/17 at 10:30; Stop 03/30/17 at 10:31; Status DC Bupivacaine HCl (Sensorcaine-Mpf 0.25%) 10 ml STK-MED ONCE .ROUTE ; Start at 11:00; Stop 03/30/17 at 15:10; Status DC Methylprednisolone Acetate (DEPO-Medrol 40MG VIAL) 40 mg STK-MED ONCE .ROUTE ; Start 03/25/17 at 11:00; Stop 03/30/17 at 15:10; Status DC Glimepiride (Amaryl) 2 mg DAILY PO ; Start 04/01/17 at 09:00 Potassium Chloride (Klor-Con) 40 meq 1X ONCE PO Last administered on 10:36; Start 03/31/17 at 10:00; Stop 03/31/17 at 10:01; Status DC Lactulose 20 gm Q2H PO Last administered on 03/31/17 13:04; Start 03/31/17 at 10:00; Stop 03/31/17 at 12:01; Status DC Vancomycin HCl 1 each 1X ONCE MC Last administered on 04/01/17 00:30; Start 04/01/17 at 00:30; Stop 04/01/17 at 00:31; Status DC Sodium Chloride (Normal Saline Flush) 10 ml QSHIFT PRN IV AFTER MEDS AND BLOOD DRAWS; Start 04/01/17 at 09:00 Lidocaine HCl (Xylocaine 2% Topical 5gm Tube) 1 britt 1X ONCE TP ; Start at 09:00; Stop 04/01/17 at 09:01; Status DC Lidocaine HCl (Viscous Lidocaine) 15 ml 1X ONCE MM ; Start 04/01/17 at 09:00; Stop 04/01/17 at 09:01; Status DC Benzocaine (Hurricaine One) 1 spray STK-MED ONCE .ROUTE ; Start 04/01/17 at 09: 32; Stop 04/01/17 at 09:33; Status DC Lidocaine HCl (Xylocaine 2% Topical 30gm Tube) 30 britt STK-MED ONCE TP ; Start at 09:32; Stop 04/01/17 at 09:33; Status DC Benzocaine (Hurricaine One) 1 spray STK-MED ONCE .ROUTE ; Start 04/01/17 at 09: 33; Stop 04/01/17 at 09:34; Status DC Active Scripts Active Reported Omeprazole 20 Mg Capsule.dr 1 Cap PO DAILY Vitamin D (Cholecalciferol (Vitamin D3)) 2,000 Unit Capsule 1 Cap PO DAILY Fish Oil 1,000 mg Softgel ([place]-3/Dha/Epa/Fish Oil) 1,000 Mg Capsule 1,000 Mg PO DAILY Hydrocodone-Apap 7.5-325 (Hydrocodone Bit/Acetaminophen) 1 Each Tablet 1 Tab PO BID Aspirin Ec (Aspirin) 81 Mg Tablet. 1 Tab PO DAILY Multivitamins (Multivitamin) 1 Each Tablet 1 Tab PO DAILY Xeljanz (Tofacitinib Citrate) 5 Mg Tablet 5 Mg PO BID Valsartan-Hctz 320-25 Mg Tab (Valsartan/Hydrochlorothiazide) 1 Each Tablet 1 Each PO DAILY Meloxicam 15 Mg Tablet 1 Tab PO DAILY Carvedilol 25 Mg Tablet 1 Tab PO BID Tramadol Hcl 50 Mg Tablet 1 Tab PO TID PRN Clopidogrel (Clopidogrel Bisulfate) 75 Mg Tablet 1 Tab PO DAILY Vitals/I & O Vital Sign - Last 24 Hours 03/31/17 03/31/17 03/31/17 03/31/17 11:00 11:20 15:00 15:44 Temp 98.1 97.6 98.1 97.6 Pulse 87 89 Resp 18 18 B/P (MAP) 147/85 (105) 148/82 (104) Pulse Ox 98 97 O2 Delivery Room Air Room Air Room Air Room Air 03/31/17 03/31/17 03/31/17 03/31/17 16:25 17:25 19:00 19:56 Temp 97.9 97.9 Pulse 99 Resp 18 18 B/P (MAP) 161/88 (112) Pulse Ox 98 98 99 97 O2 Delivery Room Air Room Air Room Air 03/31/17 03/31/17 03/31/17 03/31/17 21:00 21:02 21:07 23:00 Temp 98.2 98.2 Pulse 88 93 Resp 20 18 B/P (MAP) 161/88 139/104 (116) Pulse Ox 95 O2 Delivery Room Air Room Air Room Air 04/01/17 04/01/17 04/01/17 04/01/17 03:00 03:00 04:00 07:00 Temp 98.6 97.8 98.6 97.8 Pulse 88 85 Resp 20 20 20 20 B/P (MAP) 134/88 (103) 156/98 (117) Pulse Ox 95 96 O2 Delivery Room Air Room Air Room Air Room Air 04/01/17 04/01/17 04/01/17 04/01/17 07:52 08:59 09:04 09:05 Pulse 84 84 B/P (MAP) 156/98 156/98 Pulse Ox 96 96 O2 Delivery Room Air Room Air 04/01/17 09:06 Pulse 84 B/P (MAP) 156/98 ALVARO YEN MD Apr 01, 2017 10:33
[2017-04-01] MEDS ORDERED: IV RINGERS,LACTATED 1000ML 1,000 ML IV SCH (10:45)
[2017-04-01 11:00] VITALS: BP 149/85
[2017-04-01] MEDS ORDERED: POTASSIUM CHLORIDE 20 MEQ TABLET.ER. PO ONE (11:00)
[2017-04-01] MEDS ORDERED: BENZOCAINE ONE 20% MUCOSAL SPRAY. MM (11:04)
[2017-04-01] MEDS ORDERED: LIDOCAINE 2% VISCOUS 15 ML SOLUTION. SWSW ONE (11:04)
--- NOTE | 2017-04-01 11:50 | PDOC ---
Infectious Disease Note Subjective Subjective Feeling better today, less pain ROS ROS GEN: Denies fevers, chills, sweats HEENT: Denies blurred vision, sore throat CV: Denies chest pain RESP: Denies shortness of air, cough GI: Denies n/v/d NEURO: Denies confusion, dizziness MSK: Denies weakness, joint pain/swelling Vital Sign Vital Signs Vital Signs Date Time Temp Pulse Resp B/P (MAP) Pulse Ox O2 Delivery O2 Flow Rate FiO2 04/01/17 10:33 98.5 96 16 129/70 94 Room Air 98.5 Physical Exam PHYSICAL EXAM GENERAL: NAD, Alert HEENT: PERRL, OC/OP NECK: Supple, no JVD, no LN LUNGS: Clear HEART: S1S2, no gallop, no murmur ABD: Soft, NT, no organomegaly, no rebound EXT: No edema, no cyanosis 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, 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, no focal neurologic deficit SKIN: No rash IV: ok Labs Lab Laboratory Tests Test 03/31/17 16:11 03/31/17 20:58 04/01/17 00:30 04/01/17 04:00 Glucose (Fingerstick) 144 mg/dL (70-99) 141 mg/dL (70-99) Vancomycin Level Trough 14.6 mcg/mL (10.0-20.0) Vancomycin Last Dose Date Vancomycin Last Dose Time White Blood Count 15.9 x10^3/uL (4.0-11.0) Red Blood Count 3.76 x10^6/uL (3.50-5.40) Hemoglobin 11.8 g/dL (12.0-15.5) Hematocrit 34.5 % (36.0-47.0) Mean Corpuscular Volume 92 fL (79-100) Mean Corpuscular Hemoglobin 31 pg (25-35) Mean Corpuscular Hemoglobin Concent 34 g/dL (31-37) Red Cell Distribution Width 14.5 % (11.5-14.5) Platelet Count 361 x10^3/uL (140-400) Neutrophils (%) (Auto) 83 % (31-73) Lymphocytes (%) (Auto) 8 % (24-48) Monocytes (%) (Auto) 7 % (0-9) Eosinophils (%) (Auto) 1 % (0-3) Basophils (%) (Auto) 1 % (0-3) Neutrophils # (Auto) 13.1 x10^3uL (1.8-7.7) Lymphocytes # (Auto) 1.3 x10^3/uL (1.0-4.8) Monocytes # (Auto) 1.2 x10^3/uL (0.0-1.1) Eosinophils # (Auto) 0.2 x10^3/uL (0.0-0.7) Basophils # (Auto) 0.1 x10^3/uL (0.0-0.2) Sodium Level 134 mmol/L (136-145) Potassium Level 3.4 mmol/L (3.5-5.1) Chloride Level 98 mmol/L (98-107) Carbon Dioxide Level 30 mmol/L (21-32) Anion Gap 6 (6-14) Blood Urea Nitrogen 12 mg/dL (7-20) Creatinine 0.8 mg/dL (0.6-1.0) Estimated GFR (Cockcroft-Gault) 70.1 Glucose Level 163 mg/dL (70-99) Calcium Level 8.7 mg/dL (8.5-10.1) Test 04/01/17 07:15 Glucose (Fingerstick) 135 mg/dL (70-99) Micro BLOOD CULTURE Final TINY GRAM POSITIVE COCCI IN 3 OF 4 BOTTLES OF 2 SETS DRAWN. CALLED TO JOEY BAUTISTA ON 5N 03/27/17 AT 0835 BY Kirk INIGUEZ. CULTURES HAVE BEEN SENT TO [facility] FOR FURTHER IDENTIFICATION. Objective Assessment Streptococcus constellatus bacteremia. POA, 03/25 & 03/27. Repeat BC from 03/29 NGTD Back pain, rule out epidural or vertebral osteomyelitis. CT degenerative changes & central spinal stenosis, s/p sacroiliac joint injection (Depo-Medrol, 03/25) Bilateral knee arthroplasties, so far do not seem to be affected. Leukocytosis. s/p Depo-Medrol 03/25 Hypertension. Plan Plan of Care d/c vancomycin and cont Rocephin f/u BC TONI today CRP 169.1 RF 43.6 ESR 89 SELINA CORTES MD Apr 01, 2017 11:50
--- NOTE | 2017-04-01 12:28 | CARD ---
APPROVED REPORT EXAM: Transesophageal echocardiogram with color flow Doppler. INDICATION Infection:Rule out subacute bacterial endocarditis Reason For Test : Rule out endocarditis. PROCEDURE After obtaining informed consent, patient underwent transesophageal echo in the PACU. Type of Sedation : Conscious Sedation Sedation was achieved with Propofol 95 mg intravenously. Transesophageal probe was inserted and advanced into esophagus by Ryley Sanchez MD. The TONI was performed without complications. Throughout the procedure, the blood pressure, pulse oximetry, cardiac rhythm, and rate were monitored . The patient tolerated the procedure without adverse effects. Recovery from conscious sedation was une ventful and vital signs were stable. LEFT VENTRICLE The left ventricle is normal size. There is mild concentric left ventricular hypertrophy. The left ve ntricular systolic function is normal and the ejection fraction is within normal range. The Ejection Fraction is 55-60%. There is normal LV segmental wall motion. RIGHT VENTRICLE The right ventricle is normal size. The right ventricular systolic function is normal. ATRIA The left atrium appears mildly dilated. The right atrium size is normal. The interatrial septum is in tact with no evidence for an atrial septal defect or patent foramen ovale as noted on 2-D or Doppler imaging. There is no thrombus noted in the left atrial appendage. AORTIC VALVE The aortic valve is normal in structure and function. Doppler and Color Flow revealed no significant aortic regurgitation. There is no significant aortic valvular stenosis. There is no aortic valvular v egetation. MITRAL VALVE The mitral valve is normal in structure and function. There is no evidence of mitral valve prolapse. There is no mitral valve stenosis or vegetation. Doppler and Color-flow revealed mild mitral regurgit ation. TRICUSPID VALVE The tricuspid valve is normal in structure and function. Doppler and Color Flow revealed trace to mil d tricuspid regurgitation. There is no tricuspid valve prolapse or vegetation. There is no tricuspid valve stenosis. PULMONIC VALVE The pulmonary valve is normal in structure and function. Doppler and Color Flow revealed no pulmonic valvular regurgitation. There is no pulmonic valvular stenosis. GREAT VESSELS The aortic root is normal in size. The ascending aorta is normal in size. The IVC is normal in size a nd collapses >50% with inspiration. Critical Notification Critical Value: No <Conclusion> The left ventricle is normal size. The left ventricular systolic function is normal and the ejection fraction is within normal range. The Ejection Fraction is 55-60%. There is mild concentric left ventricular hypertrophy. There is no significant aortic valvular stenosis. Doppler and Color Flow revealed no significant aortic regurgitation. Doppler and Color-flow revealed mild mitral regurgitation. Doppler and Color Flow revealed trace to mild tricuspid regurgitation. There is no evidence of a vegetation on this study.
[2017-04-01] MEDS: GLIMEPIRIDE 2 MG TABLET. PO SCH (13:31)
[2017-04-01] MEDS: CHOLECALCIFEROL (VITAMIN D3) 1,000 UNIT TABLET PO SCH (13:31)
[2017-04-01] MEDS: OMEGA-3 FATTY ACIDS/FISH OIL 1,000 MG CAPSULE. PO SCH (13:31)
[2017-04-01] MEDS: MULTIVITAMIN with MINERAL TABLET. PO SCH (13:31)
[2017-04-01] MEDS: CLOPIDOGREL BISULFATE 75 MG TABLET PO SCH (13:31)
[2017-04-01 15:08] VITALS: BP 149/84
[2017-04-01] MEDS: RIVAROXABAN 10 MG TABLET. PO SCH (18:39)
[2017-04-01 19:00] VITALS: BP 149/92
[2017-04-01 23:00] VITALS: BP 141/78
[2017-04-02 03:00] VITALS: BP 143/64
[2017-04-02 05:15] LABS: BASO % 0 % (0-3); EOS % 0 % (0-3); HEMATOCRIT 34.5 % (36.0-47.0); HEMOGLOBIN 11.9 g/dL (12.0-15.5); LYMPH % 7 % (24-48); MEAN CORPUSCULAR HEMOGLOBIN 31 pg (25-35); MEAN CORPUSCULAR HGB CONC 34 g/dL (31-37); MEAN CORPUSCULAR VOLUME 91 fL (79-100); MONO % 5 % (0-9); NEUT % 88 % (31-73); PLATELET COUNT 372 x10^3/uL (140-400); RED BLOOD COUNT 3.79 x10^6/uL (3.50-5.40); RED CELL DISTRIBUTION WIDTH 14.3 % (11.5-14.5); WHITE BLOOD COUNT 14.9 x10^3/uL (4.0-11.0)
[2017-04-02 05:38] LABS: CALCIUM 8.9 mg/dL (8.5-10.1); CREATININE 0.6 mg/dL (0.6-1.0); GFR 97.7; POTASSIUM 3.5 mmol/L (3.5-5.1)
[2017-04-02 07:30] VITALS: BP 190/59
[2017-04-02] MEDS: INSULIN ASPART 300 UNITS/3 ML INSULN.PEN SQ SCH ×3 (08:00→17:00)
[2017-04-02] MEDS: IPRATROPIUM BROMIDE 0.5 MG/2.5 ML NEBU. NEB SCH ×4 (08:00→20:31)
--- NOTE | 2017-04-02 09:06 | PDOC ---
PROGRESS NOTES Subjective Subjective feels better. less back pain. TONI neg for valve vegetations. lab reviewed. bp better. discussed with dr. luis bernardo. Objective Objective Vital Signs Date Time Temp Pulse Resp B/P (MAP) Pulse Ox O2 Delivery O2 Flow Rate FiO2 04/02/17 03:00 98.1 109 18 143/64 (90) 95 Room Air 98.1 04/01/17 12:12 10 Physical Exam Abdomen: Soft Heart: Normal S1, Normal S2 Extremities: Other (1 plus edema legs) General: Alert HEENT: Atraumatic Lungs: Clear to auscultation Neuro: Normal speech Psych/Mental Status: Mental status NL Skin: No rashes Assessment Assessment Problems1. streptococcus constellatus bacteremia 2. low back pain improved 3. Hypertension 4. Coronary artery disease. 5. Rheumatoid arthritis. 6. Elevated liver function tests. 7. Cholelithiasis. new onset atrial fibrillation. fatty liver leukocytosis nodule right thyroid lobe hyponatremia better hypokalemia resolved diabetes mellitus type 2 Medical Problems: (1) Low back pain Status: Acute Plan Plan of Care continue iv rocpehin PICC continue xarelto and diltiazem Comment Review of Relevant I have reviewed the following items russell (where applicable) has been applied. Labs Laboratory Tests Test 03/31/17 11:01 03/31/17 16:11 03/31/17 20:58 04/01/17 00:30 Glucose (Fingerstick) 185 mg/dL (70-99) 144 mg/dL (70-99) 141 mg/dL (70-99) Vancomycin Level Trough 14.6 mcg/mL (10.0-20.0) Vancomycin Last Dose Date Vancomycin Last Dose Time Test 04/01/17 04:00 04/01/17 07:15 04/01/17 13:24 04/01/17 21:10 White Blood Count 15.9 x10^3/uL (4.0-11.0) Red Blood Count 3.76 x10^6/uL (3.50-5.40) Hemoglobin 11.8 g/dL (12.0-15.5) Hematocrit 34.5 % (36.0-47.0) Mean Corpuscular Volume 92 fL (79-100) Mean Corpuscular Hemoglobin 31 pg (25-35) Mean Corpuscular Hemoglobin Concent 34 g/dL (31-37) Red Cell Distribution Width 14.5 % (11.5-14.5) Platelet Count 361 x10^3/uL (140-400) Neutrophils (%) (Auto) 83 % (31-73) Lymphocytes (%) (Auto) 8 % (24-48) Monocytes (%) (Auto) 7 % (0-9) Eosinophils (%) (Auto) 1 % (0-3) Basophils (%) (Auto) 1 % (0-3) Neutrophils # (Auto) 13.1 x10^3uL (1.8-7.7) Lymphocytes # (Auto) 1.3 x10^3/uL (1.0-4.8) Monocytes # (Auto) 1.2 x10^3/uL (0.0-1.1) Eosinophils # (Auto) 0.2 x10^3/uL (0.0-0.7) Basophils # (Auto) 0.1 x10^3/uL (0.0-0.2) Sodium Level 134 mmol/L (136-145) Potassium Level 3.4 mmol/L (3.5-5.1) Chloride Level 98 mmol/L (98-107) Carbon Dioxide Level 30 mmol/L (21-32) Anion Gap 6 (6-14) Blood Urea Nitrogen 12 mg/dL (7-20) Creatinine 0.8 mg/dL (0.6-1.0) Estimated GFR (Cockcroft-Gault) 70.1 Glucose Level 163 mg/dL (70-99) Calcium Level 8.7 mg/dL (8.5-10.1) Glucose (Fingerstick) 135 mg/dL (70-99) 154 mg/dL (70-99) 131 mg/dL (70-99) Test 04/02/17 04:30 04/02/17 08:00 White Blood Count 14.9 x10^3/uL (4.0-11.0) Red Blood Count 3.79 x10^6/uL (3.50-5.40) Hemoglobin 11.9 g/dL (12.0-15.5) Hematocrit 34.5 % (36.0-47.0) Mean Corpuscular Volume 91 fL (79-100) Mean Corpuscular Hemoglobin 31 pg (25-35) Mean Corpuscular Hemoglobin Concent 34 g/dL (31-37) Red Cell Distribution Width 14.3 % (11.5-14.5) Platelet Count 372 x10^3/uL (140-400) Neutrophils (%) (Auto) 88 % (31-73) Lymphocytes (%) (Auto) 7 % (24-48) Monocytes (%) (Auto) 5 % (0-9) Eosinophils (%) (Auto) 0 % (0-3) Basophils (%) (Auto) 0 % (0-3) Neutrophils # (Auto) 13.1 x10^3uL (1.8-7.7) Lymphocytes # (Auto) 1.0 x10^3/uL (1.0-4.8) Monocytes # (Auto) 0.8 x10^3/uL (0.0-1.1) Eosinophils # (Auto) 0.1 x10^3/uL (0.0-0.7) Basophils # (Auto) 0.0 x10^3/uL (0.0-0.2) Sodium Level 134 mmol/L (136-145) Potassium Level 3.5 mmol/L (3.5-5.1) Chloride Level 97 mmol/L (98-107) Carbon Dioxide Level 28 mmol/L (21-32) Anion Gap 9 (6-14) Blood Urea Nitrogen 9 mg/dL (7-20) Creatinine 0.6 mg/dL (0.6-1.0) Estimated GFR (Cockcroft-Gault) 97.7 Glucose Level 166 mg/dL (70-99) Calcium Level 8.9 mg/dL (8.5-10.1) Magnesium Level 2.0 mg/dL (1.8-2.4) Glucose (Fingerstick) 146 mg/dL (70-99) Laboratory Tests Test 04/01/17 13:24 04/01/17 21:10 04/02/17 04:30 04/02/17 08:00 Glucose (Fingerstick) 154 mg/dL (70-99) 131 mg/dL (70-99) 146 mg/dL (70-99) White Blood Count 14.9 x10^3/uL (4.0-11.0) Red Blood Count 3.79 x10^6/uL (3.50-5.40) Hemoglobin 11.9 g/dL (12.0-15.5) Hematocrit 34.5 % (36.0-47.0) Mean Corpuscular Volume 91 fL (79-100) Mean Corpuscular Hemoglobin 31 pg (25-35) Mean Corpuscular Hemoglobin Concent 34 g/dL (31-37) Red Cell Distribution Width 14.3 % (11.5-14.5) Platelet Count 372 x10^3/uL (140-400) Neutrophils (%) (Auto) 88 % (31-73) Lymphocytes (%) (Auto) 7 % (24-48) Monocytes (%) (Auto) 5 % (0-9) Eosinophils (%) (Auto) 0 % (0-3) Basophils (%) (Auto) 0 % (0-3) Neutrophils # (Auto) 13.1 x10^3uL (1.8-7.7) Lymphocytes # (Auto) 1.0 x10^3/uL (1.0-4.8) Monocytes # (Auto) 0.8 x10^3/uL (0.0-1.1) Eosinophils # (Auto) 0.1 x10^3/uL (0.0-0.7) Basophils # (Auto) 0.0 x10^3/uL (0.0-0.2) Sodium Level 134 mmol/L (136-145) Potassium Level 3.5 mmol/L (3.5-5.1) Chloride Level 97 mmol/L (98-107) Carbon Dioxide Level 28 mmol/L (21-32) Anion Gap 9 (6-14) Blood Urea Nitrogen 9 mg/dL (7-20) Creatinine 0.6 mg/dL (0.6-1.0) Estimated GFR (Cockcroft-Gault) 97.7 Glucose Level 166 mg/dL (70-99) Calcium Level 8.9 mg/dL (8.5-10.1) Magnesium Level 2.0 mg/dL (1.8-2.4) Microbiology 03/29/17 Blood Culture - Preliminary, Resulted NO GROWTH AFTER 3 DAYS 03/25/17 Urine Culture - Final, Complete 03/25/17 Urine Culture Result 1 (XENIA) - Final, Complete Medications Current Medications Carvedilol (Coreg) 25 mg 1X ONCE PO Last administered on 03/24/17 20:41; Start 03/24/17 at 20:15; Stop 03/24/17 at 20:18; Status DC Clopidogrel Bisulfate (Plavix) 75 mg 1X ONCE PO Last administered on 20:39; Start 03/24/17 at 20:15; Stop 03/24/17 at 20:18; Status DC Losartan Potassium (Cozaar) 100 mg 1X ONCE PO Last administered on 03/24/17 20:39; Start 03/24/17 at 20:15; Stop 03/24/17 at 20:18; Status DC Hydrochlorothiazide (Hydrodiuril) 25 mg 1X ONCE PO Last administered on 20:41; Start 03/24/17 at 20:18; Stop 03/24/17 at 20:19; Status DC Morphine Sulfate 5 mg 1X ONCE IM Last administered on 03/24/17 20:41; Start 03/24/17 at 20:15; Stop 03/24/17 at 20:18; Status DC Fentanyl Citrate (Fentanyl 2ml Vial) 50 mcg PRN Q15MIN PRN IV PAIN GREATER THAN 3/10 Last administered on 03/24/17 23:30; Start 03/24/17 at 23:00; Stop at 00:00; Status DC Ondansetron HCl (Zofran) 4 mg PRN Q8HRS PRN IV NAUSEA/VOMITING; Start 03/24/17 at 23:00; Stop 03/25/17 at 22:59; Status DC Hydralazine HCl (Apresoline) 25 mg PRN TID PRN PO BP OVER 160 Last administered on 03/28/17 23:21; Start 03/24/17 at 23:00 Fentanyl Citrate (Fentanyl 2ml Vial) 50 mcg PRN Q2HR PRN IV SEVERE PAIN Last administered on 03/25/17 08:19; Start 03/24/17 at 23:30; Stop 03/25/17 at 08:46 ; Status DC Aspirin (Ecotrin) 81 mg DAILY PO Last administered on 03/26/17 08:28; Start at 09:00; Stop 03/26/17 at 10:25; Status DC Clopidogrel Bisulfate (Plavix) 75 mg DAILY PO Last administered on 04/01/17 13 :31; Start 03/25/17 at 09:00 Acetaminophen/ Hydrocodone Bitart (Lortab 7.5/325) 1 tab BID PO Last administered on 03/25/17 08:18; Start 03/25/17 at 09:00; Stop 03/25/17 at 09:00 ; Status DC Tramadol HCl (Ultram) 50 mg PRN TID PRN PO MODERATE PAIN; Start 03/25/17 at 06: 15; Stop 03/25/17 at 08:46; Status DC Carvedilol (Coreg) 25 mg BIDWMEALS PO Last administered on 03/25/17 08:18; Start 03/25/17 at 08:00; Stop 03/25/17 at 12:23; Status DC Vitamin D (Vitamin D3) 2,000 unit DAILY PO Last administered on 04/01/17 13:31 ; Start 03/25/17 at 09:00 Meloxicam (Mobic) 15 mg DAILY PO Last administered on 03/28/17 08:22; Start at 09:00; Stop 03/28/17 at 10:57; Status DC Multivitamins (Thera M Plus) 1 tab DAILY PO Last administered on 04/01/17 13: 31; Start 03/25/17 at 09:00 Fish Oil (Fish Oil) 1,000 mg DAILY PO Last administered on 04/01/17 13:31; Start 03/25/17 at 09:00 Non-Formulary Medication 5 mg BID PO ; Start 03/25/17 at 09:00; Stop 03/28/17 at 15:40; Status DC Losartan Potassium (Cozaar) 100 mg DAILY PO Last administered on 03/26/17 08: 22; Start 03/25/17 at 09:00; Stop 03/26/17 at 10:25; Status DC Hydrochlorothiazide (Hydrodiuril) 25 mg DAILY PO Last administered on 08:21; Start 03/25/17 at 09:00; Stop 03/28/17 at 10:57; Status DC Fentanyl Citrate (Fentanyl 2ml Vial) 25 mcg PRN Q4HRS PRN IV SEVERE PAIN Last administered on 03/29/17 08:57; Start 03/25/17 at 08:45 Lidocaine (Lidoderm) 1 patch DAILY TD Last administered on 04/01/17 08:59; Start 03/25/17 at 09:00 Cyclobenzaprine HCl (Flexeril) 10 mg PRN TID PRN PO MUSCLE SPASMS Last administered on 03/30/17 21:10; Start 03/25/17 at 08:45 Oxycodone HCl (Roxicodone) 5 mg PRN Q6HRS PRN PO PAIN Last administered on 04/01 21:09; Start 03/25/17 at 08:45 Acetaminophen (Tylenol) 325 mg PRN Q4HRS PRN PO MILD PAIN / TEMP Last administered on 04/01/17 18:45; Start 03/25/17 at 08:45 Iohexol (Omnipaque 300 Mg/ml) 75 ml 1X ONCE IV Last administered on 03/25/17 11:43; Start 03/25/17 at 09:00; Stop 03/25/17 at 09:22; Status DC Info (Do NOT chart on this entry -- for MONITORING) 1 each PRN DAILY PRN MC SEE COMMENTS; Start 03/25/17 at 09:30; Stop 03/27/17 at 09:29; Status DC Methylprednisolone Acetate (DEPO-Medrol 40MG VIAL) 40 mg 1X ONCE IM ; Start at 10:00; Stop 03/25/17 at 10:02; Status DC Bupivacaine HCl (Sensorcaine-Mpf 0.25%) 10 ml 1X ONCE IJ ; Start 03/25/17 at 10 :00; Stop 03/25/17 at 10:02; Status DC Digoxin (Lanoxin) 500 mcg 1X ONCE IV Last administered on 03/25/17 12:40; Start 03/25/17 at 12:15; Stop 03/25/17 at 12:32; Status DC Metoprolol Tartrate (Lopressor) 100 mg BID PO Last administered on 04/01/17 21 :10; Start 03/25/17 at 21:00 Ipratropium [place] (Atrovent) 0.5 mg RTQID NEB Last administered on 04/01/17 20:31; Start 03/25/17 at 16:00 Albuterol Sulfate (Ventolin Neb Soln) 2.5 mg PRN Q4HRS PRN NEB WHEEZING; Start 03/25/17 at 14:00; Stop 03/25/17 at 14:04; Status DC Ipratropium [place] (Atrovent) 0.5 mg PRN Q4HRS PRN NEB SHORTNESS OF BREATH; Start 03/25/17 at 14:15 Losartan Potassium (Cozaar) 50 mg DAILY PO Last administered on 03/29/17 08:38 ; Start 03/27/17 at 09:00; Stop 03/29/17 at 09:02; Status DC Diltiazem HCl (Cardizem 24hr Cd) 120 mg DAILY PO Last administered on 08:55; Start 03/26/17 at 11:00; Stop 03/30/17 at 10:06; Status DC Rivaroxaban (Xarelto) 20 mg DAILYWSUP PO Last administered on 04/01/17 18:39; Start 03/26/17 at 17:00 Digoxin (Lanoxin) 250 mcg 1X ONCE IV Last administered on 03/26/17 11:41; Start 03/26/17 at 10:45; Stop 03/26/17 at 10:46; Status DC Info (Anti-Coagulation Monitoring By Pharmacy) 1 each PRN DAILY PRN MC SEE COMMENTS Last administered on 03/29/17 14:01; Start 03/26/17 at 10:30 Vancomycin HCl 1 gm/Sodium Chloride 250 ml @ 250 mls/hr 1X ONCE IV ; Start at 09:00; Stop 03/27/17 at 09:59; Status UNV Vancomycin HCl (Vanco Per Pharmacy) 1 each PRN DAILY PRN MC SEE COMMENTS Last administered on 04/01/17 01:31; Start 03/27/17 at 09:00; Stop 04/01/17 at 11:54 ; Status DC Vancomycin HCl 2 gm/Sodium Chloride 500 ml @ 250 mls/hr 1X ONCE IV Last administered on 03/27/17 11:35; Start 03/27/17 at 09:00; Stop 03/27/17 at 10:59 ; Status DC Iohexol (Omnipaque 240 Mg/ml) 30 ml 1X ONCE PO Last administered on 03/27/17 11:08; Start 03/27/17 at 09:45; Stop 03/27/17 at 09:46; Status DC Iohexol (Omnipaque 300 Mg/ml) 75 ml 1X ONCE IV Last administered on 03/27/17 09:45; Start 03/27/17 at 09:45; Stop 03/27/17 at 09:46; Status DC Info (Do NOT chart on this entry -- for MONITORING) 1 each PRN DAILY PRN MC SEE COMMENTS; Start 03/27/17 at 09:45; Stop 03/29/17 at 09:44; Status DC Potassium Chloride (Klor-Con) 20 meq 1X ONCE PO Last administered on 11:31; Start 03/27/17 at 10:00; Stop 03/27/17 at 10:01; Status DC Iohexol (Omnipaque 240 Mg/ml) 50 ml STK-MED ONCE .ROUTE ; Start 03/27/17 at 10: 58; Stop 03/27/17 at 10:59; Status DC Iohexol (Omnipaque 300 Mg/ml) 75 ml STK-MED ONCE .ROUTE ; Start 03/27/17 at 10: 58; Stop 03/27/17 at 10:59; Status DC Vancomycin HCl 1.75 gm/Sodium Chloride 500 ml @ 250 mls/hr Q24H IV Last administered on 03/28/17 12:02; Start 03/28/17 at 11:00; Stop 03/29/17 at 12:29 ; Status DC Vancomycin HCl 1 each 1X ONCE MC ; Start 03/29/17 at 10:30; Stop 03/29/17 at 10 :31; Status DC Potassium Chloride (Klor-Con) 20 meq 1X ONCE PO Last administered on 17:27; Start 03/27/17 at 16:45; Stop 03/27/17 at 16:46; Status DC Insulin Aspart (NovoLOG) 0-6 UNITS TIDWMEALS SQ Last administered on 04/01/17 13:42; Start 03/27/17 at 17:00 Potassium Chloride (Klor-Con) 40 meq 1X ONCE PO Last administered on 11:17; Start 03/28/17 at 11:30; Stop 03/28/17 at 11:31; Status DC Info (Anti-Coagulation Monitoring By Pharmacy) 1 each PRN DAILY PRN MC SEE COMMENTS; Start 03/28/17 at 12:00; Status Cancel Losartan Potassium (Cozaar) 100 mg DAILY PO Last administered on 04/01/17 09: 05; Start 03/29/17 at 09:00 Glimepiride (Amaryl) 1 mg DAILY PO Last administered on 03/31/17 08:52; Start 03/29/17 at 10:00; Stop 03/31/17 at 09:48; Status DC Ceftriaxone Sodium 2 gm/ Sodium Chloride 100 ml @ 200 mls/hr Q12HR IV Last administered on 04/01/17 21:10; Start 03/29/17 at 10:00 Vancomycin HCl 1.5 gm/Sodium Chloride 500 ml @ 250 mls/hr Q12H IV Last administered on 04/01/17 01:31; Start 03/29/17 at 13:00; Stop 04/01/17 at 11:50 ; Status DC Potassium Chloride (Klor-Con) 40 meq 1X ONCE PO Last administered on 11:24; Start 03/30/17 at 12:00; Stop 03/30/17 at 12:01; Status DC Potassium Chloride (Klor-Con) 40 meq 1X ONCE PO Last administered on 07:45; Start 03/30/17 at 07:30; Stop 03/30/17 at 07:31; Status DC Diltiazem HCl (Cardizem 24hr Cd) 240 mg DAILY PO Last administered on 09:06; Start 03/31/17 at 09:00 Spironolactone (Aldactone) 25 mg DAILY PO Last administered on 04/01/17 09:06 ; Start 03/30/17 at 11:00 Diltiazem HCl (Cardizem 24hr Cd) 120 mg 1X ONCE PO Last administered on 11:19; Start 03/30/17 at 10:30; Stop 03/30/17 at 10:31; Status DC Bupivacaine HCl (Sensorcaine-Mpf 0.25%) 10 ml STK-MED ONCE .ROUTE ; Start at 11:00; Stop 03/30/17 at 15:10; Status DC Methylprednisolone Acetate (DEPO-Medrol 40MG VIAL) 40 mg STK-MED ONCE .ROUTE ; Start 03/25/17 at 11:00; Stop 03/30/17 at 15:10; Status DC Glimepiride (Amaryl) 2 mg DAILY PO Last administered on 04/01/17 13:31; Start 04/01/17 at 09:00 Potassium Chloride (Klor-Con) 40 meq 1X ONCE PO Last administered on 10:36; Start 03/31/17 at 10:00; Stop 03/31/17 at 10:01; Status DC Lactulose 20 gm Q2H PO Last administered on 03/31/17 13:04; Start 03/31/17 at 10:00; Stop 03/31/17 at 12:01; Status DC Vancomycin HCl 1 each 1X ONCE MC Last administered on 04/01/17 00:30; Start 04/01/17 at 00:30; Stop 04/01/17 at 00:31; Status DC Sodium Chloride (Normal Saline Flush) 10 ml QSHIFT PRN IV AFTER MEDS AND BLOOD DRAWS; Start 04/01/17 at 09:00 Lidocaine HCl (Xylocaine 2% Topical 5gm Tube) 1 britt 1X ONCE TP Last administered on 04/01/17 10:00; Start 04/01/17 at 09:00; Stop 04/01/17 at 09:01 ; Status DC Lidocaine HCl (Viscous Lidocaine) 15 ml 1X ONCE MM Last administered on 10:04; Start 04/01/17 at 09:00; Stop 04/01/17 at 09:01; Status DC Benzocaine (Hurricaine One) 1 spray STK-MED ONCE .ROUTE ; Start 04/01/17 at 09: 32; Stop 04/01/17 at 09:33; Status DC Lidocaine HCl (Xylocaine 2% Topical 30gm Tube) 30 britt STK-MED ONCE TP ; Start at 09:32; Stop 04/01/17 at 09:33; Status DC Benzocaine (Hurricaine One) 1 spray STK-MED ONCE .ROUTE ; Start 04/01/17 at 09: 33; Stop 04/01/17 at 09:34; Status DC Propofol 20 ml @ As Directed STK-MED ONCE IV ; Start 04/01/17 at 10:30; Stop at 10:31; Status DC Potassium Chloride (Klor-Con) 20 meq 1X ONCE PO Last administered on 13:30; Start 04/01/17 at 11:00; Stop 04/01/17 at 11:01; Status DC Ringer's Solution 1,000 ml @ 75 mls/hr [id number] IV Last administered on 10:42; Start 04/01/17 at 10:45; Stop 04/01/17 at 22:35; Status DC Benzocaine (Hurricaine One) 1 spray 1X ONCE MM Last administered on 04/01/17 11:04; Start 04/01/17 at 11:04; Stop 04/01/17 at 11:22; Status DC Lidocaine HCl (Viscous Lidocaine) 15 ml 1X ONCE SWSW Last administered on 04/01 11:04; Start 04/01/17 at 11:04; Stop 04/01/17 at 11:25; Status DC Active Scripts Active Reported Omeprazole 20 Mg Capsule.dr 1 Cap PO DAILY Vitamin D (Cholecalciferol (Vitamin D3)) 2,000 Unit Capsule 1 Cap PO DAILY Fish Oil 1,000 mg Softgel ([place]-3/Dha/Epa/Fish Oil) 1,000 Mg Capsule 1,000 Mg PO DAILY Hydrocodone-Apap 7.5-325 (Hydrocodone Bit/Acetaminophen) 1 Each Tablet 1 Tab PO BID Aspirin Ec (Aspirin) 81 Mg Tablet. 1 Tab PO DAILY Multivitamins (Multivitamin) 1 Each Tablet 1 Tab PO DAILY Xeljanz (Tofacitinib Citrate) 5 Mg Tablet 5 Mg PO BID Valsartan-Hctz 320-25 Mg Tab (Valsartan/Hydrochlorothiazide) 1 Each Tablet 1 Each PO DAILY Meloxicam 15 Mg Tablet 1 Tab PO DAILY Carvedilol 25 Mg Tablet 1 Tab PO BID Tramadol Hcl 50 Mg Tablet 1 Tab PO TID PRN Clopidogrel (Clopidogrel Bisulfate) 75 Mg Tablet 1 Tab PO DAILY Vitals/I & O Vital Sign - Last 24 Hours 04/01/17 04/01/17 04/01/17 04/01/17 09:05 09:06 09:59 10:33 Temp 98.5 98.5 Pulse 84 84 96 Resp 16 B/P (MAP) 156/98 156/98 129/70 Pulse Ox 94 O2 Delivery Room Air O2 Flow Rate 10.0 04/01/17 04/01/17 04/01/17 04/01/17 11:00 11:35 11:50 11:50 Temp 98.4 98.6 98.4 98.6 Pulse 95 80 78 Resp 20 20 20 B/P (MAP) 149/85 (106) 119/51 133/45 Pulse Ox 97 100 99 O2 Delivery Room Air Nasal Cannula Nasal Cannula O2 Flow Rate 2 2 2 04/01/17 04/01/17 04/01/17 04/01/17 12:05 12:12 12:37 15:04 Pulse 71 74 Resp 20 20 20 B/P (MAP) 123/52 130/55 Pulse Ox 99 100 O2 Delivery Nasal Cannula Simple Mask Room Air Nasal Cannula O2 Flow Rate 2 10 04/01/17 04/01/17 04/01/17 04/01/17 15:08 15:25 19:00 19:10 Temp 97.8 97.9 97.8 97.9 Pulse 88 91 Resp 20 18 B/P (MAP) 149/84 (105) 149/92 (111) Pulse Ox 96 99 O2 Delivery Room Air Room Air Room Air Room Air 04/01/17 04/01/17 04/01/17 04/01/17 20:32 21:09 21:10 22:30 Pulse 91 Resp 18 16 B/P (MAP) 149/92 Pulse Ox 97 97 97 O2 Delivery Room Air Room Air Room Air 04/01/17 04/02/17 23:00 03:00 Temp 97.9 98.1 97.9 98.1 Pulse 106 109 Resp 18 18 B/P (MAP) 141/78 (99) 143/64 (90) Pulse Ox 94 95 O2 Delivery Room Air Room Air ALVARO YEN MD Apr 02, 2017 09:06
--- NOTE | 2017-04-02 09:08 | PDOC ---
Infectious Disease Note Subjective Subjective Feeling better today, less pain ROS ROS GEN: Denies fevers, chills, sweats HEENT: Denies blurred vision, sore throat CV: Denies chest pain RESP: Denies shortness of air, cough GI: Denies n/v/d NEURO: Denies confusion, dizziness MSK: Denies weakness, joint pain/swelling Vital Sign Vital Signs Vital Signs Date Time Temp Pulse Resp B/P (MAP) Pulse Ox O2 Delivery O2 Flow Rate FiO2 04/02/17 03:00 98.1 109 18 143/64 (90) 95 Room Air 98.1 04/01/17 12:12 10 Physical Exam PHYSICAL EXAM GENERAL: NAD, Alert HEENT: PERRL, OC/OP NECK: Supple, no JVD, no LN LUNGS: Clear HEART: S1S2, no gallop, no murmur ABD: Soft, NT, no organomegaly, no rebound EXT: No edema, no cyanosis SKIRT CLIPPER: Alert, 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, no focal neurologic deficit SKIN: No rash IV: ok Labs Lab Laboratory Tests Test 04/01/17 13:24 04/01/17 21:10 04/02/17 04:30 04/02/17 08:00 Glucose (Fingerstick) 154 mg/dL (70-99) 131 mg/dL (70-99) 146 mg/dL (70-99) White Blood Count 14.9 x10^3/uL (4.0-11.0) Red Blood Count 3.79 x10^6/uL (3.50-5.40) Hemoglobin 11.9 g/dL (12.0-15.5) Hematocrit 34.5 % (36.0-47.0) Mean Corpuscular Volume 91 fL (79-100) Mean Corpuscular Hemoglobin 31 pg (25-35) Mean Corpuscular Hemoglobin Concent 34 g/dL (31-37) Red Cell Distribution Width 14.3 % (11.5-14.5) Platelet Count 372 x10^3/uL (140-400) Neutrophils (%) (Auto) 88 % (31-73) Lymphocytes (%) (Auto) 7 % (24-48) Monocytes (%) (Auto) 5 % (0-9) Eosinophils (%) (Auto) 0 % (0-3) Basophils (%) (Auto) 0 % (0-3) Neutrophils # (Auto) 13.1 x10^3uL (1.8-7.7) Lymphocytes # (Auto) 1.0 x10^3/uL (1.0-4.8) Monocytes # (Auto) 0.8 x10^3/uL (0.0-1.1) Eosinophils # (Auto) 0.1 x10^3/uL (0.0-0.7) Basophils # (Auto) 0.0 x10^3/uL (0.0-0.2) Sodium Level 134 mmol/L (136-145) Potassium Level 3.5 mmol/L (3.5-5.1) Chloride Level 97 mmol/L (98-107) Carbon Dioxide Level 28 mmol/L (21-32) Anion Gap 9 (6-14) Blood Urea Nitrogen 9 mg/dL (7-20) Creatinine 0.6 mg/dL (0.6-1.0) Estimated GFR (Cockcroft-Gault) 97.7 Glucose Level 166 mg/dL (70-99) Calcium Level 8.9 mg/dL (8.5-10.1) Magnesium Level 2.0 mg/dL (1.8-2.4) Micro BLOOD CULTURE Final TINY GRAM POSITIVE COCCI IN 3 OF 4 BOTTLES OF 2 SETS DRAWN. CALLED TO JOEY BAUTISTA ON 5N 03/27/17 AT 0835 BY Kirk INIGUEZ. CULTURES HAVE BEEN SENT TO [facility] FOR FURTHER IDENTIFICATION. Objective Assessment Streptococcus constellatus bacteremia. POA, 03/25 & 03/27. Repeat BC from 03/29 NGTD Back pain, rule out epidural or vertebral osteomyelitis. CT degenerative changes & central spinal stenosis, s/p sacroiliac joint injection (Depo-Medrol, 03/25) Bilateral knee arthroplasties, so far do not seem to be affected. Leukocytosis. s/p Depo-Medrol 03/25 Hypertension. Plan Plan of Care cont Rocephin 2-4 wks f/u BC TONI neg CRP 169.1 RF 43.6 ESR 89 d/w dr Sharma f/u with us in 2 wks wkly cbc, bun/cr , sed rate SELINA CORTES MD Apr 02, 2017 09:08
[2017-04-02] MEDS ORDERED: POTASSIUM CHLORIDE 20 MEQ TABLET.ER. PO ONE (09:15)
[2017-04-02] MEDS: GLIMEPIRIDE 2 MG TABLET. PO SCH (09:47)
[2017-04-02] MEDS: SPIRONOLACTONE 25 MG TABLET PO SCH (09:47)
[2017-04-02] MEDS: MULTIVITAMIN with MINERAL TABLET. PO SCH (09:48)
[2017-04-02] MEDS: CHOLECALCIFEROL (VITAMIN D3) 1,000 UNIT TABLET PO SCH (09:48)
[2017-04-02] MEDS: CLOPIDOGREL BISULFATE 75 MG TABLET PO SCH (09:49)
[2017-04-02] MEDS: OMEGA-3 FATTY ACIDS/FISH OIL 1,000 MG CAPSULE. PO SCH (09:50)
[2017-04-02] MEDS: METOPROLOL TART IMMED RELEASE 50 MG TABLET. PO SCH ×2 (09:50→20:55)
[2017-04-02] MEDS: LOSARTAN POTASSIUM 50 MG TABLET. PO SCH (09:51)
[2017-04-02] MEDS: LIDOCAINE (700MG/PATCH) PATCH. TD SCH (09:51)
[2017-04-02] MEDS: oxyCODONE IR 5 MG TABLET PO PRN ×2 (09:59→22:02)
[2017-04-02 11:30] VITALS: BP 153/96
[2017-04-02] MEDS: CYCLOBENZAPRINE 10 MG TABLET. PO PRN ×2 (12:53→20:55)
--- NOTE | 2017-04-02 13:54 | PDOC ---
PROGRESS NOTES Subjective Subjective No new complaints. Objective Objective Vital Signs Date Time Temp Pulse Resp B/P (MAP) Pulse Ox O2 Delivery O2 Flow Rate FiO2 04/02/17 11:25 98 Room Air 04/02/17 09:51 109 143/64 04/02/17 07:30 98.8 18 98.8 04/01/17 12:12 10 Intake and Output 04/03/17 07:00 Intake Total 300 ml Balance 300 ml Intake Oral 300 ml # Voids 1 Physical Exam Physical Exam She continues with stiffness and painfully limited lumbar spine ROM but walking with roller walker and back brace is bothering her rather than helping. Assessment Assessment Problems Medical Problems: (1) Low back pain Status: Acute Plan Plan of Care Agree with plans for SNF transfer. Comment Review of Relevant I have reviewed the following items russell (where applicable) has been applied. Labs Laboratory Tests Test 03/31/17 16:11 03/31/17 20:58 04/01/17 00:30 04/01/17 04:00 Glucose (Fingerstick) 144 mg/dL (70-99) 141 mg/dL (70-99) Vancomycin Level Trough 14.6 mcg/mL (10.0-20.0) Vancomycin Last Dose Date Vancomycin Last Dose Time White Blood Count 15.9 x10^3/uL (4.0-11.0) Red Blood Count 3.76 x10^6/uL (3.50-5.40) Hemoglobin 11.8 g/dL (12.0-15.5) Hematocrit 34.5 % (36.0-47.0) Mean Corpuscular Volume 92 fL (79-100) Mean Corpuscular Hemoglobin 31 pg (25-35) Mean Corpuscular Hemoglobin Concent 34 g/dL (31-37) Red Cell Distribution Width 14.5 % (11.5-14.5) Platelet Count 361 x10^3/uL (140-400) Neutrophils (%) (Auto) 83 % (31-73) Lymphocytes (%) (Auto) 8 % (24-48) Monocytes (%) (Auto) 7 % (0-9) Eosinophils (%) (Auto) 1 % (0-3) Basophils (%) (Auto) 1 % (0-3) Neutrophils # (Auto) 13.1 x10^3uL (1.8-7.7) Lymphocytes # (Auto) 1.3 x10^3/uL (1.0-4.8) Monocytes # (Auto) 1.2 x10^3/uL (0.0-1.1) Eosinophils # (Auto) 0.2 x10^3/uL (0.0-0.7) Basophils # (Auto) 0.1 x10^3/uL (0.0-0.2) Sodium Level 134 mmol/L (136-145) Potassium Level 3.4 mmol/L (3.5-5.1) Chloride Level 98 mmol/L (98-107) Carbon Dioxide Level 30 mmol/L (21-32) Anion Gap 6 (6-14) Blood Urea Nitrogen 12 mg/dL (7-20) Creatinine 0.8 mg/dL (0.6-1.0) Estimated GFR (Cockcroft-Gault) 70.1 Glucose Level 163 mg/dL (70-99) Calcium Level 8.7 mg/dL (8.5-10.1) Test 04/01/17 07:15 04/01/17 13:24 04/01/17 21:10 04/02/17 04:30 Glucose (Fingerstick) 135 mg/dL (70-99) 154 mg/dL (70-99) 131 mg/dL (70-99) White Blood Count 14.9 x10^3/uL (4.0-11.0) Red Blood Count 3.79 x10^6/uL (3.50-5.40) Hemoglobin 11.9 g/dL (12.0-15.5) Hematocrit 34.5 % (36.0-47.0) Mean Corpuscular Volume 91 fL (79-100) Mean Corpuscular Hemoglobin 31 pg (25-35) Mean Corpuscular Hemoglobin Concent 34 g/dL (31-37) Red Cell Distribution Width 14.3 % (11.5-14.5) Platelet Count 372 x10^3/uL (140-400) Neutrophils (%) (Auto) 88 % (31-73) Lymphocytes (%) (Auto) 7 % (24-48) Monocytes (%) (Auto) 5 % (0-9) Eosinophils (%) (Auto) 0 % (0-3) Basophils (%) (Auto) 0 % (0-3) Neutrophils # (Auto) 13.1 x10^3uL (1.8-7.7) Lymphocytes # (Auto) 1.0 x10^3/uL (1.0-4.8) Monocytes # (Auto) 0.8 x10^3/uL (0.0-1.1) Eosinophils # (Auto) 0.1 x10^3/uL (0.0-0.7) Basophils # (Auto) 0.0 x10^3/uL (0.0-0.2) Sodium Level 134 mmol/L (136-145) Potassium Level 3.5 mmol/L (3.5-5.1) Chloride Level 97 mmol/L (98-107) Carbon Dioxide Level 28 mmol/L (21-32) Anion Gap 9 (6-14) Blood Urea Nitrogen 9 mg/dL (7-20) Creatinine 0.6 mg/dL (0.6-1.0) Estimated GFR (Cockcroft-Gault) 97.7 Glucose Level 166 mg/dL (70-99) Calcium Level 8.9 mg/dL (8.5-10.1) Magnesium Level 2.0 mg/dL (1.8-2.4) Test 04/02/17 08:00 04/02/17 11:40 Glucose (Fingerstick) 146 mg/dL (70-99) 138 mg/dL (70-99) Laboratory Tests Test 04/01/17 21:10 04/02/17 04:30 04/02/17 08:00 04/02/17 11:40 Glucose (Fingerstick) 131 mg/dL (70-99) 146 mg/dL (70-99) 138 mg/dL (70-99) White Blood Count 14.9 x10^3/uL (4.0-11.0) Red Blood Count 3.79 x10^6/uL (3.50-5.40) Hemoglobin 11.9 g/dL (12.0-15.5) Hematocrit 34.5 % (36.0-47.0) Mean Corpuscular Volume 91 fL (79-100) Mean Corpuscular Hemoglobin 31 pg (25-35) Mean Corpuscular Hemoglobin Concent 34 g/dL (31-37) Red Cell Distribution Width 14.3 % (11.5-14.5) Platelet Count 372 x10^3/uL (140-400) Neutrophils (%) (Auto) 88 % (31-73) Lymphocytes (%) (Auto) 7 % (24-48) Monocytes (%) (Auto) 5 % (0-9) Eosinophils (%) (Auto) 0 % (0-3) Basophils (%) (Auto) 0 % (0-3) Neutrophils # (Auto) 13.1 x10^3uL (1.8-7.7) Lymphocytes # (Auto) 1.0 x10^3/uL (1.0-4.8) Monocytes # (Auto) 0.8 x10^3/uL (0.0-1.1) Eosinophils # (Auto) 0.1 x10^3/uL (0.0-0.7) Basophils # (Auto) 0.0 x10^3/uL (0.0-0.2) Sodium Level 134 mmol/L (136-145) Potassium Level 3.5 mmol/L (3.5-5.1) Chloride Level 97 mmol/L (98-107) Carbon Dioxide Level 28 mmol/L (21-32) Anion Gap 9 (6-14) Blood Urea Nitrogen 9 mg/dL (7-20) Creatinine 0.6 mg/dL (0.6-1.0) Estimated GFR (Cockcroft-Gault) 97.7 Glucose Level 166 mg/dL (70-99) Calcium Level 8.9 mg/dL (8.5-10.1) Magnesium Level 2.0 mg/dL (1.8-2.4) Microbiology 03/29/17 Blood Culture - Preliminary, Resulted NO GROWTH AFTER 4 DAYS 03/25/17 Urine Culture - Final, Complete 03/25/17 Urine Culture Result 1 ([facility]IA) - Final, Complete Medications Current Medications Carvedilol (Coreg) 25 mg 1X ONCE PO Last administered on 03/24/17 20:41; Start 03/24/17 at 20:15; Stop 03/24/17 at 20:18; Status DC Clopidogrel Bisulfate (Plavix) 75 mg 1X ONCE PO Last administered on 20:39; Start 03/24/17 at 20:15; Stop 03/24/17 at 20:18; Status DC Losartan Potassium (Cozaar) 100 mg 1X ONCE PO Last administered on 03/24/17 20:39; Start 03/24/17 at 20:15; Stop 03/24/17 at 20:18; Status DC Hydrochlorothiazide (Hydrodiuril) 25 mg 1X ONCE PO Last administered on 20:41; Start 03/24/17 at 20:18; Stop 03/24/17 at 20:19; Status DC Morphine Sulfate 5 mg 1X ONCE IM Last administered on 03/24/17 20:41; Start 03/24/17 at 20:15; Stop 03/24/17 at 20:18; Status DC Fentanyl Citrate (Fentanyl 2ml Vial) 50 mcg PRN Q15MIN PRN IV PAIN GREATER THAN 3/10 Last administered on 03/24/17 23:30; Start 03/24/17 at 23:00; Stop at 00:00; Status DC Ondansetron HCl (Zofran) 4 mg PRN Q8HRS PRN IV NAUSEA/VOMITING; Start 03/24/17 at 23:00; Stop 03/25/17 at 22:59; Status DC Hydralazine HCl (Apresoline) 25 mg PRN TID PRN PO BP OVER 160 Last administered on 03/28/17 23:21; Start 03/24/17 at 23:00 Fentanyl Citrate (Fentanyl 2ml Vial) 50 mcg PRN Q2HR PRN IV SEVERE PAIN Last administered on 03/25/17 08:19; Start 03/24/17 at 23:30; Stop 03/25/17 at 08:46 ; Status DC Aspirin (Ecotrin) 81 mg DAILY PO Last administered on 03/26/17 08:28; Start at 09:00; Stop 03/26/17 at 10:25; Status DC Clopidogrel Bisulfate (Plavix) 75 mg DAILY PO Last administered on 04/02/17 09 :49; Start 03/25/17 at 09:00 Acetaminophen/ Hydrocodone Bitart (Lortab 7.5/325) 1 tab BID PO Last administered on 03/25/17 08:18; Start 03/25/17 at 09:00; Stop 03/25/17 at 09:00 ; Status DC Tramadol HCl (Ultram) 50 mg PRN TID PRN PO MODERATE PAIN; Start 03/25/17 at 06: 15; Stop 03/25/17 at 08:46; Status DC Carvedilol (Coreg) 25 mg BIDWMEALS PO Last administered on 03/25/17 08:18; Start 03/25/17 at 08:00; Stop 03/25/17 at 12:23; Status DC Vitamin D (Vitamin D3) 2,000 unit DAILY PO Last administered on 04/02/17 09:48 ; Start 03/25/17 at 09:00 Meloxicam (Mobic) 15 mg DAILY PO Last administered on 03/28/17 08:22; Start at 09:00; Stop 03/28/17 at 10:57; Status DC Multivitamins (Thera M Plus) 1 tab DAILY PO Last administered on 04/02/17 09: 48; Start 03/25/17 at 09:00 Fish Oil (Fish Oil) 1,000 mg DAILY PO Last administered on 04/02/17 09:50; Start 03/25/17 at 09:00 Non-Formulary Medication 5 mg BID PO ; Start 03/25/17 at 09:00; Stop 03/28/17 at 15:40; Status DC Losartan Potassium (Cozaar) 100 mg DAILY PO Last administered on 03/26/17 08: 22; Start 03/25/17 at 09:00; Stop 03/26/17 at 10:25; Status DC Hydrochlorothiazide (Hydrodiuril) 25 mg DAILY PO Last administered on 08:21; Start 03/25/17 at 09:00; Stop 03/28/17 at 10:57; Status DC Fentanyl Citrate (Fentanyl 2ml Vial) 25 mcg PRN Q4HRS PRN IV SEVERE PAIN Last administered on 03/29/17 08:57; Start 03/25/17 at 08:45 Lidocaine (Lidoderm) 1 patch DAILY TD Last administered on 04/02/17 09:51; Start 03/25/17 at 09:00 Cyclobenzaprine HCl (Flexeril) 10 mg PRN TID PRN PO MUSCLE SPASMS Last administered on 04/02/17 12:53; Start 03/25/17 at 08:45 Oxycodone HCl (Roxicodone) 5 mg PRN Q6HRS PRN PO PAIN Last administered on 04/02 09:59; Start 03/25/17 at 08:45 Acetaminophen (Tylenol) 325 mg PRN Q4HRS PRN PO MILD PAIN / TEMP Last administered on 04/01/17 18:45; Start 03/25/17 at 08:45 Iohexol (Omnipaque 300 Mg/ml) 75 ml 1X ONCE IV Last administered on 03/25/17 11:43; Start 03/25/17 at 09:00; Stop 03/25/17 at 09:22; Status DC Info (Do NOT chart on this entry -- for MONITORING) 1 each PRN DAILY PRN MC SEE COMMENTS; Start 03/25/17 at 09:30; Stop 03/27/17 at 09:29; Status DC Methylprednisolone Acetate (DEPO-Medrol 40MG VIAL) 40 mg 1X ONCE IM ; Start at 10:00; Stop 03/25/17 at 10:02; Status DC Bupivacaine HCl (Sensorcaine-Mpf 0.25%) 10 ml 1X ONCE IJ ; Start 03/25/17 at 10 :00; Stop 03/25/17 at 10:02; Status DC Digoxin (Lanoxin) 500 mcg 1X ONCE IV Last administered on 03/25/17 12:40; Start 03/25/17 at 12:15; Stop 03/25/17 at 12:32; Status DC Metoprolol Tartrate (Lopressor) 100 mg BID PO Last administered on 04/02/17 09 :50; Start 03/25/17 at 21:00 Ipratropium [place] (Atrovent) 0.5 mg RTQID NEB Last administered on 04/02/17 11:23; Start 03/25/17 at 16:00 Albuterol Sulfate (Ventolin Neb Soln) 2.5 mg PRN Q4HRS PRN NEB WHEEZING; Start 03/25/17 at 14:00; Stop 03/25/17 at 14:04; Status DC Ipratropium [place] (Atrovent) 0.5 mg PRN Q4HRS PRN NEB SHORTNESS OF BREATH; Start 03/25/17 at 14:15 Losartan Potassium (Cozaar) 50 mg DAILY PO Last administered on 03/29/17 08:38 ; Start 03/27/17 at 09:00; Stop 03/29/17 at 09:02; Status DC Diltiazem HCl (Cardizem 24hr Cd) 120 mg DAILY PO Last administered on 08:55; Start 03/26/17 at 11:00; Stop 03/30/17 at 10:06; Status DC Rivaroxaban (Xarelto) 20 mg DAILYWSUP PO Last administered on 04/01/17 18:39; Start 03/26/17 at 17:00 Digoxin (Lanoxin) 250 mcg 1X ONCE IV Last administered on 03/26/17 11:41; Start 03/26/17 at 10:45; Stop 03/26/17 at 10:46; Status DC Info (Anti-Coagulation Monitoring By Pharmacy) 1 each PRN DAILY PRN MC SEE COMMENTS Last administered on 03/29/17 14:01; Start 03/26/17 at 10:30 Vancomycin HCl 1 gm/Sodium Chloride 250 ml @ 250 mls/hr 1X ONCE IV ; Start at 09:00; Stop 03/27/17 at 09:59; Status UNV Vancomycin HCl (Vanco Per Pharmacy) 1 each PRN DAILY PRN MC SEE COMMENTS Last administered on 04/01/17 01:31; Start 03/27/17 at 09:00; Stop 04/01/17 at 11:54 ; Status DC Vancomycin HCl 2 gm/Sodium Chloride 500 ml @ 250 mls/hr 1X ONCE IV Last administered on 03/27/17 11:35; Start 03/27/17 at 09:00; Stop 03/27/17 at 10:59 ; Status DC Iohexol (Omnipaque 240 Mg/ml) 30 ml 1X ONCE PO Last administered on 03/27/17 11:08; Start 03/27/17 at 09:45; Stop 03/27/17 at 09:46; Status DC Iohexol (Omnipaque 300 Mg/ml) 75 ml 1X ONCE IV Last administered on 03/27/17 09:45; Start 03/27/17 at 09:45; Stop 03/27/17 at 09:46; Status DC Info (Do NOT chart on this entry -- for MONITORING) 1 each PRN DAILY PRN MC SEE COMMENTS; Start 03/27/17 at 09:45; Stop 03/29/17 at 09:44; Status DC Potassium Chloride (Klor-Con) 20 meq 1X ONCE PO Last administered on 11:31; Start 03/27/17 at 10:00; Stop 03/27/17 at 10:01; Status DC Iohexol (Omnipaque 240 Mg/ml) 50 ml STK-MED ONCE .ROUTE ; Start 03/27/17 at 10: 58; Stop 03/27/17 at 10:59; Status DC Iohexol (Omnipaque 300 Mg/ml) 75 ml STK-MED ONCE .ROUTE ; Start 03/27/17 at 10: 58; Stop 03/27/17 at 10:59; Status DC Vancomycin HCl 1.75 gm/Sodium Chloride 500 ml @ 250 mls/hr Q24H IV Last administered on 03/28/17 12:02; Start 03/28/17 at 11:00; Stop 03/29/17 at 12:29 ; Status DC Vancomycin HCl 1 each 1X ONCE MC ; Start 03/29/17 at 10:30; Stop 03/29/17 at 10 :31; Status DC Potassium Chloride (Klor-Con) 20 meq 1X ONCE PO Last administered on 17:27; Start 03/27/17 at 16:45; Stop 03/27/17 at 16:46; Status DC Insulin Aspart (NovoLOG) 0-6 UNITS TIDWMEALS SQ Last administered on 04/01/17 13:42; Start 03/27/17 at 17:00 Potassium Chloride (Klor-Con) 40 meq 1X ONCE PO Last administered on 11:17; Start 03/28/17 at 11:30; Stop 03/28/17 at 11:31; Status DC Info (Anti-Coagulation Monitoring By Pharmacy) 1 each PRN DAILY PRN MC SEE COMMENTS; Start 03/28/17 at 12:00; Status Cancel Losartan Potassium (Cozaar) 100 mg DAILY PO Last administered on 04/02/17 09: 51; Start 03/29/17 at 09:00 Glimepiride (Amaryl) 1 mg DAILY PO Last administered on 03/31/17 08:52; Start 03/29/17 at 10:00; Stop 03/31/17 at 09:48; Status DC Ceftriaxone Sodium 2 gm/ Sodium Chloride 100 ml @ 200 mls/hr Q12HR IV Last administered on 04/01/17 21:10; Start 03/29/17 at 10:00; Stop 04/02/17 at 09:07 ; Status DC Vancomycin HCl 1.5 gm/Sodium Chloride 500 ml @ 250 mls/hr Q12H IV Last administered on 04/01/17 01:31; Start 03/29/17 at 13:00; Stop 04/01/17 at 11:50 ; Status DC Potassium Chloride (Klor-Con) 40 meq 1X ONCE PO Last administered on 11:24; Start 03/30/17 at 12:00; Stop 03/30/17 at 12:01; Status DC Potassium Chloride (Klor-Con) 40 meq 1X ONCE PO Last administered on 07:45; Start 03/30/17 at 07:30; Stop 03/30/17 at 07:31; Status DC Diltiazem HCl (Cardizem 24hr Cd) 240 mg DAILY PO Last administered on 09:48; Start 03/31/17 at 09:00 Spironolactone (Aldactone) 25 mg DAILY PO Last administered on 04/02/17 09:47 ; Start 03/30/17 at 11:00 Diltiazem HCl (Cardizem 24hr Cd) 120 mg 1X ONCE PO Last administered on 11:19; Start 03/30/17 at 10:30; Stop 03/30/17 at 10:31; Status DC Bupivacaine HCl (Sensorcaine-Mpf 0.25%) 10 ml STK-MED ONCE .ROUTE ; Start at 11:00; Stop 03/30/17 at 15:10; Status DC Methylprednisolone Acetate (DEPO-Medrol 40MG VIAL) 40 mg STK-MED ONCE .ROUTE ; Start 03/25/17 at 11:00; Stop 03/30/17 at 15:10; Status DC Glimepiride (Amaryl) 2 mg DAILY PO Last administered on 04/02/17 09:47; Start 04/01/17 at 09:00 Potassium Chloride (Klor-Con) 40 meq 1X ONCE PO Last administered on 10:36; Start 03/31/17 at 10:00; Stop 03/31/17 at 10:01; Status DC Lactulose 20 gm Q2H PO Last administered on 03/31/17 13:04; Start 03/31/17 at 10:00; Stop 03/31/17 at 12:01; Status DC Vancomycin HCl 1 each 1X ONCE MC Last administered on 04/01/17 00:30; Start 04/01/17 at 00:30; Stop 04/01/17 at 00:31; Status DC Sodium Chloride (Normal Saline Flush) 10 ml QSHIFT PRN IV AFTER MEDS AND BLOOD DRAWS; Start 04/01/17 at 09:00 Lidocaine HCl (Xylocaine 2% Topical 5gm Tube) 1 britt 1X ONCE TP Last administered on 04/01/17 10:00; Start 04/01/17 at 09:00; Stop 04/01/17 at 09:01 ; Status DC Lidocaine HCl (Viscous Lidocaine) 15 ml 1X ONCE MM Last administered on 10:04; Start 04/01/17 at 09:00; Stop 04/01/17 at 09:01; Status DC Benzocaine (Hurricaine One) 1 spray STK-MED ONCE .ROUTE ; Start 04/01/17 at 09: 32; Stop 04/01/17 at 09:33; Status DC Lidocaine HCl (Xylocaine 2% Topical 30gm Tube) 30 britt STK-MED ONCE TP ; Start at 09:32; Stop 04/01/17 at 09:33; Status DC Benzocaine (Hurricaine One) 1 spray STK-MED ONCE .ROUTE ; Start 04/01/17 at 09: 33; Stop 04/01/17 at 09:34; Status DC Propofol 20 ml @ As Directed STK-MED ONCE IV ; Start 04/01/17 at 10:30; Stop at 10:31; Status DC Potassium Chloride (Klor-Con) 20 meq 1X ONCE PO Last administered on 13:30; Start 04/01/17 at 11:00; Stop 04/01/17 at 11:01; Status DC Ringer's Solution 1,000 ml @ 75 mls/hr [id number] IV Last administered on 10:42; Start 04/01/17 at 10:45; Stop 04/01/17 at 22:35; Status DC Benzocaine (Hurricaine One) 1 spray 1X ONCE MM Last administered on 04/01/17 11:04; Start 04/01/17 at 11:04; Stop 04/01/17 at 11:22; Status DC Lidocaine HCl (Viscous Lidocaine) 15 ml 1X ONCE SWSW Last administered on 04/01 11:04; Start 04/01/17 at 11:04; Stop 04/01/17 at 11:25; Status DC Ceftriaxone Sodium 2 gm/ Sodium Chloride 100 ml @ 200 mls/hr DAILY IV Last administered on 04/02/17 10:00; Start 04/02/17 at 10:00 Potassium Chloride (Klor-Con) 20 meq 1X ONCE PO Last administered on 09:50; Start 04/02/17 at 09:15; Stop 04/02/17 at 09:16; Status DC Active Scripts Active Reported Omeprazole 20 Mg Capsule.dr 1 Cap PO DAILY Vitamin D (Cholecalciferol (Vitamin D3)) 2,000 Unit Capsule 1 Cap PO DAILY Fish Oil 1,000 mg Softgel ([place]-3/Dha/Epa/Fish Oil) 1,000 Mg Capsule 1,000 Mg PO DAILY Hydrocodone-Apap 7.5-325 (Hydrocodone Bit/Acetaminophen) 1 Each Tablet 1 Tab PO BID Aspirin Ec (Aspirin) 81 Mg Tablet. 1 Tab PO DAILY Multivitamins (Multivitamin) 1 Each Tablet 1 Tab PO DAILY Xeljanz (Tofacitinib Citrate) 5 Mg Tablet 5 Mg PO BID Valsartan-Hctz 320-25 Mg Tab (Valsartan/Hydrochlorothiazide) 1 Each Tablet 1 Each PO DAILY Meloxicam 15 Mg Tablet 1 Tab PO DAILY Carvedilol 25 Mg Tablet 1 Tab PO BID Tramadol Hcl 50 Mg Tablet 1 Tab PO TID PRN Clopidogrel (Clopidogrel Bisulfate) 75 Mg Tablet 1 Tab PO DAILY Vitals/I & O Vital Sign - Last 24 Hours 04/01/17 04/01/17 04/01/17 04/01/17 15:04 15:08 15:25 19:00 Temp 97.8 97.9 97.8 97.9 Pulse 88 91 Resp 20 20 18 B/P (MAP) 149/84 (105) 149/92 (111) Pulse Ox 96 99 O2 Delivery Nasal Cannula Room Air Room Air Room Air 04/01/17 04/01/17 04/01/17 04/01/17 19:10 20:32 21:09 21:10 Pulse 91 Resp 18 B/P (MAP) 149/92 Pulse Ox 97 97 O2 Delivery Room Air Room Air Room Air 04/01/17 04/01/17 04/02/17 04/02/17 22:30 23:00 03:00 07:30 Temp 97.9 98.1 98.8 97.9 98.1 98.8 Pulse 106 109 102 Resp 16 18 18 18 B/P (MAP) 141/78 (99) 143/64 (90) 190/59 (102) Pulse Ox 97 94 95 96 O2 Delivery Room Air Room Air Room Air Room Air 04/02/17 04/02/17 04/02/17 04/02/17 09:48 09:50 09:51 11:25 Pulse 109 109 109 B/P (MAP) 143/64 143/64 143/64 Pulse Ox 98 O2 Delivery Room Air Intake and Output 04/02/17 04/02/17 04/03/17 15:00 23:00 07:00 Intake Total 300 ml Balance 300 ml BLAKE GARCIA MD Apr 02, 2017 13:54
[2017-04-02] MEDS: ANTI-COAG MONITOR BY PHARMACY. MC PRN (14:19)
[2017-04-02 14:30] VITALS: BP 160/86
[2017-04-02] MEDS: ACETAMINOPHEN 325 MG TABLET. PO PRN (16:02)
[2017-04-02] MEDS: RIVAROXABAN 10 MG TABLET. PO SCH (17:23)
[2017-04-02 19:00] VITALS: BP 154/78
[2017-04-02 23:00] VITALS: BP 122/71
[2017-04-03 03:00] VITALS: BP 175/88
[2017-04-03] MEDS: ACETAMINOPHEN 325 MG TABLET. PO PRN (03:09)
[2017-04-03] MEDS: CYCLOBENZAPRINE 10 MG TABLET. PO PRN (03:10)
[2017-04-03 06:23] LABS: BASO # 0.1 x10^3/uL (0.0-0.2); BASO % 1 % (0-3); EOS % 1 % (0-3); HEMATOCRIT 31.7 % (36.0-47.0); LYMPH % 8 % (24-48); MEAN CORPUSCULAR HEMOGLOBIN 32 pg (25-35); MEAN CORPUSCULAR HGB CONC 35 g/dL (31-37); MEAN CORPUSCULAR VOLUME 91 fL (79-100); MONO % 7 % (0-9); NEUT % 85 % (31-73); PLATELET COUNT 322 x10^3/uL (140-400); RED BLOOD COUNT 3.47 x10^6/uL (3.50-5.40); RED CELL DISTRIBUTION WIDTH 14.4 % (11.5-14.5); WHITE BLOOD COUNT 12.8 x10^3/uL (4.0-11.0)
[2017-04-03 06:39] LABS: CALCIUM 8.3 mg/dL (8.5-10.1); CREATININE 0.6 mg/dL (0.6-1.0); GFR 97.7; POTASSIUM 3.4 mmol/L (3.5-5.1)
[2017-04-03 07:00] VITALS: BP 151/74
[2017-04-03] MEDS: IPRATROPIUM BROMIDE 0.5 MG/2.5 ML NEBU. NEB SCH (07:28)
[2017-04-03] MEDS: INSULIN ASPART 300 UNITS/3 ML INSULN.PEN SQ SCH (08:00)
--- NOTE | 2017-04-03 09:02 | PDOC ---
PROGRESS NOTES Subjective Subjective feels better. back pain better. afib vr 100. lab reviewed. potassium 3.4. wbc better. Objective Objective Vital Signs Date Time Temp Pulse Resp B/P (MAP) Pulse Ox O2 Delivery O2 Flow Rate FiO2 04/03/17 07:28 Room Air 04/03/17 07:00 97.7 84 20 151/74 (99) 96 97.7 04/01/17 12:12 10 Physical Exam Abdomen: Soft Heart: Normal S1, Normal S2 Extremities: Other (1 plus edema legs) General: Alert HEENT: Atraumatic Lungs: Clear to auscultation Neuro: Normal speech Psych/Mental Status: Mental status NL Skin: No rashes Assessment Assessment Problems1. streptococcus constellatus bacteremia 2. low back pain improved 3. Hypertension 4. Coronary artery disease. 5. Rheumatoid arthritis. 6. Elevated liver function tests. 7. Cholelithiasis. new onset atrial fibrillation. fatty liver leukocytosis better nodule right thyroid lobe hyponatremia better hypokalemia diabetes mellitus type 2 Medical Problems: (1) Low back pain Status: Acute Plan Plan of Care continue iv rocephin kcl today dismiss to snf today Comment Review of Relevant I have reviewed the following items russell (where applicable) has been applied. Labs Laboratory Tests Test 04/01/17 13:24 04/01/17 21:10 04/02/17 04:30 04/02/17 08:00 Glucose (Fingerstick) 154 mg/dL (70-99) 131 mg/dL (70-99) 146 mg/dL (70-99) White Blood Count 14.9 x10^3/uL (4.0-11.0) Red Blood Count 3.79 x10^6/uL (3.50-5.40) Hemoglobin 11.9 g/dL (12.0-15.5) Hematocrit 34.5 % (36.0-47.0) Mean Corpuscular Volume 91 fL (79-100) Mean Corpuscular Hemoglobin 31 pg (25-35) Mean Corpuscular Hemoglobin Concent 34 g/dL (31-37) Red Cell Distribution Width 14.3 % (11.5-14.5) Platelet Count 372 x10^3/uL (140-400) Neutrophils (%) (Auto) 88 % (31-73) Lymphocytes (%) (Auto) 7 % (24-48) Monocytes (%) (Auto) 5 % (0-9) Eosinophils (%) (Auto) 0 % (0-3) Basophils (%) (Auto) 0 % (0-3) Neutrophils # (Auto) 13.1 x10^3uL (1.8-7.7) Lymphocytes # (Auto) 1.0 x10^3/uL (1.0-4.8) Monocytes # (Auto) 0.8 x10^3/uL (0.0-1.1) Eosinophils # (Auto) 0.1 x10^3/uL (0.0-0.7) Basophils # (Auto) 0.0 x10^3/uL (0.0-0.2) Sodium Level 134 mmol/L (136-145) Potassium Level 3.5 mmol/L (3.5-5.1) Chloride Level 97 mmol/L (98-107) Carbon Dioxide Level 28 mmol/L (21-32) Anion Gap 9 (6-14) Blood Urea Nitrogen 9 mg/dL (7-20) Creatinine 0.6 mg/dL (0.6-1.0) Estimated GFR (Cockcroft-Gault) 97.7 Glucose Level 166 mg/dL (70-99) Calcium Level 8.9 mg/dL (8.5-10.1) Magnesium Level 2.0 mg/dL (1.8-2.4) Test 04/02/17 11:40 04/02/17 16:49 04/02/17 20:54 04/03/17 06:10 Glucose (Fingerstick) 138 mg/dL (70-99) 143 mg/dL (70-99) 118 mg/dL (70-99) White Blood Count 12.8 x10^3/uL (4.0-11.0) Red Blood Count 3.47 x10^6/uL (3.50-5.40) Hemoglobin 11.0 g/dL (12.0-15.5) Hematocrit 31.7 % (36.0-47.0) Mean Corpuscular Volume 91 fL (79-100) Mean Corpuscular Hemoglobin 32 pg (25-35) Mean Corpuscular Hemoglobin Concent 35 g/dL (31-37) Red Cell Distribution Width 14.4 % (11.5-14.5) Platelet Count 322 x10^3/uL (140-400) Neutrophils (%) (Auto) 85 % (31-73) Lymphocytes (%) (Auto) 8 % (24-48) Monocytes (%) (Auto) 7 % (0-9) Eosinophils (%) (Auto) 1 % (0-3) Basophils (%) (Auto) 1 % (0-3) Neutrophils # (Auto) 10.9 x10^3uL (1.8-7.7) Lymphocytes # (Auto) 1.0 x10^3/uL (1.0-4.8) Monocytes # (Auto) 0.8 x10^3/uL (0.0-1.1) Eosinophils # (Auto) 0.1 x10^3/uL (0.0-0.7) Basophils # (Auto) 0.1 x10^3/uL (0.0-0.2) Sodium Level 135 mmol/L (136-145) Potassium Level 3.4 mmol/L (3.5-5.1) Chloride Level 99 mmol/L (98-107) Carbon Dioxide Level 30 mmol/L (21-32) Anion Gap 6 (6-14) Blood Urea Nitrogen 11 mg/dL (7-20) Creatinine 0.6 mg/dL (0.6-1.0) Estimated GFR (Cockcroft-Gault) 97.7 Glucose Level 170 mg/dL (70-99) Calcium Level 8.3 mg/dL (8.5-10.1) Test 04/03/17 08:20 Glucose (Fingerstick) 130 mg/dL (70-99) Laboratory Tests Test 04/02/17 11:40 04/02/17 16:49 04/02/17 20:54 04/03/17 06:10 Glucose (Fingerstick) 138 mg/dL (70-99) 143 mg/dL (70-99) 118 mg/dL (70-99) White Blood Count 12.8 x10^3/uL (4.0-11.0) Red Blood Count 3.47 x10^6/uL (3.50-5.40) Hemoglobin 11.0 g/dL (12.0-15.5) Hematocrit 31.7 % (36.0-47.0) Mean Corpuscular Volume 91 fL (79-100) Mean Corpuscular Hemoglobin 32 pg (25-35) Mean Corpuscular Hemoglobin Concent 35 g/dL (31-37) Red Cell Distribution Width 14.4 % (11.5-14.5) Platelet Count 322 x10^3/uL (140-400) Neutrophils (%) (Auto) 85 % (31-73) Lymphocytes (%) (Auto) 8 % (24-48) Monocytes (%) (Auto) 7 % (0-9) Eosinophils (%) (Auto) 1 % (0-3) Basophils (%) (Auto) 1 % (0-3) Neutrophils # (Auto) 10.9 x10^3uL (1.8-7.7) Lymphocytes # (Auto) 1.0 x10^3/uL (1.0-4.8) Monocytes # (Auto) 0.8 x10^3/uL (0.0-1.1) Eosinophils # (Auto) 0.1 x10^3/uL (0.0-0.7) Basophils # (Auto) 0.1 x10^3/uL (0.0-0.2) Sodium Level 135 mmol/L (136-145) Potassium Level 3.4 mmol/L (3.5-5.1) Chloride Level 99 mmol/L (98-107) Carbon Dioxide Level 30 mmol/L (21-32) Anion Gap 6 (6-14) Blood Urea Nitrogen 11 mg/dL (7-20) Creatinine 0.6 mg/dL (0.6-1.0) Estimated GFR (Cockcroft-Gault) 97.7 Glucose Level 170 mg/dL (70-99) Calcium Level 8.3 mg/dL (8.5-10.1) Test 04/03/17 08:20 Glucose (Fingerstick) 130 mg/dL (70-99) Microbiology 03/29/17 Blood Culture - Preliminary, Resulted NO GROWTH AFTER 4 DAYS 03/25/17 Urine Culture - Final, Complete 03/25/17 Urine Culture Result 1 (XENIA) - Final, Complete Medications Current Medications Carvedilol (Coreg) 25 mg 1X ONCE PO Last administered on 03/24/17t 20:41; Start 03/24/17 at 20:15; Stop 03/24/17 at 20:18; Status DC Clopidogrel Bisulfate (Plavix) 75 mg 1X ONCE PO Last administered on 20:39; Start 03/24/17 at 20:15; Stop 03/24/17 at 20:18; Status DC Losartan Potassium (Cozaar) 100 mg 1X ONCE PO Last administered on 03/24/17 20:39; Start 03/24/17 at 20:15; Stop 03/24/17 at 20:18; Status DC Hydrochlorothiazide (Hydrodiuril) 25 mg 1X ONCE PO Last administered on 20:41; Start 03/24/17 at 20:18; Stop 03/24/17 at 20:19; Status DC Morphine Sulfate 5 mg 1X ONCE IM Last administered on 03/24/17 20:41; Start 03/24/17 at 20:15; Stop 03/24/17 at 20:18; Status DC Fentanyl Citrate (Fentanyl 2ml Vial) 50 mcg PRN Q15MIN PRN IV PAIN GREATER THAN 3/10 Last administered on 03/24/17 23:30; Start 03/24/17 at 23:00; Stop at 00:00; Status DC Ondansetron HCl (Zofran) 4 mg PRN Q8HRS PRN IV NAUSEA/VOMITING; Start 03/24/17 at 23:00; Stop 03/25/17 at 22:59; Status DC Hydralazine HCl (Apresoline) 25 mg PRN TID PRN PO BP OVER 160 Last administered on 03/28/17 23:21; Start 03/24/17 at 23:00 Fentanyl Citrate (Fentanyl 2ml Vial) 50 mcg PRN Q2HR PRN IV SEVERE PAIN Last administered on 03/25/17 08:19; Start 03/24/17 at 23:30; Stop 03/25/17 at 08:46 ; Status DC Aspirin (Ecotrin) 81 mg DAILY PO Last administered on 03/26/17 08:28; Start at 09:00; Stop 03/26/17 at 10:25; Status DC Clopidogrel Bisulfate (Plavix) 75 mg DAILY PO Last administered on 04/02/17 09 :49; Start 03/25/17 at 09:00 Acetaminophen/ Hydrocodone Bitart (Lortab 7.5/325) 1 tab BID PO Last administered on 03/25/17 08:18; Start 03/25/17 at 09:00; Stop 03/25/17 at 09:00 ; Status DC Tramadol HCl (Ultram) 50 mg PRN TID PRN PO MODERATE PAIN; Start 03/25/17 at 06: 15; Stop 03/25/17 at 08:46; Status DC Carvedilol (Coreg) 25 mg BIDWMEALS PO Last administered on 03/25/17 08:18; Start 03/25/17 at 08:00; Stop 03/25/17 at 12:23; Status DC Vitamin D (Vitamin D3) 2,000 unit DAILY PO Last administered on 04/02/17 09:48 ; Start 03/25/17 at 09:00 Meloxicam (Mobic) 15 mg DAILY PO Last administered on 03/28/17 08:22; Start at 09:00; Stop 03/28/17 at 10:57; Status DC Multivitamins (Thera M Plus) 1 tab DAILY PO Last administered on 04/02/17 09: 48; Start 03/25/17 at 09:00 Fish Oil (Fish Oil) 1,000 mg DAILY PO Last administered on 04/02/17 09:50; Start 03/25/17 at 09:00 Non-Formulary Medication 5 mg BID PO ; Start 03/25/17 at 09:00; Stop 03/28/17 at 15:40; Status DC Losartan Potassium (Cozaar) 100 mg DAILY PO Last administered on 03/26/17 08: 22; Start 03/25/17 at 09:00; Stop 03/26/17 at 10:25; Status DC Hydrochlorothiazide (Hydrodiuril) 25 mg DAILY PO Last administered on 08:21; Start 03/25/17 at 09:00; Stop 03/28/17 at 10:57; Status DC Fentanyl Citrate (Fentanyl 2ml Vial) 25 mcg PRN Q4HRS PRN IV SEVERE PAIN Last administered on 03/29/17 08:57; Start 03/25/17 at 08:45 Lidocaine (Lidoderm) 1 patch DAILY TD Last administered on 04/02/17 09:51; Start 03/25/17 at 09:00 Cyclobenzaprine HCl (Flexeril) 10 mg PRN TID PRN PO MUSCLE SPASMS Last administered on 04/03/17 03:10; Start 03/25/17 at 08:45 Oxycodone HCl (Roxicodone) 5 mg PRN Q6HRS PRN PO PAIN Last administered on 04/02 22:02; Start 03/25/17 at 08:45 Acetaminophen (Tylenol) 325 mg PRN Q4HRS PRN PO MILD PAIN / TEMP Last administered on 04/03/17 03:09; Start 03/25/17 at 08:45 Iohexol (Omnipaque 300 Mg/ml) 75 ml 1X ONCE IV Last administered on 03/25/17 11:43; Start 03/25/17 at 09:00; Stop 03/25/17 at 09:22; Status DC Info (Do NOT chart on this entry -- for MONITORING) 1 each PRN DAILY PRN MC SEE COMMENTS; Start 03/25/17 at 09:30; Stop 03/27/17 at 09:29; Status DC Methylprednisolone Acetate (DEPO-Medrol 40MG VIAL) 40 mg 1X ONCE IM ; Start at 10:00; Stop 03/25/17 at 10:02; Status DC Bupivacaine HCl (Sensorcaine-Mpf 0.25%) 10 ml 1X ONCE IJ ; Start 03/25/17 at 10 :00; Stop 03/25/17 at 10:02; Status DC Digoxin (Lanoxin) 500 mcg 1X ONCE IV Last administered on 03/25/17 12:40; Start 03/25/17 at 12:15; Stop 03/25/17 at 12:32; Status DC Metoprolol Tartrate (Lopressor) 100 mg BID PO Last administered on 04/02/17 20 :55; Start 03/25/17 at 21:00 Ipratropium [place] (Atrovent) 0.5 mg RTQID NEB Last administered on 04/03/17 07:28; Start 03/25/17 at 16:00 Albuterol Sulfate (Ventolin Neb Soln) 2.5 mg PRN Q4HRS PRN NEB WHEEZING; Start 03/25/17 at 14:00; Stop 03/25/17 at 14:04; Status DC Ipratropium [place] (Atrovent) 0.5 mg PRN Q4HRS PRN NEB SHORTNESS OF BREATH; Start 03/25/17 at 14:15 Losartan Potassium (Cozaar) 50 mg DAILY PO Last administered on 03/29/17 08:38 ; Start 03/27/17 at 09:00; Stop 03/29/17 at 09:02; Status DC Diltiazem HCl (Cardizem 24hr Cd) 120 mg DAILY PO Last administered on 08:55; Start 03/26/17 at 11:00; Stop 03/30/17 at 10:06; Status DC Rivaroxaban (Xarelto) 20 mg DAILYWSUP PO Last administered on 04/02/17 17:23; Start 03/26/17 at 17:00 Digoxin (Lanoxin) 250 mcg 1X ONCE IV Last administered on 03/26/17 11:41; Start 03/26/17 at 10:45; Stop 03/26/17 at 10:46; Status DC Info (Anti-Coagulation Monitoring By Pharmacy) 1 each PRN DAILY PRN MC SEE COMMENTS Last administered on 04/02/17 14:19; Start 03/26/17 at 10:30 Vancomycin HCl 1 gm/Sodium Chloride 250 ml @ 250 mls/hr 1X ONCE IV ; Start at 09:00; Stop 03/27/17 at 09:59; Status UNV Vancomycin HCl (Vanco Per Pharmacy) 1 each PRN DAILY PRN MC SEE COMMENTS Last administered on 04/01/17 01:31; Start 03/27/17 at 09:00; Stop 04/01/17 at 11:54 ; Status DC Vancomycin HCl 2 gm/Sodium Chloride 500 ml @ 250 mls/hr 1X ONCE IV Last administered on 03/27/17 11:35; Start 03/27/17 at 09:00; Stop 03/27/17 at 10:59 ; Status DC Iohexol (Omnipaque 240 Mg/ml) 30 ml 1X ONCE PO Last administered on 03/27/17 11:08; Start 03/27/17 at 09:45; Stop 03/27/17 at 09:46; Status DC Iohexol (Omnipaque 300 Mg/ml) 75 ml 1X ONCE IV Last administered on 03/27/17 09:45; Start 03/27/17 at 09:45; Stop 03/27/17 at 09:46; Status DC Info (Do NOT chart on this entry -- for MONITORING) 1 each PRN DAILY PRN MC SEE COMMENTS; Start 03/27/17 at 09:45; Stop 03/29/17 at 09:44; Status DC Potassium Chloride (Klor-Con) 20 meq 1X ONCE PO Last administered on 11:31; Start 03/27/17 at 10:00; Stop 03/27/17 at 10:01; Status DC Iohexol (Omnipaque 240 Mg/ml) 50 ml STK-MED ONCE .ROUTE ; Start 03/27/17 at 10: 58; Stop 03/27/17 at 10:59; Status DC Iohexol (Omnipaque 300 Mg/ml) 75 ml STK-MED ONCE .ROUTE ; Start 03/27/17 at 10: 58; Stop 03/27/17 at 10:59; Status DC Vancomycin HCl 1.75 gm/Sodium Chloride 500 ml @ 250 mls/hr Q24H IV Last administered on 03/28/17 12:02; Start 03/28/17 at 11:00; Stop 03/29/17 at 12:29 ; Status DC Vancomycin HCl 1 each 1X ONCE MC ; Start 03/29/17 at 10:30; Stop 03/29/17 at 10 :31; Status DC Potassium Chloride (Klor-Con) 20 meq 1X ONCE PO Last administered on 17:27; Start 03/27/17 at 16:45; Stop 03/27/17 at 16:46; Status DC Insulin Aspart (NovoLOG) 0-6 UNITS TIDWMEALS SQ Last administered on 04/01/17 13:42; Start 03/27/17 at 17:00 Potassium Chloride (Klor-Con) 40 meq 1X ONCE PO Last administered on 11:17; Start 03/28/17 at 11:30; Stop 03/28/17 at 11:31; Status DC Info (Anti-Coagulation Monitoring By Pharmacy) 1 each PRN DAILY PRN MC SEE COMMENTS; Start 03/28/17 at 12:00; Status Cancel Losartan Potassium (Cozaar) 100 mg DAILY PO Last administered on 04/02/17 09: 51; Start 03/29/17 at 09:00 Glimepiride (Amaryl) 1 mg DAILY PO Last administered on 03/31/17 08:52; Start 03/29/17 at 10:00; Stop 03/31/17 at 09:48; Status DC Ceftriaxone Sodium 2 gm/ Sodium Chloride 100 ml @ 200 mls/hr Q12HR IV Last administered on 04/01/17 21:10; Start 03/29/17 at 10:00; Stop 04/02/17 at 09:07 ; Status DC Vancomycin HCl 1.5 gm/Sodium Chloride 500 ml @ 250 mls/hr Q12H IV Last administered on 04/01/17 01:31; Start 03/29/17 at 13:00; Stop 04/01/17 at 11:50 ; Status DC Potassium Chloride (Klor-Con) 40 meq 1X ONCE PO Last administered on 11:24; Start 03/30/17 at 12:00; Stop 03/30/17 at 12:01; Status DC Potassium Chloride (Klor-Con) 40 meq 1X ONCE PO Last administered on 07:45; Start 03/30/17 at 07:30; Stop 03/30/17 at 07:31; Status DC Diltiazem HCl (Cardizem 24hr Cd) 240 mg DAILY PO Last administered on 09:48; Start 03/31/17 at 09:00 Spironolactone (Aldactone) 25 mg DAILY PO Last administered on 04/02/17 09:47 ; Start 03/30/17 at 11:00 Diltiazem HCl (Cardizem 24hr Cd) 120 mg 1X ONCE PO Last administered on 11:19; Start 03/30/17 at 10:30; Stop 03/30/17 at 10:31; Status DC Bupivacaine HCl (Sensorcaine-Mpf 0.25%) 10 ml STK-MED ONCE .ROUTE ; Start at 11:00; Stop 03/30/17 at 15:10; Status DC Methylprednisolone Acetate (DEPO-Medrol 40MG VIAL) 40 mg STK-MED ONCE .ROUTE ; Start 03/25/17 at 11:00; Stop 03/30/17 at 15:10; Status DC Glimepiride (Amaryl) 2 mg DAILY PO Last administered on 04/02/17 09:47; Start 04/01/17 at 09:00 Potassium Chloride (Klor-Con) 40 meq 1X ONCE PO Last administered on 10:36; Start 03/31/17 at 10:00; Stop 03/31/17 at 10:01; Status DC Lactulose 20 gm Q2H PO Last administered on 03/31/17 13:04; Start 03/31/17 at 10:00; Stop 03/31/17 at 12:01; Status DC Vancomycin HCl 1 each 1X ONCE MC Last administered on 04/01/17 00:30; Start 04/01/17 at 00:30; Stop 04/01/17 at 00:31; Status DC Sodium Chloride (Normal Saline Flush) 10 ml QSHIFT PRN IV AFTER MEDS AND BLOOD DRAWS; Start 04/01/17 at 09:00 Lidocaine HCl (Xylocaine 2% Topical 5gm Tube) 1 britt 1X ONCE TP Last administered on 04/01/17 10:00; Start 04/01/17 at 09:00; Stop 04/01/17 at 09:01 ; Status DC Lidocaine HCl (Viscous Lidocaine) 15 ml 1X ONCE MM Last administered on 10:04; Start 04/01/17 at 09:00; Stop 04/01/17 at 09:01; Status DC Benzocaine (Hurricaine One) 1 spray STK-MED ONCE .ROUTE ; Start 04/01/17 at 09: 32; Stop 04/01/17 at 09:33; Status DC Lidocaine HCl (Xylocaine 2% Topical 30gm Tube) 30 britt STK-MED ONCE TP ; Start at 09:32; Stop 04/01/17 at 09:33; Status DC Benzocaine (Hurricaine One) 1 spray STK-MED ONCE .ROUTE ; Start 04/01/17 at 09: 33; Stop 04/01/17 at 09:34; Status DC Propofol 20 ml @ As Directed STK-MED ONCE IV ; Start 04/01/17 at 10:30; Stop at 10:31; Status DC Potassium Chloride (Klor-Con) 20 meq 1X ONCE PO Last administered on 13:30; Start 04/01/17 at 11:00; Stop 04/01/17 at 11:01; Status DC Ringer's Solution 1,000 ml @ 75 mls/hr [id number] IV Last administered on 10:42; Start 04/01/17 at 10:45; Stop 04/01/17 at 22:35; Status DC Benzocaine (Hurricaine One) 1 spray 1X ONCE MM Last administered on 04/01/17 11:04; Start 04/01/17 at 11:04; Stop 04/01/17 at 11:22; Status DC Lidocaine HCl (Viscous Lidocaine) 15 ml 1X ONCE SWSW Last administered on 04/01 11:04; Start 04/01/17 at 11:04; Stop 04/01/17 at 11:25; Status DC Ceftriaxone Sodium 2 gm/ Sodium Chloride 100 ml @ 200 mls/hr DAILY IV Last administered on 04/02/17 10:00; Start 04/02/17 at 10:00 Potassium Chloride (Klor-Con) 20 meq 1X ONCE PO Last administered on 09:50; Start 04/02/17 at 09:15; Stop 04/02/17 at 09:16; Status DC Active Scripts Active Reported Omeprazole 20 Mg Capsule.dr 1 Cap PO DAILY Vitamin D (Cholecalciferol (Vitamin D3)) 2,000 Unit Capsule 1 Cap PO DAILY Fish Oil 1,000 mg Softgel ([place]-3/Dha/Epa/Fish Oil) 1,000 Mg Capsule 1,000 Mg PO DAILY Hydrocodone-Apap 7.5-325 (Hydrocodone Bit/Acetaminophen) 1 Each Tablet 1 Tab PO BID Aspirin Ec (Aspirin) 81 Mg Tablet. 1 Tab PO DAILY Multivitamins (Multivitamin) 1 Each Tablet 1 Tab PO DAILY Xeljanz (Tofacitinib Citrate) 5 Mg Tablet 5 Mg PO BID Valsartan-Hctz 320-25 Mg Tab (Valsartan/Hydrochlorothiazide) 1 Each Tablet 1 Each PO DAILY Meloxicam 15 Mg Tablet 1 Tab PO DAILY Carvedilol 25 Mg Tablet 1 Tab PO BID Tramadol Hcl 50 Mg Tablet 1 Tab PO TID PRN Clopidogrel (Clopidogrel Bisulfate) 75 Mg Tablet 1 Tab PO DAILY Vitals/I & O Vital Sign - Last 24 Hours 04/02/17 04/02/17 04/02/17 04/02/17 09:48 09:50 09:51 11:25 Pulse 109 109 109 B/P (MAP) 143/64 143/64 143/64 Pulse Ox 98 O2 Delivery Room Air 04/02/17 04/02/17 04/02/17 04/02/17 11:30 14:30 15:44 19:00 Temp 96.4 98.1 96.8 96.4 98.1 96.8 Pulse 85 85 111 Resp 18 18 18 B/P (MAP) 153/96 (115) 160/86 (110) 154/78 (103) Pulse Ox 98 97 96 O2 Delivery Room Air Room Air Room Air Room Air 04/02/17 04/02/17 04/02/17 04/02/17 20:00 20:31 20:55 22:02 Pulse 111 Resp 17 B/P (MAP) 154/78 Pulse Ox 98 98 O2 Delivery Room Air Room Air Room Air 04/02/17 04/02/17 04/03/17 04/03/17 23:00 23:16 03:00 07:00 Temp 97.5 98.1 97.7 97.5 98.1 97.7 Pulse 122 111 84 Resp 18 17 18 20 B/P (MAP) 122/71 (88) 175/88 (117) 151/74 (99) Pulse Ox 95 98 97 96 O2 Delivery Room Air Room Air Room Air Room Air 04/03/17 07:28 O2 Delivery Room Air ALVARO YEN MD Apr 03, 2017 09:02
--- NOTE | 2017-04-03 09:10 | DISCH ---
DISCHARGE INSTRUCTIONS Condition on Discharge Condition on Discharge: Stable Activity After Discharge Activity Instructions for Disc: Resume previous activity Diet after Discharge Diet after Discharge: Diabetic No Calorie Level Contacting the DRRand after DC Call your doctor for: If your condition worsens Follow-Up Follow up with: dr. yen at [facility] ALVARO YEN MD Apr 03, 2017 09:10
[2017-04-03] MEDS ORDERED: POTASSIUM CHLORIDE 20 MEQ TABLET.ER. PO ONE (09:15)
--- NOTE | 2017-04-03 09:17 | PDOC ---
Provider Note Provider Note discharge summary dictated # [id number] ALVARO YEN MD Apr 03, 2017 09:16
[2017-04-03] MEDS: CLOPIDOGREL BISULFATE 75 MG TABLET PO SCH (09:29)
[2017-04-03] MEDS: MULTIVITAMIN with MINERAL TABLET. PO SCH (09:30)
[2017-04-03] MEDS: oxyCODONE IR 5 MG TABLET PO PRN (09:30)
[2017-04-03] MEDS: CHOLECALCIFEROL (VITAMIN D3) 1,000 UNIT TABLET PO SCH (09:31)
[2017-04-03] MEDS: METOPROLOL TART IMMED RELEASE 50 MG TABLET. PO SCH (09:31)
[2017-04-03] MEDS: OMEGA-3 FATTY ACIDS/FISH OIL 1,000 MG CAPSULE. PO SCH (09:31)
[2017-04-03 09:32] VITALS: BP 151/74
[2017-04-03] MEDS: LOSARTAN POTASSIUM 50 MG TABLET. PO SCH (09:32)
[2017-04-03] MEDS: GLIMEPIRIDE 2 MG TABLET. PO SCH (09:32)
[2017-04-03] MEDS: LIDOCAINE (700MG/PATCH) PATCH. TD SCH (09:32)
[2017-04-03] MEDS: SPIRONOLACTONE 25 MG TABLET PO SCH (09:32)
--- NOTE | 2017-04-03 10:46 | PDOC ---
Infectious Disease Note Subjective Subjective Feeling better today, less pain ROS ROS GEN: Denies fevers, chills, sweats HEENT: Denies blurred vision, sore throat CV: Denies chest pain RESP: Denies shortness of air, cough GI: Denies n/v/d NEURO: Denies confusion, dizziness MSK: Denies weakness, joint pain/swelling Vital Sign Vital Signs Vital Signs Date Time Temp Pulse Resp B/P (MAP) Pulse Ox O2 Delivery O2 Flow Rate FiO2 04/03/17 10:30 Room Air 04/03/17 09:32 84 151/74 04/03/17 07:00 97.7 20 96 97.7 Physical Exam PHYSICAL EXAM GENERAL: NAD, Alert HEENT: PERRL, OC/OP NECK: Supple, no JVD, no LN LUNGS: Clear HEART: S1S2, no gallop, no murmur ABD: Soft, NT, no organomegaly, no rebound EXT: No edema, no cyanosis NARROW [employer] LOOM [employer]ER: Alert, 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, no focal neurologic deficit SKIN: No rash IV: ok Labs Lab Laboratory Tests Test 04/02/17 11:40 04/02/17 16:49 04/02/17 20:54 04/03/17 06:10 Glucose (Fingerstick) 138 mg/dL (70-99) 143 mg/dL (70-99) 118 mg/dL (70-99) White Blood Count 12.8 x10^3/uL (4.0-11.0) Red Blood Count 3.47 x10^6/uL (3.50-5.40) Hemoglobin 11.0 g/dL (12.0-15.5) Hematocrit 31.7 % (36.0-47.0) Mean Corpuscular Volume 91 fL (79-100) Mean Corpuscular Hemoglobin 32 pg (25-35) Mean Corpuscular Hemoglobin Concent 35 g/dL (31-37) Red Cell Distribution Width 14.4 % (11.5-14.5) Platelet Count 322 x10^3/uL (140-400) Neutrophils (%) (Auto) 85 % (31-73) Lymphocytes (%) (Auto) 8 % (24-48) Monocytes (%) (Auto) 7 % (0-9) Eosinophils (%) (Auto) 1 % (0-3) Basophils (%) (Auto) 1 % (0-3) Neutrophils # (Auto) 10.9 x10^3uL (1.8-7.7) Lymphocytes # (Auto) 1.0 x10^3/uL (1.0-4.8) Monocytes # (Auto) 0.8 x10^3/uL (0.0-1.1) Eosinophils # (Auto) 0.1 x10^3/uL (0.0-0.7) Basophils # (Auto) 0.1 x10^3/uL (0.0-0.2) Sodium Level 135 mmol/L (136-145) Potassium Level 3.4 mmol/L (3.5-5.1) Chloride Level 99 mmol/L (98-107) Carbon Dioxide Level 30 mmol/L (21-32) Anion Gap 6 (6-14) Blood Urea Nitrogen 11 mg/dL (7-20) Creatinine 0.6 mg/dL (0.6-1.0) Estimated GFR (Cockcroft-Gault) 97.7 Glucose Level 170 mg/dL (70-99) Calcium Level 8.3 mg/dL (8.5-10.1) Test 04/03/17 08:20 Glucose (Fingerstick) 130 mg/dL (70-99) Micro BLOOD CULTURE Final TINY GRAM POSITIVE COCCI IN 3 OF 4 BOTTLES OF 2 SETS DRAWN. CALLED TO JOEY BAUTISTA ON 5N 03/27/17 AT 0835 BY Kirk INIGUEZ. CULTURES HAVE BEEN SENT TO [facility] FOR FURTHER IDENTIFICATION. Objective Assessment Streptococcus constellatus bacteremia. POA, 03/25 & 03/27. Repeat BC from 03/29 NGTD Back pain, rule out epidural or vertebral osteomyelitis. CT degenerative changes & central spinal stenosis, s/p sacroiliac joint injection (Depo-Medrol, 03/25) Bilateral knee arthroplasties, so far do not seem to be affected. Leukocytosis. s/p Depo-Medrol 03/25 Hypertension. Plan Plan of Care cont Rocephin 2-4 wks f/u BC TONI neg CRP 169.1 RF 43.6 ESR 89 d/w dr Sharma f/u with us in 2 wks wkly cbc, bun/cr , sed rate SELINA CORTES MD Apr 03, 2017 10:46
--- NOTE | 2017-04-03 13:45 | PDOC ---
PROGRESS NOTES Subjective Subjective No new complaints. Objective Objective Vital Signs Date Time Temp Pulse Resp B/P (MAP) Pulse Ox O2 Delivery O2 Flow Rate FiO2 04/03/17 10:30 Room Air 04/03/17 09:32 84 151/74 04/03/17 07:00 97.7 20 96 97.7 04/01/17 12:12 10 Physical Exam Physical Exam She is sitting in bedside chair and comfortable and getting ready for SNF transfer for continued IV antibiotics. Assessment Assessment Problems Medical Problems: (1) Low back pain Status: Acute Plan Plan of Care Agree with plans. Comment Review of Relevant I have reviewed the following items russell (where applicable) has been applied. Labs Laboratory Tests Test 04/01/17 21:10 04/02/17 04:30 04/02/17 08:00 04/02/17 11:40 Glucose (Fingerstick) 131 mg/dL (70-99) 146 mg/dL (70-99) 138 mg/dL (70-99) White Blood Count 14.9 x10^3/uL (4.0-11.0) Red Blood Count 3.79 x10^6/uL (3.50-5.40) Hemoglobin 11.9 g/dL (12.0-15.5) Hematocrit 34.5 % (36.0-47.0) Mean Corpuscular Volume 91 fL (79-100) Mean Corpuscular Hemoglobin 31 pg (25-35) Mean Corpuscular Hemoglobin Concent 34 g/dL (31-37) Red Cell Distribution Width 14.3 % (11.5-14.5) Platelet Count 372 x10^3/uL (140-400) Neutrophils (%) (Auto) 88 % (31-73) Lymphocytes (%) (Auto) 7 % (24-48) Monocytes (%) (Auto) 5 % (0-9) Eosinophils (%) (Auto) 0 % (0-3) Basophils (%) (Auto) 0 % (0-3) Neutrophils # (Auto) 13.1 x10^3uL (1.8-7.7) Lymphocytes # (Auto) 1.0 x10^3/uL (1.0-4.8) Monocytes # (Auto) 0.8 x10^3/uL (0.0-1.1) Eosinophils # (Auto) 0.1 x10^3/uL (0.0-0.7) Basophils # (Auto) 0.0 x10^3/uL (0.0-0.2) Sodium Level 134 mmol/L (136-145) Potassium Level 3.5 mmol/L (3.5-5.1) Chloride Level 97 mmol/L (98-107) Carbon Dioxide Level 28 mmol/L (21-32) Anion Gap 9 (6-14) Blood Urea Nitrogen 9 mg/dL (7-20) Creatinine 0.6 mg/dL (0.6-1.0) Estimated GFR (Cockcroft-Gault) 97.7 Glucose Level 166 mg/dL (70-99) Calcium Level 8.9 mg/dL (8.5-10.1) Magnesium Level 2.0 mg/dL (1.8-2.4) Test 04/02/17 16:49 04/02/17 20:54 04/03/17 06:10 04/03/17 08:20 Glucose (Fingerstick) 143 mg/dL (70-99) 118 mg/dL (70-99) 130 mg/dL (70-99) White Blood Count 12.8 x10^3/uL (4.0-11.0) Red Blood Count 3.47 x10^6/uL (3.50-5.40) Hemoglobin 11.0 g/dL (12.0-15.5) Hematocrit 31.7 % (36.0-47.0) Mean Corpuscular Volume 91 fL (79-100) Mean Corpuscular Hemoglobin 32 pg (25-35) Mean Corpuscular Hemoglobin Concent 35 g/dL (31-37) Red Cell Distribution Width 14.4 % (11.5-14.5) Platelet Count 322 x10^3/uL (140-400) Neutrophils (%) (Auto) 85 % (31-73) Lymphocytes (%) (Auto) 8 % (24-48) Monocytes (%) (Auto) 7 % (0-9) Eosinophils (%) (Auto) 1 % (0-3) Basophils (%) (Auto) 1 % (0-3) Neutrophils # (Auto) 10.9 x10^3uL (1.8-7.7) Lymphocytes # (Auto) 1.0 x10^3/uL (1.0-4.8) Monocytes # (Auto) 0.8 x10^3/uL (0.0-1.1) Eosinophils # (Auto) 0.1 x10^3/uL (0.0-0.7) Basophils # (Auto) 0.1 x10^3/uL (0.0-0.2) Sodium Level 135 mmol/L (136-145) Potassium Level 3.4 mmol/L (3.5-5.1) Chloride Level 99 mmol/L (98-107) Carbon Dioxide Level 30 mmol/L (21-32) Anion Gap 6 (6-14) Blood Urea Nitrogen 11 mg/dL (7-20) Creatinine 0.6 mg/dL (0.6-1.0) Estimated GFR (Cockcroft-Gault) 97.7 Glucose Level 170 mg/dL (70-99) Calcium Level 8.3 mg/dL (8.5-10.1) Laboratory Tests Test 04/02/17 16:49 04/02/17 20:54 04/03/17 06:10 04/03/17 08:20 Glucose (Fingerstick) 143 mg/dL (70-99) 118 mg/dL (70-99) 130 mg/dL (70-99) White Blood Count 12.8 x10^3/uL (4.0-11.0) Red Blood Count 3.47 x10^6/uL (3.50-5.40) Hemoglobin 11.0 g/dL (12.0-15.5) Hematocrit 31.7 % (36.0-47.0) Mean Corpuscular Volume 91 fL (79-100) Mean Corpuscular Hemoglobin 32 pg (25-35) Mean Corpuscular Hemoglobin Concent 35 g/dL (31-37) Red Cell Distribution Width 14.4 % (11.5-14.5) Platelet Count 322 x10^3/uL (140-400) Neutrophils (%) (Auto) 85 % (31-73) Lymphocytes (%) (Auto) 8 % (24-48) Monocytes (%) (Auto) 7 % (0-9) Eosinophils (%) (Auto) 1 % (0-3) Basophils (%) (Auto) 1 % (0-3) Neutrophils # (Auto) 10.9 x10^3uL (1.8-7.7) Lymphocytes # (Auto) 1.0 x10^3/uL (1.0-4.8) Monocytes # (Auto) 0.8 x10^3/uL (0.0-1.1) Eosinophils # (Auto) 0.1 x10^3/uL (0.0-0.7) Basophils # (Auto) 0.1 x10^3/uL (0.0-0.2) Sodium Level 135 mmol/L (136-145) Potassium Level 3.4 mmol/L (3.5-5.1) Chloride Level 99 mmol/L (98-107) Carbon Dioxide Level 30 mmol/L (21-32) Anion Gap 6 (6-14) Blood Urea Nitrogen 11 mg/dL (7-20) Creatinine 0.6 mg/dL (0.6-1.0) Estimated GFR (Cockcroft-Gault) 97.7 Glucose Level 170 mg/dL (70-99) Calcium Level 8.3 mg/dL (8.5-10.1) Microbiology 03/29/17 Blood Culture - Final, Complete NO GROWTH AFTER 5 DAYS 03/25/17 Urine Culture - Final, Complete 03/25/17 Urine Culture Result 1 (XENIA) - Final, Complete Medications Current Medications Carvedilol (Coreg) 25 mg 1X ONCE PO Last administered on 03/24/17 20:41; Start 03/24/17 at 20:15; Stop 03/24/17 at 20:18; Status DC Clopidogrel Bisulfate (Plavix) 75 mg 1X ONCE PO Last administered on 20:39; Start 03/24/17 at 20:15; Stop 03/24/17 at 20:18; Status DC Losartan Potassium (Cozaar) 100 mg 1X ONCE PO Last administered on 03/24/17 20:39; Start 03/24/17 at 20:15; Stop 03/24/17 at 20:18; Status DC Hydrochlorothiazide (Hydrodiuril) 25 mg 1X ONCE PO Last administered on 20:41; Start 03/24/17 at 20:18; Stop 03/24/17 at 20:19; Status DC Morphine Sulfate 5 mg 1X ONCE IM Last administered on 03/24/17 20:41; Start 03/24/17 at 20:15; Stop 03/24/17 at 20:18; Status DC Fentanyl Citrate (Fentanyl 2ml Vial) 50 mcg PRN Q15MIN PRN IV PAIN GREATER THAN 3/10 Last administered on 03/24/17 23:30; Start 03/24/17 at 23:00; Stop at 00:00; Status DC Ondansetron HCl (Zofran) 4 mg PRN Q8HRS PRN IV NAUSEA/VOMITING; Start 03/24/17 at 23:00; Stop 03/25/17 at 22:59; Status DC Hydralazine HCl (Apresoline) 25 mg PRN TID PRN PO BP OVER 160 Last administered on 03/28/17 23:21; Start 03/24/17 at 23:00; Stop 04/03/17 at 11:15 ; Status DC Fentanyl Citrate (Fentanyl 2ml Vial) 50 mcg PRN Q2HR PRN IV SEVERE PAIN Last administered on 03/25/17 08:19; Start 03/24/17 at 23:30; Stop 03/25/17 at 08:46 ; Status DC Aspirin (Ecotrin) 81 mg DAILY PO Last administered on 03/26/17 08:28; Start at 09:00; Stop 03/26/17 at 10:25; Status DC Clopidogrel Bisulfate (Plavix) 75 mg DAILY PO Last administered on 04/03/17 09 :29; Start 03/25/17 at 09:00; Stop 04/03/17 at 11:15; Status DC Acetaminophen/ Hydrocodone Bitart (Lortab 7.5/325) 1 tab BID PO Last administered on 03/25/17 08:18; Start 03/25/17 at 09:00; Stop 03/25/17 at 09:00 ; Status DC Tramadol HCl (Ultram) 50 mg PRN TID PRN PO MODERATE PAIN; Start 03/25/17 at 06: 15; Stop 03/25/17 at 08:46; Status DC Carvedilol (Coreg) 25 mg BIDWMEALS PO Last administered on 03/25/17 08:18; Start 03/25/17 at 08:00; Stop 03/25/17 at 12:23; Status DC Vitamin D (Vitamin D3) 2,000 unit DAILY PO Last administered on 04/03/17 09:31 ; Start 03/25/17 at 09:00; Stop 04/03/17 at 11:15; Status DC Meloxicam (Mobic) 15 mg DAILY PO Last administered on 03/28/17 08:22; Start at 09:00; Stop 03/28/17 at 10:57; Status DC Multivitamins (Thera M Plus) 1 tab DAILY PO Last administered on 04/03/17 09: 30; Start 03/25/17 at 09:00; Stop 04/03/17 at 11:15; Status DC Fish Oil (Fish Oil) 1,000 mg DAILY PO Last administered on 04/03/17 09:31; Start 03/25/17 at 09:00; Stop 04/03/17 at 11:15; Status DC Non-Formulary Medication 5 mg BID PO ; Start 03/25/17 at 09:00; Stop 03/28/17 at 15:40; Status DC Losartan Potassium (Cozaar) 100 mg DAILY PO Last administered on 03/26/17 08: 22; Start 03/25/17 at 09:00; Stop 03/26/17 at 10:25; Status DC Hydrochlorothiazide (Hydrodiuril) 25 mg DAILY PO Last administered on 08:21; Start 03/25/17 at 09:00; Stop 03/28/17 at 10:57; Status DC Fentanyl Citrate (Fentanyl 2ml Vial) 25 mcg PRN Q4HRS PRN IV SEVERE PAIN Last administered on 03/29/17 08:57; Start 03/25/17 at 08:45; Stop 04/03/17 at 11:15 ; Status DC Lidocaine (Lidoderm) 1 patch DAILY TD Last administered on 04/03/17 09:32; Start 03/25/17 at 09:00; Stop 04/03/17 at 11:15; Status DC Cyclobenzaprine HCl (Flexeril) 10 mg PRN TID PRN PO MUSCLE SPASMS Last administered on 04/03/17 03:10; Start 03/25/17 at 08:45; Stop 04/03/17 at 11:15 ; Status DC Oxycodone HCl (Roxicodone) 5 mg PRN Q6HRS PRN PO PAIN Last administered on 04/03 09:30; Start 03/25/17 at 08:45; Stop 04/03/17 at 11:15; Status DC Acetaminophen (Tylenol) 325 mg PRN Q4HRS PRN PO MILD PAIN / TEMP Last administered on 04/03/17 03:09; Start 03/25/17 at 08:45; Stop 04/03/17 at 11:15 ; Status DC Iohexol (Omnipaque 300 Mg/ml) 75 ml 1X ONCE IV Last administered on 03/25/17 11:43; Start 03/25/17 at 09:00; Stop 03/25/17 at 09:22; Status DC Info (Do NOT chart on this entry -- for MONITORING) 1 each PRN DAILY PRN MC SEE COMMENTS; Start 03/25/17 at 09:30; Stop 03/27/17 at 09:29; Status DC Methylprednisolone Acetate (DEPO-Medrol 40MG VIAL) 40 mg 1X ONCE IM ; Start at 10:00; Stop 03/25/17 at 10:02; Status DC Bupivacaine HCl (Sensorcaine-Mpf 0.25%) 10 ml 1X ONCE IJ ; Start 03/25/17 at 10 :00; Stop 03/25/17 at 10:02; Status DC Digoxin (Lanoxin) 500 mcg 1X ONCE IV Last administered on 03/25/17 12:40; Start 03/25/17 at 12:15; Stop 03/25/17 at 12:32; Status DC Metoprolol Tartrate (Lopressor) 100 mg BID PO Last administered on 04/03/17 09 :31; Start 03/25/17 at 21:00; Stop 04/03/17 at 11:15; Status DC Ipratropium Borden (Atrovent) 0.5 mg RTQID NEB Last administered on 04/03/17 07:28; Start 03/25/17 at 16:00; Stop 04/03/17 at 11:15; Status DC Albuterol Sulfate (Ventolin Neb Soln) 2.5 mg PRN Q4HRS PRN NEB WHEEZING; Start 03/25/17 at 14:00; Stop 03/25/17 at 14:04; Status DC Ipratropium Borden (Atrovent) 0.5 mg PRN Q4HRS PRN NEB SHORTNESS OF BREATH; Start 03/25/17 at 14:15; Stop 04/03/17 at 11:15; Status DC Losartan Potassium (Cozaar) 50 mg DAILY PO Last administered on 03/29/17 08:38 ; Start 03/27/17 at 09:00; Stop 03/29/17 at 09:02; Status DC Diltiazem HCl (Cardizem 24hr Cd) 120 mg DAILY PO Last administered on 08:55; Start 03/26/17 at 11:00; Stop 03/30/17 at 10:06; Status DC Rivaroxaban (Xarelto) 20 mg DAILYWSUP PO Last administered on 04/02/17 17:23; Start 03/26/17 at 17:00; Stop 04/03/17 at 11:15; Status DC Digoxin (Lanoxin) 250 mcg 1X ONCE IV Last administered on 03/26/17 11:41; Start 03/26/17 at 10:45; Stop 03/26/17 at 10:46; Status DC Info (Anti-Coagulation Monitoring By Pharmacy) 1 each PRN DAILY PRN MC SEE COMMENTS Last administered on 04/02/17 14:19; Start 03/26/17 at 10:30; Stop at 11:15; Status DC Vancomycin HCl 1 gm/Sodium Chloride 250 ml @ 250 mls/hr 1X ONCE IV ; Start at 09:00; Stop 03/27/17 at 09:59; Status UNV Vancomycin HCl (Vanco Per Pharmacy) 1 each PRN DAILY PRN MC SEE COMMENTS Last administered on 04/01/17 01:31; Start 03/27/17 at 09:00; Stop 04/01/17 at 11:54 ; Status DC Vancomycin HCl 2 gm/Sodium Chloride 500 ml @ 250 mls/hr 1X ONCE IV Last administered on 03/27/17 11:35; Start 03/27/17 at 09:00; Stop 03/27/17 at 10:59 ; Status DC Iohexol (Omnipaque 240 Mg/ml) 30 ml 1X ONCE PO Last administered on 03/27/17 11:08; Start 03/27/17 at 09:45; Stop 03/27/17 at 09:46; Status DC Iohexol (Omnipaque 300 Mg/ml) 75 ml 1X ONCE IV Last administered on 03/27/17 09:45; Start 03/27/17 at 09:45; Stop 03/27/17 at 09:46; Status DC Info (Do NOT chart on this entry -- for MONITORING) 1 each PRN DAILY PRN MC SEE COMMENTS; Start 03/27/17 at 09:45; Stop 03/29/17 at 09:44; Status DC Potassium Chloride (Klor-Con) 20 meq 1X ONCE PO Last administered on 11:31; Start 03/27/17 at 10:00; Stop 03/27/17 at 10:01; Status DC Iohexol (Omnipaque 240 Mg/ml) 50 ml STK-MED ONCE .ROUTE ; Start 03/27/17 at 10: 58; Stop 03/27/17 at 10:59; Status DC Iohexol (Omnipaque 300 Mg/ml) 75 ml STK-MED ONCE .ROUTE ; Start 03/27/17 at 10: 58; Stop 03/27/17 at 10:59; Status DC Vancomycin HCl 1.75 gm/Sodium Chloride 500 ml @ 250 mls/hr Q24H IV Last administered on 03/28/17 12:02; Start 03/28/17 at 11:00; Stop 03/29/17 at 12:29 ; Status DC Vancomycin HCl 1 each 1X ONCE MC ; Start 03/29/17 at 10:30; Stop 03/29/17 at 10 :31; Status DC Potassium Chloride (Klor-Con) 20 meq 1X ONCE PO Last administered on 17:27; Start 03/27/17 at 16:45; Stop 03/27/17 at 16:46; Status DC Insulin Aspart (NovoLOG) 0-6 UNITS TIDWMEALS SQ Last administered on 04/01/17 13:42; Start 03/27/17 at 17:00; Stop 04/03/17 at 11:15; Status DC Potassium Chloride (Klor-Con) 40 meq 1X ONCE PO Last administered on 11:17; Start 03/28/17 at 11:30; Stop 03/28/17 at 11:31; Status DC Info (Anti-Coagulation Monitoring By Pharmacy) 1 each PRN DAILY PRN MC SEE COMMENTS; Start 03/28/17 at 12:00; Status Cancel Losartan Potassium (Cozaar) 100 mg DAILY PO Last administered on 04/03/17 09: 32; Start 03/29/17 at 09:00; Stop 04/03/17 at 11:15; Status DC Glimepiride (Amaryl) 1 mg DAILY PO Last administered on 03/31/17 08:52; Start 03/29/17 at 10:00; Stop 03/31/17 at 09:48; Status DC Ceftriaxone Sodium 2 gm/ Sodium Chloride 100 ml @ 200 mls/hr Q12HR IV Last administered on 04/01/17 21:10; Start 03/29/17 at 10:00; Stop 04/02/17 at 09:07 ; Status DC Vancomycin HCl 1.5 gm/Sodium Chloride 500 ml @ 250 mls/hr Q12H IV Last administered on 04/01/17 01:31; Start 03/29/17 at 13:00; Stop 04/01/17 at 11:50 ; Status DC Potassium Chloride (Klor-Con) 40 meq 1X ONCE PO Last administered on 11:24; Start 03/30/17 at 12:00; Stop 03/30/17 at 12:01; Status DC Potassium Chloride (Klor-Con) 40 meq 1X ONCE PO Last administered on 07:45; Start 03/30/17 at 07:30; Stop 03/30/17 at 07:31; Status DC Diltiazem HCl (Cardizem 24hr Cd) 240 mg DAILY PO Last administered on 09:48; Start 03/31/17 at 09:00; Stop 04/03/17 at 09:05; Status DC Spironolactone (Aldactone) 25 mg DAILY PO Last administered on 04/03/17 09:32 ; Start 03/30/17 at 11:00; Stop 04/03/17 at 11:15; Status DC Diltiazem HCl (Cardizem 24hr Cd) 120 mg 1X ONCE PO Last administered on 11:19; Start 03/30/17 at 10:30; Stop 03/30/17 at 10:31; Status DC Bupivacaine HCl (Sensorcaine-Mpf 0.25%) 10 ml STK-MED ONCE .ROUTE ; Start at 11:00; Stop 03/30/17 at 15:10; Status DC Methylprednisolone Acetate (DEPO-Medrol 40MG VIAL) 40 mg STK-MED ONCE .ROUTE ; Start 03/25/17 at 11:00; Stop 03/30/17 at 15:10; Status DC Glimepiride (Amaryl) 2 mg DAILY PO Last administered on 04/03/17 09:32; Start 04/01/17 at 09:00; Stop 04/03/17 at 11:15; Status DC Potassium Chloride (Klor-Con) 40 meq 1X ONCE PO Last administered on 10:36; Start 03/31/17 at 10:00; Stop 03/31/17 at 10:01; Status DC Lactulose 20 gm Q2H PO Last administered on 03/31/17 13:04; Start 03/31/17 at 10:00; Stop 03/31/17 at 12:01; Status DC Vancomycin HCl 1 each 1X ONCE MC Last administered on 04/01/17 00:30; Start 04/01/17 at 00:30; Stop 04/01/17 at 00:31; Status DC Sodium Chloride (Normal Saline Flush) 10 ml QSHIFT PRN IV AFTER MEDS AND BLOOD DRAWS; Start 04/01/17 at 09:00; Stop 04/03/17 at 11:15; Status DC Lidocaine HCl (Xylocaine 2% Topical 5gm Tube) 1 britt 1X ONCE TP Last administered on 04/01/17 10:00; Start 04/01/17 at 09:00; Stop 04/01/17 at 09:01 ; Status DC Lidocaine HCl (Viscous Lidocaine) 15 ml 1X ONCE MM Last administered on 10:04; Start 04/01/17 at 09:00; Stop 04/01/17 at 09:01; Status DC Benzocaine (Hurricaine One) 1 spray STK-MED ONCE .ROUTE ; Start 04/01/17 at 09: 32; Stop 04/01/17 at 09:33; Status DC Lidocaine HCl (Xylocaine 2% Topical 30gm Tube) 30 britt STK-MED ONCE TP ; Start at 09:32; Stop 04/01/17 at 09:33; Status DC Benzocaine (Hurricaine One) 1 spray STK-MED ONCE .ROUTE ; Start 04/01/17 at 09: 33; Stop 04/01/17 at 09:34; Status DC Propofol 20 ml @ As Directed STK-MED ONCE IV ; Start 04/01/17 at 10:30; Stop at 10:31; Status DC Potassium Chloride (Klor-Con) 20 meq 1X ONCE PO Last administered on 13:30; Start 04/01/17 at 11:00; Stop 04/01/17 at 11:01; Status DC Ringer's Solution 1,000 ml @ 75 mls/hr [id number] IV Last administered on 10:42; Start 04/01/17 at 10:45; Stop 04/01/17 at 22:35; Status DC Benzocaine (Hurricaine One) 1 spray 1X ONCE MM Last administered on 04/01/17 11:04; Start 04/01/17 at 11:04; Stop 04/01/17 at 11:22; Status DC Lidocaine HCl (Viscous Lidocaine) 15 ml 1X ONCE SWSW Last administered on 04/01 11:04; Start 04/01/17 at 11:04; Stop 04/01/17 at 11:25; Status DC Ceftriaxone Sodium 2 gm/ Sodium Chloride 100 ml @ 200 mls/hr DAILY IV Last administered on 04/03/17 09:32; Start 04/02/17 at 10:00; Stop 04/03/17 at 11:15 ; Status DC Potassium Chloride (Klor-Con) 20 meq 1X ONCE PO Last administered on 09:50; Start 04/02/17 at 09:15; Stop 04/02/17 at 09:16; Status DC Diltiazem HCl (Cardizem Cd) 300 mg DAILY PO Last administered on 04/03/17 09: 30; Start 04/03/17 at 10:00; Stop 04/03/17 at 11:15; Status DC Potassium Chloride (Klor-Con) 40 meq 1X ONCE PO Last administered on 09:30; Start 04/03/17 at 09:15; Stop 04/03/17 at 09:16; Status DC Active Scripts Active Reported Omeprazole 20 Mg Capsule. 1 Cap PO DAILY Vitamin D (Cholecalciferol (Vitamin D3)) 2,000 Unit Capsule 1 Cap PO DAILY Fish Oil 1,000 mg Softgel (Cranks-3/Dha/Epa/Fish Oil) 1,000 Mg Capsule 1,000 Mg PO DAILY Hydrocodone-Apap 7.5-325 (Hydrocodone Bit/Acetaminophen) 1 Each Tablet 1 Tab PO BID Aspirin Ec (Aspirin) 81 Mg Tablet. 1 Tab PO DAILY Multivitamins (Multivitamin) 1 Each Tablet 1 Tab PO DAILY Xeljanz (Tofacitinib Citrate) 5 Mg Tablet 5 Mg PO BID Valsartan-Hctz 320-25 Mg Tab (Valsartan/Hydrochlorothiazide) 1 Each Tablet 1 Each PO DAILY Meloxicam 15 Mg Tablet 1 Tab PO DAILY Carvedilol 25 Mg Tablet 1 Tab PO BID Tramadol Hcl 50 Mg Tablet 1 Tab PO TID PRN Clopidogrel (Clopidogrel Bisulfate) 75 Mg Tablet 1 Tab PO DAILY Vitals/I & O Vital Sign - Last 24 Hours 04/02/17 04/02/17 04/02/17 04/02/17 14:30 15:44 19:00 20:00 Temp 98.1 96.8 98.1 96.8 Pulse 85 111 Resp 18 18 B/P (MAP) 160/86 (110) 154/78 (103) Pulse Ox 97 96 O2 Delivery Room Air Room Air Room Air Room Air 04/02/17 04/02/17 04/02/17 04/02/17 20:31 20:55 22:02 23:00 Temp 97.5 97.5 Pulse 111 122 Resp 17 18 B/P (MAP) 154/78 122/71 (88) Pulse Ox 98 98 95 O2 Delivery Room Air Room Air Room Air 04/02/17 04/03/17 04/03/17 04/03/17 23:16 03:00 07:00 07:28 Temp 98.1 97.7 98.1 97.7 Pulse 111 84 Resp 17 18 20 B/P (MAP) 175/88 (117) 151/74 (99) Pulse Ox 98 97 96 O2 Delivery Room Air Room Air Room Air 04/03/17 04/03/17 04/03/17 04/03/17 08:15 09:30 09:30 09:31 Pulse 84 84 B/P (MAP) 151/74 151/74 O2 Delivery Room Air Room Air 04/03/17 04/03/17 09:32 10:30 Pulse 84 B/P (MAP) 151/74 O2 Delivery Room Air BLAKE GARCIA MD Apr 03, 2017 13:45
--- NOTE | 2017-04-03 19:01 | DS ---
DATE OF DISCHARGE: 04/03/2017 CONSULTANTS: Include Dr. Jaron Munoz, Dr. Nelson and risk control analyst, Dr. Llanos. FINAL DIAGNOSES: 1. Procedure with a transesophageal echocardiogram and the final diagnosis is Streptococcus constellatus bacteremia. 2. Low back pain secondary to lumbar strain and lumbar spondylosis. 3. Hypertension. 4. Coronary artery disease. 5. Rheumatoid arthritis. 6. Elevated liver function tests. 7. Cholelithiasis. 8. New onset atrial fibrillation with rapid ventricular response. 9. Fatty liver. 10. Leukocytosis, improved. 11. Right thyroid lung nodule. 12. Hyponatremia, improved. 13. Hypokalemia. 14. Diabetes mellitus type 2 is uncontrolled. HOSPITAL COURSE: The patient is a 72-year-old white female with history of rheumatoid arthritis, hypertension, coronary artery disease, bilateral total knee arthroplasty and cholelithiasis with a 2-day history of low back pain. When she turned in bed, she could not navigate at all because of the back pain. She denied any sciatica. She was subsequently admitted to [facility] on 03/25/2017. She did have a fever and also had atrial fibrillation, new onset with rapid ventricular response. She was seen by the risk control analyst, Dr. Llanos in consultation and was started on Xarelto. An echocardiogram was done. She also received metoprolol and diltiazem, which controlled her ventricular rate better. In addition, imaging studies of the lumbar spine did not show any evidence of diskitis. She was seen by Dr. Jaron Munoz for Infectious Disease, Dr. Nelson for Physical Rehabilitation and Dr. Llanos for Cardiology. She had a transesophageal echocardiogram, which showed no vegetations and her blood culture was positive for Streptococcus species. No vegetations were seen in her valves. The vancomycin was discontinued and she was treated with Rocephin. She will initially require 2-4 weeks of IV antibiotics and PICC line was placed. She had problems with hyponatremia and hypokalemia that was treated. Her diuretic was discontinued. She was started on spironolactone also. Her anti-inflammatory drug was discontinued. She was treated with Xarelto. She will be dismissed to the halfway facility on Tylenol 325 mg every 4 hours p.r.n., vitamin D 2000 units every day, Plavix 75 mg every day, Flexeril 10 mg t.i.d. p.r.n., glimepiride 2 mg every day, which was started for diabetes and also dismissed on DuoNeb nebulized treatments every 4 hours p.r.n., Lidoderm patch 12 hours on and 12 hours off, losartan 100 mg every day, metoprolol tartrate 100 mg b.i.d., multiple vitamin once a day, fish oil 1 g every day, Xarelto 20 mg every day, spironolactone 25 mg every day, diltiazem CD 300 mg every day, Rocephin 2 grams IV daily for 4 weeks and also oxycodone 5 mg every 4 hours p.r.n. for pain control, 30 tablets, no refills . She will have a CBC, BMP and a sed rate done every Saturday. We will fax results to Dr. Jaron Munoz and Dr. Sharma and she will have physical and occupational therapy. We will check her blood sugars once a day before breakfast and can draw blood from her PICC line. She will be dismissed to the halfway facility later today. ALVARO SHARMA MD DR: LUCINA/jason JOB#: [id number] / [id number]
== END 2017-04-03 11:14 | DRG 552 ==
LOC: ER 19:18 → 5 NORTH 22:40
PROVIDERS: ADMIT Internal Medicine; ATTEND Internal Medicine
DX: M47.816 Spondylosis without myelopathy or radiculopathy, lumbar region (principal); E11.65 Type 2 diabetes mellitus with hyperglycemia; R78.81 Bacteremia; K76.0 Fatty (change of) liver, not elsewhere classified; E87.1 Hypo-osmolality and hyponatremia; S39.012A Strain of muscle, fascia and tendon of lower back, initial encounter; I10 Essential (primary) hypertension; D72.829 Elevated white blood cell count, unspecified; Z68.41 Body mass index [BMI] 40.0-44.9, adult; I48.0 Paroxysmal atrial fibrillation; E66.01 Morbid (severe) obesity due to excess calories; M06.9 Rheumatoid arthritis, unspecified; M54.9 Dorsalgia, unspecified; E78.5 Hyperlipidemia, unspecified; E87.6 Hypokalemia; I25.10 Atherosclerotic heart disease of native coronary artery without angina pectoris; I44.0 Atrioventricular block, first degree; I44.7 Left bundle-branch block, unspecified; M19.90 Unspecified osteoarthritis, unspecified site; M51.36 Other intervertebral disc degeneration, lumbar region; K80.20 Calculus of gallbladder without cholecystitis without obstruction; A49.1 Streptococcal infection, unspecified site; E04.1 Nontoxic single thyroid nodule; H10.419 Chronic giant papillary conjunctivitis, unspecified eye; G89.29 Other chronic pain; Z96.653 Presence of artificial knee joint, bilateral; M48.06 Spinal stenosis, lumbar region; Z79.899 Other long term (current) drug therapy; Z79.84 Long term (current) use of oral hypoglycemic drugs; Z98.41 Cataract extraction status, right eye; Z98.42 Cataract extraction status, left eye; Z95.5 Presence of coronary angioplasty implant and graft; Z82.49 Family history of ischemic heart disease and other diseases of the circulatory system; Z88.8 Allergy status to other drugs, medicaments and biological substances; Z90.710 Acquired absence of both cervix and uterus; Z90.721 Acquired absence of ovaries, unilateral
CPT/HCPCS: 36415; 36569; 71010; 71260; 72100; 72132; 74177; 76700; 80048; 80053; 80061; 80202; 81001; 82962; 83735; 83930; 84443; 85007; 85025; 85610; 85651; 86140; 86431; 87040; 87086; 87205; 93005; 93306; 93312; 93320; 93325; 94250; 94640; 94760; 96372; J0696; J1030; J1160; J1815; J2270; J2704; J3010; J3370; J3490; J7040; J7120; J7644; Q9966; Q9967; 97110; 97116; 97530; 99285-25

== ENCOUNTER 2017-05-01 08:41 | Inpatient (IN) | payer MEDICARE, OTHER ==
[2017-05-01] VITALS (13 sets, daily range): BP systolic 111–156; BP diastolic 57–92
[~2017-05-01] VITALS: Ht 157.5 cm; Wt 103.9 kg
[~2017-05-01 08:41] MED LIST changes: +ASPI-612 PO; +CARV25TA2 PO; +CHOL2000 PO; +HYDR-2762 PO; +MELO15TA23 PO; +MULT1TAB52 PO; +OMEG100021 PO; +OMEP20CA9 PO; +VALS1TAB33 PO
--- NOTE | 2017-05-01 08:57 | EKG ---
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
[2017-05-01] MEDS ORDERED: dilTIAZem IV PUSH 25 MG/5 ML VIAL IVP ONE ×2 (09:00→11:30)
[2017-05-01 09:05] LABS: POTASSIUM ISTAT 4.6 mmol/L (3.5-5.0)
--- NOTE | 2017-05-01 09:05 | PHYS DOC ---
Past Medical History Past Medical History: Arthritis, Diabetes-Type II, Hypertension Past Surgical History: Hysterectomy, Oophorectomy Additional Past Surgical Histo: HEART STENTS, PELVIC PROLAPSE, CARPEL TUNNEL, X2 KNEE REPLACEMENTS Alcohol Use: Occasionally Drug Use: None Adult General Chief Complaint Chief Complaint: chest pain HPI HPI Patient is a 72 year old female who presents with chest pain that has since resolved. Pt woke this morning, headed to the bathroom and had an ache in her chest into her throat. Similar symptoms many years ago when the patient had to have heart stent placed. PCP is Dr. Sharma, microbiology analyst Dr. Llanos, recent diagnosis of afib. Hasn' t yet taken her am meds. She took 3 baby asa and that's when her cp resolved, given 1 more by ems. ASX at the time of my evaluation Review of Systems Review of Systems Constitutional: Denies fever or chills [] Eyes: Denies change in visual acuity, redness, or eye pain [] HENT: Denies nasal congestion or sore throat [] Respiratory: Denies cough or shortness of breath [] Cardiovascular: per hpi GI: Denies abdominal pain, nausea, vomiting, bloody stools or diarrhea [] : Denies dysuria or hematuria [] Musculoskeletal: Denies back pain or joint pain [] Integument: Denies rash or skin lesions [] Neurologic: Denies headache, focal weakness or sensory changes [] Current Medications Current Medications Current Medications Medications (Trade) Dose Ordered Sig/Saul Start Time Stop Time Status Last Admin Dose Admin Diltiazem HCl (Cardizem) 10 mg 1X ONCE 05/01/17 09:00 05/01/17 09:04 DC 05/01/17 09:11 10 MG Allergies Allergies Allergies Coded Allergies Type Severity Reaction Last Updated Verified amlodipine Allergy Intermediate 05/01/17 Yes atorvastatin Allergy Intermediate 12/15/15 Yes ciprofloxacin Allergy Intermediate 12/15/15 Yes ezetimibe Allergy Intermediate 12/15/15 Yes lisinopril Allergy Intermediate 12/15/15 Yes metformin Allergy Intermediate 12/15/15 Yes methotrexate Allergy Intermediate 12/15/15 Yes pravastatin Allergy Intermediate 12/15/15 Yes Physical Exam Physical Exam Constitutional: Well developed, well nourished, no acute distress, non-toxic appearance. [] HENT: Normocephalic, atraumatic, bilateral external ears normal, oropharynx moist, no oral exudates, nose normal. [] Eyes: PERRLA, EOMI, conjunctiva normal, no discharge. [] Neck: Normal range of motion, no tenderness, supple, no stridor. [] Cardiovascular:Heart ratetachy with irregular rhythm, no murmur [] Lungs & Thorax: Bilateral breath sounds clear to auscultation, no wheeze or crackles Abdomen: Bowel sounds normal, soft, no tenderness, no masses, no pulsatile masses. [] Skin: Warm, dry, no erythema, no rash. [] Back: No tenderness, no CVA tenderness. [] Extremities: No tenderness, no cyanosis, no clubbing, ROM intact, no edema. [] Neurologic: Alert and oriented X 3, normal motor function, normal sensory function, no focal deficits noted. [] Current Patient Data Vital Signs Vital Signs Date Time Temp Pulse Resp B/P (MAP) Pulse Ox O2 Delivery O2 Flow Rate FiO2 05/01/17 09:31 112 05/01/17 09:13 97 05/01/17 09:11 158/88 05/01/17 08:52 98.7 16 Room Air 98.7 Lab Values Laboratory Tests Test 05/01/17 08:56 05/01/17 09:00 05/01/17 09:25 POC Troponin I 0.01 ng/ml (<0.08) White Blood Count 9.2 x10^3/uL (4.0-11.0) Red Blood Count 4.27 x10^6/uL (3.50-5.40) Hemoglobin 12.9 g/dL (12.0-15.5) POC Hemoglobin 13.3 g/dL (12-15) Hematocrit 38.9 % (36.0-47.0) POC Hematocrit 39 % (36-40) Mean Corpuscular Volume 91 fL (79-100) Mean Corpuscular Hemoglobin 30 pg (25-35) Mean Corpuscular Hemoglobin Concent 33 g/dL (31-37) Red Cell Distribution Width 14.8 % (11.5-14.5) H Platelet Count 411 x10^3/uL (140-400) H Neutrophils (%) (Auto) 71 % (31-73) Lymphocytes (%) (Auto) 19 % (24-48) L Monocytes (%) (Auto) 8 % (0-9) Eosinophils (%) (Auto) 2 % (0-3) Basophils (%) (Auto) 1 % (0-3) Neutrophils # (Auto) 6.5 x10^3uL (1.8-7.7) Lymphocytes # (Auto) 1.8 x10^3/uL (1.0-4.8) Monocytes # (Auto) 0.7 x10^3/uL (0.0-1.1) Eosinophils # (Auto) 0.1 x10^3/uL (0.0-0.7) Basophils # (Auto) 0.1 x10^3/uL (0.0-0.2) POC Sodium 138 mmol/L (135-145) POC Potassium 4.6 mmol/L (3.5-5.0) POC Chloride 102 mmol/L (98-110) POC Total CO2 25 mmol/L (23-32) Anion Gap 16 mmol/L (6-14) H 13 (6-14) POC Blood Urea Nitrogen 13 mg/dL (8-26) POC Creatinine 0.7 mg/dL (0.5-1.4) Glucose Level 169 mg/dL (70-99) H 166 mg/dL (70-99) H POC Ionized Calcium (Guillermina) 1.11 mmol/L (1.13-1.32) L Sodium Level 137 mmol/L (136-145) Potassium Level 4.2 mmol/L (3.5-5.1) Chloride Level 100 mmol/L (98-107) Carbon Dioxide Level 24 mmol/L (21-32) Blood Urea Nitrogen 13 mg/dL (7-20) Creatinine 0.8 mg/dL (0.6-1.0) Estimated GFR (Cockcroft-Gault) 70.1 BUN/Creatinine Ratio 16 (6-20) Calcium Level 9.5 mg/dL (8.5-10.1) Magnesium Level Pending Total Bilirubin Pending Aspartate Amino Transferase (AST) Pending Alanine Aminotransferase (ALT) Pending Alkaline Phosphatase Pending Total Protein Pending Albumin Pending Albumin/Globulin Ratio Pending Laboratory Tests 05/01/17 09:00 Laboratory Tests 05/01/17 09:00 05/01/17 09:25 EKG EKG 127 bpm, A. fib, leftward axis, QRS of 132, intraventricular block, rapid ventricular response, no change from previous EKG performed on March 24 of this year with respect to the morphology. Survey Analyst by me[] Radiology/Procedures Radiology/Procedures CXR: no acute cardiopumonary abnormality Course & Med Decision Making Course & Med Decision Making Pertinent Labs and Imaging studies reviewed. (See chart for details) Pt is asx, still has tachy afib, intermittent RVR. 10mg cardizem given, HR improved to 100. Pt remained asx, no acute findings on ED workup. contacted Dr. Sharma, who accepted the admission, Cardiology consulted. Dragon Disclaimer Dragon Disclaimer This electronic medical record was generated, in whole or in part, using a voice recognition dictation system. Departure Departure Impression: Primary Impression: Atrial fibrillation with RVR Additional Impression: Unstable angina Disposition: ADMITTED INPATIENT Admitting Physician: Shashi Sharma Condition: IMPROVED Referrals: SHASHI SHARMA MD (PCP) Problem Qualifiers DESHAUN SEGUNDO MD May 01, 2017 09:05
[2017-05-01 09:12] LABS: BASO # 0.1 x10^3/uL (0.0-0.2); BASO % 1 % (0-3); EOS % 2 % (0-3); HEMATOCRIT 38.9 % (36.0-47.0); HEMOGLOBIN 12.9 g/dL (12.0-15.5); LYMPH # 1.8 x10^3/uL (1.0-4.8); LYMPH % 19 % (24-48); MEAN CORPUSCULAR HEMOGLOBIN 30 pg (25-35); MEAN CORPUSCULAR HGB CONC 33 g/dL (31-37); MEAN CORPUSCULAR VOLUME 91 fL (79-100); MONO % 8 % (0-9); NEUT % 71 % (31-73); PLATELET COUNT 411 x10^3/uL (140-400); RED BLOOD COUNT 4.27 x10^6/uL (3.50-5.40); RED CELL DISTRIBUTION WIDTH 14.8 % (11.5-14.5); WHITE BLOOD COUNT 9.2 x10^3/uL (4.0-11.0)
--- NOTE | 2017-05-01 09:21 | RAD ---
Portable chest, 05/01/2017: History: Chest pain Comparison is made to a study from 03/25/2017. The heart size and pulmonary vascularity are normal. There is calcific plaquing of the aorta. There is an unchanged linear opacity in the left upper chest compatible with scarring. No acute infiltrates are seen. There is no evidence of pleural fluid. Moderate spurring is present in the spine. IMPRESSION: No acute cardiopulmonary abnormality is detected.
[2017-05-01 09:22] LABS: INR 1.5 (0.8-1.1); PROTHROMBIN TIME PATIENT 17.1 SEC (11.7-14.0)
[2017-05-01 09:54] LABS: CALCIUM 9.5 mg/dL (8.5-10.1); CREATININE 0.8 mg/dL (0.6-1.0); GFR 70.1; POTASSIUM 4.2 mmol/L (3.5-5.1)
[2017-05-01 10:02] LABS: ALBUMIN 2.8 g/dL (3.4-5.0); ALBUMIN/GLOBULIN RATIO 0.6 (1.0-1.7); MAGNESIUM 1.7 mg/dL (1.8-2.4); TOTAL BILIRUBIN 0.6 mg/dL (0.2-1.0); TOTAL PROTEIN 7.4 g/dL (6.4-8.2)
[2017-05-01] MEDS ORDERED: DILT300C40 PO (10:28)
[2017-05-01] MEDS ORDERED: LOSA100T6 PO (10:29)
[2017-05-01] MEDS ORDERED: GLIM2TAB2 PO (10:29)
[2017-05-01] MEDS ORDERED: CYCL10TA2 PO (10:29)
[2017-05-01] MEDS ORDERED: RIVA20TA2 PO (10:30)
[2017-05-01] MEDS ORDERED: METO100T2 PO (10:30)
[2017-05-01] MEDS ORDERED: DOCU100C28 PO (10:31)
[2017-05-01] MEDS ORDERED: SPIR25TA3 PO (10:31)
[2017-05-01] MEDS ORDERED: OXYC5CAP PO (10:31)
[2017-05-01] MEDS ORDERED: MAGNESIUM HYDROXIDE 2,400 MG/30 ML ORAL.SUSP. PO PRN (11:00)
[2017-05-01] MEDS ORDERED: NITROGLYCERIN SUBLINGUAL 0.4 MG BOTTLE OF 25. SL PRN (11:00)
--- NOTE | 2017-05-01 11:07 | PDOC ---
Provider Note Provider Note history and physical dictated # [id number] ALVARO YEN MD May 01, 2017 11:07
[2017-05-01] MEDS ORDERED: oxyCODONE IR 5 MG TABLET PO PRN (11:15)
[2017-05-01] MEDS ORDERED: ANTI-COAG MONITOR BY PHARMACY. MC PRN (11:15)
[2017-05-01] MEDS ORDERED: MAGNESIUM SULFATE 2GM 50 ML IV ONE ×2 (11:30)
[2017-05-01] MEDS ORDERED: DIGOXIN IV 500 MCG/2 ML AMPUL. IV ONE ×3 (11:30→18:00)
--- NOTE | 2017-05-01 11:36 | HP ---
ADMIT DATE: 05/01/2017 LOCATION: She is in room 254. HISTORY OF PRESENT ILLNESS: The patient is a 72-year-old white female with history of rheumatoid arthritis, hypertension, coronary artery disease, bilateral total knee arthroplasty and cholelithiasis who was recently dismissed from [facility] on 04/03/2017 and then transferred to a [facility] facility and then dismissed home for Streptococcus bacteremia. She finished her course of IV Rocephin and is on oral Keflex 500 mg t.i.d. through 05/04/2017. She did have a transesophageal echocardiogram during her last hospital course, which showed no evidence of vegetations. She noted the onset of chest pressure today without radiation or shortness of breath and took 3 baby aspirins. She also noted her heart rate was fast, went to the [facility] Emergency Room where she was noted to be in atrial fib with rapid ventricular response and received 10 mg of Cardizem IV, which slowed down her ventricular rate to about 96-116 in the Emergency Room. She is presently pain free. She felt the chest pressure felt just like the time she had a coronary angioplasty in the past and then the pain lasted about an hour before it resolved. She did not have any sublingual nitroglycerin at home to take, she says. She is therefore admitted for further evaluation of her chest pain and her atrial fibrillation with rapid ventricular response. She does take Xarelto and also takes metoprolol and diltiazem to control her ventricular rate. ALLERGIES AND INTOLERANCES: INCLUDE AMLODIPINE, ATORVASTATIN, CIPROFLOXACIN, ZETIA, LISINOPRIL, METFORMIN, METHOTREXATE AND PRAVASTATIN. MEDICATIONS PRIOR TO ADMISSION: Include Xarelto 20 mg every day, vitamin D 1000 units every day, Plavix 75 mg every day, glimepiride 2 mg every day. She also takes spironolactone 25 mg every day, diltiazem CD 300 mg every day, metoprolol tartrate 100 mg b.i.d. and oxycodone 5 mg every 4 hours p.r.n. The Keflex 500 mg t.i.d. through 05/04/2017. As mentioned, also Plavix 75 mg every day. She was on Xeljanz 5 mg b.i.d., but that was held due to her bacteremia. PAST MEDICAL HISTORY: Significant for hospitalization at [facility] in 03/2017 when she had a Streptococcus constellatus bacteremia and a transesophageal echocardiogram was negative for valvular vegetation. She has coronary artery disease and hypertension and hyperlipidemia, but has statin intolerance. She has asymptomatic cholelithiasis and fatty liver. New onset atrial fibrillation during that hospital stay with a rapid ventricular response, right thyroid lung nodule, diabetes mellitus type 2, treated with glimepiride. She does have rheumatoid arthritis. In addition, she has had bilateral total knee arthroplasty, hysterectomy, unilateral oophorectomy. She has had surgery for bladder prolapse which recurred, cataract extractions bilaterally and bilateral carpal tunnel release. As mentioned, bilateral total knee arthroplasties. She has had coronary angioplasties in the past also. SOCIAL HISTORY: She is . Does not drink alcohol nor does she smoke cigarettes. She has used a walker. FAMILY HISTORY: Noncontributory. REVIEW OF SYSTEMS: GENERAL: Denies any fever, chills or sweats. CARDIOVASCULAR: She had the chest pain. PULMONARY: No cough or shortness of breath. GASTROINTESTINAL: No constipation. SKIN: No rashes. NEUROLOGIC: No focal weakness. ENDOCRINE: She has diabetes mellitus. Rest of systems reviewed is negative except as stated in history of present illness. PHYSICAL EXAMINATION: VITAL SIGNS: Temperature is 98.7 degrees, apical pulse 102, respiratory rate 16, blood pressure 158/88, oxygen saturation 97% on room air. HEENT: Eyes: Gaze is conjugate. Extraocular muscles are intact. Mouth: Tongue is midline. NECK: There is no cervical lymphadenopathy or thyroid enlargement. HEART: Reveals an S1, S2. There is no S3 or murmur. LUNGS: Clear. ABDOMEN: Soft with no hepatosplenomegaly, masses or tenderness. EXTREMITIES: Lower extremities without edema. Examination of her hands reveals metacarpophalangeal subluxation consistent with rheumatoid arthritis. SKIN: No rashes. LABORATORY DATA: White count 9.2, hemoglobin 12.9 with a platelet count of 411,000, 71 polys, 19 lymphocytes. INR was 1.5. Sodium 137, potassium 4.2, chloride 100, total CO2 was 24, BUN 13, creatinine 0.8, blood sugar 166, magnesium level 1.7. Liver function tests were okay. ProBNP was 1468. Troponin level was 0.01. Albumin 2.8, calcium level is 9.5. EKG showed atrial fibrillation with rapid ventricular response. She had a chest x-ray done, which showed no acute abnormality. ASSESSMENT: 1. Chest pain. Certainly we need to rule out an acute myocardial infarction or unstable angina pectoris. 2. Atrial fibrillation with rapid ventricular response, which is better controlled for the moment. 3. Coronary artery disease. 4. Hypertension. 5. Diabetes mellitus type 2. 6. Rheumatoid arthritis. 7. Hyperlipidemia with statin intolerance. 8. Moderate protein calorie malnutrition. 9. Hypomagnesemia. 10. Recent Streptococcus bacteremia. PLAN: At this time is to consult Dr. Llanos for Cardiology and Dr. Clark for Infectious Disease. We will continue with the Keflex. She will be a full admit. Cardiac enzymes have been ordered. We will give her 2 g of magnesium sulfate intravenous, recheck the magnesium level and other labs tomorrow. Continue with her home medications, putting her on diabetic cardiac diet. We will put her on telemetry unit to monitor heart, continue the metoprolol and diltiazem, and also continue with her Xarelto. Continue with the Plavix. ALVARO YEN MD DR: LUCINA/jason JOB#: [id number] / [id number]
--- NOTE | 2017-05-01 11:38 | PDOC ---
Infectious Disease Note Subjective Subjective Known to service see consult note 03/27 and last progress note 04/05. Seen in the office 04/17 and was to Dc/ Rocephin on 04/20 and begin po Keflex 500 mg TID and f/u this week Presents to [facility] with Chest pain. Pt woke this morning, headed to the bathroom and had an ache in her chest into her throat. Similar symptoms many years ago when the patient had to have heart stent placed. No F/C/S/weakness/N/V but had some numbness briefly in her fingers. ROS ROS GEN: Denies fevers, chills, sweats HEENT: Denies blurred vision, sore throat RESP: Denies shortness of air, cough GI: Denies n/v/d NEURO: Denies confusion, dizziness MSK: Denies weakness, joint pain/swelling Vital Sign Vital Signs Vital Signs Date Time Temp Pulse Resp B/P (MAP) Pulse Ox O2 Delivery O2 Flow Rate FiO2 05/01/17 10:46 104 130/97 (108) 95 Room Air 05/01/17 08:52 98.7 16 98.7 Physical Exam PHYSICAL EXAM GENERAL: NAD, Alert. on side of bed HEENT: PERRL, OC/OP- clear NECK: Supple, no JVD, no LN LUNGS: Clear HEART: S1S2, no gallop, no murmur ABD: Soft, NT, no organomegaly, no rebound, obese Back without any wounds/erythema/edema/tenderness EXT: No edema, no cyanosis CUTTER HOT KNIFE: Alert, 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, no focal neurologic deficit SKIN: No rash IV: ok Labs Lab Laboratory Tests Test 05/01/17 08:56 05/01/17 09:00 05/01/17 09:25 Bedside Troponin I 0.01 ng/ml (<0.08) White Blood Count 9.2 x10^3/uL (4.0-11.0) Red Blood Count 4.27 x10^6/uL (3.50-5.40) Hemoglobin 12.9 g/dL (12.0-15.5) Bedside Hemoglobin 13.3 g/dL (12-15) Hematocrit 38.9 % (36.0-47.0) Bedside Hematocrit 39 % (36-40) Mean Corpuscular Volume 91 fL (79-100) Mean Corpuscular Hemoglobin 30 pg (25-35) Mean Corpuscular Hemoglobin Concent 33 g/dL (31-37) Red Cell Distribution Width 14.8 % (11.5-14.5) Platelet Count 411 x10^3/uL (140-400) Neutrophils (%) (Auto) 71 % (31-73) Lymphocytes (%) (Auto) 19 % (24-48) Monocytes (%) (Auto) 8 % (0-9) Eosinophils (%) (Auto) 2 % (0-3) Basophils (%) (Auto) 1 % (0-3) Neutrophils # (Auto) 6.5 x10^3uL (1.8-7.7) Lymphocytes # (Auto) 1.8 x10^3/uL (1.0-4.8) Monocytes # (Auto) 0.7 x10^3/uL (0.0-1.1) Eosinophils # (Auto) 0.1 x10^3/uL (0.0-0.7) Basophils # (Auto) 0.1 x10^3/uL (0.0-0.2) Prothrombin Time 17.1 SEC (11.7-14.0) Prothromb Time International Ratio 1.5 (0.8-1.1) Bedside Sodium 138 mmol/L (135-145) Bedside Potassium 4.6 mmol/L (3.5-5.0) Bedside Chloride 102 mmol/L (98-110) Bedside Total CO2 25 mmol/L (23-32) Anion Gap 16 mmol/L (6-14) 13 (6-14) Bedside Blood Urea Nitrogen 13 mg/dL (8-26) Bedside Creatinine 0.7 mg/dL (0.5-1.4) Glucose Level 169 mg/dL (70-99) 166 mg/dL (70-99) Bedside Ionized Calcium (Guillermina) 1.11 mmol/L (1.13-1.32) Sodium Level 137 mmol/L (136-145) Potassium Level 4.2 mmol/L (3.5-5.1) Chloride Level 100 mmol/L (98-107) Carbon Dioxide Level 24 mmol/L (21-32) Blood Urea Nitrogen 13 mg/dL (7-20) Creatinine 0.8 mg/dL (0.6-1.0) Estimated GFR (Cockcroft-Gault) 70.1 BUN/Creatinine Ratio 16 (6-20) Calcium Level 9.5 mg/dL (8.5-10.1) Magnesium Level 1.7 mg/dL (1.8-2.4) Total Bilirubin 0.6 mg/dL (0.2-1.0) Aspartate Amino Transf (AST/SGOT) 25 U/L (15-37) Alanine Aminotransferase (ALT/SGPT) 27 U/L (14-59) Alkaline Phosphatase 86 U/L (46-116) Troponin I Quantitative 0.043 ng/mL (0.000-0.055) RO-Qwb-U-Type Natriuretic Peptide 1468 pg/mL (0-124) Total Protein 7.4 g/dL (6.4-8.2) Albumin 2.8 g/dL (3.4-5.0) Albumin/Globulin Ratio 0.6 (1.0-1.7) Objective Assessment Chest pain Afib Streptococcus constellatus bacteremia. POA, 03/25 & 03/27. Repeat BC from 03/29 neg. Clinically looks well Back pain, rule out epidural or vertebral osteomyelitis. CT degenerative changes & central spinal stenosis, s/p sacroiliac joint injection (Depo-Medrol, 03/25). Currently doing well Bilateral knee arthroplasties, so far do not seem to be affected. Leukocytosis. s/p Depo-Medrol 03/25 Hypertension Plan Plan of Care Cont Keflex but QID/Probiotics Await Cardiology work up ECHO, etc F/u labs and cults KIYA CISNEROS MD May 01, 2017 11:38
--- NOTE | 2017-05-01 11:39 | PDOC2 ---
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 Denies any SOA, did not really feel palpitations and no nausea or vomiting. She has been getting home health and occasionally when she walks her HR speeds up in the 140-150s but otherwise controlled in the double digits with her HR with continued use of metoprolol and cardizem and xarelto. Her back feels much better now and actually sitting up at the edge of the bed without any pain. Denies any fever. She has been doing well so far till this morning. PAST MEDICAL HISTORY Past Medical History Cardiovascular: CAD, HTN, Hyperlipidemia, AFIB Pulmonary: No pertinent hx CENTRAL NERVOUS SYSTEM: Other (no pertinent history) GI: Diverticulosis Heme/Onc: No pertinent hx Hepatobiliary: Cholelithiasis Psych: No pertinent hx Musculoskeletal: low back pain (lumbar stenosis), Osteoarthritis Rheumatologic: Rheumatoid arthritis Infectious disease: No pertinent hx ENT: Other (cataract) Renal/: Urinary Incontinence (bladder prolapse with repir), Other (bladder prolapse) Endocrine: Diabetes (2) Dermatology: No pertinent hx Grav: 3 Para: 3 PAST SURGICAL HISTORY Past Surgical History Cataract Removal, Total knee replacement (bilateral), Hysterectomy, Other ( carpal tunnel surgery; PCI) FAMILY HISTORY Family History Heart Disease, Hypertension SOCIAL HISTORY Social History Smoke: No ALCOHOL: none Drugs: None Lives: with Family CURRENT MEDICATIONS CURRENT MEDICATIONS Current Medications Medications (Trade) Dose Ordered Sig/Saul Route PRN Reason Start Time Stop Time Status Last Admin Dose Admin Diltiazem HCl (Cardizem) 10 mg 1X ONCE IVP 05/01/17 09:00 05/01/17 09:04 DC 05/01/17 09:11 ALLERGIES ALLERGIES: Coded Allergies: amlodipine (Verified Allergy, Intermediate, 05/01/17) PT DOESN'T RECALL NATURE OF ALLERGY, POSSIBLY PAIN atorvastatin (Verified Allergy, Intermediate, 12/15/15) ciprofloxacin (Verified Allergy, Intermediate, 12/15/15) ezetimibe (Verified Allergy, Intermediate, 12/15/15) lisinopril (Verified Allergy, Intermediate, 12/15/15) metformin (Verified Allergy, Intermediate, 12/15/15) methotrexate (Verified Allergy, Intermediate, 12/15/15) pravastatin (Verified Allergy, Intermediate, 12/15/15) ROS Review of System 14 point ROS evaluated with pertinent positives noted per HPI PHYSICAL EXAM General: Alert, Oriented X3, Cooperative, No acute distress HEENT: Atraumatic, Mucous membr. moist/pink Lungs: Clear to auscultation, Normal air movement Heart: Other (AFIB RVR) Abdomen: Soft Extremities: No cyanosis, No edema Skin: No breakdown, No significant lesion Neuro: Normal speech, Sensation intact Psych/Mental Status: Mental status NL, Mood NL MUSCULOSKELETAL: Osteoarthritic changes both hands VITALS VITALS Vital Signs Date Time Temp Pulse Resp B/P (MAP) Pulse Ox O2 Delivery O2 Flow Rate FiO2 05/01/17 10:15 102 97 05/01/17 09:11 158/88 05/01/17 08:52 98.7 16 Room Air 98.7 LABS Lab: Laboratory Tests Test 05/01/17 08:56 05/01/17 09:00 05/01/17 09:25 Bedside Troponin I 0.01 ng/ml (<0.08) White Blood Count 9.2 x10^3/uL (4.0-11.0) Red Blood Count 4.27 x10^6/uL (3.50-5.40) Hemoglobin 12.9 g/dL (12.0-15.5) Bedside Hemoglobin 13.3 g/dL (12-15) Hematocrit 38.9 % (36.0-47.0) Bedside Hematocrit 39 % (36-40) Mean Corpuscular Volume 91 fL (79-100) Mean Corpuscular Hemoglobin 30 pg (25-35) Mean Corpuscular Hemoglobin Concent 33 g/dL (31-37) Red Cell Distribution Width 14.8 % (11.5-14.5) Platelet Count 411 x10^3/uL (140-400) Neutrophils (%) (Auto) 71 % (31-73) Lymphocytes (%) (Auto) 19 % (24-48) Monocytes (%) (Auto) 8 % (0-9) Eosinophils (%) (Auto) 2 % (0-3) Basophils (%) (Auto) 1 % (0-3) Neutrophils # (Auto) 6.5 x10^3uL (1.8-7.7) Lymphocytes # (Auto) 1.8 x10^3/uL (1.0-4.8) Monocytes # (Auto) 0.7 x10^3/uL (0.0-1.1) Eosinophils # (Auto) 0.1 x10^3/uL (0.0-0.7) Basophils # (Auto) 0.1 x10^3/uL (0.0-0.2) Prothrombin Time 17.1 SEC (11.7-14.0) Prothromb Time International Ratio 1.5 (0.8-1.1) Bedside Sodium 138 mmol/L (135-145) Bedside Potassium 4.6 mmol/L (3.5-5.0) Bedside Chloride 102 mmol/L (98-110) Bedside Total CO2 25 mmol/L (23-32) Anion Gap 16 mmol/L (6-14) 13 (6-14) Bedside Blood Urea Nitrogen 13 mg/dL (8-26) Bedside Creatinine 0.7 mg/dL (0.5-1.4) Glucose Level 169 mg/dL (70-99) 166 mg/dL (70-99) Bedside Ionized Calcium (Guillermina) 1.11 mmol/L (1.13-1.32) Sodium Level 137 mmol/L (136-145) Potassium Level 4.2 mmol/L (3.5-5.1) Chloride Level 100 mmol/L (98-107) Carbon Dioxide Level 24 mmol/L (21-32) Blood Urea Nitrogen 13 mg/dL (7-20) Creatinine 0.8 mg/dL (0.6-1.0) Estimated GFR (Cockcroft-Gault) 70.1 BUN/Creatinine Ratio 16 (6-20) Calcium Level 9.5 mg/dL (8.5-10.1) Magnesium Level 1.7 mg/dL (1.8-2.4) Total Bilirubin 0.6 mg/dL (0.2-1.0) Aspartate Amino Transf (AST/SGOT) 25 U/L (15-37) Alanine Aminotransferase (ALT/SGPT) 27 U/L (14-59) Alkaline Phosphatase 86 U/L (46-116) Troponin I Quantitative 0.043 ng/mL (0.000-0.055) CN-Dff-K-Type Natriuretic Peptide 1468 pg/mL (0-124) Total Protein 7.4 g/dL (6.4-8.2) Albumin 2.8 g/dL (3.4-5.0) Albumin/Globulin Ratio 0.6 (1.0-1.7) ECHOCARDIOGRAM ECHOCARDIOGRAM <Conclusion> Transesophageal The left ventricle is normal size. The left ventricular systolic function is normal and the ejection fraction is within normal range. The Ejection Fraction is 55-60%. There is mild concentric left ventricular hypertrophy. There is no significant aortic valvular stenosis. Doppler and Color Flow revealed no significant aortic regurgitation. Doppler and Color-flow revealed mild mitral regurgitation. Doppler and Color Flow revealed trace to mild tricuspid regurgitation. There is no evidence of a vegetation on this study. DATE: 04/01/17 1228 <Conclusion> Transthoracic The left ventricular systolic function is normal and the ejection fraction is within normal range. The Ejection Fraction is 65-70%. Septal motion consistent with conduction abnormality. Tissue Doppler imaging reveals moderate left ventricular diastolic dysfunction. Doppler and Color Flow revealed mild tricuspid regurgitation. The pulmonary artery systolic pressure is estimated at 27 mmHg. DATE: 03/25/17 1549 ASSESSMENT/PLAN ASSESSMENT/PLAN 1. AFIB with RVR: new onset from prior admission 03/24 with underlying fever/ back pain. Remains on AFIB prior to DC last time. EF and wall motion normal per TTE [facility]OT was planned as an outpt but did not materialize to note afib burden and also to note potential Tachy bharati with prior SB with noted chronic LBBB/first degree AV block Cardioversion was deferred from last admission due to persistent low back pain and fever as well. 2. Hx of Low back pain/lumbar stenosis/radiculopathy 3. HTN: labile 4. CAD: PCI/stent in the past, unknown date but remote. 5. HLP: intolerant to statin. LDL 141 Recommendations 1. May consider praluent or repatha with noted statin intolerance. 2. Restart plavix. Continue xarelto and resume PO toprol. Cardizem IV bolus and drip. 3. Plan for DORENE cardioversion tomorrow [id number]. Will also plan for MPI as an inpt post CVN. 4. Plan for [facility]OT to note afib burden and rule out any possibility of tachy bharati issue. 5. Replace Mg. Problems: ANNA LENZ MD 05/01/17 2330: CARDIAC CONSULT ALLERGIES ALLERGIES: Coded Allergies: amlodipine (Verified Allergy, Intermediate, 05/01/17) PT DOESN'T RECALL NATURE OF ALLERGY, POSSIBLY PAIN atorvastatin (Verified Allergy, Intermediate, 12/15/15) ciprofloxacin (Verified Allergy, Intermediate, 12/15/15) ezetimibe (Verified Allergy, Intermediate, 12/15/15) lisinopril (Verified Allergy, Intermediate, 12/15/15) metformin (Verified Allergy, Intermediate, 12/15/15) methotrexate (Verified Allergy, Intermediate, 12/15/15) pravastatin (Verified Allergy, Intermediate, 12/15/15) ASSESSMENT/PLAN ASSESSMENT/PLAN Pt. seen and examined. Agree with above Manager Stylist note. Plan for dorene/cvn tomorrow discussed r/b/a and possibility of needing a pacer if she has tachy bharati will follow. thanks. Problems: MONALISA KHAN APRN May 01, 2017 11:39 ANNA LENZ MD May 01, 2017 23:30
[2017-05-01] MEDS: CHOLECALCIFEROL (VITAMIN D3) 1,000 UNIT TABLET PO SCH (11:56)
[2017-05-01] MEDS: SPIRONOLACTONE 25 MG TABLET PO SCH (11:56)
[2017-05-01] MEDS: PANTOPRAZOLE 40 MG TABLET.DR. PO SCH (11:56)
[2017-05-01] MEDS: GLIMEPIRIDE 2 MG TABLET. PO SCH (11:56)
[2017-05-01] MEDS: MULTIVITAMIN with MINERAL TABLET. PO SCH (11:56)
[2017-05-01] MEDS: OMEGA-3 FATTY ACIDS/FISH OIL 1,000 MG CAPSULE. PO SCH (11:56)
[2017-05-01] MEDS: LOSARTAN POTASSIUM 50 MG TABLET. PO SCH (11:57)
[2017-05-01] MEDS: CEPHALEXIN 250 MG CAPSULE. PO SCH ×3 (11:58→21:02)
[2017-05-01] MEDS ORDERED: CLOPIDOGREL BISULFATE 75 MG TABLET PO SCH (12:00)
[2017-05-01] MEDS ORDERED: METOPROLOL TART IMMED RELEASE 50 MG TABLET. PO SCH (12:00)
[2017-05-01] MEDS ORDERED: CEPHALEXIN 250 MG CAPSULE. PO SCH (14:00)
[2017-05-01] MEDS ORDERED: METOPROLOL SUCC 24HR ER 100 MG TAB.ER.24H. PO ONE (14:45)
[2017-05-01] MEDS ORDERED: 0.9 % SODIUM CHLORIDE 10 ML DISP.SYRIN. IV PRN (16:30)
[2017-05-01] MEDS: RIVAROXABAN 10 MG TABLET. PO SCH (17:55)
[2017-05-01] MEDS: LACTOBACILLUS RHAMNOSUS GG 1 CAPSULE. PO SCH (21:02)
[2017-05-01] MEDS: ACETAMINOPHEN 325 MG TABLET. PO PRN (23:02)
[2017-05-02] VITALS (9 sets, daily range): BP systolic 111–149; BP diastolic 59–79
[2017-05-02 04:49] LABS: BASO % 1 % (0-3); EOS % 2 % (0-3); HEMATOCRIT 36.1 % (36.0-47.0); HEMOGLOBIN 12.1 g/dL (12.0-15.5); LYMPH # 1.8 x10^3/uL (1.0-4.8); LYMPH % 25 % (24-48); MEAN CORPUSCULAR HEMOGLOBIN 30 pg (25-35); MEAN CORPUSCULAR HGB CONC 34 g/dL (31-37); MEAN CORPUSCULAR VOLUME 91 fL (79-100); MONO % 10 % (0-9); NEUT % 63 % (31-73); PLATELET COUNT 362 x10^3/uL (140-400); RED BLOOD COUNT 3.98 x10^6/uL (3.50-5.40); RED CELL DISTRIBUTION WIDTH 14.7 % (11.5-14.5); WHITE BLOOD COUNT 7.3 x10^3/uL (4.0-11.0)
[2017-05-02 05:06] LABS: CALCIUM 8.9 mg/dL (8.5-10.1); CREATININE 0.8 mg/dL (0.6-1.0); GFR 70.1; POTASSIUM 3.9 mmol/L (3.5-5.1)
[2017-05-02 05:22] LABS: CHOLESTEROL/HDL RATIO 5.5
[2017-05-02] MEDS ORDERED: PROCHLORPERAZINE 10 MG/2 ML VIAL. IV PRN (07:00)
[2017-05-02] MEDS ORDERED: MORPHINE SULFATE 2 MG/ML DISP.SYRIN. IV PRN (07:00)
[2017-05-02] MEDS ORDERED: fentaNYL PF VIAL 100 MCG/2 ML VIAL IV PRN ×2 (07:00)
[2017-05-02] MEDS ORDERED: HYDROmorphone 2 MG/ML VIAL IV PRN (07:00)
[2017-05-02] MEDS ORDERED: LIDOCAINE 1% PF 2 ML VIAL. ID PRN (07:00)
[2017-05-02] MEDS ORDERED: ONDANSETRON PF 4 MG/2 ML VIAL. IV PRN (07:00)
[2017-05-02] MEDS ORDERED: IV RINGERS,LACTATED 1000ML 1,000 ML IV SCH (07:00)
--- NOTE | 2017-05-02 08:47 | PDOC ---
Infectious Disease Note Subjective Subjective Didn't sleep well but is feeling ok. No chest pain/F/C/S Back ok and only needed Tyelnol ROS ROS GEN: Denies fevers, chills, sweats HEENT: Denies blurred vision, sore throat CV: Denies chest pain RESP: Denies shortness of air, cough GI: Denies n/v/d NEURO: Denies confusion, dizziness MSK: Denies weakness, joint pain/swelling Vital Sign Vital Signs Vital Signs Date Time Temp Pulse Resp B/P (MAP) Pulse Ox O2 Delivery O2 Flow Rate FiO2 05/02/17 07:00 98.1 61 18 149/79 (102) 96 Room Air 98.1 Physical Exam PHYSICAL EXAM GENERAL: NAD, Alert, in chair HEENT: PERRL, OC/OP -clear NECK: Supple, no JVD, no LN LUNGS: Clear HEART: S1S2, no gallop, no murmur ABD: Soft, NT, no organomegaly, no rebound, obese Back without inflammation EXT: No edema, no cyanosis 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, 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, no focal neurologic deficit SKIN: No rash IV: ok Labs Lab Laboratory Tests Test 05/01/17 08:56 05/01/17 09:00 05/01/17 09:25 05/01/17 11:33 Bedside Troponin I 0.01 ng/ml (<0.08) White Blood Count 9.2 x10^3/uL (4.0-11.0) Red Blood Count 4.27 x10^6/uL (3.50-5.40) Hemoglobin 12.9 g/dL (12.0-15.5) Bedside Hemoglobin 13.3 g/dL (12-15) Hematocrit 38.9 % (36.0-47.0) Bedside Hematocrit 39 % (36-40) Mean Corpuscular Volume 91 fL (79-100) Mean Corpuscular Hemoglobin 30 pg (25-35) Mean Corpuscular Hemoglobin Concent 33 g/dL (31-37) Red Cell Distribution Width 14.8 % (11.5-14.5) Platelet Count 411 x10^3/uL (140-400) Neutrophils (%) (Auto) 71 % (31-73) Lymphocytes (%) (Auto) 19 % (24-48) Monocytes (%) (Auto) 8 % (0-9) Eosinophils (%) (Auto) 2 % (0-3) Basophils (%) (Auto) 1 % (0-3) Neutrophils # (Auto) 6.5 x10^3uL (1.8-7.7) Lymphocytes # (Auto) 1.8 x10^3/uL (1.0-4.8) Monocytes # (Auto) 0.7 x10^3/uL (0.0-1.1) Eosinophils # (Auto) 0.1 x10^3/uL (0.0-0.7) Basophils # (Auto) 0.1 x10^3/uL (0.0-0.2) Prothrombin Time 17.1 SEC (11.7-14.0) Prothromb Time International Ratio 1.5 (0.8-1.1) Bedside Sodium 138 mmol/L (135-145) Bedside Potassium 4.6 mmol/L (3.5-5.0) Bedside Chloride 102 mmol/L (98-110) Bedside Total CO2 25 mmol/L (23-32) Anion Gap 16 mmol/L (6-14) 13 (6-14) Bedside Blood Urea Nitrogen 13 mg/dL (8-26) Bedside Creatinine 0.7 mg/dL (0.5-1.4) Glucose Level 169 mg/dL (70-99) 166 mg/dL (70-99) Bedside Ionized Calcium (Guillermina) 1.11 mmol/L (1.13-1.32) Sodium Level 137 mmol/L (136-145) Potassium Level 4.2 mmol/L (3.5-5.1) Chloride Level 100 mmol/L (98-107) Carbon Dioxide Level 24 mmol/L (21-32) Blood Urea Nitrogen 13 mg/dL (7-20) Creatinine 0.8 mg/dL (0.6-1.0) Estimated GFR (Cockcroft-Gault) 70.1 BUN/Creatinine Ratio 16 (6-20) Calcium Level 9.5 mg/dL (8.5-10.1) Magnesium Level 1.7 mg/dL (1.8-2.4) Total Bilirubin 0.6 mg/dL (0.2-1.0) Aspartate Amino Transf (AST/SGOT) 25 U/L (15-37) Alanine Aminotransferase (ALT/SGPT) 27 U/L (14-59) Alkaline Phosphatase 86 U/L (46-116) Troponin I Quantitative 0.043 ng/mL (0.000-0.055) WU-Nnd-M-Type Natriuretic Peptide 1468 pg/mL (0-124) Total Protein 7.4 g/dL (6.4-8.2) Albumin 2.8 g/dL (3.4-5.0) Albumin/Globulin Ratio 0.6 (1.0-1.7) Glucose (Fingerstick) 143 mg/dL (70-99) Test 05/01/17 15:30 05/01/17 16:50 05/01/17 21:01 05/01/17 21:40 Troponin I Quantitative 0.262 ng/mL (0.000-0.055) 1.018 ng/mL (0.000-0.055) Glucose (Fingerstick) 124 mg/dL (70-99) 161 mg/dL (70-99) Test 05/02/17 03:42 05/02/17 07:34 White Blood Count 7.3 x10^3/uL (4.0-11.0) Red Blood Count 3.98 x10^6/uL (3.50-5.40) Hemoglobin 12.1 g/dL (12.0-15.5) Hematocrit 36.1 % (36.0-47.0) Mean Corpuscular Volume 91 fL (79-100) Mean Corpuscular Hemoglobin 30 pg (25-35) Mean Corpuscular Hemoglobin Concent 34 g/dL (31-37) Red Cell Distribution Width 14.7 % (11.5-14.5) Platelet Count 362 x10^3/uL (140-400) Neutrophils (%) (Auto) 63 % (31-73) Lymphocytes (%) (Auto) 25 % (24-48) Monocytes (%) (Auto) 10 % (0-9) Eosinophils (%) (Auto) 2 % (0-3) Basophils (%) (Auto) 1 % (0-3) Neutrophils # (Auto) 4.6 x10^3uL (1.8-7.7) Lymphocytes # (Auto) 1.8 x10^3/uL (1.0-4.8) Monocytes # (Auto) 0.7 x10^3/uL (0.0-1.1) Eosinophils # (Auto) 0.1 x10^3/uL (0.0-0.7) Basophils # (Auto) 0.0 x10^3/uL (0.0-0.2) Sodium Level 139 mmol/L (136-145) Potassium Level 3.9 mmol/L (3.5-5.1) Chloride Level 103 mmol/L (98-107) Carbon Dioxide Level 25 mmol/L (21-32) Anion Gap 11 (6-14) Blood Urea Nitrogen 13 mg/dL (7-20) Creatinine 0.8 mg/dL (0.6-1.0) Estimated GFR (Cockcroft-Gault) 70.1 Glucose Level 116 mg/dL (70-99) Calcium Level 8.9 mg/dL (8.5-10.1) Magnesium Level 2.0 mg/dL (1.8-2.4) Triglycerides Level 140 mg/dL (0-150) Cholesterol Level 159 mg/dL (0-200) LDL Cholesterol, Calculated 102 mg/dL (0-100) VLDL Cholesterol, Calculated 28 mg/dL (0-40) Non-HDL Cholesterol Calculated 130 mg/dL (0-129) HDL Cholesterol 29 mg/dL (40-60) Cholesterol/HDL Ratio 5.5 Glucose (Fingerstick) 155 mg/dL (70-99) Objective Assessment Bacteremia with 1/2 bottles collected 05/01. Called this am. Likely contamination given AF and nml WBC -clinically looks well Chest pain Afib Streptococcus constellatus bacteremia. POA, 03/25 & 03/27. Repeat BC from 03/29 neg. Clinically looks well Back pain, rule out epidural or vertebral osteomyelitis. CT degenerative changes & central spinal stenosis, s/p sacroiliac joint injection (Depo-Medrol, 03/25). Currently doing well Bilateral knee arthroplasties, so far do not seem to be affected. Hypertension Plan Plan of Care Add Vanc for now and f/u cults Cont Keflex but QID/Probiotics Await Cardiology work up ECHO, etc F/u labs and cults KIYA CISNEROS MD May 02, 2017 08:47
[2017-05-02] MEDS: MULTIVITAMIN with MINERAL TABLET. PO SCH (09:00)
[2017-05-02] MEDS ORDERED: METOPROLOL SUCC 24HR ER 100 MG TAB.ER.24H. PO SCH (09:00)
[2017-05-02] MEDS: LACTOBACILLUS RHAMNOSUS GG 1 CAPSULE. PO SCH ×2 (09:00→20:53)
[2017-05-02] MEDS: CEPHALEXIN 250 MG CAPSULE. PO SCH ×4 (09:00→20:53)
[2017-05-02] MEDS ORDERED: VANCOMYCIN 2 GM in IV DEXTROSE 5% 500 ML IV ONE (09:00)
[2017-05-02] MEDS: OMEGA-3 FATTY ACIDS/FISH OIL 1,000 MG CAPSULE. PO SCH (09:00)
[2017-05-02] MEDS ORDERED: LIDOCAINE 2% VISCOUS 15 ML SOLUTION. SWSW ONE (09:15)
[2017-05-02] MEDS ORDERED: LIDOCAINE 2% TOPICAL JELLY 30GM TUBE. TP ONE (09:15)
[2017-05-02] MEDS ORDERED: BENZOCAINE ONE 20% MUCOSAL SPRAY. MM (09:15)
--- NOTE | 2017-05-02 11:19 | PDOC ---
PROGRESS NOTES Subjective Subjective feels better. in a fib with controlled VR on iv cardizem drip,. 1/2 blood cultures positive for GPC and started iv vancomycin per ID and keflex changed to qid. lab reviewed. blood sugars are okay. afebrile Objective Objective Vital Signs Date Time Temp Pulse Resp B/P (MAP) Pulse Ox O2 Delivery O2 Flow Rate FiO2 05/02/17 08:00 Room Air 05/02/17 07:00 98.1 61 18 149/79 (102) 96 98.1 Intake and Output 05/03/17 07:00 Intake Total 0 ml Balance 0 ml Intake Oral 0 ml Physical Exam Abdomen: Soft Heart: Normal S1, Normal S2 Extremities: No edema General: Alert HEENT: Atraumatic Lungs: Clear to auscultation Neuro: Normal speech Psych/Mental Status: Mental status NL Skin: No rashes Assessment Assessment Problems1. NSTEMI 2. Atrial fibrillation with RVR. VR controlled on iv cardizem drip and metoprolol 3. Coronary artery disease. 4. Hypertension. 5. Diabetes mellitus type 2. 6. Rheumatoid arthritis. 7. Hyperlipidemia with statin intolerance. 8. Moderate protein calorie malnutrition. 9. Hypomagnesemia. 10. Recent Streptococcus bacteremia. GPC bacteremia 1/2 positive Medical Problems: (1) Atrial fibrillation with RVR Status: Acute (2) Unstable angina Status: Acute Plan Plan of Care continue iv cardizem drip and metoprolol and xarelto continue iv vancomycin and oral keflex await final blood culture results continue plavix Comment Review of Relevant I have reviewed the following items russell (where applicable) has been applied. Labs Laboratory Tests Test 05/01/17 08:56 05/01/17 09:00 05/01/17 09:25 05/01/17 11:33 Bedside Troponin I 0.01 ng/ml (<0.08) White Blood Count 9.2 x10^3/uL (4.0-11.0) Red Blood Count 4.27 x10^6/uL (3.50-5.40) Hemoglobin 12.9 g/dL (12.0-15.5) Bedside Hemoglobin 13.3 g/dL (12-15) Hematocrit 38.9 % (36.0-47.0) Bedside Hematocrit 39 % (36-40) Mean Corpuscular Volume 91 fL (79-100) Mean Corpuscular Hemoglobin 30 pg (25-35) Mean Corpuscular Hemoglobin Concent 33 g/dL (31-37) Red Cell Distribution Width 14.8 % (11.5-14.5) Platelet Count 411 x10^3/uL (140-400) Neutrophils (%) (Auto) 71 % (31-73) Lymphocytes (%) (Auto) 19 % (24-48) Monocytes (%) (Auto) 8 % (0-9) Eosinophils (%) (Auto) 2 % (0-3) Basophils (%) (Auto) 1 % (0-3) Neutrophils # (Auto) 6.5 x10^3uL (1.8-7.7) Lymphocytes # (Auto) 1.8 x10^3/uL (1.0-4.8) Monocytes # (Auto) 0.7 x10^3/uL (0.0-1.1) Eosinophils # (Auto) 0.1 x10^3/uL (0.0-0.7) Basophils # (Auto) 0.1 x10^3/uL (0.0-0.2) Prothrombin Time 17.1 SEC (11.7-14.0) Prothromb Time International Ratio 1.5 (0.8-1.1) Bedside Sodium 138 mmol/L (135-145) Bedside Potassium 4.6 mmol/L (3.5-5.0) Bedside Chloride 102 mmol/L (98-110) Bedside Total CO2 25 mmol/L (23-32) Anion Gap 16 mmol/L (6-14) 13 (6-14) Bedside Blood Urea Nitrogen 13 mg/dL (8-26) Bedside Creatinine 0.7 mg/dL (0.5-1.4) Glucose Level 169 mg/dL (70-99) 166 mg/dL (70-99) Bedside Ionized Calcium (Guillermina) 1.11 mmol/L (1.13-1.32) Sodium Level 137 mmol/L (136-145) Potassium Level 4.2 mmol/L (3.5-5.1) Chloride Level 100 mmol/L (98-107) Carbon Dioxide Level 24 mmol/L (21-32) Blood Urea Nitrogen 13 mg/dL (7-20) Creatinine 0.8 mg/dL (0.6-1.0) Estimated GFR (Cockcroft-Gault) 70.1 BUN/Creatinine Ratio 16 (6-20) Calcium Level 9.5 mg/dL (8.5-10.1) Magnesium Level 1.7 mg/dL (1.8-2.4) Total Bilirubin 0.6 mg/dL (0.2-1.0) Aspartate Amino Transf (AST/SGOT) 25 U/L (15-37) Alanine Aminotransferase (ALT/SGPT) 27 U/L (14-59) Alkaline Phosphatase 86 U/L (46-116) Troponin I Quantitative 0.043 ng/mL (0.000-0.055) WL-Dxk-U-Type Natriuretic Peptide 1468 pg/mL (0-124) Total Protein 7.4 g/dL (6.4-8.2) Albumin 2.8 g/dL (3.4-5.0) Albumin/Globulin Ratio 0.6 (1.0-1.7) Glucose (Fingerstick) 143 mg/dL (70-99) Test 05/01/17 15:30 05/01/17 16:50 05/01/17 21:01 05/01/17 21:40 Troponin I Quantitative 0.262 ng/mL (0.000-0.055) 1.018 ng/mL (0.000-0.055) Glucose (Fingerstick) 124 mg/dL (70-99) 161 mg/dL (70-99) Test 05/02/17 03:42 05/02/17 07:34 White Blood Count 7.3 x10^3/uL (4.0-11.0) Red Blood Count 3.98 x10^6/uL (3.50-5.40) Hemoglobin 12.1 g/dL (12.0-15.5) Hematocrit 36.1 % (36.0-47.0) Mean Corpuscular Volume 91 fL (79-100) Mean Corpuscular Hemoglobin 30 pg (25-35) Mean Corpuscular Hemoglobin Concent 34 g/dL (31-37) Red Cell Distribution Width 14.7 % (11.5-14.5) Platelet Count 362 x10^3/uL (140-400) Neutrophils (%) (Auto) 63 % (31-73) Lymphocytes (%) (Auto) 25 % (24-48) Monocytes (%) (Auto) 10 % (0-9) Eosinophils (%) (Auto) 2 % (0-3) Basophils (%) (Auto) 1 % (0-3) Neutrophils # (Auto) 4.6 x10^3uL (1.8-7.7) Lymphocytes # (Auto) 1.8 x10^3/uL (1.0-4.8) Monocytes # (Auto) 0.7 x10^3/uL (0.0-1.1) Eosinophils # (Auto) 0.1 x10^3/uL (0.0-0.7) Basophils # (Auto) 0.0 x10^3/uL (0.0-0.2) Sodium Level 139 mmol/L (136-145) Potassium Level 3.9 mmol/L (3.5-5.1) Chloride Level 103 mmol/L (98-107) Carbon Dioxide Level 25 mmol/L (21-32) Anion Gap 11 (6-14) Blood Urea Nitrogen 13 mg/dL (7-20) Creatinine 0.8 mg/dL (0.6-1.0) Estimated GFR (Cockcroft-Gault) 70.1 Glucose Level 116 mg/dL (70-99) Calcium Level 8.9 mg/dL (8.5-10.1) Magnesium Level 2.0 mg/dL (1.8-2.4) Triglycerides Level 140 mg/dL (0-150) Cholesterol Level 159 mg/dL (0-200) LDL Cholesterol, Calculated 102 mg/dL (0-100) VLDL Cholesterol, Calculated 28 mg/dL (0-40) Non-HDL Cholesterol Calculated 130 mg/dL (0-129) HDL Cholesterol 29 mg/dL (40-60) Cholesterol/HDL Ratio 5.5 Glucose (Fingerstick) 155 mg/dL (70-99) Laboratory Tests Test 05/01/17 11:33 05/01/17 15:30 05/01/17 16:50 05/01/17 21:01 Glucose (Fingerstick) 143 mg/dL (70-99) 124 mg/dL (70-99) 161 mg/dL (70-99) Troponin I Quantitative 0.262 ng/mL (0.000-0.055) Test 05/01/17 21:40 05/02/17 03:42 05/02/17 07:34 Troponin I Quantitative 1.018 ng/mL (0.000-0.055) White Blood Count 7.3 x10^3/uL (4.0-11.0) Red Blood Count 3.98 x10^6/uL (3.50-5.40) Hemoglobin 12.1 g/dL (12.0-15.5) Hematocrit 36.1 % (36.0-47.0) Mean Corpuscular Volume 91 fL (79-100) Mean Corpuscular Hemoglobin 30 pg (25-35) Mean Corpuscular Hemoglobin Concent 34 g/dL (31-37) Red Cell Distribution Width 14.7 % (11.5-14.5) Platelet Count 362 x10^3/uL (140-400) Neutrophils (%) (Auto) 63 % (31-73) Lymphocytes (%) (Auto) 25 % (24-48) Monocytes (%) (Auto) 10 % (0-9) Eosinophils (%) (Auto) 2 % (0-3) Basophils (%) (Auto) 1 % (0-3) Neutrophils # (Auto) 4.6 x10^3uL (1.8-7.7) Lymphocytes # (Auto) 1.8 x10^3/uL (1.0-4.8) Monocytes # (Auto) 0.7 x10^3/uL (0.0-1.1) Eosinophils # (Auto) 0.1 x10^3/uL (0.0-0.7) Basophils # (Auto) 0.0 x10^3/uL (0.0-0.2) Sodium Level 139 mmol/L (136-145) Potassium Level 3.9 mmol/L (3.5-5.1) Chloride Level 103 mmol/L (98-107) Carbon Dioxide Level 25 mmol/L (21-32) Anion Gap 11 (6-14) Blood Urea Nitrogen 13 mg/dL (7-20) Creatinine 0.8 mg/dL (0.6-1.0) Estimated GFR (Cockcroft-Gault) 70.1 Glucose Level 116 mg/dL (70-99) Calcium Level 8.9 mg/dL (8.5-10.1) Magnesium Level 2.0 mg/dL (1.8-2.4) Triglycerides Level 140 mg/dL (0-150) Cholesterol Level 159 mg/dL (0-200) LDL Cholesterol, Calculated 102 mg/dL (0-100) VLDL Cholesterol, Calculated 28 mg/dL (0-40) Non-HDL Cholesterol Calculated 130 mg/dL (0-129) HDL Cholesterol 29 mg/dL (40-60) Cholesterol/HDL Ratio 5.5 Glucose (Fingerstick) 155 mg/dL (70-99) Microbiology 05/01/17 Blood Culture - Final, Complete Medications Current Medications Diltiazem HCl (Cardizem) 10 mg 1X ONCE IVP Last administered on 05/01/17 09: 11; Start 05/01/17 at 09:00; Stop 05/01/17 at 09:04; Status DC Cephalexin HCl (Keflex) 500 mg TID PO ; Start 05/01/17 at 14:00; Stop at 14:00; Status DC Vitamin D (Vitamin D3) 1,000 unit DAILY PO Last administered on 05/01/17 11: 56; Start 05/01/17 at 12:00 Multivitamins (Thera M Plus) 1 tab DAILY PO Last administered on 05/01/17 11: 56; Start 05/01/17 at 12:00 Fish Oil (Fish Oil) 1,000 mg DAILY PO Last administered on 05/01/17 11:56; Start 05/01/17 at 11:00 Spironolactone (Aldactone) 25 mg DAILY PO Last administered on 05/01/17 11:56 ; Start 05/01/17 at 12:00 Pantoprazole Sodium (Protonix) 40 mg DAILYAC PO Last administered on 11:56; Start 05/01/17 at 12:00 Rivaroxaban (Xarelto) 20 mg DAILYWSUP PO Last administered on 05/01/17 17:55 ; Start 05/01/17 at 17:00 Glimepiride (Amaryl) 2 mg DAILY08 PO Last administered on 05/01/17 11:56; Start 05/01/17 at 11:30 Clopidogrel Bisulfate (Plavix) 75 mg DAILYWBKFT PO ; Start 05/01/17 at 12:00; Stop 05/01/17 at 12:00; Status DC Acetaminophen (Tylenol) 650 mg PRN Q6HRS PRN PO MILD PAIN / TEMP Last administered on 05/01/17 23:02; Start 05/01/17 at 11:00 Magnesium Hydroxide (Milk Of Magnesia) 2,400 mg PRN DAILY PRN PO CONSTIPATION; Start 05/01/17 at 11:00 Losartan Potassium (Cozaar) 100 mg DAILY PO Last administered on 05/01/17 11: 57; Start 05/01/17 at 12:00 Metoprolol Tartrate (Lopressor) 100 mg BID PO ; Start 05/01/17 at 12:00; Stop 05/01/17 at 12:00; Status DC Diltiazem HCl (Cardizem Cd) 300 mg DAILY PO ; Start 05/01/17 at 12:00; Stop at 12:00; Status DC Nitroglycerin (Nitrostat) 0.4 mg PRN Q5MIN PRN SL CHEST PAIN; Start 05/01/17 at 11:00 Magnesium Sulfate/ Dextrose 50 ml @ 25 mls/hr 1X ONCE IV Last administered on 05/01/17 11:58; Start 05/01/17 at 11:30; Stop 05/01/17 at 13:29; Status DC Magnesium Sulfate/ Dextrose 50 ml @ 25 mls/hr 1X ONCE IV ; Start 05/01/17 at 11:30; Stop 05/01/17 at 12:14; Status DC Oxycodone HCl (Roxicodone) 5 mg PRN Q4HRS PRN PO PAIN MOD TO SEV; Start at 11:15 Info (Anti-Coagulation Monitoring By Pharmacy) 1 each PRN DAILY PRN MC SEE COMMENTS; Start 05/01/17 at 11:15 Digoxin (Lanoxin) 500 mcg 1X ONCE IV Last administered on 05/01/17 11:56; Start 05/01/17 at 11:30; Stop 05/01/17 at 11:31; Status DC Digoxin (Lanoxin) 500 mcg 1X ONCE IV ; Start 05/01/17 at 11:30; Stop at 12:13; Status DC Diltiazem HCl 125 mg/Dextrose 125 ml @ 0 mls/hr CONT PRN IV SEE I/O RECORD Last administered on 05/01/17 23:03; Start 05/01/17 at 11:30 Diltiazem HCl (Cardizem) 10 mg 1X ONCE IVP Last administered on 05/01/17 12: 30; Start 05/01/17 at 11:30; Stop 05/01/17 at 11:31; Status DC Lactobacillus Rhamnosus (Culturelle) 1 cap BID PO Last administered on 21:02; Start 05/01/17 at 21:00 Metoprolol Succinate (Toprol Xl) 100 mg DAILY PO ; Start 05/02/17 at 09:00 Clopidogrel Bisulfate (Plavix) 75 mg DAILYWBKFT PO ; Start 05/02/17 at 08:00 Cephalexin HCl (Keflex) 500 mg QID PO Last administered on 05/01/17 21:02; Start 05/01/17 at 13:00 Ondansetron HCl (Zofran) 4 mg PRN Q6HRS PRN IV NAUSEA/VOMITING; Start at 07:00; Stop 05/03/17 at 06:59 Fentanyl Citrate (Fentanyl 2ml Vial) 25 mcg PRN Q5MIN PRN IV MILD PAIN; Start 05/02/17 at 07:00; Stop 05/03/17 at 06:59 Fentanyl Citrate (Fentanyl 2ml Vial) 50 mcg PRN Q5MIN PRN IV MODERATE PAIN; Start 05/02/17 at 07:00; Stop 05/03/17 at 06:59 Morphine Sulfate 1 mg PRN Q10MIN PRN IV SEVERE PAIN; Start 05/02/17 at 07:00; Stop 05/03/17 at 06:59 Ringer's Solution 1,000 ml @ 30 mls/hr Q24H IV ; Start 05/02/17 at 07:00; Stop 05/02/17 at 18:59 Lidocaine HCl (Xylocaine-Mpf 1% Vial) 2 ml PRN 1X PRN ID IV START; Start 05/02 at 07:00; Stop 05/03/17 at 06:59 Hydromorphone HCl (Dilaudid) 0.5 mg PRN Q10MIN PRN IV SEV PAIN, Second choice; Start 05/02/17 at 07:00; Stop 05/03/17 at 06:59 Prochlorperazine Edisylate (Compazine) 5 mg PACU PRN PRN IV NAUSEA, MRX1; Start 05/02/17 at 07:00; Stop 05/03/17 at 06:59 Metoprolol Succinate (Toprol Xl) 100 mg 1X ONCE PO Last administered on t 15:28; Start 05/01/17 at 14:45; Stop 05/01/17 at 14:52; Status DC Digoxin (Lanoxin) 250 mcg 1X ONCE IV ; Start 05/01/17 at 18:00; Stop at 18:01; Status DC Sodium Chloride (Normal Saline Flush) 10 ml QSHIFT PRN IV AFTER MEDS AND BLOOD DRAWS; Start 05/01/17 at 16:30 Vancomycin HCl (Vanco Per Pharmacy) 1 each PRN DAILY PRN MC SEE COMMENTS; Start 05/02/17 at 08:15 Vancomycin HCl 2 gm/Dextrose 500 ml @ 250 mls/hr 1X ONCE IV Last administered on 05/02/17t 10:47; Start 05/02/17 at 09:00; Stop 05/02/17 at 10 :59; Status DC Benzocaine (Hurricaine One) 3 spray 1X ONCE MM ; Start 05/02/17 at 09:15; Stop 05/02/17 at 09:16; Status DC Lidocaine HCl (Xylocaine 2% Topical 30gm Tube) 1 britt 1X ONCE TP ; Start at 09:15; Stop 05/02/17 at 09:16; Status DC Lidocaine HCl (Viscous Lidocaine) 15 ml 1X ONCE SWSW ; Start 05/02/17 at 09:15 ; Stop 05/02/17 at 09:16; Status DC Active Scripts Active Reported Oxycodone Hcl 5 Mg Capsule 1 Cap PO PRN Docusate Sodium 100 Mg Capsule 1 Cap PO DAILY Spironolactone 25 Mg Tablet 1 Tab PO DAILY Xarelto (Rivaroxaban) 20 Mg Tablet 20 Mg PO DAILY Metoprolol Tartrate 100 Mg Tablet 1 Tab PO BID Cyclobenzaprine Hcl 10 Mg Tablet 1 Tab PO TID Glimepiride 2 Mg Tablet 1 Tab PO DAILY Losartan Potassium 100 Mg Tablet 100 Mg PO DAILY Cartia Xt (Diltiazem Hcl) 300 Mg Cap.er.24h 300 Mg PO DAILY Omeprazole 20 Mg Capsule.dr 1 Cap PO DAILY Vitamin D (Cholecalciferol (Vitamin D3)) 2,000 Unit Capsule 1 Cap PO DAILY Fish Oil 1,000 mg Softgel ([place]-3/Dha/Epa/Fish Oil) 1,000 Mg Capsule 1,000 Mg PO DAILY Aspirin Ec (Aspirin) 81 Mg Tablet. 1 Tab PO DAILY Multivitamins (Multivitamin) 1 Each Tablet 1 Tab PO DAILY Xeljanz (Tofacitinib Citrate) 5 Mg Tablet 5 Mg PO BID Clopidogrel (Clopidogrel Bisulfate) 75 Mg Tablet 1 Tab PO DAILY Vitals/I & O Vital Sign - Last 24 Hours 05/01/17 05/01/17 05/01/17 05/01/17 11:56 11:57 12:00 12:30 Temp 98.5 98.5 Pulse 104 104 63 104 Resp 20 B/P (MAP) 130/97 130/97 147/80 (102) 130/97 Pulse Ox 96 O2 Delivery Room Air 05/01/17 05/01/17 05/01/17 05/01/17 13:45 14:45 15:00 15:28 Temp 98.6 98.6 Pulse 105 104 Resp 20 B/P (MAP) 144/58 (86) 127/61 (83) 156/92 (113) 130/97 Pulse Ox 95 O2 Delivery Room Air Room Air Room Air 05/01/17 05/01/17 05/01/17 05/01/17 15:45 16:50 17:45 18:45 B/P (MAP) 134/81 (98) 156/92 (113) 140/58 (85) 111/68 (82) O2 Delivery Room Air Room Air Room Air Room Air 05/01/17 05/01/17 05/01/17 05/01/17 20:45 21:45 22:45 23:00 Temp 98.3 98.3 Pulse 84 86 82 74 Resp 16 B/P (MAP) 122/67 (85) 124/59 (80) 117/86 (96) 117/86 (96) Pulse Ox 97 O2 Delivery Room Air 05/01/17 05/02/17 05/02/17 05/02/17 23:45 00:45 02:54 03:45 Temp 98.3 98.3 Pulse 88 88 89 90 Resp 16 B/P (MAP) 115/57 (76) 116/65 (82) 128/66 (86) 118/59 (78) Pulse Ox 96 O2 Delivery Room Air 05/02/17 05/02/17 05/02/17 05:45 07:00 08:00 Temp 98.1 98.1 Pulse 96 61 Resp 18 B/P (MAP) 111/72 (85) 149/79 (102) Pulse Ox 96 O2 Delivery Room Air Room Air Intake and Output 05/02/17 05/02/17 05/03/17 15:00 23:00 07:00 Intake Total 0 ml Balance 0 ml ALVARO YEN MD May 02, 2017 11:19
[2017-05-02] MEDS ORDERED: METOPROLOL TARTRATE 5 MG/5 ML VIAL. ONE (12:42)
[2017-05-02] MEDS ORDERED: PROPOFOL 20 ML IV ONE (12:42)
[2017-05-02] MEDS ORDERED: LIDOCAINE 2% PF Vial for OR 5 ML VIAL. ONE (12:42)
--- NOTE | 2017-05-02 14:34 | EKG ---
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
[2017-05-02] MEDS: VANCOMYCIN PER PHARMACY MC PRN ×2 (16:02→16:04)
[2017-05-02] MEDS: GLIMEPIRIDE 2 MG TABLET. PO SCH (16:09)
[2017-05-02] MEDS: CHOLECALCIFEROL (VITAMIN D3) 1,000 UNIT TABLET PO SCH (16:09)
[2017-05-02] MEDS: RIVAROXABAN 10 MG TABLET. PO SCH (16:09)
[2017-05-02] MEDS: PANTOPRAZOLE 40 MG TABLET.DR. PO SCH (16:09)
[2017-05-02] MEDS: CLOPIDOGREL BISULFATE 75 MG TABLET PO SCH (16:09)
--- NOTE | 2017-05-02 16:09 | CARD ---
APPROVED REPORT EXAM: Transesophageal echocardiogram with color flow Doppler and Synchronized Cardioversion. INDICATION Atrial Fibrillation Reason For Test : Rule out Intracardiac Thrombus. PROCEDURE After obtaining informed consent, patient underwent transesophageal echo in the PACU. Type of Sedation : General Anesthesia Sedation was provided by anesthesiologist, see EMR for medications administered. Transesophageal probe was inserted and advanced into esophagus by Shiv Llanos MD. The TONI was performed without complications. Synchronized Cardioversion acheived with 200 Joules after 1 attempt(s). Rhythm following Synchronized Cardioversion: Normal Sinus Rhythm Throughout the procedure, the blood pressure, pulse oximetry, cardiac rhythm, and rate were monitored . LEFT VENTRICLE The left ventricle is normal size. Left ventricle systolic function is normal. The Ejection Fraction is 55-60%. There is normal LV segmental wall motion. No left ventricle thrombus noted on this study. RIGHT VENTRICLE The right ventricle is normal size. The right ventricular systolic function is normal. ATRIA The left atrium size is normal. The right atrium size is normal. The interatrial septum is intact wit h no evidence for an atrial septal defect or patent foramen ovale as noted on 2-D or Doppler imaging. There is no thrombus noted in the left atrial appendage. AORTIC VALVE The aortic valve is mildly thickened but opens well. Doppler and Color Flow revealed no significant a ortic regurgitation. There is no significant aortic valvular stenosis. There is no aortic valvular ve getation. MITRAL VALVE The mitral valve is calcified but opens well. There is no evidence of mitral valve prolapse. There is no mitral valve stenosis. Doppler and Color-flow revealed mild to moderate mitral regurgitation. TRICUSPID VALVE The tricuspid valve is normal in structure and function. Doppler and Color Flow revealed trace to mil d tricuspid regurgitation. There is no tricuspid valve prolapse or vegetation. There is no tricuspid valve stenosis. PULMONIC VALVE The pulmonary valve is normal in structure and function. Doppler and Color Flow revealed no pulmonic valvular regurgitation. There is no pulmonic valvular stenosis. GREAT VESSELS The aortic root is normal in size. The ascending aorta is normal in size. PERICARDIAL EFFUSION There is no evidence of significant pericardial effusion. There is no pleural effusion. Critical Notification Critical Value: No <Conclusion> Left ventricle systolic function is normal. The Ejection Fraction is 55-60%. There is normal LV segmental wall motion. There is no thrombus noted in the left atrial appendage. Doppler and Color-flow revealed mild to moderate mitral regurgitation. Successful cardioversion to sinus rhythm
[2017-05-02] MEDS: SPIRONOLACTONE 25 MG TABLET PO SCH (16:10)
[2017-05-02] MEDS: LOSARTAN POTASSIUM 50 MG TABLET. PO SCH (16:10)
[2017-05-02] MEDS: ACETAMINOPHEN 325 MG TABLET. PO PRN (19:35)
[2017-05-03 03:34] VITALS: BP 130/63
[2017-05-03] MEDS ORDERED: VANCOMYCIN 1.5 GM in IV DEXTROSE 5% 500 ML IV SCH (05:00)
[2017-05-03 05:38] LABS: BASO % 1 % (0-3); EOS % 1 % (0-3); HEMATOCRIT 35.6 % (36.0-47.0); LYMPH # 1.3 x10^3/uL (1.0-4.8); LYMPH % 21 % (24-48); MEAN CORPUSCULAR HEMOGLOBIN 30 pg (25-35); MEAN CORPUSCULAR HGB CONC 34 g/dL (31-37); MEAN CORPUSCULAR VOLUME 89 fL (79-100); MONO % 8 % (0-9); NEUT % 69 % (31-73); PLATELET COUNT 365 x10^3/uL (140-400); RED CELL DISTRIBUTION WIDTH 14.7 % (11.5-14.5); WHITE BLOOD COUNT 6.4 x10^3/uL (4.0-11.0)
[2017-05-03 06:16] LABS: CALCIUM 9.1 mg/dL (8.5-10.1); CREATININE 0.7 mg/dL (0.6-1.0); GFR 81.8
--- NOTE | 2017-05-03 06:55 | PDOC ---
Infectious Disease Note Subjective Subjective Doing well. Tolerated procedure well. No chest pain/F/C/S Back ok and only needed Tyelnol ROS ROS GEN: Denies fevers, chills, sweats HEENT: Denies blurred vision, sore throat CV: Denies chest pain RESP: Denies shortness of air, cough GI: Denies n/v/d NEURO: Denies confusion, dizziness MSK: Denies weakness, joint pain/swelling Vital Sign Vital Signs Vital Signs Date Time Temp Pulse Resp B/P (MAP) Pulse Ox O2 Delivery O2 Flow Rate FiO2 05/03/17 03:34 98.2 96 18 130/63 (85) 97 Room Air 98.2 05/02/17 13:13 10 Physical Exam PHYSICAL EXAM GENERAL: NAD, Alert, in bed HEENT: PERRL, OC/OP -clear NECK: Supple, no JVD, no LN LUNGS: Clear HEART: S1S2, no gallop, no murmur ABD: Soft, NT, no organomegaly, no rebound, obese Back without inflammation EXT: No edema, no cyanosis 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, 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, no focal neurologic deficit SKIN: No rash IV: ok Labs Lab Laboratory Tests Test 05/02/17 07:34 05/02/17 11:34 05/02/17 16:18 05/02/17 21:16 Glucose (Fingerstick) 155 mg/dL (70-99) 183 mg/dL (70-99) 96 mg/dL (70-99) 99 mg/dL (70-99) Test 05/03/17 05:00 White Blood Count 6.4 x10^3/uL (4.0-11.0) Red Blood Count 4.00 x10^6/uL (3.50-5.40) Hemoglobin 12.0 g/dL (12.0-15.5) Hematocrit 35.6 % (36.0-47.0) Mean Corpuscular Volume 89 fL (79-100) Mean Corpuscular Hemoglobin 30 pg (25-35) Mean Corpuscular Hemoglobin Concent 34 g/dL (31-37) Red Cell Distribution Width 14.7 % (11.5-14.5) Platelet Count 365 x10^3/uL (140-400) Neutrophils (%) (Auto) 69 % (31-73) Lymphocytes (%) (Auto) 21 % (24-48) Monocytes (%) (Auto) 8 % (0-9) Eosinophils (%) (Auto) 1 % (0-3) Basophils (%) (Auto) 1 % (0-3) Neutrophils # (Auto) 4.4 x10^3uL (1.8-7.7) Lymphocytes # (Auto) 1.3 x10^3/uL (1.0-4.8) Monocytes # (Auto) 0.5 x10^3/uL (0.0-1.1) Eosinophils # (Auto) 0.1 x10^3/uL (0.0-0.7) Basophils # (Auto) 0.0 x10^3/uL (0.0-0.2) Sodium Level 138 mmol/L (136-145) Potassium Level 4.0 mmol/L (3.5-5.1) Chloride Level 103 mmol/L (98-107) Carbon Dioxide Level 24 mmol/L (21-32) Anion Gap 11 (6-14) Blood Urea Nitrogen 10 mg/dL (7-20) Creatinine 0.7 mg/dL (0.6-1.0) Estimated GFR (Cockcroft-Gault) 81.8 Glucose Level 96 mg/dL (70-99) Calcium Level 9.1 mg/dL (8.5-10.1) Objective Assessment Bacteremia with 1/2 bottles collected 05/01. Likely contamination given AF and nml WBC -clinically looks well. D/w micro - likely STCN Chest pain Afib s/p TONI and Cardioversion Streptococcus constellatus bacteremia. POA, 03/25 & 03/27. Repeat BC from 03/29 neg. Clinically looks well Back pain, rule out epidural or vertebral osteomyelitis. CT degenerative changes & central spinal stenosis, s/p sacroiliac joint injection (Depo-Medrol, 03/25). Currently doing well Bilateral knee arthroplasties, so far do not seem to be affected. Hypertension Plan Plan of Care Added Vanc 05/02 - d/w micro - likely contamination with Latex neg but still small colonies. Will D/c Vanc as she is not acting or looking septic Ok to d/c home on Keflex but QID for 2 weeks Cont Probiotics F/u ID office 10 days KIYA CISNEROS MD May 03, 2017 06:55
[2017-05-03 07:00] VITALS: BP 139/82
[2017-05-03] MEDS ORDERED: METOPROLOL SUCC 24HR ER 50 MG TAB.ER.24H. PO SCH (09:00)
--- NOTE | 2017-05-03 10:00 | PDOC ---
CARDIO Progress Notes Date and Time Date of Service 05/03/2017 Time of Evaluation 0950 Subjective Subjective: No Chest Pain, No shortness of breath, No Palpitations Vitals Vitals Vital Signs Date Time Temp Pulse Resp B/P (MAP) Pulse Ox O2 Delivery O2 Flow Rate FiO2 05/03/17 08:00 Room Air 05/03/17 07:00 98.2 96 19 139/82 (101) 98 98.2 05/02/17 13:13 10 Weight Weight [ ] Laboratory Labs Laboratory Tests Test 05/02/17 11:34 05/02/17 16:18 05/02/17 21:16 05/03/17 05:00 Glucose (Fingerstick) 183 mg/dL (70-99) 96 mg/dL (70-99) 99 mg/dL (70-99) White Blood Count 6.4 x10^3/uL (4.0-11.0) Red Blood Count 4.00 x10^6/uL (3.50-5.40) Hemoglobin 12.0 g/dL (12.0-15.5) Hematocrit 35.6 % (36.0-47.0) Mean Corpuscular Volume 89 fL (79-100) Mean Corpuscular Hemoglobin 30 pg (25-35) Mean Corpuscular Hemoglobin Concent 34 g/dL (31-37) Red Cell Distribution Width 14.7 % (11.5-14.5) Platelet Count 365 x10^3/uL (140-400) Neutrophils (%) (Auto) 69 % (31-73) Lymphocytes (%) (Auto) 21 % (24-48) Monocytes (%) (Auto) 8 % (0-9) Eosinophils (%) (Auto) 1 % (0-3) Basophils (%) (Auto) 1 % (0-3) Neutrophils # (Auto) 4.4 x10^3uL (1.8-7.7) Lymphocytes # (Auto) 1.3 x10^3/uL (1.0-4.8) Monocytes # (Auto) 0.5 x10^3/uL (0.0-1.1) Eosinophils # (Auto) 0.1 x10^3/uL (0.0-0.7) Basophils # (Auto) 0.0 x10^3/uL (0.0-0.2) Sodium Level 138 mmol/L (136-145) Potassium Level 4.0 mmol/L (3.5-5.1) Chloride Level 103 mmol/L (98-107) Carbon Dioxide Level 24 mmol/L (21-32) Anion Gap 11 (6-14) Blood Urea Nitrogen 10 mg/dL (7-20) Creatinine 0.7 mg/dL (0.6-1.0) Estimated GFR (Cockcroft-Gault) 81.8 Glucose Level 96 mg/dL (70-99) Calcium Level 9.1 mg/dL (8.5-10.1) Test 05/03/17 07:29 Glucose (Fingerstick) 171 mg/dL (70-99) Microbiology Micro Microbiology 05/01/17 Blood Culture - Final, Complete Physical Exam HEENT: Neck Supple W Full Motion Chest: Symmetric LUNGS: Clear to Auscultation Heart: S1S2, RRR (SR) Abdomen: Soft N/T Extremities: No Edema, No Calf Tenderness Neurology: alert, oriented, follow commands Assessment Assessment 1. AFIB with RVR: S/P TONI/CVN. Di well maintain SR. 2. HTN: controlled 3. CAD: PCI/stent in the past, unknown date but remote. CP free no cardiac symptoms. 4. HLP: intolerant to statin. LDL 141 Recommendations 1. May consider praluent or repatha with noted statin intolerance. 2. Continue with xarelot. Home with cardizem CD 300 mg and toprol XL 50 mg daily. 3. Continue with plavix. Discussed re MPI and would prefer this done as an outpt. 4. Arrange for [facility]OT prior to DC. MONALISA KHAN APRN May 03, 2017 10:00
--- NOTE | 2017-05-03 10:34 | PDOC ---
PROGRESS NOTES Subjective Subjective electro conversion to NSR yesterday, blood culture is a contaminant. feels well. Objective Objective Vital Signs Date Time Temp Pulse Resp B/P (MAP) Pulse Ox O2 Delivery O2 Flow Rate FiO2 05/03/17 08:00 Room Air 05/03/17 07:00 98.2 96 19 139/82 (101) 98 98.2 05/02/17 13:13 10 Physical Exam Abdomen: Soft Heart: Regular rate, Normal S1, Normal S2 Extremities: No edema General: Alert HEENT: Atraumatic Lungs: Clear to auscultation Neuro: Normal speech Psych/Mental Status: Mental status NL Skin: No rashes Assessment Assessment ProblemsAtrial fibrillation with RVR. VR controlled on diltiazem and metoprolol 3. Coronary artery disease. 4. Hypertension. 5. Diabetes mellitus type 2. 6. Rheumatoid arthritis. 7. Hyperlipidemia with statin intolerance. 8. Moderate protein calorie malnutrition. 9. Hypomagnesemia.treated 10. Recent Streptococcus bacteremia. coag neg staph in blood. contaminant Medical Problems: (1) Atrial fibrillation with RVR Status: Acute (2) Unstable angina Status: Acute Plan Plan of Care continue keflex dismiss today d/c iv vancomycin Comment Review of Relevant I have reviewed the following items russell (where applicable) has been applied. Labs Laboratory Tests Test 05/01/17 11:33 05/01/17 15:30 05/01/17 16:50 05/01/17 21:01 Glucose (Fingerstick) 143 mg/dL (70-99) 124 mg/dL (70-99) 161 mg/dL (70-99) Troponin I Quantitative 0.262 ng/mL (0.000-0.055) Test 05/01/17 21:40 05/02/17 03:42 05/02/17 07:34 05/02/17 11:34 Troponin I Quantitative 1.018 ng/mL (0.000-0.055) White Blood Count 7.3 x10^3/uL (4.0-11.0) Red Blood Count 3.98 x10^6/uL (3.50-5.40) Hemoglobin 12.1 g/dL (12.0-15.5) Hematocrit 36.1 % (36.0-47.0) Mean Corpuscular Volume 91 fL (79-100) Mean Corpuscular Hemoglobin 30 pg (25-35) Mean Corpuscular Hemoglobin Concent 34 g/dL (31-37) Red Cell Distribution Width 14.7 % (11.5-14.5) Platelet Count 362 x10^3/uL (140-400) Neutrophils (%) (Auto) 63 % (31-73) Lymphocytes (%) (Auto) 25 % (24-48) Monocytes (%) (Auto) 10 % (0-9) Eosinophils (%) (Auto) 2 % (0-3) Basophils (%) (Auto) 1 % (0-3) Neutrophils # (Auto) 4.6 x10^3uL (1.8-7.7) Lymphocytes # (Auto) 1.8 x10^3/uL (1.0-4.8) Monocytes # (Auto) 0.7 x10^3/uL (0.0-1.1) Eosinophils # (Auto) 0.1 x10^3/uL (0.0-0.7) Basophils # (Auto) 0.0 x10^3/uL (0.0-0.2) Sodium Level 139 mmol/L (136-145) Potassium Level 3.9 mmol/L (3.5-5.1) Chloride Level 103 mmol/L (98-107) Carbon Dioxide Level 25 mmol/L (21-32) Anion Gap 11 (6-14) Blood Urea Nitrogen 13 mg/dL (7-20) Creatinine 0.8 mg/dL (0.6-1.0) Estimated GFR (Cockcroft-Gault) 70.1 Glucose Level 116 mg/dL (70-99) Calcium Level 8.9 mg/dL (8.5-10.1) Magnesium Level 2.0 mg/dL (1.8-2.4) Triglycerides Level 140 mg/dL (0-150) Cholesterol Level 159 mg/dL (0-200) LDL Cholesterol, Calculated 102 mg/dL (0-100) VLDL Cholesterol, Calculated 28 mg/dL (0-40) Non-HDL Cholesterol Calculated 130 mg/dL (0-129) HDL Cholesterol 29 mg/dL (40-60) Cholesterol/HDL Ratio 5.5 Glucose (Fingerstick) 155 mg/dL (70-99) 183 mg/dL (70-99) Test 05/02/17 16:18 05/02/17 21:16 05/03/17 05:00 05/03/17 07:29 Glucose (Fingerstick) 96 mg/dL (70-99) 99 mg/dL (70-99) 171 mg/dL (70-99) White Blood Count 6.4 x10^3/uL (4.0-11.0) Red Blood Count 4.00 x10^6/uL (3.50-5.40) Hemoglobin 12.0 g/dL (12.0-15.5) Hematocrit 35.6 % (36.0-47.0) Mean Corpuscular Volume 89 fL (79-100) Mean Corpuscular Hemoglobin 30 pg (25-35) Mean Corpuscular Hemoglobin Concent 34 g/dL (31-37) Red Cell Distribution Width 14.7 % (11.5-14.5) Platelet Count 365 x10^3/uL (140-400) Neutrophils (%) (Auto) 69 % (31-73) Lymphocytes (%) (Auto) 21 % (24-48) Monocytes (%) (Auto) 8 % (0-9) Eosinophils (%) (Auto) 1 % (0-3) Basophils (%) (Auto) 1 % (0-3) Neutrophils # (Auto) 4.4 x10^3uL (1.8-7.7) Lymphocytes # (Auto) 1.3 x10^3/uL (1.0-4.8) Monocytes # (Auto) 0.5 x10^3/uL (0.0-1.1) Eosinophils # (Auto) 0.1 x10^3/uL (0.0-0.7) Basophils # (Auto) 0.0 x10^3/uL (0.0-0.2) Sodium Level 138 mmol/L (136-145) Potassium Level 4.0 mmol/L (3.5-5.1) Chloride Level 103 mmol/L (98-107) Carbon Dioxide Level 24 mmol/L (21-32) Anion Gap 11 (6-14) Blood Urea Nitrogen 10 mg/dL (7-20) Creatinine 0.7 mg/dL (0.6-1.0) Estimated GFR (Cockcroft-Gault) 81.8 Glucose Level 96 mg/dL (70-99) Calcium Level 9.1 mg/dL (8.5-10.1) Laboratory Tests Test 05/02/17 11:34 05/02/17 16:18 05/02/17 21:16 05/03/17 05:00 Glucose (Fingerstick) 183 mg/dL (70-99) 96 mg/dL (70-99) 99 mg/dL (70-99) White Blood Count 6.4 x10^3/uL (4.0-11.0) Red Blood Count 4.00 x10^6/uL (3.50-5.40) Hemoglobin 12.0 g/dL (12.0-15.5) Hematocrit 35.6 % (36.0-47.0) Mean Corpuscular Volume 89 fL (79-100) Mean Corpuscular Hemoglobin 30 pg (25-35) Mean Corpuscular Hemoglobin Concent 34 g/dL (31-37) Red Cell Distribution Width 14.7 % (11.5-14.5) Platelet Count 365 x10^3/uL (140-400) Neutrophils (%) (Auto) 69 % (31-73) Lymphocytes (%) (Auto) 21 % (24-48) Monocytes (%) (Auto) 8 % (0-9) Eosinophils (%) (Auto) 1 % (0-3) Basophils (%) (Auto) 1 % (0-3) Neutrophils # (Auto) 4.4 x10^3uL (1.8-7.7) Lymphocytes # (Auto) 1.3 x10^3/uL (1.0-4.8) Monocytes # (Auto) 0.5 x10^3/uL (0.0-1.1) Eosinophils # (Auto) 0.1 x10^3/uL (0.0-0.7) Basophils # (Auto) 0.0 x10^3/uL (0.0-0.2) Sodium Level 138 mmol/L (136-145) Potassium Level 4.0 mmol/L (3.5-5.1) Chloride Level 103 mmol/L (98-107) Carbon Dioxide Level 24 mmol/L (21-32) Anion Gap 11 (6-14) Blood Urea Nitrogen 10 mg/dL (7-20) Creatinine 0.7 mg/dL (0.6-1.0) Estimated GFR (Cockcroft-Gault) 81.8 Glucose Level 96 mg/dL (70-99) Calcium Level 9.1 mg/dL (8.5-10.1) Test 05/03/17 07:29 Glucose (Fingerstick) 171 mg/dL (70-99) Microbiology 05/01/17 Blood Culture - Final, Complete Medications Current Medications Diltiazem HCl (Cardizem) 10 mg 1X ONCE IVP Last administered on 05/01/17 09: 11; Start 05/01/17 at 09:00; Stop 05/01/17 at 09:04; Status DC Cephalexin HCl (Keflex) 500 mg TID PO ; Start 05/01/17 at 14:00; Stop at 14:00; Status DC Vitamin D (Vitamin D3) 1,000 unit DAILY PO Last administered on 05/02/17 16: 09; Start 05/01/17 at 12:00 Multivitamins (Thera M Plus) 1 tab DAILY PO Last administered on 05/01/17 11: 56; Start 05/01/17 at 12:00 Fish Oil (Fish Oil) 1,000 mg DAILY PO Last administered on 05/01/17 11:56; Start 05/01/17 at 11:00 Spironolactone (Aldactone) 25 mg DAILY PO Last administered on 05/02/17 16:10 ; Start 05/01/17 at 12:00 Pantoprazole Sodium (Protonix) 40 mg DAILYAC PO Last administered on 16:09; Start 05/01/17 at 12:00 Rivaroxaban (Xarelto) 20 mg DAILYWSUP PO Last administered on 05/02/17 16:09 ; Start 05/01/17 at 17:00 Glimepiride (Amaryl) 2 mg DAILY08 PO Last administered on 05/02/17 16:09; Start 05/01/17 at 11:30 Clopidogrel Bisulfate (Plavix) 75 mg DAILYWBKFT PO ; Start 05/01/17 at 12:00; Stop 05/01/17 at 12:00; Status DC Acetaminophen (Tylenol) 650 mg PRN Q6HRS PRN PO MILD PAIN / TEMP Last administered on 10/26/17at 19:35; Start 05/01/17 at 11:00 Magnesium Hydroxide (Milk Of Magnesia) 2,400 mg PRN DAILY PRN PO CONSTIPATION; Start 05/01/17 at 11:00 Losartan Potassium (Cozaar) 100 mg DAILY PO Last administered on 05/02/17 16: 10; Start 05/01/17 at 12:00 Metoprolol Tartrate (Lopressor) 100 mg BID PO ; Start 05/01/17 at 12:00; Stop 05/01/17 at 12:00; Status DC Diltiazem HCl (Cardizem Cd) 300 mg DAILY PO ; Start 05/01/17 at 12:00; Stop at 12:00; Status DC Nitroglycerin (Nitrostat) 0.4 mg PRN Q5MIN PRN SL CHEST PAIN; Start 05/01/17 at 11:00 Magnesium Sulfate/ Dextrose 50 ml @ 25 mls/hr 1X ONCE IV Last administered on 05/01/17 11:58; Start 05/01/17 at 11:30; Stop 05/01/17 at 13:29; Status DC Magnesium Sulfate/ Dextrose 50 ml @ 25 mls/hr 1X ONCE IV ; Start 05/01/17 at 11:30; Stop 05/01/17 at 12:14; Status DC Oxycodone HCl (Roxicodone) 5 mg PRN Q4HRS PRN PO PAIN MOD TO SEV; Start at 11:15 Info (Anti-Coagulation Monitoring By Pharmacy) 1 each PRN DAILY PRN MC SEE COMMENTS Last administered on 05/02/17 16:39; Start 05/01/17 at 11:15 Digoxin (Lanoxin) 500 mcg 1X ONCE IV Last administered on 05/01/17 11:56; Start 05/01/17 at 11:30; Stop 05/01/17 at 11:31; Status DC Digoxin (Lanoxin) 500 mcg 1X ONCE IV ; Start 05/01/17 at 11:30; Stop at 12:13; Status DC Diltiazem HCl 125 mg/Dextrose 125 ml @ 0 mls/hr CONT PRN IV SEE I/O RECORD Last administered on 05/01/17 23:03; Start 05/01/17 at 11:30 Diltiazem HCl (Cardizem) 10 mg 1X ONCE IVP Last administered on 05/01/17 12: 30; Start 05/01/17 at 11:30; Stop 05/01/17 at 11:31; Status DC Lactobacillus Rhamnosus (Culturelle) 1 cap BID PO Last administered on 20:53; Start 05/01/17 at 21:00 Metoprolol Succinate (Toprol Xl) 100 mg DAILY PO ; Start 05/02/17 at 09:00; Stop 05/03/17 at 08:13; Status DC Clopidogrel Bisulfate (Plavix) 75 mg DAILYWBKFT PO Last administered on 16:09; Start 05/02/17 at 08:00 Cephalexin HCl (Keflex) 500 mg QID PO Last administered on 05/02/17 20:53; Start 05/01/17 at 13:00 Ondansetron HCl (Zofran) 4 mg PRN Q6HRS PRN IV NAUSEA/VOMITING; Start at 07:00; Stop 05/03/17 at 06:59; Status DC Fentanyl Citrate (Fentanyl 2ml Vial) 25 mcg PRN Q5MIN PRN IV MILD PAIN; Start 05/02/17 at 07:00; Stop 05/03/17 at 06:59; Status DC Fentanyl Citrate (Fentanyl 2ml Vial) 50 mcg PRN Q5MIN PRN IV MODERATE PAIN; Start 05/02/17 at 07:00; Stop 05/03/17 at 06:59; Status DC Morphine Sulfate 1 mg PRN Q10MIN PRN IV SEVERE PAIN; Start 05/02/17 at 07:00; Stop 05/03/17 at 06:59; Status DC Ringer's Solution 1,000 ml @ 30 mls/hr Q24H IV ; Start 05/02/17 at 07:00; Stop 05/02/17 at 18:59; Status DC Lidocaine HCl (Xylocaine-Mpf 1% Vial) 2 ml PRN 1X PRN ID IV START; Start 05/02 at 07:00; Stop 05/03/17 at 06:59; Status DC Hydromorphone HCl (Dilaudid) 0.5 mg PRN Q10MIN PRN IV SEV PAIN, Second choice; Start 05/02/17 at 07:00; Stop 05/03/17 at 06:59; Status DC Prochlorperazine Edisylate (Compazine) 5 mg PACU PRN PRN IV NAUSEA, MRX1; Start 05/02/17 at 07:00; Stop 05/03/17 at 06:59; Status DC Metoprolol Succinate (Toprol Xl) 100 mg 1X ONCE PO Last administered on 15:28; Start 05/01/17 at 14:45; Stop 05/01/17 at 14:52; Status DC Digoxin (Lanoxin) 250 mcg 1X ONCE IV ; Start 05/01/17 at 18:00; Stop at 18:01; Status DC Sodium Chloride (Normal Saline Flush) 10 ml QSHIFT PRN IV AFTER MEDS AND BLOOD DRAWS; Start 05/01/17 at 16:30 Vancomycin HCl (Vanco Per Pharmacy) 1 each PRN DAILY PRN MC SEE COMMENTS Last administered on 05/02/17 16:04; Start 05/02/17 at 08:15 Vancomycin HCl 2 gm/Dextrose 500 ml @ 250 mls/hr 1X ONCE IV Last administered on 05/02/17 10:47; Start 05/02/17 at 09:00; Stop 05/02/17 at 10 :59; Status DC Benzocaine (Hurricaine One) 3 spray 1X ONCE MM ; Start 05/02/17 at 09:15; Stop 05/02/17 at 09:16; Status DC Lidocaine HCl (Xylocaine 2% Topical 30gm Tube) 1 britt 1X ONCE TP ; Start at 09:15; Stop 05/02/17 at 09:16; Status DC Lidocaine HCl (Viscous Lidocaine) 15 ml 1X ONCE SWSW ; Start 05/02/17 at 09:15 ; Stop 05/02/17 at 09:16; Status DC Propofol 20 ml @ As Directed STK-MED ONCE IV ; Start 05/02/17 at 12:42; Stop 05/02/17 at 12:43; Status DC Lidocaine HCl (Lidocaine Pf 2% Vial) 5 ml STK-MED ONCE .ROUTE ; Start 05/02/17 at 12:42; Stop 05/02/17 at 12:43; Status DC Metoprolol Tartrate (Lopressor) 5 mg STK-MED ONCE .ROUTE ; Start 05/02/17 at 12 :42; Stop 05/02/17 at 12:43; Status DC Vancomycin HCl 1.5 gm/Dextrose 500 ml @ 250 mls/hr Q18H IV Last administered on 05/03/17t 05:28; Start 05/03/17 at 05:00 Vancomycin HCl 1 each 1X ONCE MC ; Start 05/04/17 at 16:30; Stop 05/04/17 at 16:31 Diltiazem HCl (Cardizem Cd) 300 mg DAILY PO Last administered on 05/02/17t 19: 39; Start 05/02/17 at 20:00 Metoprolol Succinate (Toprol Xl) 50 mg DAILY PO ; Start 05/03/17 at 09:00 Active Scripts Active Reported Oxycodone Hcl 5 Mg Capsule 1 Cap PO PRN Docusate Sodium 100 Mg Capsule 1 Cap PO DAILY Spironolactone 25 Mg Tablet 1 Tab PO DAILY Xarelto (Rivaroxaban) 20 Mg Tablet 20 Mg PO DAILY Metoprolol Tartrate 100 Mg Tablet 1 Tab PO BID Cyclobenzaprine Hcl 10 Mg Tablet 1 Tab PO TID Glimepiride 2 Mg Tablet 1 Tab PO DAILY Losartan Potassium 100 Mg Tablet 100 Mg PO DAILY Cartia Xt (Diltiazem Hcl) 300 Mg Cap.er.24h 300 Mg PO DAILY Omeprazole 20 Mg Capsule.dr 1 Cap PO DAILY Vitamin D (Cholecalciferol (Vitamin D3)) 2,000 Unit Capsule 1 Cap PO DAILY Fish Oil 1,000 mg Softgel ([place]-3/Dha/Epa/Fish Oil) 1,000 Mg Capsule 1,000 Mg PO DAILY Aspirin Ec (Aspirin) 81 Mg Tablet.dr 1 Tab PO DAILY Multivitamins (Multivitamin) 1 Each Tablet 1 Tab PO DAILY Xeljanz (Tofacitinib Citrate) 5 Mg Tablet 5 Mg PO BID Clopidogrel (Clopidogrel Bisulfate) 75 Mg Tablet 1 Tab PO DAILY Vitals/I & O Vital Sign - Last 24 Hours 05/02/17 05/02/17 05/02/17 05/02/17 11:00 12:24 13:13 13:13 Temp 97.8 97.8 99.6 97.8 97.8 99.6 Pulse 77 108 80 Resp 18 15 18 B/P (MAP) 137/79 (98) 147/76 117/54 Pulse Ox 98 97 98 O2 Delivery Room Air Room Air Simple Mask Mask O2 Flow Rate 10 10 05/02/17 05/02/17 05/02/17 05/02/17 13:28 13:43 13:58 15:04 Temp 98.2 98.2 97.4 98.2 98.2 97.4 Pulse 82 77 78 81 Resp 18 18 18 18 B/P (MAP) 91/77 130/66 129/55 145/67 (93) Pulse Ox 20 98 96 95 O2 Delivery Room Air Room Air Room Air Room Air 05/02/17 05/02/17 05/02/17 05/02/17 16:10 19:20 19:39 22:42 Temp 98.0 98.3 98.0 98.3 Pulse 81 86 84 96 Resp 18 16 B/P (MAP) 145/67 148/72 (97) 143/69 126/61 (82) Pulse Ox 96 94 O2 Delivery Room Air Room Air 05/03/17 05/03/17 05/03/17 03:34 07:00 08:00 Temp 98.2 98.2 98.2 98.2 Pulse 96 96 Resp 18 19 B/P (MAP) 130/63 (85) 139/82 (101) Pulse Ox 97 98 O2 Delivery Room Air Room Air Room Air ALVARO YEN MD May 03, 2017 10:34
--- NOTE | 2017-05-03 10:37 | DISCH ---
DISCHARGE INSTRUCTIONS Condition on Discharge Condition on Discharge: Stable Activity After Discharge Activity Instructions for Disc: Resume previous activity Diet after Discharge Diet after Discharge: Cardiac Contacting the DRRand after DC Call your doctor for: If your condition worsens Follow-Up Follow up with: dr. yen on 05/06/17 ALVARO YEN MD May 03, 2017 10:37
[2017-05-03] MEDS ORDERED: CEPH500T PO (10:40)
[2017-05-03] MEDS: LACTOBACILLUS RHAMNOSUS GG 1 CAPSULE. PO SCH (10:40)
[2017-05-03] MEDS ORDERED: METO50TA29 PO (10:40)
[2017-05-03] MEDS: MULTIVITAMIN with MINERAL TABLET. PO SCH (10:42)
[2017-05-03] MEDS: CLOPIDOGREL BISULFATE 75 MG TABLET PO SCH (10:42)
[2017-05-03] MEDS: PANTOPRAZOLE 40 MG TABLET.DR. PO SCH (10:42)
[2017-05-03] MEDS: GLIMEPIRIDE 2 MG TABLET. PO SCH (10:42)
[2017-05-03] MEDS: CHOLECALCIFEROL (VITAMIN D3) 1,000 UNIT TABLET PO SCH (10:42)
[2017-05-03] MEDS: CEPHALEXIN 250 MG CAPSULE. PO SCH (10:42)
[2017-05-03] MEDS: LOSARTAN POTASSIUM 50 MG TABLET. PO SCH (10:42)
[2017-05-03] MEDS: OMEGA-3 FATTY ACIDS/FISH OIL 1,000 MG CAPSULE. PO SCH (10:42)
[2017-05-03] MEDS: SPIRONOLACTONE 25 MG TABLET PO SCH (10:42)
--- NOTE | 2017-05-03 10:45 | PDOC ---
Provider Note Provider Note discharge summary dictated # [id number] ALVARO YEN MD May 03, 2017 10:45
[2017-05-03 11:04] VITALS: BP 125/78
--- NOTE | 2017-05-03 12:13 | DS ---
DATE OF DISCHARGE: 05/03/2017 CONSULTANTS: Dr. Llanos, Dr. Potter. FINAL DIAGNOSES: 1. Atrial fibrillation with rapid ventricular response, converted to normal sinus rhythm with electrical conversion. 2. Recent Streptococcus bacteremia prior to admission. 3. Chest pain, most likely secondary to atrial fibrillation with rapid ventricular response. 4. Coronary artery disease. 5. Hypertension. 6. Diabetes mellitus type 2. 7. Rheumatoid arthritis. 8. Hyperlipidemia with statin intolerance. 9. Moderate protein calorie malnutrition. 10. Hypomagnesemia. 11. Recent Streptococcus bacteremia. HOSPITAL COURSE: The patient is a 72-year-old white female with history of rheumatoid arthritis, hypertension, coronary artery disease, bilateral total knee arthroplasty and cholelithiasis, recently dismissed from [facility] on 04/03/2017 and transferred to [facility] facility and dismissed to home as she had a Streptococcus bacteremia and finished a course of IV Rocephin, was switched to oral Keflex 500 mg t.i.d. through 05/04. She had onset of chest pressure today, radiation with shortness of breath. She took 3 baby aspirins once in the [facility] Emergency Room, where she was noticed to be in atrial fibrillation with rapid ventricular response, which was slowed down with 10 mg of IV Cardizem, admitted to the hospital on a Cardizem drip, seen by Dr. Llanos in consultation. She had a transesophageal echocardiogram without any thrombus in the left atrium and underwent an electrical conversion and converted to normal sinus rhythm and maintained it. Her metoprolol was changed to 50 mg once a day and Cardizem was continued. She was also seen by Dr. Abbott in consultation. One of two blood cultures positive for coagulase negative Staphylococcus, thought to be contaminant. IV vancomycin was discontinued, and her Keflex will be continued 500 mg q.i.d. for another [address] Potter. She therefore will be dismissed to home on Xarelto 20 mg every day, vitamin D 1000 units every day, Plavix 75 mg every day, glimepiride 2 mg every day, spironolactone 25 mg every day, diltiazem CD 300 mg every day, metoprolol succinate 50 mg once a day, oxycodone 5 mg every 4 hours p.r.n. and Keflex 500 mg q.i.d. for 14 days. She has an appointment to see Dr. Sharma in the office on 05/06/2017, and she will follow up with her conventional mortgage underwriter also and Dr. Potter. ALVARO SHARMA MD DR: LUCINA/jason JOB#: [id number] / [id number]
== END 2017-05-03 13:20 | disposition home or self-care (01) | DRG 281 ==
LOC: ER 08:41 → 2 SOUTH 09:30
PROVIDERS: ADMIT Internal Medicine; ATTEND Internal Medicine
PROC: 5A2204Z Restoration of Cardiac Rhythm, Single (ICD-10-PCS; principal; 2017-05-02 12:45)
PROC: B246ZZ4 Ultrasonography of Right and Left Heart, Transesophageal (ICD-10-PCS; 2017-05-02 12:45)
DX: I21.4 Non-ST elevation (NSTEMI) myocardial infarction (principal); E44.0 Moderate protein-calorie malnutrition; I48.91 Unspecified atrial fibrillation; E83.42 Hypomagnesemia; Z68.41 Body mass index [BMI] 40.0-44.9, adult; E11.9 Type 2 diabetes mellitus without complications; D72.829 Elevated white blood cell count, unspecified; E78.5 Hyperlipidemia, unspecified; I25.110 Atherosclerotic heart disease of native coronary artery with unstable angina pectoris; I10 Essential (primary) hypertension; M06.9 Rheumatoid arthritis, unspecified; M48.00 Spinal stenosis, site unspecified; M19.90 Unspecified osteoarthritis, unspecified site; K57.90 Diverticulosis of intestine, part unspecified, without perforation or abscess without bleeding; M48.061 Spinal stenosis, lumbar region without neurogenic claudication; I25.10 Atherosclerotic heart disease of native coronary artery without angina pectoris; M54.10 Radiculopathy, site unspecified; Z96.653 Presence of artificial knee joint, bilateral; Z79.84 Long term (current) use of oral hypoglycemic drugs; Z79.899 Other long term (current) drug therapy; Z82.49 Family history of ischemic heart disease and other diseases of the circulatory system; Z90.710 Acquired absence of both cervix and uterus; Z95.5 Presence of coronary angioplasty implant and graft; Z88.8 Allergy status to other drugs, medicaments and biological substances; Z90.721 Acquired absence of ovaries, unilateral; Z98.49 Cataract extraction status, unspecified eye; Z86.19 Personal history of other infectious and parasitic diseases; E66.9 Obesity, unspecified
CPT/HCPCS: 36415; 71010; 80047; 80048; 80053; 80061; 82962; 83735; 83880; 84484; 85025; 85610; 87040; 87205; 92960; 93005; 93312; 93320; 93325; 96374; J1160; J2704; J3370; J3490; J7060; 99285-25; J2001

== ENCOUNTER → 2017-09-13 | Outpatient (CLI) | payer MEDICARE, OTHER ==
[2017-09-13] MEDS: LIDOCAINE 2%/EPI 1:100,000 20 ML VIAL. IJ (12:00)
[2017-09-13] MEDS: LIDOCAINE WITH 8.4% SOD BICARB 3 ML DISP.SYRIN. INJ (12:01)
== END | disposition home or self-care (01) ==
LOC: MAMMO 08:43
DX: D24.1 Benign neoplasm of right breast (principal)
CPT/HCPCS: 19081; 19085; 77022; 77065; 88305; C1713; J3490

== ENCOUNTER → 2018-05-21 | Outpatient (CLI) | payer MEDICARE, OTHER ==
[~2018-05-21] MED LIST changes: +CEPH500T PO; +CYCL10TA2 PO; +DILT300C40 PO; +DOCU100C28 PO; +GLIM2TAB2 PO; +LOSA100T7 PO; +METO100T7 PO; +METO50TA29 PO; +OXYC5CAP PO; +RIVA20TA2 PO; +SPIR25TA5 PO
--- NOTE | 2018-05-21 12:13 | CARD ---
MR#: [id number] Date of Study: 05/21/2018 Ordering Physician: ANNA LENZ, Referring Physician: ANNA LENZ, Tech: Lou Bustillos APPROVED REPORT EXAM: Two-dimensional and M-mode echocardiogram with Doppler and color Doppler. Other Information Quality : AverageHR: 72bpm INDICATION Atrial Fibrillation RISK FACTORS Hypertension Diabetes 2D DIMENSIONS RVDd3.1 (2.9-3.5cm)Left Atrium(2D)3.9 (1.6-4.0cm) IVSd0.9 (0.7-1.1cm)Aortic Root(2D)2.7 (2.0-3.7cm) LVDd4.7 (3.9-5.9cm)LVOT Diameter2.2 (1.8-2.4cm) PWd1.4 (0.7-1.1cm)LVDs3.3 (2.5-4.0cm) FS (%) 28.7 %SV55.6 ml LVEF(%)55.3 (>50%) Aortic Valve AoV Peak Cornelio.132.0cm/sAoV VTI28.6cm AO Peak GR.7.0mmHgLVOT Peak Cornelio.62.3cm/s LVOT VTI 15.19cmAO Mean GR.4mmHg BERENICE (VMAX)1.47sv5VFD (VTI)2.06cm2 Mitral Valve MV E Txsnxzif80.1cm/sMV DECEL GKZW651al MV A Belfdkie59.0cm/sMV QIB68hj E/A Ratio1.9MVA (PHT)2.57cm2 TDI E/Lateral E'9.4E/Medial E'16.0 Pulmonary Valve PV Peak Ntcdhyww688.0cm/sPV Peak Grad.6mmHg Tricuspid Valve TR P. Nyettnhk408kc/sRAP [id number] TR Peak Gr.76ikYrNMAH18ebLk Pulmonary Vein S1 Nkwsctqa60.4cm/sD2 Xyonhrvg84.8cm/s PVa [id number] LEFT VENTRICLE The left ventricle is normal size. There is mild concentric left ventricular hypertrophy. The left ve ntricular systolic function is normal. The Ejection Fraction is 50-55%. Abnormal septal wall motion p robably from conduction abnormality. RIGHT VENTRICLE The right ventricle is normal size. There is normal right ventricular wall thickness. The right ventr icular systolic function is normal. ATRIA The left atrium size is normal. The right atrium size is normal. The interatrial septum is intact wit h no evidence for an atrial septal defect or patent foramen ovale as noted on 2-D or Doppler imaging. AORTIC VALVE The aortic valve is normal in structure and function. Doppler and Color Flow revealed trace aortic re gurgitation. There is no significant aortic valvular stenosis. MITRAL VALVE The mitral valve is normal in structure and function. Doppler and Color-flow revealed trace mitral re gurgitation. TRICUSPID VALVE The tricuspid valve is not well visualized. Doppler and Color Flow revealed trace tricuspid regurgita tion. There is no tricuspid valve stenosis. PULMONIC VALVE The pulmonic valve is not well visualized. Doppler and Color Flow revealed trace pulmonic valvular re gurgitation. GREAT VESSELS The aortic root is normal in size. The IVC was not visualized. PERICARDIAL EFFUSION There is no evidence of significant pericardial effusion. Critical Notification Critical Value: No <Conclusion> The left ventricular systolic function is normal. The Ejection Fraction is 50-55%. Abnormal septal wall motion probably from conduction abnormality. Trace mitral regurgitation. Trace tricuspid regurgitation. There is no evidence of significant pericardial effusion. Signed by : Raghavendra Ching, Electronically Approved : 05/21/2018 12:12:18
== END | disposition home or self-care (01) ==
LOC: ECHO 10:04
PROVIDERS: ATTEND Internal Medicine Cardiovascular Disease
DX: I48.91 Unspecified atrial fibrillation (principal); E11.9 Type 2 diabetes mellitus without complications; I11.9 Hypertensive heart disease without heart failure
CPT/HCPCS: 93306

== ENCOUNTER → 2018-09-01 | Outpatient (CLI) | payer MEDICARE, OTHER ==
[~2018-09-01] MED LIST changes: +CARV3.1210 PO; -CARV3.122 PO; -HYDR-2762 PO; +HYDR-2765 PO; +LOSA100T14 PO; -LOSA100T7 PO; +OMEP20CA10 PO; -OMEP20CA9 PO
--- NOTE | 2018-09-01 10:56 | KCIC ---
Examination: Ultrasound abdomen complete HISTORY: History of fibrosis COMPARISON: 03/25/2017 FINDINGS: The liver length measures 19 cm. There is increased echogenicity noted throughout the liver likely hepatic steatosis. The common bile duct measures 5.2 mm in transverse dimension. Multiple echogenicities identified within the gallbladder with wall echo sign likely gallstones filling the gallbladder. The right kidney measures 10 cm in length. Left kidney measures 10.1 cm in length. There is a complex appearing cystic structure identified in the left kidney measuring 1.9 cm. The right and left kidneys appeared echogenic. The pancreas is not well-visualized. Spleen is not well-visualized. The visualized aorta is within normal limits of dimension. The IVC is not well-visualized due to bowel gas. IMPRESSION: 1. Hepatomegaly with hepatic steatosis. 2. Cholelithiasis filling the gallbladder. 3. Complex appearing cystic structure identified in the left kidney measuring 1.9 cm. 4. Echogenic appearing bilateral kidneys likely due to medical renal disease. Electronically signed by: Klaus Montaño MD (09/01/2018 10:53 AM) [facility]
== END | disposition home or self-care (01) ==
LOC: KCIC US 09:17
PROVIDERS: ATTEND Internal Medicine
DX: K76.0 Fatty (change of) liver, not elsewhere classified (principal); K80.20 Calculus of gallbladder without cholecystitis without obstruction; N28.1 Cyst of kidney, acquired; R16.0 Hepatomegaly, not elsewhere classified
CPT/HCPCS: 76700

== ENCOUNTER → 2018-11-04 | Outpatient (CLI) | payer MEDICARE, OTHER ==
[~2018-11-04] MED LIST changes: +IOHEXOL 240 MG/ML 50ML VIAL. PO ONE; +IOHEXOL 300 MG/ML 100ML VIAL. IV ONE
--- NOTE | 2018-11-04 13:30 | KCIC ---
Examination: CT abdomen without and with IV contrast and CT pelvis with IV contrast HISTORY: History of renal cyst. COMPARISON: 03/27/2017 TECHNIQUE: Axial CT images of the abdomen were performed without and with IV contrast. Axial CT images of the pelvis were performed with IV contrast. Coronal and sagittal reformats are performed. Exposure: One or more of the following individualized dose reduction techniques were utilized for this examination: 1. Automated exposure control 2. Adjustment of the mA and/or kV according to patient size 3. Use of iterative reconstruction technique FINDINGS: Minimal right lung base atelectasis. No evidence of free air identified in the abdomen. Mild decreased attenuation noted in the liver. The visualized spleen, adrenals grossly appears unremarkable. Gallstones identified within the gallbladder. Small hiatal hernia is identified. The stomach is mildly distended. The visualized pancreas grossly appears unremarkable. The small bowel is nondilated. Feces and gas noted in the colon. Multiple sigmoid colon diverticulosis identified. The bilateral kidneys enhance symmetrically. There is a cystic structure identified in the left kidney measuring 1.2 cm and measuring 5 Hounsfield units likely a cyst. Moderate aortic atherosclerosis. The urinary bladder is mildly distended. No evidence of hydronephrosis. Fat-containing ventral hernia just to the right of the midline. There is a small umbilical hernia containing fat. Severe degenerative changes lumbar spine. Mild anterolisthesis of L3 on L4 and L4 on L5. Moderate degenerative changes bilateral hip joints. IMPRESSION: 1. A 1.2 cm cyst identified in the left kidney. 2. Cholelithiasis. 3. Mild hepatic steatosis. 4. Multiple sigmoid colon diverticulosis. 5. Small hiatal hernia. Electronically signed by: Klaus Montaño MD (11/04/2018 1:27 PM) [facility]
== END | disposition home or self-care (01) ==
LOC: KCIC CT 08:38
PROVIDERS: ATTEND Urology
DX: N28.1 Cyst of kidney, acquired (principal); K80.20 Calculus of gallbladder without cholecystitis without obstruction; K76.0 Fatty (change of) liver, not elsewhere classified; K57.30 Diverticulosis of large intestine without perforation or abscess without bleeding; K44.9 Diaphragmatic hernia without obstruction or gangrene; K43.9 Ventral hernia without obstruction or gangrene; K42.9 Umbilical hernia without obstruction or gangrene; J98.11 Atelectasis; K31.89 Other diseases of stomach and duodenum; I70.0 Atherosclerosis of aorta
CPT/HCPCS: 72193; 74170; 82565; Q9967; Q9966

== ENCOUNTER → 2019-03-31 | Outpatient (CLI) | payer MEDICARE, OTHER ==
[~2019-03-31] MED LIST changes: +BARIUM SULFATE 340 GM SUSPENSION. PO ONE; +BARIUM SULFATE 60% 355 ML SUSP PO ONE; -IOHEXOL 240 MG/ML 50ML VIAL. PO ONE; -IOHEXOL 300 MG/ML 100ML VIAL. IV ONE; +SIMETHICONE/SOD BICARB/CITRIC ACID PACKET. PO ONE
--- NOTE | 2019-03-31 16:30 | RAD ---
Examination: ESOPHAGRAM/BARIUM SWALLOW History: Dysphagia Comparison/Correlation: None Findings: Air-contrast esophagram was performed. Fluoroscopy was utilized from 1.6 minutes. A total of 10 fluoroscopic images were acquired. Cricopharyngeal hypertrophy is evident with associated mass effect upon the posterior aspect of the esophagus. Esophageal motility is unremarkable. No significant presbyesophagus. No strictures, webs, or diverticuli. A barium tablet was provided to the patient. It is noted to be lodged at the thoracic inlet level despite liquid barium consumption. Prone Valsalva drinking views were to be performed but the patient was uncomfortable and declined. Gastroesophageal reflux as a result cannot be fully assessed for. Impression: Cricopharyngeal hypertrophy. Barium tablet is identified to be lodged at the thoracic inlet level. Electronically signed by: Ricardo Bennett MD (03/31/2019 4:27 PM) [facility]
== END | disposition home or self-care (01) ==
LOC: RAD 09:29
PROVIDERS: ATTEND Internal Medicine
DX: J39.2 Other diseases of pharynx (principal)
CPT/HCPCS: 74220

== ENCOUNTER → 2019-04-23 | Outpatient (CLI) | payer MEDICARE, OTHER ==
[~2019-04-23] MED LIST changes: -BARIUM SULFATE 340 GM SUSPENSION. PO ONE; -BARIUM SULFATE 60% 355 ML SUSP PO ONE; -GLIM2TAB2 PO; +GLIM2TAB3 PO; -SIMETHICONE/SOD BICARB/CITRIC ACID PACKET. PO ONE
--- NOTE | 2019-04-23 13:17 | CARD ---
MR#: [id number] Date of Study: 04/23/2019 Ordering Physician: ANNA LLANOS, Referring Physician: ANNA LLANOS, Tech: Lou Bustillos APPROVED REPORT EXAM: Two-dimensional and M-mode echocardiogram with Doppler and color Doppler. Other Information Quality : FairHR: 91bpm INDICATION Hypertension/HCVD RISK FACTORS Diabetes 2D DIMENSIONS Left Atrium(2D)4.0 (1.6-4.0cm)IVSd1.1 (0.7-1.1cm) Aortic Root(2D)3.1 (2.0-3.7cm)LVDd4.2 (3.9-5.9cm) LVOT Diameter2.0 (1.8-2.4cm)PWd1.0 (0.7-1.1cm) LVDs2.5 (2.5-4.0cm)FS (%) 40.6 % SV56.0 mlLVEF(%)71.8 (>50%) Aortic Valve AoV Peak Cornelio.113.3cm/sAoV VTI19.5cm AO Peak GR.5.1mmHgLVOT Peak Cornelio.85.9cm/s LVOT VTI 18.04cmAO Mean GR.3mmHg BERENICE (VMAX)1.96dj4PNK (VTI)3.01cm2 Mitral Valve MV E Erahncyx395.3cm/sMV E Peak Gr.85mmHg TDI E/Lateral E'20.3E/Medial E'30.0 Pulmonary Valve PV Peak Illdbnrh159.4cm/sPV Peak Grad.4mmHg Tricuspid Valve TR P. Gefmjuga026ip/sRAP MYOJNXND9saKf TR Peak Gr.92tuNnACEF40akVm Pulmonary Vein S1 Bisvbgwl26.7cm/sD2 Joidroik35.4cm/s PVa kkxrdyfn020kzqr LEFT VENTRICLE The left ventricle is normal size. There is mild concentric left ventricular hypertrophy. The left ve ntricular systolic function is low normal. The Ejection Fraction is 45-50%. Wall motion consistent wi th conduction abnormality. Tissue Doppler imaging reveals moderate left ventricular diastolic dysfunc tion. RIGHT VENTRICLE The right ventricle is normal size. There is normal right ventricular wall thickness. The right ventr icular systolic function is normal. ATRIA The left atrium size is normal. The right atrium size is normal. The interatrial septum is intact wit h no evidence for an atrial septal defect or patent foramen ovale as noted on 2-D or Doppler imaging. AORTIC VALVE The aortic valve is thickened and calcified. Doppler and Color Flow revealed trace aortic regurgitati on. There is no significant aortic valvular stenosis. MITRAL VALVE The mitral valve is normal in structure and function. There is no evidence of mitral valve prolapse. There is no mitral valve stenosis. Doppler and Color-flow revealed trace mitral regurgitation. TRICUSPID VALVE The tricuspid valve is normal in structure and function. Doppler and Color Flow revealed trace to mil d tricuspid regurgitation with an estimated PAP of 36 mmHg. There is no tricuspid valve prolapse or v egetation. There is no tricuspid valve stenosis. PULMONIC VALVE The pulmonic valve is not well visualized. Doppler and Color Flow revealed trace pulmonic valvular re gurgitation. There is no pulmonic valvular stenosis. GREAT VESSELS The aortic root is normal in size. The IVC is normal in size and collapses >50% with inspiration. PERICARDIAL EFFUSION There is no evidence of significant pericardial effusion. Critical Notification Critical Value: No <Conclusion> The left ventricular systolic function is low normal. The Ejection Fraction is 45-50%. Wall motion consistent with conduction abnormality. There is mild concentric left ventricular hypertrophy. Signed by : Anna Llanos, Electronically Approved : 04/23/2019 13:16:46
== END | disposition home or self-care (01) ==
LOC: ECHO 09:45
PROVIDERS: ATTEND Internal Medicine Cardiovascular Disease
DX: I08.2 Rheumatic disorders of both aortic and tricuspid valves (principal); I11.9 Hypertensive heart disease without heart failure
CPT/HCPCS: 93306

== ENCOUNTER → 2019-06-15 | Day surgery (SDC) | payer MEDICARE, OTHER ==
[~2019-06-15] MED LIST changes: +HYDROmorphone 2 MG/ML VIAL IV PRN; +IV RINGERS,LACTATED 1000ML 1,000 ML IV SCH; +LIDOCAINE 1% PF 2 ML VIAL. ID PRN; +LIDOCAINE 2% PF 5 ML VIAL. ONE; +MORPHINE SULFATE 2 MG/ML VIAL. IV PRN; +OMEP-229 PO; -OMEP20CA10 PO; +ONDANSETRON PF 4 MG/2 ML VIAL. IV PRN; +PROCHLORPERAZINE 10 MG/2 ML VIAL. IV PRN; +PROPOFOL 20 ML IV ONE; +fentaNYL PF VIAL 100 MCG/2 ML VIAL IV PRN
--- NOTE | 2019-06-15 13:51 | PDOC4 ---
PROCEDURE Procedure EGD/biopsies, dilation Indication: Dysphagia Meds: per anesthesia Findings: E--Healed, baseline grade unclear but probably erosive, reflux at 35cm G--Small HH. Striped erythema, antrum. Bx's antrum and fundus. D--Normal to second portion. --empirically dilated with 52F Harding w/o resistance. Dawn. well. IMP: GERD Small HH\ Non-specific antral erythema. REC: Continue PPI, other meds and diet as before. F/u in 2 weeks to gauge response to dilation; if still issues, barium swallow and consider prokinetic. ALVARO LOPEZ MD Jun 15, 2019 13:51
[2019-06-15 14:04] VITALS: BP 111/85
--- NOTE | 2019-06-16 15:07 | PATHOLOGY ---
[facility] Accession Number: [id number] . 01 Material submitted: . PART A: stomach - ANTRAL BIOPSY PART B: stomach - FUNDUS BIOPSY. Modifiers: fundus . 01 Clinical history: . Dysphagia . 02 Diagnosis: A. Gastric biopsy, antrum: - Chronic gastritis, mild to moderate. . B. Gastric biopsy, gastric fundus: - Mild superficial chronic gastritis. LBQ 06/16/2019 1023 Local . 02 Comment: Sections of the gastric antral biopsy show congestion and mild to moderate chronic inflammation. A properly controlled immunoperoxidase stain for Helicobacter is negative for Helicobacter organisms. There is no evidence of malignancy. . Sections of the gastric fundus biopsy show congestion and mild superficial chronic inflammation. A properly controlled immunoperoxidase stain for Helicobacter is negative for Helicobacter organisms. There is no evidence of malignancy. (JPM/db; 06/16/2019) . 02 Electronically signed: . Pieter Kinsey MD, Pathologist NPI- [id number] . 01 Gross description: . A. Received in formalin labeled "Rodrigo, Cherri, antral BX," is a single segment of rowley soft tissue measuring 0.6 cm in maximum dimension. The specimen is entirely submitted in cassette A1. . B. Received in formalin labeled "Rodrigo, Cherri, fundus BX," is a single segment of rowley soft tissue measuring 0.7 cm in maximum dimension. The specimen is entirely submitted in cassette B1. (TSD; 06/15/2019) TOB/TOB 06/15/2019 2236 Local . 02 Pathologist provided ICD-10: K29.50, K29.30 . 02 CPT . 848319, 640718, A11361 Specimen Comment: A courtesy copy of this report has been sent to [phone], [phone] Specimen Comment: [id number] Specimen Comment: Report sent to and Specimen Comment: A duplicate report has been generated due to demographic updates. Performed at: [address], [place] [id number] MD Don Bray MD Phone: [phone] [facility]formed at: [facility] [address] [place], [place] [id number] MD Pieter Kinsey MD Phone: [phone]
== END | disposition home or self-care (01) ==
LOC: SURG 11:58
PROVIDERS: ATTEND Internal Medicine Gastroenterology
DX: R13.10 Dysphagia, unspecified (principal); K29.50 Unspecified chronic gastritis without bleeding; K21.0 Gastro-esophageal reflux disease with esophagitis; K44.9 Diaphragmatic hernia without obstruction or gangrene; E78.00 Pure hypercholesterolemia, unspecified; E11.9 Type 2 diabetes mellitus without complications; Z88.6 Allergy status to analgesic agent; Z88.1 Allergy status to other antibiotic agents; Z88.5 Allergy status to narcotic agent; Z88.8 Allergy status to other drugs, medicaments and biological substances; Z79.84 Long term (current) use of oral hypoglycemic drugs
CPT/HCPCS: 43239; 43450; 88305; 88342; J2001; J2704

== ENCOUNTER 2019-09-07 09:09 | Day surgery (SDC) | payer MEDICARE, OTHER ==
[~2019-09-07 09:09] MED LIST changes: -GLIM2TAB3 PO; +GLIM2TAB7 PO; -HYDROmorphone 2 MG/ML VIAL IV PRN; +INFL100V IV; -LIDOCAINE 1% PF 2 ML VIAL. ID PRN; -LIDOCAINE 2% PF 5 ML VIAL. ONE; +METO50TA4 PO; -MORPHINE SULFATE 2 MG/ML VIAL. IV PRN; -OMEP-229 PO; +OMEP20CA16 PO; -ONDANSETRON PF 4 MG/2 ML VIAL. IV PRN; -PROCHLORPERAZINE 10 MG/2 ML VIAL. IV PRN; -PROPOFOL 20 ML IV ONE; -VALS1TAB27 PO; +VALS1TAB28 PO; -fentaNYL PF VIAL 100 MCG/2 ML VIAL IV PRN
[2019-09-07] MEDS ORDERED: PROPOFOL 20 ML IV ONE (09:21)
[2019-09-07] MEDS ORDERED: INSULIN LISPRO 100 UNIT/ML 3ML VIAL for OP,RR ONLY. SQ PRN (09:45)
--- NOTE | 2019-09-07 10:17 | EKG ---
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
[2019-09-07 10:18] LABS: CALCIUM 9.1 mg/dL (8.5-10.1); CREATININE 1.1 mg/dL (0.6-1.0); GFR 48.3; POTASSIUM 3.6 mmol/L (3.5-5.1)
[2019-09-07 10:47] LABS: BASO # 0.1 x10^3/uL (0.0-0.2); BASO % 1 % (0-3); EOS # 0.2 x10^3/uL (0.0-0.7); EOS % 3 % (0-3); HEMATOCRIT 37.6 % (36.0-47.0); HEMOGLOBIN 12.5 g/dL (12.0-15.5); LYMPH # 1.7 x10^3/uL (1.0-4.8); LYMPH % 33 % (24-48); MEAN CORPUSCULAR HEMOGLOBIN 28 pg (25-35); MEAN CORPUSCULAR HGB CONC 33 g/dL (31-37); MEAN CORPUSCULAR VOLUME 86 fL (79-100); MONO # 0.8 x10^3/uL (0.0-1.1); MONO % 15 % (0-9); NEUT # 2.3 x10^3/uL (1.8-7.7); NEUT % 47 % (31-73); PLATELET COUNT 237 x10^3/uL (140-400); RED CELL DISTRIBUTION WIDTH 14.9 % (11.5-14.5)
[2019-09-07 11:00] LABS: PROTHROMBIN TIME PATIENT 27.3 SEC (11.7-14.0)
--- NOTE | 2019-09-07 11:06 | EKG ---
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
[2019-09-07 11:31] VITALS: BP 114/63
[2019-09-07] MEDS ORDERED: METO-239 PO (11:54)
--- NOTE | 2019-09-08 17:50 | PDOC4 ---
PROCEDURE Procedure Indication: [afib and dyspnea] Consent: The patient provided verbal/written consent for this procedure. Pre-Medication: [propofol, see anesthesia notes] Procedure: The patient was placed in the supine position and the chest area was exposed. The cardioversion pads were applied in the standard manner and configuration. The defibrillator was set on the [DEFIB MODE:] mode and charged to [200 joules. A charge was then delivered which resulted in [SR]. The patient tolerated the procedure well. Complications: none. [] ANNA LENZ MD Sep 08, 2019 17:50
--- NOTE | 2019-09-08 17:53 | PDOC1 ---
History and Physical Visit Information Date of Admission: 09/07/2019 Late entry History of Present Illness History of Present Illness Pleasant 74-year-old woman coming into the hospital today for planned elective outpatient cardioversion in the setting of dyspnea and atrial fibrillation. She has been on appropriate medical therapy including anticoagulation and rate control agents including metoprolol and diltiazem Cardiac Risk Factors Comments 1. Morbid obesity 2. Irritable bowel disease 3. Proximal atrial fibrillation 4. Left bundle branch block 5. Hypertension 6. Diastolic heart failure, chronic EF 55% Allergies Allergies Allergies Coded Allergies Type Severity Reaction Last Updated Verified amlodipine Allergy Intermediate 06/15/19 Yes atorvastatin Allergy Intermediate 06/15/19 Yes ciprofloxacin Allergy Intermediate 06/15/19 Yes ezetimibe Allergy Intermediate 06/15/19 Yes lisinopril Allergy Intermediate 06/15/19 Yes metformin Allergy Intermediate 06/15/19 Yes methotrexate Allergy Intermediate 12/15/15 Yes pravastatin Allergy Intermediate 12/15/15 Yes Uncoded Allergies Type Severity Reaction Last Updated Verified calcium acetate Allergy Unknown Unknown 09/04/19 Social History Smoke: No ALCOHOL: none Drugs: None Lives: with Family ROS Review of System Negative unless otherwise mentioned above in history of present illness Physical Exam General: Alert, Oriented X3, Cooperative HEENT: Atraumatic Heart: Normal S1, Normal S2, Other (irregularly irregular) CHEST: Clear to auscultation, No wheezes Abdomen: Normal bowel sounds Extremities: No clubbing Skin: No rashes Neuro: Normal gait Vitals VITALS Vital Signs Date Time Temp Pulse Resp B/P (MAP) Pulse Ox O2 Delivery O2 Flow Rate FiO2 09/07/19 11:31 98.2 72 16 114/63 96 Room Air 98.2 09/07/19 10:51 4 Labs Labs Laboratory Tests Test 09/07/19 09:56 White Blood Count 5.0 x10^3/uL (4.0-11.0) Red Blood Count 4.40 x10^6/uL (3.50-5.40) Hemoglobin 12.5 g/dL (12.0-15.5) Hematocrit 37.6 % (36.0-47.0) Mean Corpuscular Volume 86 fL (79-100) Mean Corpuscular Hemoglobin 28 pg (25-35) Mean Corpuscular Hemoglobin Concent 33 g/dL (31-37) Red Cell Distribution Width 14.9 % (11.5-14.5) Platelet Count 237 x10^3/uL (140-400) Neutrophils (%) (Auto) 47 % (31-73) Lymphocytes (%) (Auto) 33 % (24-48) Monocytes (%) (Auto) 15 % (0-9) Eosinophils (%) (Auto) 3 % (0-3) Basophils (%) (Auto) 1 % (0-3) Neutrophils # (Auto) 2.3 x10^3/uL (1.8-7.7) Lymphocytes # (Auto) 1.7 x10^3/uL (1.0-4.8) Monocytes # (Auto) 0.8 x10^3/uL (0.0-1.1) Eosinophils # (Auto) 0.2 x10^3/uL (0.0-0.7) Basophils # (Auto) 0.1 x10^3/uL (0.0-0.2) Prothrombin Time 27.3 SEC (11.7-14.0) Prothromb Time International Ratio 2.5 (0.8-1.1) Sodium Level 140 mmol/L (136-145) Potassium Level 3.6 mmol/L (3.5-5.1) Chloride Level 104 mmol/L (98-107) Carbon Dioxide Level 25 mmol/L (21-32) Anion Gap 11 (6-14) Blood Urea Nitrogen 28 mg/dL (7-20) Creatinine 1.1 mg/dL (0.6-1.0) Estimated GFR (Cockcroft-Gault) 48.3 Glucose Level 158 mg/dL (70-99) Calcium Level 9.1 mg/dL (8.5-10.1) ECG EKG: A.Fib, w/ vent. rate of: VTE Prophylaxis Ordered VTE Prophylaxis Devices: No VTE Pharmacological Prophylaxi: No Assessment/Plan Assessment/Plan 1. Paroxysmal atrial fibrillation Plan for a cardioversion. Continue anticoagulation and rate control agents. ANNA LENZ MD Sep 08, 2019 17:53
== END 2019-09-07 12:10 | disposition home or self-care (01) ==
LOC: SURG 09:09
PROVIDERS: ATTEND Internal Medicine Cardiovascular Disease
DX: I48.91 Unspecified atrial fibrillation (principal)
CPT/HCPCS: 36415; 80048; 85025; 85610; 92960; 93005; J2704

== ENCOUNTER → 2020-02-18 | Outpatient (CLI) | payer MEDICARE, OTHER ==
[2019-09-18 10:35] VITALS: BP 139/85
[~2020-02-18] MED LIST changes: +AMIO200T4 PO; +ASPI-171 PO; -ASPI-612 PO; +ASPI-886 PO; +GOLI50VI IV; -IV RINGERS,LACTATED 1000ML 1,000 ML IV SCH; +LEFL10TA13 PO; +LINE600T12 PO; +METO-239 PO; +METO50TA6 PO; +MULT-445 PO; -MULT1TAB52 PO; +NITR0.4T24 SL; +OMEG1CAP68 PO; +OXYC5TAB2 PO; +POTA20TA4 PO; +TRIA1TAB3 PO
== END | disposition home or self-care (01) ==
LOC: LAB 13:23
PROVIDERS: ATTEND Internal Medicine Cardiovascular Disease
DX: Z01.818 Encounter for other preprocedural examination (principal); Z11.59 Encounter for screening for other viral diseases; R06.00 Dyspnea, unspecified
CPT/HCPCS: U0003-CS

== ENCOUNTER 2020-02-22 08:55 | Inpatient (IN) | payer MEDICARE, OTHER ==
[2020-02-22] VITALS (19 sets, daily range): BP systolic 122–167; BP diastolic 54–82
[~2020-02-22] VITALS: Ht 154.9 cm; Wt 104.7 kg
[~2020-02-22 08:55] MED LIST changes: -ASPI-171 PO; -LINE600T12 PO; -NITR0.4T24 SL; -OXYC5TAB2 PO
[2020-02-22] MEDS ORDERED: IODIXANOL 320 MG/ML 100 ML VIAL. ONE (09:32)
[2020-02-22] MEDS ORDERED: HEPARIN for ARTERIAL LINE 1,500 ML ONE (09:32)
[2020-02-22] MEDS ORDERED: LIDOCAINE 1% PF 2 ML VIAL. ONE (09:32)
[2020-02-22 10:02] LABS: HEMATOCRIT 41.2 % (36.0-47.0); HEMOGLOBIN 13.4 g/dL (12.0-15.5); RED BLOOD COUNT 4.73 x10^6/uL (3.50-5.40); RED CELL DISTRIBUTION WIDTH 15.9 % (11.5-14.5); WHITE BLOOD COUNT 6.4 x10^3/uL (4.0-11.0)
[2020-02-22 10:06] LABS: CALCIUM 8.9 mg/dL (8.5-10.1); GFR 53.8; POTASSIUM 3.7 mmol/L (3.5-5.1)
[2020-02-22] MEDS ORDERED: fentaNYL PF VIAL 100 MCG/2 ML VIAL ONE (10:22)
[2020-02-22] MEDS ORDERED: VERAPAMIL 5 MG/2 ML VIAL. ONE (10:22)
[2020-02-22] MEDS ORDERED: HEPARIN for IV BOLUS 10,000 UNIT/10 ML VIAL. ONE (10:22)
[2020-02-22] MEDS ORDERED: NITROGLYCERIN 200 MCG/2 ML SYRINGE FOR CATH/VASC LAB. ONE (10:22)
[2020-02-22] MEDS ORDERED: MIDAZOLAM HCL/PF 2 MG/2 ML VIAL. ONE (10:22)
[2020-02-22] MEDS ORDERED: TIROFIBAN 5MG -0.9% NS 100 ML IV ONE ×2 (10:55→12:43)
[2020-02-22 11:00] LABS: PROTHROMBIN TIME PATIENT 13.5 SEC (11.7-14.0)
[2020-02-22] MEDS ORDERED: HEPARIN for IV BOLUS 10,000 UNIT/10 ML VIAL. IV ONE (11:00)
[2020-02-22] MEDS ORDERED: IODIXANOL 320 MG/ML 100 ML VIAL. IART ONE (11:00)
[2020-02-22] MEDS ORDERED: MIDAZOLAM HCL/PF 2 MG/2 ML VIAL. IV ONE (11:00)
[2020-02-22] MEDS ORDERED: fentaNYL PF VIAL 100 MCG/2 ML VIAL IV ONE (11:00)
[2020-02-22] MEDS ORDERED: VERAPAMIL 5 MG/2 ML VIAL. IART ONE (11:00)
[2020-02-22] MEDS ORDERED: HEPARIN for IV BOLUS 10,000 UNIT/10 ML VIAL. IART ONE (11:00)
[2020-02-22] MEDS ORDERED: NITROGLYCERIN 200 MCG/2 ML SYRINGE FOR CATH/VASC LAB. IART ONE ×3 (11:00→11:30)
[2020-02-22] MEDS ORDERED: LIDOCAINE 1% PF 2 ML VIAL. INJ ONE (11:00)
[2020-02-22] MEDS: TIROFIBAN 5MG -0.9% NS 100 ML IV PRN ×3 (11:15→23:15)
[2020-02-22] MEDS ORDERED: CLOPIDOGREL BISULFATE 75 MG TABLET PO ONE (11:30)
[2020-02-22] MEDS ORDERED: ASPIRIN 325 MG TABLET PO ONE (11:30)
--- NOTE | 2020-02-22 12:05 | CARD ---
MR#: [id number] Date of Study: 02/22/2020 Ordering Physician: ANNA LENZ, Referring Physician: ANNA LENZ, Tech: RT Miguel (R) APPROVED REPORT Technologist: Antelmo Parish RT (R) Nurse: Mary Ann Villafuerte Procedure(s) performed: fl time: 16.7 mins dose: 179 gycm2 contrast: 141 ml moderate sedation: 57 MINS LHC, Coronary angiography PCI of the RCA HISTORY The patient is a 75 year-old female with a history of : hypertension, dyslipidemia. INDICATION The indication(s) include : unstable angina . CSHA Clinical Frailty Scale CS Clinical Frailty Scale: Mildly Frail Heart Failure Heart Failure: Yes If Yes, Newly Diagnosed: No If Yes, HF Type: Diastolic If Yes, NYHA Class: Class II PROCEDURE NARRATIVE Clinical indication: 75-year-old woman with persistent dyspnea and chest pressure suggestive of unsta ble angina Procedure details: After appropriate informed consent the patient was brought to the catheterization lab. The right wri st was prepped and draped in usual sterile fashion. A 6 Uzbek introducer sheath was placed without any difficulty. Diagnostic angiography was performed with a 6 Uzbek TIG catheter. Left ventricular end-diastolic pressure was obtained with a JR4 guide catheter. Aorta 150/80 Heart rate 75 LVEDP 18 mmHg, no gradient on pullback Findings: Left main is a large-caliber vessel with mild luminal irregularities LAD is a moderate to large caliber vessel with mild luminal irregularities D1 is a small caliber vessel with an proximal 90% stenosis Left circumflex is a codominant vessel with a proximal to mid diffuse irregularities of up to 50%. OM1 has a patent proximal stent with a 50% distal stented stenosis RCA is a moderate caliber vessel with a mid 80% stenosis Interventional technique: Given the patient's dyspnea and unstable anginal symptoms with a 80% RCA stenosis and intervention wa s performed. Heparin and tirofiban were used for anticoagulation. Through a 6 Uzbek JR4 guide cath eter a 0.014 inch pro-water wire was initially unable to cross the lesion due to tortuosity. Subsequ ently, a Choice PT wire was used to traverse the lesion. Balloon angioplasty was performed with a 2. 5 mm balloon the lesion was stented with a 3.0 x 12 mm resolute Davon drug-eluting stent at 30 jose juan. F inal angiography demonstrated excellent stent expansion with TOAN-3 flow and no evidence of guidewire related complications. The patient received 600 mg of Plavix at case completion. Complications: No acute complications noted TOAN Flow TOAN Flow (Pre-Intervention): TOAN-3 TOAN Flow (Post-Intervention): TOAN-3 Conclusion 1. Mildly elevated left-sided filling pressures 2. Three-vessel coronary artery disease 3. Successful PCI of the RCA with implantation of a 3.0 x 12 mm resolute drug-eluting stent Recommendations Plavix 75 mg daily Restart Xarelto daily for afib history Cardiac rehab referral Patient is allergic to statin therapy Signed by : Anna Lenz, Electronically Approved : 02/22/2020 12:04:37
[2020-02-22] MEDS ORDERED: 0.9 % SODIUM CHLORIDE 10 ML DISP.SYRIN. IV PRN (12:45)
[2020-02-22] MEDS ORDERED: NITROGLYCERIN SUBLINGUAL 0.4 MG BOTTLE OF 25. SL PRN (12:45)
[2020-02-22] MEDS ORDERED: METO50TA6 PO (13:27)
[2020-02-22] MEDS ORDERED: OXYC5TAB2 PO (13:29)
[2020-02-22] MEDS ORDERED: POTA20TA4 PO (13:42)
[2020-02-22] MEDS ORDERED: ASPI-171 PO (13:42)
[2020-02-22] MEDS: POTASSIUM CHLORIDE 20 MEQ TABLET.ER. PO SCH (17:41)
[2020-02-22] MEDS: METOPROLOL TART IMMED RELEASE 50 MG TABLET. PO SCH (20:30)
[2020-02-22] MEDS: oxyCODONE IR 5 MG TABLET PO SCH (20:31)
[2020-02-22] MEDS: AMIODARONE HCL 200 MG TABLET. PO SCH (20:31)
[2020-02-23 04:18] VITALS: BP 125/64
[2020-02-23 07:00] VITALS: BP 162/84
[2020-02-23] MEDS ORDERED: PANTOPRAZOLE 40 MG TABLET.DR. PO SCH (07:30)
[2020-02-23] MEDS ORDERED: ASPIRIN ENTERIC COATED 81 MG TABLET.DR. PO SCH ×2 (08:00→09:00)
[2020-02-23] MEDS ORDERED: CLOPIDOGREL BISULFATE 75 MG TABLET PO SCH (08:00)
[2020-02-23] MEDS: POTASSIUM CHLORIDE 20 MEQ TABLET.ER. PO SCH (08:25)
[2020-02-23] MEDS: oxyCODONE IR 5 MG TABLET PO SCH (08:31)
[2020-02-23] MEDS: METOPROLOL TART IMMED RELEASE 50 MG TABLET. PO SCH (08:31)
[2020-02-23 08:32] VITALS: BP 125/64
[2020-02-23] MEDS: AMIODARONE HCL 200 MG TABLET. PO SCH (08:32)
[2020-02-23] MEDS ORDERED: ANTI-COAG MONITOR BY PHARMACY. MC PRN (08:45)
[2020-02-23] MEDS ORDERED: GLIMEPIRIDE 2 MG TABLET. PO SCH (09:00)
[2020-02-23] MEDS ORDERED: RIVAROXABAN 10 MG TABLET. PO SCH (09:00)
[2020-02-23] MEDS ORDERED: OMEGA-3 FATTY ACIDS/FISH OIL 1,000 MG CAPSULE. PO SCH (09:00)
[2020-02-23] MEDS ORDERED: LOSARTAN POTASSIUM 50 MG TABLET. PO SCH (09:00)
[2020-02-23] MEDS ORDERED: CHOLECALCIFEROL (VITAMIN D3) 1,000 UNIT TABLET PO SCH (09:00)
[2020-02-23] MEDS ORDERED: TRIAMTERENE/HCTZ 37.5/25MG TABLET. PO SCH (09:00)
--- NOTE | 2020-02-23 09:43 | PDOC3 ---
MONALISA KHAN PARKING ENFORCEMENT MANAGER 02/23/20 0942: Discharge Summary Visit Information Date of Admission: Feb 22, 2020 Date of Discharge: Feb 23, 2020 Admitting Diagnosis: Unstable angina, dyspnea, DM2, HLP, CAD, AIB Final Diagnosis Unstable angina, dyspnea, DM2, HLP, CAD, AFIB, S/P PCI/JASMYNE to RCA Brief Hospital Course Allergies Allergies Coded Allergies Type Severity Reaction Last Updated Verified amlodipine Allergy Intermediate 06/15/19 Yes atorvastatin Allergy Intermediate 06/15/19 Yes calcium Allergy Intermediate 09/16/19 Yes ciprofloxacin Allergy Intermediate 06/15/19 Yes ezetimibe Allergy Intermediate 06/15/19 Yes lisinopril Allergy Intermediate 06/15/19 Yes metformin Allergy Intermediate 06/15/19 Yes methotrexate Allergy Intermediate 12/15/15 Yes pravastatin Allergy Intermediate 12/15/15 Yes Vital Signs Vital Signs Date Time Temp Pulse Resp B/P (MAP) Pulse Ox O2 Delivery O2 Flow Rate FiO2 02/23/20 08:32 78 125/64 02/23/20 08:31 20 Room Air 02/23/20 07:00 98.0 96 98.0 02/22/20 11:00 2.0 Lab Results Laboratory Tests Test 02/22/20 09:45 White Blood Count 6.4 x10^3/uL (4.0-11.0) Red Blood Count 4.73 x10^6/uL (3.50-5.40) Hemoglobin 13.4 g/dL (12.0-15.5) Hematocrit 41.2 % (36.0-47.0) Mean Corpuscular Volume 87 fL (79-100) Mean Corpuscular Hemoglobin 28 pg (25-35) Mean Corpuscular Hemoglobin Concent 33 g/dL (31-37) Red Cell Distribution Width 15.9 % (11.5-14.5) Platelet Count 272 x10^3/uL (140-400) Prothrombin Time 13.5 SEC (11.7-14.0) Prothromb Time International Ratio 1.1 (0.8-1.1) Activated Partial Thromboplast Time 28 SEC (24-38) Sodium Level 140 mmol/L (136-145) Potassium Level 3.7 mmol/L (3.5-5.1) Chloride Level 103 mmol/L (98-107) Carbon Dioxide Level 27 mmol/L (21-32) Anion Gap 10 (6-14) Blood Urea Nitrogen 14 mg/dL (7-20) Creatinine 1.0 mg/dL (0.6-1.0) Estimated GFR (Cockcroft-Gault) 53.8 Glucose Level 161 mg/dL (70-99) Calcium Level 8.9 mg/dL (8.5-10.1) Laboratory Tests Test 02/22/20 09:45 White Blood Count 6.4 x10^3/uL (4.0-11.0) Red Blood Count 4.73 x10^6/uL (3.50-5.40) Hemoglobin 13.4 g/dL (12.0-15.5) Hematocrit 41.2 % (36.0-47.0) Mean Corpuscular Volume 87 fL (79-100) Mean Corpuscular Hemoglobin 28 pg (25-35) Mean Corpuscular Hemoglobin Concent 33 g/dL (31-37) Red Cell Distribution Width 15.9 % (11.5-14.5) Platelet Count 272 x10^3/uL (140-400) Prothrombin Time 13.5 SEC (11.7-14.0) Prothromb Time International Ratio 1.1 (0.8-1.1) Activated Partial Thromboplast Time 28 SEC (24-38) Sodium Level 140 mmol/L (136-145) Potassium Level 3.7 mmol/L (3.5-5.1) Chloride Level 103 mmol/L (98-107) Carbon Dioxide Level 27 mmol/L (21-32) Anion Gap 10 (6-14) Blood Urea Nitrogen 14 mg/dL (7-20) Creatinine 1.0 mg/dL (0.6-1.0) Estimated GFR (Cockcroft-Gault) 53.8 Glucose Level 161 mg/dL (70-99) Calcium Level 8.9 mg/dL (8.5-10.1) Brief Hospital Course Ms. Wallace is a 75 yo female admitted for planned [facility]. She has 3VD with significant lesion noted to RCA which is moderate in caliber. Noted moderate lesion to LCx. OM1 has a patent proximal stent with a 50% distal stented stenosis and D1 is a small caliber vessel with an proximal 90% stenosis. S/P PCI/JASMYNE to RCA. She tolerate procedure well without immediate complications. Overnight she did well. AOx3, LSCTA, ambulatory. AFIB but rate controlled. No CP or SOA. Right wrist arteriotomy site intact, no swelling or erythema, neurovascular status to right hand intact. BG controlled. VSS. Continue secondary prevention. No ASA given plavix and xarelto use to reduce risk for bleeding. Encouraged cardiac rehab. Will also evaluate utility for PCSK9i given her significant allergy to statin. Continue secondary prevention measures. Follow up as scheduled and reevaluate for outpt CVN. Discharge Information Condition at Discharge: Stable Follow Up: Weeks (4) Disposition/Orders: D/C to Home Scheduled Amiodarone Hcl (Amiodarone Hcl) 200 Mg Tablet, 1 TAB PO DAILY for AFIB, #30 Ref 1 Prescribed by: MONALISA KHAN on 02/23/20 1718 Cholecalciferol (Vitamin D3) (Vitamin D) 2,000 Unit Capsule, 1 CAP PO DAILY, #30 Ref 3 (Reported) Entered as Reported by: JATINDER MIGUEL on 03/25/17 0150 Last Action: Converted on 02/22/201518 by Khanh Sparks Clopidogrel Bisulfate (Clopidogrel) 75 Mg Tablet, 75 MG PO DAILYWBKFT for cad, #30 Ref 4 Prescribed by: MONALISA KHAN on 02/23/20 0951 Diltiazem Hcl (Cartia Xt) 300 Mg Cap.er.24h, 300 MG PO DAILY, (Reported) Entered as Reported by: KATIE LEVINE on 05/01/17 1028 Last Taken: Unknown Dose on 02/22/20 Last Action: Continued on 02/22/201518 by Khanh Sparks Glimepiride (Glimepiride) 2 Mg Tablet, 1 TAB PO DAILY, #30 Ref 5 (Reported) Entered as Reported by: KATIE LEVINE on 05/01/17 1029 Last Action: Continued on 02/22/201518 by Khanh Sparks Golimumab (Simponi Aria) 50 Mg/4 Ml Vial, 200 MG IV UD for rx, (Reported) takes every 8 weeks Entered as Reported by: JUAN LUIS DONIS on 02/19/20 1223 Last Action: New Order on 02/19/201222 by JUAN LUIS DONIS Leflunomide (Leflunomide) 20 Mg Tablet, 0.5 TAB PO DAILY for ARTHRITIS, (Reported) Entered as Reported by: SHIMA MCCOY on 09/16/19 0737 Last Action: Edited on 02/19/201222 by JUAN LUIS DONIS Losartan Potassium (Losartan Potassium) 100 Mg Tablet, 100 MG PO DAILY, (Reported) Entered as Reported by: KATIE LEVINE on 05/01/17 1029 Last Taken: Unknown Dose on 02/22/20 Last Action: Converted on 02/22/201518 by Khanh Sparks Metoprolol Tartrate (Metoprolol Tartrate) 50 Mg Tablet, 1 TAB PO BID for htn, #60 Ref 5 (Reported) Entered as Reported by: Khanh Sparks on 02/22/20 1327 Last Taken: Unknown Dose on 02/22/20 Last Action: Continued on 02/22/201518 by Khanh Sparks [place]-3/Dha/Epa/Fish Oil (Fish Oil 500 Mg Softgel) 1 Each Capsule, 2 CAP PO DAILY for rx for 30 Days, #60 Ref 0 (Reported) Entered as Reported by: JUAN LUIS DONIS on 02/19/20 1223 Last Action: Converted on 02/22/201518 by Khanh Sparks Omeprazole (Omeprazole) 20 Mg Capsule.dr, 1 CAP PO DAILY, #30 Ref 5 (Reported) Entered as Reported by: JATINDER MIGUEL on 03/25/17 0650 Last Action: Converted on 02/22/201518 by Khanh Sparks Oxycodone HCl (Oxycodone HCl) 5 Mg Tablet, 5 MG PO BID for pain, (Reported) Entered as Reported by: Khanh Sparks on 02/22/20 1329 Last Taken: Unknown Dose on 02/22/20 Last Action: Continued on 02/22/201518 by Khanh Sparks Potassium Chloride (Klor-Con M20) 20 Meq Tab.er.prt, 20 MEQ PO BIDWMEALS for kcl, #60 Prescribed by: ALVARO YEN on 09/18/19 1055 Last Action: Continued on 02/22/201518 by Khanh Sparks Rivaroxaban (Xarelto) 20 Mg Tablet, 20 MG PO DAILY for rx, (Reported) Entered as Reported by: KATIE LEVINE on 05/01/17 1030 Last Taken: Unknown Dose on 02/19/20 Last Action: Converted on 02/22/20 1519 by Khanh Sparks Triamterene/Hydrochlorothiazid (Triamterene-Hctz 37.5-25 Mg Tb) 1 Each Tablet, 1 TAB PO DAILY for HTN, (Reported) Entered as Reported by: SHIMA MCCOY on 09/16/19 0737 Last Action: Continued on 02/22/20 1519 by Khanh Sparks Scheduled PRN Nitroglycerin (Nitrostat) 0.4 Mg Tab.subl, 0.4 MG SL PRN Q5MIN PRN for CHEST PAIN, #20 Ref 1 Prescribed by: MONALISA KHAN on 02/23/20 0951 Discontinued Medications Amiodarone Hcl (Amiodarone Hcl) 200 Mg Tablet, 200 MG PO BID for a fib, #60 Prescribed by: ALVARO YEN on 09/18/19 1055 Last Taken: Unknown Dose on 02/22/20 Last Action: Continued on 02/22/20 1519 by Khanh Sparks Aspirin (Lo-Dose Aspirin EC) 81 Mg Tablet.dr, 81 MG PO DAILY for blodd thinner, (Reported) Entered as Reported by: Khanh Sparks on 02/22/20 1342 Last Taken: Unknown Dose on 02/22/20 Last Action: Continued on 02/22/20 1519 by Khanh Sparks Metoprolol Succinate (Toprol XL) 50 Mg Tab.er.24h, 100 MG PO DAILY for FOR HYPERTENSION, (Reported) Entered as Reported by: JUAN LUIS DONIS on 02/19/20 1223 Last Taken: Unknown Dose on 02/22/20 Last Action: Discontinued on 02/22/20 1327 by Khanh Sparks [place]-3/Dha/Epa/Fish Oil (Fish Oil 1,000 mg Softgel) 1,000 Mg Capsule, 500 MG PO DAILY for supplement, (Reported) Entered as Reported by: FRANCHESKA CHAVIRA on 09/04/19 1613 Last Action: Discontinued on 02/19/20 1223 by JUAN LUIS DONIS Oxycodone Hcl (Oxycodone Hcl) 5 Mg Capsule, 1 CAP PO PRN, #90 (Reported) Entered as Reported by: KATIE LEIVNE on 05/01/17 1031 Last Taken: Unknown Dose on 02/22/20 Last Action: Discontinued on 02/22/20 1329 by Khanh Clare Potassium Chloride (Klor-Con M20) 20 Meq Tab.er.prt, 1 TAB PO DAILY for potassium for 30 Days, #30 Ref 0 (Reported) Entered as Reported by: Khanh Sparks on 02/22/201341 Last Taken: Unknown Dose on 02/22/20 Last Action: New Order on 02/22/201341 by Khanh Sparks Patient Instructions Patient Instructions GENERAL INSTRUCTIONS: 1. Your dressing should be removed prior to leaving the hospital. 2. It is OK to shower the day after your procedure. 3. If you received stents, be sure to carry your stent information card with you in your wallet/purse at all times. 4. Call the office immediately at [phone] if you notice any fever or if there is redness, worsening tenderness/pain, increased bruising, or drainage from the puncture site. 5. Should you have bleeding from the site, lie down immediately & put pressure on the site. The pressure should be hard enough to stop the bleeding. Have the nearest person call 911. DO NOT try to drive to the ER with active bleeding. 6. If you notice a change in color, coolness to touch, or loss of feeling in the affected extremity, come to the emergency room. Please have someone drive you or call 911 if no one is available. DO NOT drive yourself. 7. If you normally take glucophage (metformin), please do not take this medicine for 48 hours following your procedure. 8. DO NOT STOP TAKING YOUR PLAVIX OR ASPIRIN UNLESS IT IS CLEARED BY A SYSTEMS PROGRAMMER ANALYST OF YOUR RETURN TO VENDOR AT OUR OFFICE. 9. QUIT SMOKING: the [place] [employer], [place] [employer], & [place] [employer] have cessation resources available on their websites 10. Please have someone available to drive you home from the hospital as you may be limited by sedation medications given during the procedure. Radial Artery (Wrist) access: 1. No pushing, pulling, lifting, typing, or anything that requires repetitive use/movement of the affected wrist for 3 days following your procedure. 2. OK to drive the day following your procedure. (This is because of effects of sedating medications.) Call the office at [phone] for any questions or concerns. Justicifation of Admission Dx: Justifications for Admission: Justification of Admission Dx: Yes ANNA LENZ MD 02/24/20 0852: Discharge Summary Brief Hospital Course Brief Hospital Course Late entry for 02/23/2020 Pt. seen and examined. Agree with above BEAD WRAPPER note. Supportive care. If no improvement in 2-4 weeks, then plan for outpt CVN and pacemaker. Discharge Information Scheduled Amiodarone Hcl (Amiodarone Hcl) 200 Mg Tablet, 1 TAB PO DAILY for AFIB, #30 Ref 1 Prescribed by: MONALISA KHAN on 02/23/20 1718 Cholecalciferol (Vitamin D3) (Vitamin D) 2,000 Unit Capsule, 1 CAP PO DAILY, #30 Ref 3 (Reported) Entered as Reported by: JATINDER MIGUEL on 03/25/17 0150 Last Action: Converted on 02/22/201518 by Khanh Sparks Clopidogrel Bisulfate (Clopidogrel) 75 Mg Tablet, 75 MG PO DAILYWBKFT for cad, #30 Ref 4 Prescribed by: MONALISA KHAN on 02/23/20 0951 Diltiazem Hcl (Cartia Xt) 300 Mg Cap.er.24h, 300 MG PO DAILY, (Reported) Entered as Reported by: KATIE LEVINE on 05/01/17 1028 Last Taken: Unknown Dose on 02/22/20 Last Action: Continued on 02/22/201518 by Khanh Sparks Glimepiride (Glimepiride) 2 Mg Tablet, 1 TAB PO DAILY, #30 Ref 5 (Reported) Entered as Reported by: KATIE LEVINE on 05/01/17 1029 Last Action: Continued on 02/22/201518 by Khanh Sparks Golimumab (Simponi Aria) 50 Mg/4 Ml Vial, 200 MG IV UD for rx, (Reported) takes every 8 weeks Entered as Reported by: JUAN LUIS DONIS on 02/19/20 1223 Last Action: New Order on 02/19/201222 by JUAN LUIS DONIS Leflunomide (Leflunomide) 20 Mg Tablet, 0.5 TAB PO DAILY for ARTHRITIS, (Reported) Entered as Reported by: SHIMA MCCOY on 09/16/19 0737 Last Action: Edited on 02/19/20 122 by JUAN LUIS DONIS Losartan Potassium (Losartan Potassium) 100 Mg Tablet, 100 MG PO DAILY, (Reported) Entered as Reported by: KATIE LEVINE on 05/01/17 1029 Last Taken: Unknown Dose on 02/22/20 Last Action: Converted on 02/22/201518 by Khanh Sparks Metoprolol Tartrate (Metoprolol Tartrate) 50 Mg Tablet, 1 TAB PO BID for htn, #60 Ref 5 (Reported) Entered as Reported by: Khanh Sparks on 02/22/20 1327 Last Taken: Unknown Dose on 02/22/20 Last Action: Continued on 02/22/201518 by Khanh Sparks [place]-3/Dha/Epa/Fish Oil (Fish Oil 500 Mg Softgel) 1 Each Capsule, 2 CAP PO DAILY for rx for 30 Days, #60 Ref 0 (Reported) Entered as Reported by: JUAN LUIS DONIS on 02/19/20 1223 Last Action: Converted on 02/22/201518 by Khanh Sparks Omeprazole (Omeprazole) 20 Mg Capsule.dr, 1 CAP PO DAILY, #30 Ref 5 (Reported) Entered as Reported by: JATINDER MIGUEL on 03/25/17 0650 Last Action: Converted on 02/22/201518 by Khanh Sparks Oxycodone HCl (Oxycodone HCl) 5 Mg Tablet, 5 MG PO BID for pain, (Reported) Entered as Reported by: Khanh Sparks on 02/22/20 1329 Last Taken: Unknown Dose on 02/22/20 Last Action: Continued on 02/22/201518 by Khanh Sparks Potassium Chloride (Klor-Con M20) 20 Meq Tab.er.prt, 20 MEQ PO BIDWMEALS for kcl, #60 Prescribed by: ALVARO YEN on 09/18/19 1055 Last Action: Continued on 02/22/201518 by Khanh Sparks Rivaroxaban (Xarelto) 20 Mg Tablet, 20 MG PO DAILY for rx, (Reported) Entered as Reported by: KATEI LEVINE on 05/01/17 1030 Last Taken: Unknown Dose on 02/19/20 Last Action: Converted on 02/22/201518 by Khanh Sparks Triamterene/Hydrochlorothiazid (Triamterene-Hctz 37.5-25 Mg Tb) 1 Each Tablet, 1 TAB PO DAILY for HTN, (Reported) Entered as Reported by: SHIMA MCCOY on 09/16/19 0737 Last Action: Continued on 02/22/201518 by Khanh Sparks Scheduled PRN Nitroglycerin (Nitrostat) 0.4 Mg Tab.subl, 0.4 MG SL PRN Q5MIN PRN for CHEST PAIN, #20 Ref 1 Prescribed by: MONALISA KHAN on 02/23/20 0951 Discontinued Medications Amiodarone Hcl (Amiodarone Hcl) 200 Mg Tablet, 200 MG PO BID for a fib, #60 Prescribed by: ALVARO YEN on 09/18/19 1055 Last Taken: Unknown Dose on 02/22/20 Last Action: Continued on 02/22/20 1519 by Khanh Sparks Aspirin (Lo-Dose Aspirin EC) 81 Mg Tablet.dr, 81 MG PO DAILY for blodd thinner, (Reported) Entered as Reported by: Khanh Sparks on 02/22/20 1342 Last Taken: Unknown Dose on 02/22/20 Last Action: Continued on 02/22/20 1519 by Khanh Sparks Metoprolol Succinate (Toprol XL) 50 Mg Tab.er.24h, 100 MG PO DAILY for FOR HYPERTENSION, (Reported) Entered as Reported by: JUAN LUIS DONIS on 02/19/20 1223 Last Taken: Unknown Dose on 02/22/20 Last Action: Discontinued on 02/22/20 1327 by Khanh Sparks [place]-3/Dha/Epa/Fish Oil (Fish Oil 1,000 mg Softgel) 1,000 Mg Capsule, 500 MG PO DAILY for supplement, (Reported) Entered as Reported by: FRANCHESKA CHAVIRA on 09/04/19 1613 Last Action: Discontinued on 02/19/20 1223 by JUAN LUIS DONIS Oxycodone Hcl (Oxycodone Hcl) 5 Mg Capsule, 1 CAP PO PRN, #90 (Reported) Entered as Reported by: KATIE LEVINE on 05/01/17 1031 Last Taken: Unknown Dose on 02/22/20 Last Action: Discontinued on 02/22/20 1329 by Khanh Sparks Potassium Chloride (Klor-Con M20) 20 Meq Tab.er.prt, 1 TAB PO DAILY for potassium for 30 Days, #30 Ref 0 (Reported) Entered as Reported by: Khanh Sparks on 02/22/20 1342 Last Taken: Unknown Dose on 02/22/20 Last Action: New Order on 02/22/20 1342 by MONALISA Dc PARKING ENFORCEMENT MANAGER Feb 23, 2020 09:42 ANNA LENZ MD Feb 24, 2020 08:52
[2020-02-23] MEDS ORDERED: CLOP75TA PO (09:51)
[2020-02-23] MEDS ORDERED: NITR0.4T24 SL (09:51)
--- NOTE | 2020-02-23 11:15 | NUR ---
Discharged patient home. Discharge instructions given. PIV and heart monitor removed. Escorted patient off unit per wheelchair into a private vehicle.
[2020-02-23] MEDS ORDERED: AMIO200T4 PO (17:18)
[2020-03-22] MEDS ORDERED: LINE600T12 PO (10:34)
== END 2020-02-23 11:20 | disposition home or self-care (01) | DRG 246 ==
LOC: CCL 08:55 → 2 SOUTH 10:52
PROVIDERS: ADMIT Internal Medicine Cardiovascular Disease; ATTEND Internal Medicine Cardiovascular Disease
PROC: 027034Z Dilation of Coronary Artery, One Artery with Drug-eluting Intraluminal Device, Percutaneous Approach (ICD-10-PCS; principal; 2020-02-22)
PROC: 3E073PZ Introduction of Platelet Inhibitor into Coronary Artery, Percutaneous Approach (ICD-10-PCS; 2020-02-22)
PROC: 4A023N7 Measurement of Cardiac Sampling and Pressure, Left Heart, Percutaneous Approach (ICD-10-PCS; 2020-02-22)
PROC: B2111ZZ Fluoroscopy of Multiple Coronary Arteries using Low Osmolar Contrast (ICD-10-PCS; 2020-02-22)
DX: I25.110 Atherosclerotic heart disease of native coronary artery with unstable angina pectoris (principal); I50.33 Acute on chronic diastolic (congestive) heart failure; T82.855A Stenosis of coronary artery stent, initial encounter; E11.9 Type 2 diabetes mellitus without complications; E78.5 Hyperlipidemia, unspecified; I48.91 Unspecified atrial fibrillation; M19.90 Unspecified osteoarthritis, unspecified site; Z79.01 Long term (current) use of anticoagulants; Z79.84 Long term (current) use of oral hypoglycemic drugs; Z79.899 Other long term (current) drug therapy; Z88.8 Allergy status to other drugs, medicaments and biological substances; Z98.61 Coronary angioplasty status; Y83.8 Other surgical procedures as the cause of abnormal reaction of the patient, or of later complication, without mention of misadventure at the time of the procedure; Y92.89 Other specified places as the place of occurrence of the external cause; I11.0 Hypertensive heart disease with heart failure
CPT/HCPCS: 36415; 80048; 85027; 85610; 85730; 92928; 93458; 99152; 99153; C1769; C1874; C1887; C1892; J1644; J2250; J3010; J3490; Q9967; C1725; G0378; J3246

== ENCOUNTER → 2020-03-02 | Outpatient (CLI) | payer MEDICARE, OTHER ==
[2020-02-23 08:32] VITALS: BP 125/64
[~2020-03-02] MED LIST changes: +ASPI-171 PO; +NITR0.4T24 SL; +OXYC5TAB2 PO
--- NOTE | 2020-03-02 16:50 | KCIC ---
INDICATION: Reason: MEDIAL ANTERIOR LT CALF PAIN; ?SUPERFICIAL PHLEBITIS / Spl. Instructions: / History: COMPARISON: None. FINDINGS: Focused ultrasound images were obtained of the left calf at the region of concern. There is edema of the soft tissues. There is a superficial vein within the area which has vascular flow within. There is a focal heterogenous hypoechoic structure seen within the soft tissues measuring 34 x 20 x 19 mm. IMPRESSION: * Hypoechoic heterogenous structure is seen within the subcutaneous soft tissues. Some possible causes would include a soft tissue hematoma or other complex fluid collection such as abscess formation. Would obtain a follow-up exam to ensure that this appropriately decreases in size to ensure that there is not a soft tissue neoplasm contributing. * Edema of the soft tissues. Electronically signed by: Padilla Nesbitt MD (03/02/2020 4:47 PM) [id number]
== END | disposition home or self-care (01) ==
LOC: KCIC US 14:29
PROVIDERS: ATTEND Internal Medicine
DX: I80.02 Phlebitis and thrombophlebitis of superficial vessels of left lower extremity (principal); R60.0 Localized edema
CPT/HCPCS: 76882

== ENCOUNTER 2020-03-18 18:18 | Inpatient (IN) | payer MEDICARE, OTHER ==
[~2020-03-18] VITALS: Ht 154.9 cm; Wt 101.6 kg
--- NOTE | 2020-03-18 18:35 | NUR ---
The patient, ERVIN VILLAFUERTE, 75 y/o, F admitted by ALVARO YEN MD, was given written information regarding hospital policies, unit procedures and contact persons. RN performed a head to toe assessment at time of admission, VSS, afebrile, and pain rated a 0/10 at this time. Bed is in lowest locked position and call light is within reach. Valuables were checked and left in the room with the patient. RN will continue to monitor patient closely.
[2020-03-18 19:30] VITALS: BP 169/76
[2020-03-18 21:18] LABS: BASO # 0.1 x10^3/uL (0.0-0.2); BASO % 1 % (0-3); EOS # 0.3 x10^3/uL (0.0-0.7); EOS % 3 % (0-3); HEMOGLOBIN 13.6 g/dL (12.0-15.5); LYMPH # 1.8 x10^3/uL (1.0-4.8); LYMPH % 21 % (24-48); MEAN CORPUSCULAR HEMOGLOBIN 29 pg (25-35); MEAN CORPUSCULAR HGB CONC 33 g/dL (31-37); MEAN CORPUSCULAR VOLUME 88 fL (79-100); MONO % 11 % (0-9); NEUT # 5.6 x10^3/uL (1.8-7.7); NEUT % 64 % (31-73); PLATELET COUNT 289 x10^3/uL (140-400); RED BLOOD COUNT 4.66 x10^6/uL (3.50-5.40); RED CELL DISTRIBUTION WIDTH 15.4 % (11.5-14.5); WHITE BLOOD COUNT 8.7 x10^3/uL (4.0-11.0)
[2020-03-18 21:21] LABS: CALCIUM 9.3 mg/dL (8.5-10.1); CREATININE 0.9 mg/dL (0.6-1.0); GFR 60.7; POTASSIUM 4.1 mmol/L (3.5-5.1)
[2020-03-18 21:27] LABS: ALBUMIN 3.2 g/dL (3.4-5.0); ALBUMIN/GLOBULIN RATIO 0.7 (1.0-1.7); TOTAL BILIRUBIN 0.5 mg/dL (0.2-1.0); TOTAL PROTEIN 7.5 g/dL (6.4-8.2)
--- NOTE | 2020-03-18 21:48 | RAD ---
Exam: Ultrasound left lower extremity soft tissue Indication: Left calf abscess Technique: Real-time grayscale and color Doppler images of the left lower extremity were obtained by the department pipeline superintendent. Comparisons: 03/02/2020 FINDINGS: The area of concern in the left medial calf there is a 3.8 x 2.8 x 3.1 cm hypoechoic rounded structure with internal debris. Mild adjacent surrounding edema. There is minimal adjacent vascularity noted. IMPRESSION: Increased size of the abscess/hematoma at the left medial calf currently measuring 3.8 x 2.8 x 3.1 cm. Electronically signed by: Marimar Calvillo MD (03/18/2020 9:45 PM) [id number]
[2020-03-18] MEDS: oxyCODONE/APAP 5/325 1 TAB TABLET PO SCH (22:44)
[2020-03-18 23:03] VITALS: BP 149/71
[2020-03-19] MEDS: ceFAZolin SODIUM IV Push 1 GM VIAL. IVP SCH ×2 (02:05→06:17)
[2020-03-19 03:34] VITALS: BP 144/74
[2020-03-19 07:00] VITALS: BP 156/72
--- NOTE | 2020-03-19 08:19 | PDOC ---
Infectious Disease Note Vital Sign Vital Signs Vital Signs Date Time Temp Pulse Resp B/P (MAP) Pulse Ox O2 Delivery O2 Flow Rate FiO2 03/19/20 07:00 97.5 85 18 156/72 (100) 95 Room Air 97.5 Labs Lab Laboratory Tests Test 03/18/20 20:45 White Blood Count 8.7 x10^3/uL (4.0-11.0) Red Blood Count 4.66 x10^6/uL (3.50-5.40) Hemoglobin 13.6 g/dL (12.0-15.5) Hematocrit 41.0 % (36.0-47.0) Mean Corpuscular Volume 88 fL (79-100) Mean Corpuscular Hemoglobin 29 pg (25-35) Mean Corpuscular Hemoglobin Concent 33 g/dL (31-37) Red Cell Distribution Width 15.4 % (11.5-14.5) Platelet Count 289 x10^3/uL (140-400) Neutrophils (%) (Auto) 64 % (31-73) Lymphocytes (%) (Auto) 21 % (24-48) Monocytes (%) (Auto) 11 % (0-9) Eosinophils (%) (Auto) 3 % (0-3) Basophils (%) (Auto) 1 % (0-3) Neutrophils # (Auto) 5.6 x10^3/uL (1.8-7.7) Lymphocytes # (Auto) 1.8 x10^3/uL (1.0-4.8) Monocytes # (Auto) 1.0 x10^3/uL (0.0-1.1) Eosinophils # (Auto) 0.3 x10^3/uL (0.0-0.7) Basophils # (Auto) 0.1 x10^3/uL (0.0-0.2) Sodium Level 136 mmol/L (136-145) Potassium Level 4.1 mmol/L (3.5-5.1) Chloride Level 101 mmol/L (98-107) Carbon Dioxide Level 22 mmol/L (21-32) Anion Gap 13 (6-14) Blood Urea Nitrogen 15 mg/dL (7-20) Creatinine 0.9 mg/dL (0.6-1.0) Estimated GFR (Cockcroft-Gault) 60.7 BUN/Creatinine Ratio 17 (6-20) Glucose Level 196 mg/dL (70-99) Calcium Level 9.3 mg/dL (8.5-10.1) Total Bilirubin 0.5 mg/dL (0.2-1.0) Aspartate Amino Transf (AST/SGOT) 21 U/L (15-37) Alanine Aminotransferase (ALT/SGPT) 15 U/L (14-59) Alkaline Phosphatase 73 U/L (46-116) Total Protein 7.5 g/dL (6.4-8.2) Albumin 3.2 g/dL (3.4-5.0) Albumin/Globulin Ratio 0.7 (1.0-1.7) Objective Assessment LLE abcess Cipro allergy - doesn't remember reaction Afib DM Plan Plan of Care Change to Rocephin/Dapto Await Ortho eval F/u labs and cults Thank you # [id number] KIYA CISNEROS MD Mar 19, 2020 08:19
--- NOTE | 2020-03-19 09:04 | CONS ---
DATE OF CONSULTATION: 03/19/2020 LOCATION: The patient is in room #428. REQUESTING PHYSICIAN: Shashi Sharma MD REASON FOR CONSULTATION: Left leg abscess. HISTORY OF PRESENT ILLNESS: The patient is a pleasant 75-year-old female with a history of Strep constellatus bacteremia several years ago who states she had developed some discomfort in her left medial lower leg over a month ago. As a matter of fact, she underwent a cardiac catheterization in right wrist on 02/22/2020 and did have some discomfort at that time, but did not mention it. Recently, the left leg has developed increased swelling, bulging, and pain. She has not had fevers, chills or sweats. No nausea, vomiting or diarrhea. She presented to Dr. Sharma's office yesterday and was admitted to the hospital. She underwent an ultrasound, which showed increased size of abscess, hematoma, left medial calf, currently measuring 3.8 x 2.8 x 3.1. She was placed on cefazolin. Currently, she is sitting upright in bed, states she is feeling fairly well aside from the above-mentioned leg. No dysuria, frequency or urgency. She has no pets. Denies any known trauma. PAST MEDICAL HISTORY: Positive for diabetes, hypertension, coronary artery disease, atrial fibrillation, chronic pain, osteoarthritis, rheumatoid arthritis, hyperlipidemia, Strep constellatus bacteremia in 2016. PAST SURGICAL HISTORY: Positive for the above-mentioned cardiac catheterization. She has bilateral total knee arthroplasties, bilateral carpal tunnel release, left unilateral oophorectomy, cataract extraction, hysterectomy, cardioversion. REVIEW OF SYSTEMS: Otherwise negative except for mentioned above. ALLERGIES: Listed as CIPRO, she is uncertain what happens when she takes this, AMLODIPINE, ATORVASTATIN, ZETIA, LISINOPRIL, METFORMIN, METHOTREXATE, and PRAVASTATIN are also listed. SOCIAL HISTORY: No tobacco or alcohol. She is . She has no pets as of September. FAMILY HISTORY: Noncontributory. CURRENT MEDICATIONS: Included cefazolin and p.r.n. medications. PHYSICAL EXAMINATION: VITAL SIGNS: She is afebrile, temperature 97.5, pulse 85, respirations 18, blood pressure 156/72, satting 95% on room air. CONSTITUTIONAL: She is very pleasant. She is cooperative. She is in no acute distress. She is sitting up in the side of bed. She wears glasses. HEENT: Pupils equal and reactive. Normal conjunctivae. Oral cavity, pharynx is clear. NECK: Supple, no JVD. LUNGS: Clear to auscultation bilaterally. HEART: S1, S2. ABDOMEN: Soft, nontender, no guarding or rebound. Mildly obese. EXTREMITIES: No clubbing, cyanosis. She has well-healed scars on her bilateral knees. Her left medial mid tibial area has a large golf ball size swelling. There is mild erythema. There is some fluctuance. NEUROLOGIC: She is nonfocal, moves all extremities. PSYCHIATRIC: Affect is pleasant. SKIN: Warm to touch without signs of rash. LABORATORY DATA: White count 8.7, hemoglobin 13.6, platelets 289, neutrophils 64%, lymphs are 21, creatinine 0.9, glucose 196. Normal liver function study tests. RADIOLOGY: Reviewed in history of present illness. IMPRESSION: 1. Left lower extremity abscess. 2. CIPRO allergy, does not remember reaction. 3. Atrial fibrillation. 4. Diabetes. RECOMMENDATIONS: We will change to Rocephin and daptomycin. Await ortho evaluation. Follow up labs and cultures. Thank you for allowing me to participate in the patient's care. If you have any questions, please do not hesitate to contact me. KIYA CISNEROS MD DR: COLLEEN/jason JOB#: [id number] / [id number] EFREM
--- NOTE | 2020-03-19 10:12 | PDOC2 ---
CONSULT Date of Consult Date of Consult DATE: 03/19/20 TIME: 10:08 Reason for Consult Reason for Consult: Left calf abscess Referring Physician Referring Physician: Edith Identification/Chief Complaint Chief Complaint Left calf pain Source Source: Patient History of Present Illness Reason for Visit: Patient is a pleasant 75-year-old female who has had slightly painful red bump that has been slowly progressive over the past month. She went in to see her primary care provider yesterday and recommended admission. An ultrasound had been performed. She denies any fevers chills or systemic symptoms. The pain does not radiate. She feels it at the localized area of the red bump. She cannot recall any trauma, lacerations or abrasions over this area. Past Medical History Cardiovascular: AFIB, CHF, HTN, Hyperlipidemia, Other Pulmonary: No pertinent hx CENTRAL NERVOUS SYSTEM: Other GI: GERD Heme/Onc: No pertinent hx Hepatobiliary: Cholelithiasis Psych: No pertinent hx Musculoskeletal: Osteoarthritis, Other Rheumatologic: Rheumatoid arthritis Infectious disease: No pertinent hx Renal/: Urinary Incontinence, Other Endocrine: Other Past Surgical History Past Surgical History: Cataract Removal, Total knee replacement, Hysterectomy, Other Family History Family History: Heart Disease Social History ALCOHOL: none Drugs: None Lives: Alone Current Medications Current Medications Current Medications Oxycodone/ Acetaminophen (Percocet 5/325) 1 tab BID PO Last administered on 03/18/20at 22:44; Start 03/18/20 at 23:00 Cefazolin Sodium (Ancef) 1 gm Q8HRS IVP Last administered on 03/19/20at 06:17; Start 03/18/20 at 23:00; Stop 03/19/20 at 08:14; Status DC Ceftriaxone Sodium (Rocephin) 2 gm Q24H IVP ; Start 03/19/20 at 08:30 Daptomycin 420 mg/ Sodium Chloride 50 ml @ 100 mls/hr Q24H IV ; Start 03/19/20 at 10:00 Active Scripts Active Amiodarone Hcl 200 Mg Tablet 1 Tab PO DAILY Nitrostat (Nitroglycerin) 0.4 Mg Tab.subl 0.4 Mg SL PRN Q5MIN PRN Clopidogrel (Clopidogrel Bisulfate) 75 Mg Tablet 75 Mg PO DAILYWBKFT Klor-Con M20 (Potassium Chloride) 20 Meq Tab.er.prt 20 Meq PO BIDWMEALS Reported Oxycodone HCl 5 Mg Tablet 5 Mg PO BID Metoprolol Tartrate 50 Mg Tablet 1 Tab PO BID Simponi Aria (Golimumab) 50 Mg/4 Ml Vial 200 Mg IV UD takes every 8 weeks Fish Oil 500 Mg Softgel ([place]-3/Dha/Epa/Fish Oil) 1 Each Capsule 2 Cap PO DAILY 30 Days Leflunomide 20 Mg Tablet 0.5 Tab PO DAILY Triamterene-Hctz 37.5-25 Mg Tb (Triamterene/Hydrochlorothiazid) 1 Each Tablet 1 Tab PO DAILY Xarelto (Rivaroxaban) 20 Mg Tablet 20 Mg PO DAILY Glimepiride 2 Mg Tablet 1 Tab PO DAILY Losartan Potassium 100 Mg Tablet 100 Mg PO DAILY Cartia Xt (Diltiazem Hcl) 300 Mg Cap.er.24h 300 Mg PO DAILY Omeprazole 20 Mg Capsule.dr 1 Cap PO DAILY Vitamin D (Cholecalciferol (Vitamin D3)) 2,000 Unit Capsule 1 Cap PO DAILY Allergies Allergies: Coded Allergies: amlodipine (Verified Allergy, Intermediate, 06/15/19) PT DOESN'T RECALL NATURE OF ALLERGY, POSSIBLY PAIN atorvastatin (Verified Allergy, Intermediate, 06/15/19) calcium (Verified Allergy, Intermediate, 09/16/19) ciprofloxacin (Verified Allergy, Intermediate, 06/15/19) ezetimibe (Verified Allergy, Intermediate, 06/15/19) lisinopril (Verified Allergy, Intermediate, 06/15/19) metformin (Verified Allergy, Intermediate, 06/15/19) methotrexate (Verified Allergy, Intermediate, 12/15/15) pravastatin (Verified Allergy, Intermediate, 12/15/15) ROS General: No: Chills, Night Sweats, Fatigue, Malaise, Appetite, Other PSYCHOLOGICAL ROS: No: Anxiety, Behavioral Disorder, Concentration difficultie, Decreased libido, Depression, Disorientation, Hallucinations, Hostility, Irritablity, Memory difficulties, Mood Swings, Obsessive thoughts, Physical abuse, Sexual abuse, Sleep disturbances, Suicidal ideation, Other Eyes: No Blurry vision, No Decreased vision, No Double vision, No Dry eyes, No Excessive tearing, No Eye Pain, No Itchy Eyes, No Loss of vision, No Photophobia, No Scotomata, No Uses contacts, No Uses glasses, No Other HEENT: No: Heacaches, Visual Changes, Hearing change, Nasal congestion, Nasal discharge, Oral lesions, Sinus pain, Sore Throat, Epistaxis, Sneezing, Snoring, Tinnitus, Vertigo, Vocal changes, Other ALLERGY AND IMMUNOLOGY: No: Hives, Insect Bite Sensitivity, Itchy/Watery Eyes, Nasal Congestion, Post Nasal Drip, Seasonal Allergies, Other Hematological and Lymphatic: No: Bleeding Problems, Blood Clots, Blood Transfusions, Brusing, Night Sweats, Pallor, Swollen Lymph Nodes, Other ENDOCRINE: No: Breast Changes, Galactorrhea, Hair Pattern Changes, Hot Flashes, Malaise/lethargy, Mood Swings, Palpitations, Polydipsia/polyuria, Skin Changes, Temperature Intolerance, Unexpected Weight Changes, Other Respiratory: No: Cough, Hemoptysis, Orthopnea, Pleuritic Pain, Shortness of breath, SOB with excertion, Sputum Changes, Stridor, Tachypnea, Wheezing, Other Cardiovascular: No Chest Pain, No Palpitations, No Orthopnea, No Paroxysmal Noc. Dyspnea, No Edema, No Lt Headedness, No Other Gastrointestinal: No Nausea, No Vomiting, No Abdominal Pain, No Diarrhea, No Constipation, No Melena, No Hematochezia, No Other Genitourinary: No Dysuria, No Frequency, No Incontinence, No Hematuria, No Retention, No Discharge, No Urgency, No Pain, No Flank Pain, No Other, No , No , No , No , No , No , No Musculoskeletal: Yes Muscle Pain Neurological: No Behavorial Changes, No Bowel/Bladder ControlChng, No Confusion, No Dizziness, No Gait Disturbance, No Headaches, No Impaired Coord/balance, No Memory Loss, No Numbness/Tingling, No Seizures, No Speech Problems, No Tremors, No Visual Changes, No Weakness, No Other Skin: No Dry Skin, No Eczema, No Hair Changes, No Lumps, No Mole Changes, No Mottling, No Nail Changes, No Pruritus, No Rash, No Skin Lesion Changes, No Other, No Acne Physical Exam General: Alert, Oriented X3 HEENT: Atraumatic, EOMI Lungs: Other (Respirations are unlabored symmetric chest rise) Heart: Regular rate Abdomen: Soft, No tenderness Extremities: No edema, Normal pulses Skin: Other (Abscess as described below) Neuro: Normal speech, Strength at 5/5 X4 ext, Sensation intact Psych/Mental Status: Mental status NL, Mood NL MUSCULOSKELETAL: Other (Lamination of her left lower extremity reveals about a 3 to 4 cm in diameter raised erythematous and tender area with some surrounding cellulitic change. No tenderness in her gastroc muscle around this. No pain on passive range of motion. She has good range of motion to her knee and ankle. No erythema tracking proximally or distally.) Vitals VITALS Vital Signs Date Time Temp Pulse Resp B/P (MAP) Pulse Ox O2 Delivery O2 Flow Rate FiO2 03/19/20 08:25 95 Room Air 03/19/20 07:00 97.5 85 18 156/72 (100) 97.5 Labs Labs Laboratory Tests Test 03/18/20 20:45 White Blood Count 8.7 x10^3/uL (4.0-11.0) Red Blood Count 4.66 x10^6/uL (3.50-5.40) Hemoglobin 13.6 g/dL (12.0-15.5) Hematocrit 41.0 % (36.0-47.0) Mean Corpuscular Volume 88 fL (79-100) Mean Corpuscular Hemoglobin 29 pg (25-35) Mean Corpuscular Hemoglobin Concent 33 g/dL (31-37) Red Cell Distribution Width 15.4 % (11.5-14.5) Platelet Count 289 x10^3/uL (140-400) Neutrophils (%) (Auto) 64 % (31-73) Lymphocytes (%) (Auto) 21 % (24-48) Monocytes (%) (Auto) 11 % (0-9) Eosinophils (%) (Auto) 3 % (0-3) Basophils (%) (Auto) 1 % (0-3) Neutrophils # (Auto) 5.6 x10^3/uL (1.8-7.7) Lymphocytes # (Auto) 1.8 x10^3/uL (1.0-4.8) Monocytes # (Auto) 1.0 x10^3/uL (0.0-1.1) Eosinophils # (Auto) 0.3 x10^3/uL (0.0-0.7) Basophils # (Auto) 0.1 x10^3/uL (0.0-0.2) Sodium Level 136 mmol/L (136-145) Potassium Level 4.1 mmol/L (3.5-5.1) Chloride Level 101 mmol/L (98-107) Carbon Dioxide Level 22 mmol/L (21-32) Anion Gap 13 (6-14) Blood Urea Nitrogen 15 mg/dL (7-20) Creatinine 0.9 mg/dL (0.6-1.0) Estimated GFR (Cockcroft-Gault) 60.7 BUN/Creatinine Ratio 17 (6-20) Glucose Level 196 mg/dL (70-99) Calcium Level 9.3 mg/dL (8.5-10.1) Total Bilirubin 0.5 mg/dL (0.2-1.0) Aspartate Amino Transf (AST/SGOT) 21 U/L (15-37) Alanine Aminotransferase (ALT/SGPT) 15 U/L (14-59) Alkaline Phosphatase 73 U/L (46-116) Total Protein 7.5 g/dL (6.4-8.2) Albumin 3.2 g/dL (3.4-5.0) Albumin/Globulin Ratio 0.7 (1.0-1.7) Laboratory Tests Test 03/18/20 20:45 White Blood Count 8.7 x10^3/uL (4.0-11.0) Red Blood Count 4.66 x10^6/uL (3.50-5.40) Hemoglobin 13.6 g/dL (12.0-15.5) Hematocrit 41.0 % (36.0-47.0) Mean Corpuscular Volume 88 fL (79-100) Mean Corpuscular Hemoglobin 29 pg (25-35) Mean Corpuscular Hemoglobin Concent 33 g/dL (31-37) Red Cell Distribution Width 15.4 % (11.5-14.5) Platelet Count 289 x10^3/uL (140-400) Neutrophils (%) (Auto) 64 % (31-73) Lymphocytes (%) (Auto) 21 % (24-48) Monocytes (%) (Auto) 11 % (0-9) Eosinophils (%) (Auto) 3 % (0-3) Basophils (%) (Auto) 1 % (0-3) Neutrophils # (Auto) 5.6 x10^3/uL (1.8-7.7) Lymphocytes # (Auto) 1.8 x10^3/uL (1.0-4.8) Monocytes # (Auto) 1.0 x10^3/uL (0.0-1.1) Eosinophils # (Auto) 0.3 x10^3/uL (0.0-0.7) Basophils # (Auto) 0.1 x10^3/uL (0.0-0.2) Sodium Level 136 mmol/L (136-145) Potassium Level 4.1 mmol/L (3.5-5.1) Chloride Level 101 mmol/L (98-107) Carbon Dioxide Level 22 mmol/L (21-32) Anion Gap 13 (6-14) Blood Urea Nitrogen 15 mg/dL (7-20) Creatinine 0.9 mg/dL (0.6-1.0) Estimated GFR (Cockcroft-Gault) 60.7 BUN/Creatinine Ratio 17 (6-20) Glucose Level 196 mg/dL (70-99) Calcium Level 9.3 mg/dL (8.5-10.1) Total Bilirubin 0.5 mg/dL (0.2-1.0) Aspartate Amino Transf (AST/SGOT) 21 U/L (15-37) Alanine Aminotransferase (ALT/SGPT) 15 U/L (14-59) Alkaline Phosphatase 73 U/L (46-116) Total Protein 7.5 g/dL (6.4-8.2) Albumin 3.2 g/dL (3.4-5.0) Albumin/Globulin Ratio 0.7 (1.0-1.7) Images Images Ultrasound was reviewed. X-rays are pending Assessment/Plan Assessment/Plan Left calf abscess. We will get x-rays. I do think this would likely be amenable to a bedside irrigation and debridement. Appreciate infectious disease input. VIKRAM VALENZUELA II, MD Mar 19, 2020 10:12
[2020-03-19 11:00] VITALS: BP 171/92
[2020-03-19] MEDS: cefTRIAXone IV Push 2 GM VIAL. IVP SCH (11:01)
[2020-03-19] MEDS: oxyCODONE/APAP 5/325 1 TAB TABLET PO SCH ×2 (11:01→21:14)
[2020-03-19] MEDS: DAPTOmycin (GENERIC) IVPB 420 MG in IV NORMAL SALINE 50ML 50 ML IV SCH (11:02)
--- NOTE | 2020-03-19 12:00 | RAD ---
EXAM: Left tibia and fibula, 2 views. HISTORY: Pain and swelling COMPARISON: None. FINDINGS: 2 views of the tibia and fibula are obtained. There is a left knee arthroplasty partially included on the [id number]. There is no fracture, dislocation or subluxation. There is no lytic or sclerotic osseous lesion or periosteal reaction. There is soft tissue swelling along the medial proximal calf. There is a moderate plantar spur and slight ossification or calcification along the plantar fascia. There is severe talonavicular joint space narrowing with subchondral sclerosis and spurring. IMPRESSION: 1. No acute osseous finding. 2. Proximal medial calf soft tissue swelling. 3. Moderate plantar spur and severe talonavicular osteoarthritis. 4. Left knee arthroplasty. Electronically signed by: Joanie Mi MD (03/19/2020 11:57 AM) [id number]
--- NOTE | 2020-03-19 13:12 | PDOC ---
Provider Note Date of Service: DATE: 03/19/20 TIME: 13:12 Provider Note history and physical dictated # [id number] Justifications for Admission Other Justification ALVARO YEN MD Mar 19, 2020 13:12
--- NOTE | 2020-03-19 13:35 | HP ---
ADMIT DATE: 03/18/2020 LOCATION: She is in room 428. HISTORY OF PRESENT ILLNESS: The patient is a 75-year-old white female with history of diabetes mellitus type 2, hypertension, hyperlipidemia, coronary artery disease and rheumatoid arthritis, who was admitted to [facility] from my office on 03/18/2020 with an increasing size of a left calf soft tissue mass, which came to ahead and caused some tenderness and was subsequently admitted to the hospital for evaluation of a possible left calf abscess versus a hematoma. The patient does take Xarelto for paroxysmal atrial fibrillation and also takes Plavix. She does have a previous history of bilateral total knee arthroplasties. She denies any fever, chills or sweats or any trauma to her left calf. She had an ultrasound done of her left calf couple of weeks ago and there was some area of fluid collection. She was subsequently admitted to the hospital as mentioned on 03/18/2020 for evaluation of the left calf soft tissue mass. ALLERGIES AND INTOLERANCES: INCLUDE AMLODIPINE, ATORVASTATIN, CIPROFLOXACIN, ZETIA, LISINOPRIL, METFORMIN, METHOTREXATE AND PRAVASTATIN. MEDICATIONS: Prior to admission include; amiodarone 200 mg every day, multivitamin every day, diltiazem CD 300 mg every day, fish oil 1 g every day, glimepiride 2 mg every day, she is on leflunomide 10 mg daily, losartan 100 mg every day, metoprolol tartrate 50 mg b.i.d., nitroglycerin 0.4 mg sublingual p.r.n., omeprazole 20 mg every day, oxycodone 5 mg b.i.d. p.r.n., potassium chloride 20 mEq every day, Dyazide 1 every day, vitamin D 2000 units every day and Xarelto 20 mg every day. PAST MEDICAL HISTORY: Significant for diabetes mellitus type 2, hypertension, hyperlipidemia, coronary artery disease, rheumatoid arthritis; paroxysmal atrial fibrillation, on Xarelto; she has a history of bilateral total knee arthroplasties, bilateral carpal tunnel release, left unilateral oophorectomy, cataract extraction, hysterectomy, Streptococcus bacteremia in 2016, left ovarian cystectomy for benign cyst via laparoscopy, electrical conversion of atrial fibrillation to normal sinus rhythm in 04/2017. SOCIAL HISTORY: She does not drink alcohol nor does she smoke cigarettes. Uses a walker. FAMILY HISTORY: Father had alcoholism. Mother had hypertension. REVIEW OF SYSTEMS: GENERAL: She denies any fever, chills or sweats in the last 3 days. CARDIOVASCULAR: No chest pain. PULMONARY: No cough or shortness of breath. GASTROINTESTINAL: No constipation. ENDOCRINE: She has diabetes mellitus. SKIN: She has got the swelling in the left calf and soft tissue mass in the left calf with tenderness. Rest of systems reviewed are negative except as stated in history of present illness. PHYSICAL EXAMINATION: VITAL SIGNS: Temperature 97.8 degrees, heart rate 96, respiratory rate 18, blood pressure 171/92, oxygen saturation 95% on room air. HEENT: Eyes: Gaze is conjugate. Extraocular muscles are intact. Mouth: Tongue is midline. NECK: There is no cervical lymphadenopathy or thyroid enlargement. HEART: Reveals an S1, S2. There is no S3 or murmur. LUNGS: Clear. ABDOMEN: Soft in sitting position. EXTREMITIES: Lower extremities: 1+ edema in the left leg. She does have some tenderness, warmth and some erythema in the left calf with underlying induration. NEUROLOGIC: Revealed no focal weakness of the extremities or facial asymmetry. MUSCULOSKELETAL: She has got the subluxation of the metacarpophalangeal joints consistent with rheumatoid arthritis. LABORATORY DATA: White count 8.7, hemoglobin 13.6, platelet count 289,000 with 64 polys and 21 lymphocytes. Sodium 136, potassium 4.1, chloride 101, total CO2 of 22, BUN 15, creatinine 0.9, blood sugar 196. Liver function tests normal. Albumin 3.2. She had an x-ray of her left tibia and fibula. There is no acute bony findings noted. She had some proximal medial calf soft tissue swelling in the left total knee arthroplasty. She also had an ultrasound of the left anterior pretibial calf, which showed an increased size of the abscess versus hematoma involving the left medial calf measuring at 3.8 x 2.8 x 3.1 cm. ASSESSMENT: 1. Soft tissue swelling in the left calf concerning for an abscess. Also, need to rule out a hematoma. 2. Diabetes mellitus type 2. 3. Hypertension. 4. Hyperlipidemia. 5. Coronary artery disease. 6. Rheumatoid arthritis. 7. Paroxysmal atrial fibrillation, on Xarelto. PLAN: At this time, consult Dr. Linder who has already seen the patient, consult Dr. Melara and Dr. Angela saw the patient for him and according to the patient, she will be having an incision and drainage tomorrow of her left calf suspected abscess. We will hold off on the Xarelto in anticipation for the surgery. Hold off on the Plavix for now also. We will continue with her other current medications except we will hold the medication for the rheumatoid arthritis as that can adversely affect her immune response. Continue with her other home medications and we will put her on a diabetic diet. She will be having irrigation and drainage tomorrow in her suspected left calf abscess. Also, she is on IV antibiotics. We started her on cefazolin and the Infectious Disease doctor switched her to IV daptomycin and Rocephin. Continue oxycodone b.i.d. for pain control. We will continue with her home blood pressure medications and her glimepiride and put her on a low dose Humalog insulin sliding scale before meals t.i.d. ALVARO YEN MD DR: LUCINA/jason JOB#: [id number] / [id number]
[2020-03-19] MEDS: TRIAMTERENE/HCTZ 37.5/25MG TABLET. PO SCH (14:00)
[2020-03-19 15:00] VITALS: BP 159/84
--- NOTE | 2020-03-19 15:05 | RAD ---
EXAM: Chest, single view. HISTORY: Hypertension. Preoperative evaluation. COMPARISON: 09/16/2019. FINDINGS: A frontal view of the chest obtained. There is stable linear scarring within the left upper lobe. There is no infiltrate, pleural effusion or pneumothorax. The heart is stable in size. IMPRESSION: No acute pulmonary finding. Electronically signed by: Joanie Mi MD (03/19/2020 3:02 PM) [id number]
--- NOTE | 2020-03-19 15:16 | EKG ---
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
[2020-03-19] MEDS: GLIMEPIRIDE 2 MG TABLET. PO SCH (15:52)
[2020-03-19] MEDS: METOPROLOL TART IMMED RELEASE 50 MG TABLET. PO SCH ×2 (15:52→21:15)
[2020-03-19] MEDS: CHOLECALCIFEROL (VITAMIN D3) 1,000 UNIT TABLET PO SCH (15:55)
[2020-03-19] MEDS: AMIODARONE HCL 200 MG TABLET. PO SCH (15:55)
[2020-03-19] MEDS: POTASSIUM CHLORIDE 20 MEQ TABLET.ER. PO SCH (15:56)
[2020-03-19] MEDS: PANTOPRAZOLE 40 MG TABLET.DR. PO SCH (15:56)
[2020-03-19] MEDS: LOSARTAN POTASSIUM 50 MG TABLET. PO SCH (15:57)
[2020-03-19] MEDS: INSULIN LISPRO 300 UNITS/3 ML VIAL. SQ SCH (17:00)
[2020-03-19 19:00] VITALS: BP 138/70
[2020-03-19] MEDS: LACTOBACILLUS RHAMNOSUS GG 1 CAPSULE. PO SCH (21:15)
[2020-03-19 23:00] VITALS: BP 141/68
[2020-03-20 03:00] VITALS: BP 138/72
[2020-03-20] MEDS: PANTOPRAZOLE 40 MG TABLET.DR. PO SCH (05:49)
[2020-03-20] MEDS: ACETAMINOPHEN 325 MG TABLET. PO PRN ×2 (06:08→12:22)
[2020-03-20 07:00] VITALS: BP 129/78
[2020-03-20] MEDS ORDERED: LIDOCAINE 1% PF 5 ML VIAL. INJ PRN (07:00)
[2020-03-20] MEDS: INSULIN LISPRO 300 UNITS/3 ML VIAL. SQ SCH ×3 (08:00→16:44)
--- NOTE | 2020-03-20 08:40 | PDOC ---
Infectious Disease Note Subjective Subjective Doing ok but has more leg pain No F/C/S/N/V/D/SOA/rash Vital Sign Vital Signs Vital Signs Date Time Temp Pulse Resp B/P (MAP) Pulse Ox O2 Delivery O2 Flow Rate FiO2 03/20/20 07:00 98.0 78 20 129/78 (95) 94 Room Air 98.0 Physical Exam PHYSICAL EXAM CONSTITUTIONAL: She is very pleasant. She is cooperative. She is in no acute distress. She is sitting up in the side of bed. She wears glasses. HEENT: Pupils equal and reactive. Normal conjunctivae. Oral cavity, pharynx is clear. NECK: Supple, no JVD. LUNGS: Clear to auscultation bilaterally. HEART: S1, S2. ABDOMEN: Soft, nontender, no guarding or rebound. Mildly obese. EXTREMITIES: No clubbing, cyanosis. She has well-healed scars on her bilateral knees. Her left medial mid tibial area has a large golf ball size swelling. There is less erythema. There is some fluctuance. NEUROLOGIC: She is nonfocal, moves all extremities. PSYCHIATRIC: Affect is pleasant. SKIN: Warm to touch without signs of rash. Labs Lab Laboratory Tests Test 03/19/20 16:40 03/19/20 20:57 03/20/20 07:02 Glucose (Fingerstick) 115 mg/dL (70-99) 154 mg/dL (70-99) 138 mg/dL (70-99) Objective Assessment LLE abcess Cipro allergy - doesn't remember reaction Afib DM Plan Plan of Care Cont Rocephin/Dapto Await Ortho f/u and I and D F/u labs and cults D/w family KIYA CISNEROS MD Mar 20, 2020 08:40
[2020-03-20] MEDS: cefTRIAXone IV Push 2 GM VIAL. IVP SCH (08:49)
[2020-03-20] MEDS: TRIAMTERENE/HCTZ 37.5/25MG TABLET. PO SCH (08:49)
[2020-03-20] MEDS: GLIMEPIRIDE 2 MG TABLET. PO SCH (08:49)
[2020-03-20] MEDS: LACTOBACILLUS RHAMNOSUS GG 1 CAPSULE. PO SCH ×2 (08:50→20:39)
[2020-03-20] MEDS: LOSARTAN POTASSIUM 50 MG TABLET. PO SCH (08:50)
[2020-03-20] MEDS: POTASSIUM CHLORIDE 20 MEQ TABLET.ER. PO SCH (08:50)
[2020-03-20] MEDS: oxyCODONE/APAP 5/325 1 TAB TABLET PO SCH ×2 (08:50→20:41)
[2020-03-20] MEDS: METOPROLOL TART IMMED RELEASE 50 MG TABLET. PO SCH ×2 (08:51→20:41)
[2020-03-20] MEDS: CHOLECALCIFEROL (VITAMIN D3) 1,000 UNIT TABLET PO SCH (08:51)
[2020-03-20] MEDS: AMIODARONE HCL 200 MG TABLET. PO SCH (08:51)
[2020-03-20] MEDS: DAPTOmycin (GENERIC) IVPB 420 MG in IV NORMAL SALINE 50ML 50 ML IV SCH (10:00)
[2020-03-20 10:25] VITALS: BP 134/83
--- NOTE | 2020-03-20 10:53 | PDOC4 ---
Operative Note Operative Note Date of procedure: 03/20/2020 Surgeon: Richard Valenzuela Preoperative diagnosis: Left calf abscess Postoperative diagnosis: Same Procedure performed: Bedside irrigation and debridement Blood loss: 5 mL's Findings: Large amount of gross purulence and subcutaneous tissue Anesthesia: Local Specimens: Swab sent for culture Reason for procedure: Patient is a 75-year-old female who is developed a painful red bump over her leg that has been progressive. Please see my consult note for further details. Description of procedure: Patient was greeted in her hospital room. The correct site was verified. I injected approximately 10 cc of plain lidocaine around the abscess. This was done after a Betadine prep. After allowing this to set up, I made about a 1-1/2 to 2 cm incision over top of the abscess. This allowed immediate expression of a large amount of purulence. I introduced the culture swabs into the abscess at this point. After this, I used a hemostat to break up loculations. I then irrigated this out with about 100 mL of sterile fluid. I then packed this area with iodoform gauze, and a sterile dressing. Postoperative plan is to allow infectious disease to select antibiotics. Home health for wound packing. Any worsening redness drainage or swelling should prompt a phone call to my office from the patient. RICHARD VALENZUELA II, MD Mar 20, 2020 10:53
--- NOTE | 2020-03-20 10:59 | PDOC ---
PROGRESS NOTES Date of Service DATE: 03/20/20 TIME: 10:57 Subjective Subjective discussed with dr. Aguilar who did an I and D of left calf abscess and sent specimen for culture; pus obtained. wound packed. feels well. Objective Objective Vital Signs Date Time Temp Pulse Resp B/P (MAP) Pulse Ox O2 Delivery O2 Flow Rate FiO2 03/20/20 10:25 98.0 80 20 134/83 (100) 95 Room Air 98.0 Intake and Output 03/20/20 07:00 Intake Total 1060 ml Balance 1060 ml Intake Oral 1060 ml # Voids 3 Physical Exam Abdomen: Soft Heart: Normal S1, Normal S2 Extremities: No edema General: Alert HEENT: Atraumatic Lungs: Clear to auscultation Neuro: Normal speech Psych/Mental Status: Mental status NL Skin: Other (dry dressing left calf) Assessment Assessment 1. I and D of left calf abscess done 03/20/20 2. Diabetes mellitus type 2. 3. Hypertension. 4. Hyperlipidemia. 5. Coronary artery disease. 6. Rheumatoid arthritis. 7. Paroxysmal atrial fibrillation, on Xarelto. Plan Plan of Care await culture results continue iv daptomycin and rocephin continue glimepiride okay to resume plavix and xarelto per dr. Aguilar Comment Review of Relevant I have reviewed the following items russell (where applicable) has been applied. Labs Laboratory Tests Test 03/18/20 20:45 03/19/20 16:40 03/19/20 20:57 03/20/20 07:02 White Blood Count 8.7 x10^3/uL (4.0-11.0) Red Blood Count 4.66 x10^6/uL (3.50-5.40) Hemoglobin 13.6 g/dL (12.0-15.5) Hematocrit 41.0 % (36.0-47.0) Mean Corpuscular Volume 88 fL (79-100) Mean Corpuscular Hemoglobin 29 pg (25-35) Mean Corpuscular Hemoglobin Concent 33 g/dL (31-37) Red Cell Distribution Width 15.4 % (11.5-14.5) Platelet Count 289 x10^3/uL (140-400) Neutrophils (%) (Auto) 64 % (31-73) Lymphocytes (%) (Auto) 21 % (24-48) Monocytes (%) (Auto) 11 % (0-9) Eosinophils (%) (Auto) 3 % (0-3) Basophils (%) (Auto) 1 % (0-3) Neutrophils # (Auto) 5.6 x10^3/uL (1.8-7.7) Lymphocytes # (Auto) 1.8 x10^3/uL (1.0-4.8) Monocytes # (Auto) 1.0 x10^3/uL (0.0-1.1) Eosinophils # (Auto) 0.3 x10^3/uL (0.0-0.7) Basophils # (Auto) 0.1 x10^3/uL (0.0-0.2) Sodium Level 136 mmol/L (136-145) Potassium Level 4.1 mmol/L (3.5-5.1) Chloride Level 101 mmol/L (98-107) Carbon Dioxide Level 22 mmol/L (21-32) Anion Gap 13 (6-14) Blood Urea Nitrogen 15 mg/dL (7-20) Creatinine 0.9 mg/dL (0.6-1.0) Estimated GFR (Cockcroft-Gault) 60.7 BUN/Creatinine Ratio 17 (6-20) Glucose Level 196 mg/dL (70-99) Calcium Level 9.3 mg/dL (8.5-10.1) Total Bilirubin 0.5 mg/dL (0.2-1.0) Aspartate Amino Transf (AST/SGOT) 21 U/L (15-37) Alanine Aminotransferase (ALT/SGPT) 15 U/L (14-59) Alkaline Phosphatase 73 U/L (46-116) Total Protein 7.5 g/dL (6.4-8.2) Albumin 3.2 g/dL (3.4-5.0) Albumin/Globulin Ratio 0.7 (1.0-1.7) Glucose (Fingerstick) 115 mg/dL (70-99) 154 mg/dL (70-99) 138 mg/dL (70-99) Laboratory Tests Test 03/19/20 16:40 03/19/20 20:57 03/20/20 07:02 Glucose (Fingerstick) 115 mg/dL (70-99) 154 mg/dL (70-99) 138 mg/dL (70-99) Medications Current Medications Oxycodone/ Acetaminophen (Percocet 5/325) 1 tab BID PO Last administered on 03/20/20 08:50; Start 03/18/20 at 23:00 Cefazolin Sodium (Ancef) 1 gm Q8HRS IVP Last administered on 03/19/20at 06:17; Start 03/18/20 at 23:00; Stop 03/19/20 at 08:14; Status DC Ceftriaxone Sodium (Rocephin) 2 gm Q24H IVP Last administered on 03/20/20at 08:49; Start 03/19/20 at 08:30 Daptomycin 420 mg/ Sodium Chloride 50 ml @ 100 mls/hr Q24H IV Last administered on 03/19/20at 11:02; Start 03/19/20 at 10:00 Lactobacillus Rhamnosus (Culturelle) 1 cap BID PO Last administered on 03/20/20at 08:50; Start 03/19/20 at 21:00 Clopidogrel Bisulfate (Plavix) 75 mg DAILYWBKFT PO ; Start 03/22/20 at 08:00 Triamterene/HCTZ (Maxzide 37.5/ 25mg) 1 tab DAILY PO Last administered on 03/20/20 08:49; Start 03/19/20 at 14:00 Vitamin D (Vitamin D3) 2,000 unit DAILY PO Last administered on 03/20/20 08:51; Start 03/19/20 at 14:00 Potassium Chloride (Klor-Con) 20 meq DAILY PO Last administered on 03/20/20 08:50; Start 03/19/20 at 14:00 Pantoprazole Sodium (Protonix) 40 mg DAILYAC PO Last administered on 03/19/20at 15:56; Start 03/19/20 at 14:00 Metoprolol Tartrate (Lopressor) 50 mg BID PO Last administered on 03/20/20 08:51; Start 03/19/20 at 14:00 Losartan Potassium (Cozaar) 100 mg DAILY PO Last administered on 03/20/20 08 :50; Start 03/19/20 at 14:00 Glimepiride (Amaryl) 2 mg DAILY PO Last administered on 03/20/20at 08:49; Start 9/12/20 at 14:00 Diltiazem HCl (Cardizem 24hr Cd) 300 mg DAILY PO Last administered on 03/19/20at 15:54; Start 03/19/20 at 14:00 Amiodarone HCl (Cordarone) 200 mg DAILY PO Last administered on 03/20/20at 08:51; Start 03/19/20 at 14:00 Acetaminophen (Tylenol) 650 mg PRN Q6HRS PRN PO MILD PAIN / TEMP > 100.3'F Last administered on 03/20/20at 06:08; Start 03/19/20 at 13:00 Insulin Human Lispro (HumaLOG) 0-6 UNITS TIDWMEALS SQ ; Start 03/19/20 at 17:00 Lidocaine HCl (Xylocaine-Mpf 1% 5ml Vial) 5 ml 1X PRN PRN INJ BEDSIDE PROCED URE; Start 03/20/20 at 07:00; Stop 03/21/20 at 06:59 Active Scripts Active Amiodarone Hcl 200 Mg Tablet 1 Tab PO DAILY Nitrostat (Nitroglycerin) 0.4 Mg Tab.subl 0.4 Mg SL PRN Q5MIN PRN Clopidogrel (Clopidogrel Bisulfate) 75 Mg Tablet 75 Mg PO DAILYWBKFT Klor-Con M20 (Potassium Chloride) 20 Meq Tab.er.prt 20 Meq PO BIDWMEALS Reported Oxycodone HCl 5 Mg Tablet 5 Mg PO BID Metoprolol Tartrate 50 Mg Tablet 1 Tab PO BID Simponi Aria (Golimumab) 50 Mg/4 Ml Vial 200 Mg IV UD takes every 8 weeks Fish Oil 500 Mg Softgel ([place]-3/Dha/Epa/Fish Oil) 1 Each Capsule 2 Cap PO DAILY 30 Days Leflunomide 20 Mg Tablet 0.5 Tab PO DAILY Triamterene-Hctz 37.5-25 Mg Tb (Triamterene/Hydrochlorothiazid) 1 Each Tablet 1 Tab PO DAILY Xarelto (Rivaroxaban) 20 Mg Tablet 20 Mg PO DAILY Glimepiride 2 Mg Tablet 1 Tab PO DAILY Losartan Potassium 100 Mg Tablet 100 Mg PO DAILY Cartia Xt (Diltiazem Hcl) 300 Mg Cap.er.24h 300 Mg PO DAILY Omeprazole 20 Mg Capsule.dr 1 Cap PO DAILY Vitamin D (Cholecalciferol (Vitamin D3)) 2,000 Unit Capsule 1 Cap PO DAILY Vitals/I & O Vital Sign - Last 24 Hours 03/19/20 03/19/20 03/19/20 03/19/20 11:00 11:01 12:06 14:47 Temp 97.8 97.8 Pulse 96 Resp 18 B/P (MAP) 171/92 (118) Pulse Ox 98 95 95 O2 Delivery Room Air Room Air Room Air Room Air 03/19/20 03/19/20 03/19/20 03/19/20 15:00 15:52 15:54 15:55 Temp 97.5 97.5 Pulse 95 95 95 95 Resp 18 B/P (MAP) 159/84 (109) 159/84 159/84 159/84 Pulse Ox 96 O2 Delivery Room Air 03/19/20 03/19/20 03/19/20 03/19/20 15:57 19:00 19:40 21:14 Temp 97.9 97.9 Pulse 95 84 Resp 20 B/P (MAP) 159/84 138/70 (92) Pulse Ox 97 O2 Delivery Room Air Room Air Room Air 03/19/20 03/19/20 03/20/20 03/20/20 21:15 23:00 01:32 03:00 Temp 98.5 98.1 98.5 98.1 Pulse 84 82 77 Resp 20 20 B/P (MAP) 138/70 141/68 (92) 138/72 (94) Pulse Ox 96 95 O2 Delivery Room Air Room Air Room Air 03/20/20 03/20/20 03/20/20 03/20/20 07:00 08:50 08:50 08:51 Temp 98.0 98.0 Pulse 78 78 78 Resp 20 B/P (MAP) 129/78 (95) 129/78 129/78 Pulse Ox 94 94 O2 Delivery Room Air Room Air 03/20/20 03/20/20 03/20/20 08:51 10:00 10:25 Temp 98.0 98.0 Pulse 78 80 Resp 20 B/P (MAP) 129/78 134/83 (100) Pulse Ox 95 95 O2 Delivery Room Air Room Air Intake and Output 03/19/20 03/19/20 03/20/20 15:00 23:00 07:00 Intake Total 380 ml 680 ml Balance 380 ml 680 ml Justifications for Admission Other Justification ALVARO YEN MD Mar 20, 2020 10:59
[2020-03-20] MEDS ORDERED: ANTI-COAG MONITOR BY PHARMACY. MC PRN (12:00)
[2020-03-20] MEDS: CLOPIDOGREL BISULFATE 75 MG TABLET PO SCH (12:22)
[2020-03-20 14:30] VITALS: BP 136/85
[2020-03-20] MEDS: RIVAROXABAN 10 MG TABLET. PO SCH (17:20)
[2020-03-20 19:00] VITALS: BP 136/62
[2020-03-20 23:09] VITALS: BP 122/62
[2020-03-21 03:00] VITALS: BP 126/48
[2020-03-21] MEDS: PANTOPRAZOLE 40 MG TABLET.DR. PO SCH (05:43)
[2020-03-21] MEDS: ACETAMINOPHEN 325 MG TABLET. PO PRN ×2 (05:43→11:07)
[2020-03-21 07:00] VITALS: BP 131/82
[2020-03-21] MEDS: INSULIN LISPRO 300 UNITS/3 ML VIAL. SQ SCH ×3 (08:00→16:28)
[2020-03-21] MEDS: POTASSIUM CHLORIDE 20 MEQ TABLET.ER. PO SCH (08:21)
[2020-03-21] MEDS: LACTOBACILLUS RHAMNOSUS GG 1 CAPSULE. PO SCH ×2 (08:21→21:40)
[2020-03-21] MEDS: METOPROLOL TART IMMED RELEASE 50 MG TABLET. PO SCH ×2 (08:22→21:41)
[2020-03-21] MEDS: LOSARTAN POTASSIUM 50 MG TABLET. PO SCH (08:22)
[2020-03-21] MEDS: TRIAMTERENE/HCTZ 37.5/25MG TABLET. PO SCH (08:22)
[2020-03-21] MEDS: CHOLECALCIFEROL (VITAMIN D3) 1,000 UNIT TABLET PO SCH (08:22)
[2020-03-21] MEDS: oxyCODONE/APAP 5/325 1 TAB TABLET PO SCH ×2 (08:22→21:41)
[2020-03-21] MEDS: GLIMEPIRIDE 2 MG TABLET. PO SCH (08:22)
[2020-03-21] MEDS: CLOPIDOGREL BISULFATE 75 MG TABLET PO SCH (08:23)
[2020-03-21] MEDS: AMIODARONE HCL 200 MG TABLET. PO SCH (08:23)
[2020-03-21] MEDS: cefTRIAXone IV Push 2 GM VIAL. IVP SCH (08:24)
--- NOTE | 2020-03-21 09:34 | PDOC ---
Infectious Disease Note Subjective Subjective Doing ok but has more leg pain No F/C/S/N/V/D/SOA/rash Vital Sign Vital Signs Vital Signs Date Time Temp Pulse Resp B/P (MAP) Pulse Ox O2 Delivery O2 Flow Rate FiO2 03/21/20 09:12 97 Room Air 03/21/20 08:23 84 131/82 03/21/20 07:00 97.9 18 97.9 Physical Exam PHYSICAL EXAM CONSTITUTIONAL: She is very pleasant. She is cooperative. She is in no acute distress. She is sitting up in the side of bed. She wears glasses. HEENT: Pupils equal and reactive. Normal conjunctivae. Oral cavity, pharynx is clear. NECK: Supple, no JVD. LUNGS: Clear to auscultation bilaterally. HEART: S1, S2. ABDOMEN: Soft, nontender, no guarding or rebound. Mildly obese. EXTREMITIES: No clubbing, cyanosis. She has well-healed scars on her bilateral knees. Her left medial mid tibial area has a large golf ball size swelling. There is less erythema. There is some fluctuance. NEUROLOGIC: She is nonfocal, moves all extremities. PSYCHIATRIC: Affect is pleasant. SKIN: Warm to touch without signs of rash. Labs Lab Laboratory Tests Test 03/20/20 11:04 03/20/20 16:14 03/20/20 21:07 03/21/20 07:21 Glucose (Fingerstick) 139 mg/dL (70-99) 84 mg/dL (70-99) 153 mg/dL (70-99) 122 mg/dL (70-99) Micro Microbiology 03/20/20 Gram Stain - Final, Resulted 03/20/20 Aerobic and Anaerobic Culture, Resulted Pending Objective Assessment IMPRESSION: 1. Left lower extremity abscess. 2. CIPRO allergy, does not remember reaction. 3. Atrial fibrillation. 4. Diabetes. Plan Plan of Care Cont Rocephin/Dapto Await Ortho f/u and I and D F/u labs and cults D/w SELINA Osman MD Mar 21, 2020 09:34
--- NOTE | 2020-03-21 09:48 | NUR ---
SW following. Discussed with RN, pt from home alone, room air, ada diet, ad chon with walker. Awaiting cultures - pt currently on IV daptomycin and IV Rocephin. Pt had an I&D yesterday (03/20/2020). No PT/OT ordered at this time. SW will continue to follow.
--- NOTE | 2020-03-21 10:07 | PDOC ---
PROGRESS NOTES Date of Service DATE: 03/21/20 TIME: 10:04 Subjective Subjective feels better. still has swelling in left calf wound and needs to have pus squeezed out of wound and another wick and dressing which will be done this morning and daily. wound culture growing GPC Objective Objective Vital Signs Date Time Temp Pulse Resp B/P (MAP) Pulse Ox O2 Delivery O2 Flow Rate FiO2 03/21/20 09:12 97 Room Air 03/21/20 08:23 84 131/82 03/21/20 07:00 97.9 18 97.9 Intake and Output 03/21/20 07:00 Intake Total 1800 ml Balance 1800 ml Intake Oral 1800 ml # Voids 5 Physical Exam Abdomen: Soft Heart: Regular rate, Normal S1, Normal S2 Extremities: No edema General: Alert HEENT: Atraumatic Neuro: Normal speech Psych/Mental Status: Mental status NL Skin: Other (left calf wound with saturated wick and surrounding swelling) Assessment Assessment Assessment 1. I and D of left calf abscess done 03/20/20,. GPC growing in calf drainage culture 2. Diabetes mellitus type 2. 3. Hypertension. 4. Hyperlipidemia. 5. Coronary artery disease. 6. Rheumatoid arthritis. 7. Paroxysmal atrial fibrillation, on Xarelto. Plan Plan of Care continue iv daptomycin and rocephin await final cultures lab tomorrow Comment Review of Relevant I have reviewed the following items russell (where applicable) has been applied. Labs Laboratory Tests Test 03/19/20 16:40 03/19/20 20:57 03/20/20 07:02 03/20/20 11:04 Glucose (Fingerstick) 115 mg/dL (70-99) 154 mg/dL (70-99) 138 mg/dL (70-99) 139 mg/dL (70-99) Test 03/20/20 16:14 03/20/20 21:07 03/21/20 07:21 Glucose (Fingerstick) 84 mg/dL (70-99) 153 mg/dL (70-99) 122 mg/dL (70-99) Laboratory Tests Test 03/20/20 11:04 03/20/20 16:14 03/20/20 21:07 03/21/20 07:21 Glucose (Fingerstick) 139 mg/dL (70-99) 84 mg/dL (70-99) 153 mg/dL (70-99) 122 mg/dL (70-99) Microbiology 03/20/20 Gram Stain - Final, Resulted 03/20/20 Aerobic and Anaerobic Culture, Resulted Pending Medications Current Medications Oxycodone/ Acetaminophen (Percocet 5/325) 1 tab BID PO Last administered on 03/21/20at 08:22; Start 03/18/20 at 23:00 Cefazolin Sodium (Ancef) 1 gm Q8HRS IVP Last administered on 03/19/20at 06:17; Start 03/18/20 at 23:00; Stop 03/19/20 at 08:14; Status DC Ceftriaxone Sodium (Rocephin) 2 gm Q24H IVP Last administered on 03/21/20at 08:24; Start 03/19/20 at 08:30 Daptomycin 420 mg/ Sodium Chloride 50 ml @ 100 mls/hr Q24H IV Last administered on 03/20/20at 10:00; Start 03/19/20 at 10:00 Lactobacillus Rhamnosus (Culturelle) 1 cap BID PO Last administered on 03/21/20at 08:21; Start 03/19/20 at 21:00 Clopidogrel Bisulfate (Plavix) 75 mg DAILYWBKFT PO ; Start 03/22/20 at 08:00; S top 03/20/20 at 11:01; Status DC Triamterene/HCTZ (Maxzide 37.5/ 25mg) 1 tab DAILY PO Last administered on 03/21/20at 08:22; Start 03/19/20 at 14:00 Vitamin D (Vitamin D3) 2,000 unit DAILY PO Last administered on 03/21/20at 08:22; Start 03/19/20 at 14:00 Potassium Chloride (Klor-Con) 20 meq DAILY PO Last administered on 03/21/20at 08:21; Start 03/19/20 at 14:00 Pantoprazole Sodium (Protonix) 40 mg DAILYAC PO Last administered on 03/21/20at 05:43; Start 03/19/20 at 14:00 Metoprolol Tartrate (Lopressor) 50 mg BID PO Last administered on 03/21/20 08:22; Start 03/19/20 at 14:00 Losartan Potassium (Cozaar) 100 mg DAILY PO Last administered on 03/21/20at 08:22; Start 03/19/20 at 14:00 Glimepiride (Amaryl) 2 mg DAILY PO Last administered on 03/21/20 08:22; Start 03/19/20 at 14:00 Diltiazem HCl (Cardizem 24hr Cd) 300 mg DAILY PO Last administered on 03/21/20at 08:21; Start 03/19/20 at 14:00 Amiodarone HCl (Cordarone) 200 mg DAILY PO Last administered on 03/21/20at 08:23; Start 03/19/20 at 14:00 Acetaminophen (Tylenol) 650 mg PRN Q6HRS PRN PO MILD PAIN / TEMP > 100.3'F Last administered on 03/21/20at 05:43; Start 03/19/20 at 13:00 Insulin Human Lispro (HumaLOG) 0-6 UNITS TIDWMEALS SQ ; Start 03/19/20 at 17:00 Lidocaine HCl (Xylocaine-Mpf 1% 5ml Vial) 5 ml 1X PRN PRN INJ BEDSIDE PROCEDURE Last administered on 03/20/20at 11:05; Start 03/20/20 at 07:00; Stop 03/21/20 at 06:59; Status DC Clopidogrel Bisulfate (Plavix) 75 mg DAILYWBKFT PO Last administered on 03/21/20at 08:23; Start 03/20/20 at 12:00 Rivaroxaban (Xarelto) 20 mg DAILYWSUP PO Last administered on 03/20/20at 17:20; Start 03/20/20 at 17:00 Info (Anti-Coagulation Monitoring By Pharmacy) 1 each PRN DAILY PRN MC SEE COMMENTS; Start 03/20/20 at 12:00 Active Scripts Active Amiodarone Hcl 200 Mg Tablet 1 Tab PO DAILY Nitrostat (Nitroglycerin) 0.4 Mg Tab.subl 0.4 Mg SL PRN Q5MIN PRN Clopidogrel (Clopidogrel Bisulfate) 75 Mg Tablet 75 Mg PO DAILYWBKFT Klor-Con M20 (Potassium Chloride) 20 Meq Tab.er.prt 20 Meq PO BIDWMEALS Reported Oxycodone HCl 5 Mg Tablet 5 Mg PO BID Metoprolol Tartrate 50 Mg Tablet 1 Tab PO BID Simponi Aria (Golimumab) 50 Mg/4 Ml Vial 200 Mg IV UD takes every 8 weeks Fish Oil 500 Mg Softgel ([place]-3/Dha/Epa/Fish Oil) 1 Each Capsule 2 Cap PO DAILY 30 Days Leflunomide 20 Mg Tablet 0.5 Tab PO DAILY Triamterene-Hctz 37.5-25 Mg Tb (Triamterene/Hydrochlorothiazid) 1 Each Tablet 1 Tab PO DAILY Xarelto (Rivaroxaban) 20 Mg Tablet 20 Mg PO DAILY Glimepiride 2 Mg Tablet 1 Tab PO DAILY Losartan Potassium 100 Mg Tablet 100 Mg PO DAILY Cartia Xt (Diltiazem Hcl) 300 Mg Cap.er.24h 300 Mg PO DAILY Omeprazole 20 Mg Capsule. 1 Cap PO DAILY Vitamin D (Cholecalciferol (Vitamin D3)) 2,000 Unit Capsule 1 Cap PO DAILY Vitals/I & O Vital Sign - Last 24 Hours 03/20/20 03/20/20 03/20/20 03/20/20 10:25 12:23 14:30 19:00 Temp 98.0 98.0 98.2 98.0 98.0 98.2 Pulse 80 80 72 67 Resp 20 20 20 B/P (MAP) 134/83 (100) 134/83 136/85 (102) 136/62 (86) Pulse Ox 95 98 96 O2 Delivery Room Air Room Air Room Air 03/20/20 03/20/20 03/20/20 03/20/20 20:00 20:41 20:41 21:41 Pulse 67 Resp 14 14 B/P (MAP) 136/62 O2 Delivery Room Air Room Air Room Air 03/20/20 03/21/20 03/21/20 03/21/20 23:09 03:00 07:00 08:00 Temp 98.0 98.7 97.9 98.0 98.7 97.9 Pulse 62 75 84 Resp 20 20 18 B/P (MAP) 122/62 (82) 126/48 (74) 131/82 (98) Pulse Ox 94 96 97 O2 Delivery Room Air Room Air Room Air Room Air 03/21/20 03/21/20 03/21/20 03/21/20 08:21 08:22 08:22 08:22 Pulse 84 84 84 B/P (MAP) 131/82 131/82 131/82 Pulse Ox 97 O2 Delivery Room Air 03/21/20 03/21/20 08:23 09:12 Pulse 84 B/P (MAP) 131/82 Pulse Ox 97 O2 Delivery Room Air Intake and Output 03/20/20 03/20/20 03/21/20 15:00 23:00 07:00 Intake Total 600 ml 650 ml 550 ml Balance 600 ml 650 ml 550 ml Justifications for Admission Other Justification ALVARO YEN MD Mar 21, 2020 10:07
[2020-03-21] MEDS: DAPTOmycin (GENERIC) IVPB 420 MG in IV NORMAL SALINE 50ML 50 ML IV SCH (10:11)
[2020-03-21 11:00] VITALS: BP 134/72
[2020-03-21 15:00] VITALS: BP 115/70
[2020-03-21] MEDS: RIVAROXABAN 10 MG TABLET. PO SCH (16:09)
[2020-03-21 19:00] VITALS: BP 153/71
[2020-03-21 23:00] VITALS: BP 122/62
[2020-03-22 03:00] VITALS: BP 129/58
[2020-03-22 05:23] LABS: BASO # 0.1 x10^3/uL (0.0-0.2); BASO % 1 % (0-3); EOS # 0.5 x10^3/uL (0.0-0.7); EOS % 7 % (0-3); HEMATOCRIT 38.3 % (36.0-47.0); HEMOGLOBIN 12.6 g/dL (12.0-15.5); LYMPH # 1.9 x10^3/uL (1.0-4.8); LYMPH % 30 % (24-48); MEAN CORPUSCULAR HEMOGLOBIN 29 pg (25-35); MEAN CORPUSCULAR HGB CONC 33 g/dL (31-37); MEAN CORPUSCULAR VOLUME 88 fL (79-100); MONO # 0.8 x10^3/uL (0.0-1.1); MONO % 13 % (0-9); NEUT % 49 % (31-73); PLATELET COUNT 269 x10^3/uL (140-400); RED BLOOD COUNT 4.37 x10^6/uL (3.50-5.40); RED CELL DISTRIBUTION WIDTH 15.4 % (11.5-14.5); WHITE BLOOD COUNT 6.2 x10^3/uL (4.0-11.0)
[2020-03-22 05:43] LABS: CREATININE 0.9 mg/dL (0.6-1.0); GFR 60.7; POTASSIUM 3.5 mmol/L (3.5-5.1)
[2020-03-22] MEDS: PANTOPRAZOLE 40 MG TABLET.DR. PO SCH (06:26)
[2020-03-22 07:00] VITALS: BP 131/73
[2020-03-22] MEDS ORDERED: CLOPIDOGREL BISULFATE 75 MG TABLET PO SCH (08:00)
[2020-03-22] MEDS: INSULIN LISPRO 300 UNITS/3 ML VIAL. SQ SCH ×2 (08:00→12:00)
--- NOTE | 2020-03-22 08:41 | PDOC ---
ORTHO PROGRESS NOTES DATE: 03/22/20 TIME: 08:41 Subjective She reports some leg pain at the area of involvement. Overall though, her pain is much better Vitals Vital Signs Date Time Temp Pulse Resp B/P (MAP) Pulse Ox O2 Delivery O2 Flow Rate FiO2 03/22/20 07:00 97.8 80 18 131/73 (92) 99 Room Air 97.8 Labs Laboratory Tests Test 03/20/20 11:04 03/20/20 16:14 03/20/20 21:07 03/21/20 07:21 Glucose (Fingerstick) 139 mg/dL (70-99) 84 mg/dL (70-99) 153 mg/dL (70-99) 122 mg/dL (70-99) Test 03/21/20 11:19 03/21/20 16:26 03/21/20 21:31 03/22/20 04:35 Glucose (Fingerstick) 129 mg/dL (70-99) 113 mg/dL (70-99) 142 mg/dL (70-99) White Blood Count 6.2 x10^3/uL (4.0-11.0) Red Blood Count 4.37 x10^6/uL (3.50-5.40) Hemoglobin 12.6 g/dL (12.0-15.5) Hematocrit 38.3 % (36.0-47.0) Mean Corpuscular Volume 88 fL (79-100) Mean Corpuscular Hemoglobin 29 pg (25-35) Mean Corpuscular Hemoglobin Concent 33 g/dL (31-37) Red Cell Distribution Width 15.4 % (11.5-14.5) Platelet Count 269 x10^3/uL (140-400) Neutrophils (%) (Auto) 49 % (31-73) Lymphocytes (%) (Auto) 30 % (24-48) Monocytes (%) (Auto) 13 % (0-9) Eosinophils (%) (Auto) 7 % (0-3) Basophils (%) (Auto) 1 % (0-3) Neutrophils # (Auto) 3.0 x10^3/uL (1.8-7.7) Lymphocytes # (Auto) 1.9 x10^3/uL (1.0-4.8) Monocytes # (Auto) 0.8 x10^3/uL (0.0-1.1) Eosinophils # (Auto) 0.5 x10^3/uL (0.0-0.7) Basophils # (Auto) 0.1 x10^3/uL (0.0-0.2) Test 03/22/20 04:55 03/22/20 07:26 Sodium Level 139 mmol/L (136-145) Potassium Level 3.5 mmol/L (3.5-5.1) Chloride Level 104 mmol/L (98-107) Carbon Dioxide Level 24 mmol/L (21-32) Anion Gap 11 (6-14) Blood Urea Nitrogen 17 mg/dL (7-20) Creatinine 0.9 mg/dL (0.6-1.0) Estimated GFR (Cockcroft-Gault) 60.7 Glucose Level 130 mg/dL (70-99) Calcium Level 9.0 mg/dL (8.5-10.1) Creatine Kinase 86 U/L (26-192) Glucose (Fingerstick) 127 mg/dL (70-99) Laboratory Tests Test 03/21/20 11:19 03/21/20 16:26 03/21/20 21:31 03/22/20 04:35 Glucose (Fingerstick) 129 mg/dL (70-99) 113 mg/dL (70-99) 142 mg/dL (70-99) White Blood Count 6.2 x10^3/uL (4.0-11.0) Red Blood Count 4.37 x10^6/uL (3.50-5.40) Hemoglobin 12.6 g/dL (12.0-15.5) Hematocrit 38.3 % (36.0-47.0) Mean Corpuscular Volume 88 fL (79-100) Mean Corpuscular Hemoglobin 29 pg (25-35) Mean Corpuscular Hemoglobin Concent 33 g/dL (31-37) Red Cell Distribution Width 15.4 % (11.5-14.5) Platelet Count 269 x10^3/uL (140-400) Neutrophils (%) (Auto) 49 % (31-73) Lymphocytes (%) (Auto) 30 % (24-48) Monocytes (%) (Auto) 13 % (0-9) Eosinophils (%) (Auto) 7 % (0-3) Basophils (%) (Auto) 1 % (0-3) Neutrophils # (Auto) 3.0 x10^3/uL (1.8-7.7) Lymphocytes # (Auto) 1.9 x10^3/uL (1.0-4.8) Monocytes # (Auto) 0.8 x10^3/uL (0.0-1.1) Eosinophils # (Auto) 0.5 x10^3/uL (0.0-0.7) Basophils # (Auto) 0.1 x10^3/uL (0.0-0.2) Test 03/22/20 04:55 03/22/20 07:26 Sodium Level 139 mmol/L (136-145) Potassium Level 3.5 mmol/L (3.5-5.1) Chloride Level 104 mmol/L (98-107) Carbon Dioxide Level 24 mmol/L (21-32) Anion Gap 11 (6-14) Blood Urea Nitrogen 17 mg/dL (7-20) Creatinine 0.9 mg/dL (0.6-1.0) Estimated GFR (Cockcroft-Gault) 60.7 Glucose Level 130 mg/dL (70-99) Calcium Level 9.0 mg/dL (8.5-10.1) Creatine Kinase 86 U/L (26-192) Glucose (Fingerstick) 127 mg/dL (70-99) Notes On examination, she is ambulating in the room. Dressing is intact with expected amount of bloody drainage. Less erythema and edema today Assessment and Plan Antibiotic selection per infectious disease. She should follow-up with orthopedics in 2 weeks. VIKRAM VALENZUELA II, MD Mar 22, 2020 08:41
[2020-03-22] MEDS ORDERED: MULTIVITAMIN with MINERAL TABLET. PO SCH (09:00)
[2020-03-22] MEDS ORDERED: ASCORBIC ACID 500 MG TABLET PO SCH (09:00)
--- NOTE | 2020-03-22 09:57 | PDOC ---
Infectious Disease Note Subjective Subjective feeling good, no complaints ROS ROS no n/v/d/ Vital Sign Vital Signs Vital Signs Date Time Temp Pulse Resp B/P (MAP) Pulse Ox O2 Delivery O2 Flow Rate FiO2 03/22/20 07:00 97.8 80 18 131/73 (92) 99 Room Air 97.8 Physical Exam PHYSICAL EXAM CONSTITUTIONAL: She is very pleasant. She is cooperative. She is in no acute distress. She is sitting up in the side of bed. She wears glasses. HEENT: Pupils equal and reactive. Normal conjunctivae. Oral cavity, pharynx is clear. NECK: Supple, no JVD. LUNGS: Clear to auscultation bilaterally. HEART: S1, S2. ABDOMEN: Soft, nontender, no guarding or rebound. Mildly obese. EXTREMITIES: No clubbing, cyanosis. She has well-healed scars on her bilateral knees. Her left medial mid tibial area has a large golf ball size swelling. There is less erythema. There is some fluctuance. NEUROLOGIC: She is nonfocal, moves all extremities. PSYCHIATRIC: Affect is pleasant. SKIN: Warm to touch without signs of rash. Labs Lab Laboratory Tests Test 03/21/20 11:19 03/21/20 16:26 03/21/20 21:31 03/22/20 04:35 Glucose (Fingerstick) 129 mg/dL (70-99) 113 mg/dL (70-99) 142 mg/dL (70-99) White Blood Count 6.2 x10^3/uL (4.0-11.0) Red Blood Count 4.37 x10^6/uL (3.50-5.40) Hemoglobin 12.6 g/dL (12.0-15.5) Hematocrit 38.3 % (36.0-47.0) Mean Corpuscular Volume 88 fL (79-100) Mean Corpuscular Hemoglobin 29 pg (25-35) Mean Corpuscular Hemoglobin Concent 33 g/dL (31-37) Red Cell Distribution Width 15.4 % (11.5-14.5) Platelet Count 269 x10^3/uL (140-400) Neutrophils (%) (Auto) 49 % (31-73) Lymphocytes (%) (Auto) 30 % (24-48) Monocytes (%) (Auto) 13 % (0-9) Eosinophils (%) (Auto) 7 % (0-3) Basophils (%) (Auto) 1 % (0-3) Neutrophils # (Auto) 3.0 x10^3/uL (1.8-7.7) Lymphocytes # (Auto) 1.9 x10^3/uL (1.0-4.8) Monocytes # (Auto) 0.8 x10^3/uL (0.0-1.1) Eosinophils # (Auto) 0.5 x10^3/uL (0.0-0.7) Basophils # (Auto) 0.1 x10^3/uL (0.0-0.2) Test 03/22/20 04:55 03/22/20 07:26 Sodium Level 139 mmol/L (136-145) Potassium Level 3.5 mmol/L (3.5-5.1) Chloride Level 104 mmol/L (98-107) Carbon Dioxide Level 24 mmol/L (21-32) Anion Gap 11 (6-14) Blood Urea Nitrogen 17 mg/dL (7-20) Creatinine 0.9 mg/dL (0.6-1.0) Estimated GFR (Cockcroft-Gault) 60.7 Glucose Level 130 mg/dL (70-99) Calcium Level 9.0 mg/dL (8.5-10.1) Creatine Kinase 86 U/L (26-192) Glucose (Fingerstick) 127 mg/dL (70-99) Micro GRAM STAIN Final Final GRAM POS COCCI CLUSTERS:FEW SQUAMOUS EPI CELL:RARE PMN (WBCs):FEW Unless otherwise specified, Testing Performed by: [address] [id number] For Inquires, the Physician may contact the Microbiology department at [phone] ANAEROBIC-AEROBIC CULTURE Preliminary Preliminary MODERATE GRAM POSITIVE COCCI on 03/21/20 at 1003 FINAL ID= [STAPHYLOCOCCUS AUREUS (MRSA)] STAPHYLOCOCCUS AUREUS (MRSA) ANTIMICROBIAL SUSCEPTIBILITY Preliminary Comment POS XENIA TYPE 38 STAPHYLOCOCCUS AUREUS (MRSA) ANTIBIOTIC RESULT INTERPRETATION AZITHROMYCIN >4 R CLINDAMYCIN 0.5 R* CEFOXITIN SCREEN >4 POS CIPROFLOXACIN <=1 S CEFTAROLINE <=0.5 S DAPTOMYCIN <=0.5 S ERYTHROMYCIN >4 R GENTAMICIN <=4 S INDUCIBLE CLINDAMYCIN >4/0.5 POS LINEZOLID 2 S LEVOFLOXACIN <=1 S OXACILLIN 0.5 R* PENICILLIN >2 R* RIFAMPIN <=1 S CONTINUED ON NEXT PAGE RUN DATE: 03/22/20 [facility] *LIVE* PAGE 2 RUN TIME: 0953 Specimen Inquiry SPEC: [id number] PATIENT: ERVIN VILLAFUERTE [id number] (Continued) Procedure Result ANTIMICROBIAL SUSCEPTIBILITY Preliminary (continued) TRIMETHOPRIM/SULFAMETHOXAZOLE <=0.5/9.5 S TETRACYCLINE <=4 S VANCOMYCIN 1 S Unless otherwise specified, Testing Performed by: [address] [id number] For Inquires, the Physician may contact the Microbiology department at [phone] Objective Assessment IMPRESSION: 1. Left lower extremity abscess. MRSA 2. CIPRO allergy, does not remember reaction. 3. Atrial fibrillation. 4. Diabetes. Plan Plan of Care jaylen crook to d/c home home health for wound care SELINA CORTES MD Mar 22, 2020 09:57
[2020-03-22] MEDS: CHOLECALCIFEROL (VITAMIN D3) 1,000 UNIT TABLET PO SCH (10:28)
[2020-03-22] MEDS: TRIAMTERENE/HCTZ 37.5/25MG TABLET. PO SCH (10:28)
--- NOTE | 2020-03-22 10:30 | PDOC ---
PROGRESS NOTES Date of Service DATE: 03/22/20 TIME: 10:28 Subjective Subjective feels better. aspirate grew MRSA and switched to oral zyvox. lab reviewed. Objective Objective Vital Signs Date Time Temp Pulse Resp B/P (MAP) Pulse Ox O2 Delivery O2 Flow Rate FiO2 03/22/20 07:00 97.8 80 18 131/73 (92) 99 Room Air 97.8 Intake and Output 03/22/20 07:00 Intake Total 720 ml Balance 720 ml Intake Oral 720 ml # Voids 2 # Bowel Movements 1 Physical Exam Abdomen: Soft Heart: Regular rate, Normal S1, Normal S2 Extremities: Other (mild edema LLE) General: Alert HEENT: Atraumatic Lungs: Clear to auscultation Neuro: Normal speech Psych/Mental Status: Mental status NL Skin: Other (wound left calf) Assessment Assessment 1. I and D of left calf abscess done 03/20/20, cultures grew MRSA 2. Diabetes mellitus type 2. 3. Hypertension. 4. Hyperlipidemia. 5. Coronary artery disease. 6. Rheumatoid arthritis. 7. Paroxysmal atrial fibrillation, on Xarelto. Plan Plan of Care switch to oral zyvox dismiss today with home health Comment Review of Relevant I have reviewed the following items russell (where applicable) has been applied. Labs Laboratory Tests Test 03/20/20 11:04 03/20/20 16:14 03/20/20 21:07 03/21/20 07:21 Glucose (Fingerstick) 139 mg/dL (70-99) 84 mg/dL (70-99) 153 mg/dL (70-99) 122 mg/dL (70-99) Test 03/21/20 11:19 03/21/20 16:26 03/21/20 21:31 03/22/20 04:35 Glucose (Fingerstick) 129 mg/dL (70-99) 113 mg/dL (70-99) 142 mg/dL (70-99) White Blood Count 6.2 x10^3/uL (4.0-11.0) Red Blood Count 4.37 x10^6/uL (3.50-5.40) Hemoglobin 12.6 g/dL (12.0-15.5) Hematocrit 38.3 % (36.0-47.0) Mean Corpuscular Volume 88 fL (79-100) Mean Corpuscular Hemoglobin 29 pg (25-35) Mean Corpuscular Hemoglobin Concent 33 g/dL (31-37) Red Cell Distribution Width 15.4 % (11.5-14.5) Platelet Count 269 x10^3/uL (140-400) Neutrophils (%) (Auto) 49 % (31-73) Lymphocytes (%) (Auto) 30 % (24-48) Monocytes (%) (Auto) 13 % (0-9) Eosinophils (%) (Auto) 7 % (0-3) Basophils (%) (Auto) 1 % (0-3) Neutrophils # (Auto) 3.0 x10^3/uL (1.8-7.7) Lymphocytes # (Auto) 1.9 x10^3/uL (1.0-4.8) Monocytes # (Auto) 0.8 x10^3/uL (0.0-1.1) Eosinophils # (Auto) 0.5 x10^3/uL (0.0-0.7) Basophils # (Auto) 0.1 x10^3/uL (0.0-0.2) Test 03/22/20 04:55 03/22/20 07:26 Sodium Level 139 mmol/L (136-145) Potassium Level 3.5 mmol/L (3.5-5.1) Chloride Level 104 mmol/L (98-107) Carbon Dioxide Level 24 mmol/L (21-32) Anion Gap 11 (6-14) Blood Urea Nitrogen 17 mg/dL (7-20) Creatinine 0.9 mg/dL (0.6-1.0) Estimated GFR (Cockcroft-Gault) 60.7 Glucose Level 130 mg/dL (70-99) Calcium Level 9.0 mg/dL (8.5-10.1) Creatine Kinase 86 U/L (26-192) Glucose (Fingerstick) 127 mg/dL (70-99) Laboratory Tests Test 03/21/20 11:19 03/21/20 16:26 03/21/20 21:31 03/22/20 04:35 Glucose (Fingerstick) 129 mg/dL (70-99) 113 mg/dL (70-99) 142 mg/dL (70-99) White Blood Count 6.2 x10^3/uL (4.0-11.0) Red Blood Count 4.37 x10^6/uL (3.50-5.40) Hemoglobin 12.6 g/dL (12.0-15.5) Hematocrit 38.3 % (36.0-47.0) Mean Corpuscular Volume 88 fL (79-100) Mean Corpuscular Hemoglobin 29 pg (25-35) Mean Corpuscular Hemoglobin Concent 33 g/dL (31-37) Red Cell Distribution Width 15.4 % (11.5-14.5) Platelet Count 269 x10^3/uL (140-400) Neutrophils (%) (Auto) 49 % (31-73) Lymphocytes (%) (Auto) 30 % (24-48) Monocytes (%) (Auto) 13 % (0-9) Eosinophils (%) (Auto) 7 % (0-3) Basophils (%) (Auto) 1 % (0-3) Neutrophils # (Auto) 3.0 x10^3/uL (1.8-7.7) Lymphocytes # (Auto) 1.9 x10^3/uL (1.0-4.8) Monocytes # (Auto) 0.8 x10^3/uL (0.0-1.1) Eosinophils # (Auto) 0.5 x10^3/uL (0.0-0.7) Basophils # (Auto) 0.1 x10^3/uL (0.0-0.2) Test 03/22/20 04:55 03/22/20 07:26 Sodium Level 139 mmol/L (136-145) Potassium Level 3.5 mmol/L (3.5-5.1) Chloride Level 104 mmol/L (98-107) Carbon Dioxide Level 24 mmol/L (21-32) Anion Gap 11 (6-14) Blood Urea Nitrogen 17 mg/dL (7-20) Creatinine 0.9 mg/dL (0.6-1.0) Estimated GFR (Cockcroft-Gault) 60.7 Glucose Level 130 mg/dL (70-99) Calcium Level 9.0 mg/dL (8.5-10.1) Creatine Kinase 86 U/L (26-192) Glucose (Fingerstick) 127 mg/dL (70-99) Microbiology 03/20/20 Gram Stain - Final, Resulted 03/20/20 Aerobic and Anaerobic Culture - Preliminary, Resulted 03/20/20 Antimicrobic Susceptibility - Preliminary, Resulted Medications Current Medications Oxycodone/ Acetaminophen (Percocet 5/325) 1 tab BID PO Last administered on 03/21/20at 21:41; Start 03/18/20 at 23:00 Cefazolin Sodium (Ancef) 1 gm Q8HRS IVP Last administered on 03/19/20at 06:17; Start 03/18/20 at 23:00; Stop 03/19/20 at 08:14; Status DC Ceftriaxone Sodium (Rocephin) 2 gm Q24H IVP Last administered on 03/21/20at 08:24; Start 03/19/20 at 08:30; Stop 03/22/20 at 09:58; Status DC Daptomycin 420 mg/ Sodium Chloride 50 ml @ 100 mls/hr Q24H IV Last administered on 03/21/20at 10:11; Start 03/19/20 at 10:00; Stop 03/22/20 at 09:58; Status DC Lactobacillus Rhamnosus (Culturelle) 1 cap BID PO Last administered on 03/21/20at 21:40; Start 03/19/20 at 21:00 Clopidogrel Bisulfate (Plavix) 75 mg DAILYWBKFT PO ; Start 03/22/20 at 08:00; Stop 03/20/20 at 11:01; Status DC Triamterene/HCTZ (Maxzide 37.5/ 25mg) 1 tab DAILY PO Last administered on 03/21/20at 08:22; Start 03/19/20 at 14:00 Vitamin D (Vitamin D3) 2,000 unit DAILY PO Last administered on 03/21/20at 08:22; Start 03/19/20 at 14:00 Potassium Chloride (Klor-Con) 20 meq DAILY PO Last administered on 03/21/20at 08:21; Start 03/19/20 at 14:00 Pantoprazole Sodium (Protonix) 40 mg DAILYAC PO Last administered on 03/22/20at 06:26; Start 03/19/20 at 14:00 Metoprolol Tartrate (Lopressor) 50 mg BID PO Last administered on 03/21/20at 21:41; Start 03/19/20 at 14:00 Losartan Potassium (Cozaar) 100 mg DAILY PO Last administered on 03/21/20 08:22; Start 03/19/20 at 14:00 Glimepiride (Amaryl) 2 mg DAILY PO Last administered on 03/21/20 08:22; Start 03/19/20 at 14:00 Diltiazem HCl (Cardizem 24hr Cd) 300 mg DAILY PO Last administered on 03/21/20 08:21; Start 03/19/20 at 14:00 Amiodarone HCl (Cordarone) 200 mg DAILY PO Last administered on 03/21/20 08:23; Start 03/19/20 at 14:00 Acetaminophen (Tylenol) 650 mg PRN Q6HRS PRN PO MILD PAIN / TEMP > 100.3'F Last administered on 03/21/20at 11:07; Start 03/19/20 at 13:00 Insulin Human Lispro (HumaLOG) 0-6 UNITS TIDWMEALS SQ ; Start 03/19/20 at 17:00 Lidocaine HCl (Xylocaine-Mpf 1% 5ml Vial) 5 ml 1X PRN PRN INJ BEDSIDE PROCEDURE Last administered on 03/20/20at 11:05; Start 03/20/20 at 07:00; Stop 03/21/20 at 06:59; Status DC Clopidogrel Bisulfate (Plavix) 75 mg DAILYWBKFT PO Last administered on 03/21/20at 08:23; Start 03/20/20 at 12:00 Rivaroxaban (Xarelto) 20 mg DAILYWSUP PO Last administered on 03/21/20at 16:09; Start 03/20/20 at 17:00 Info (Anti-Coagulation Monitoring By Pharmacy) 1 each PRN DAILY PRN MC SEE COMMENTS Last administered on 03/21/20at 11:24; Start 03/20/20 at 12:00 Multivitamins (Thera M Plus) 1 tab DAILY PO ; Start 03/22/20 at 09:00 Ascorbic Acid (Vitamin C) 500 mg DAILY PO ; Start 03/22/20 at 09:00 Linezolid (Zyvox) 600 mg BID PO ; Start 03/22/20 at 21:00 Active Scripts Active Amiodarone Hcl 200 Mg Tablet 1 Tab PO DAILY Nitrostat (Nitroglycerin) 0.4 Mg Tab.subl 0.4 Mg SL PRN Q5MIN PRN Clopidogrel (Clopidogrel Bisulfate) 75 Mg Tablet 75 Mg PO DAILYWBKFT Klor-Con M20 (Potassium Chloride) 20 Meq Tab.er.prt 20 Meq PO BIDWMEALS Reported Oxycodone HCl 5 Mg Tablet 5 Mg PO BID Metoprolol Tartrate 50 Mg Tablet 1 Tab PO BID Simponi Aria (Golimumab) 50 Mg/4 Ml Vial 200 Mg IV UD takes every 8 weeks Fish Oil 500 Mg Softgel ([place]-3/Dha/Epa/Fish Oil) 1 Each Capsule 2 Cap PO DAILY 30 Days Leflunomide 20 Mg Tablet 0.5 Tab PO DAILY Triamterene-Hctz 37.5-25 Mg Tb (Triamterene/Hydrochlorothiazid) 1 Each Tablet 1 Tab PO DAILY Xarelto (Rivaroxaban) 20 Mg Tablet 20 Mg PO DAILY Glimepiride 2 Mg Tablet 1 Tab PO DAILY Losartan Potassium 100 Mg Tablet 100 Mg PO DAILY Cartia Xt (Diltiazem Hcl) 300 Mg Cap.er.24h 300 Mg PO DAILY Omeprazole 20 Mg Capsule. 1 Cap PO DAILY Vitamin D (Cholecalciferol (Vitamin D3)) 2,000 Unit Capsule 1 Cap PO DAILY Vitals/I & O Vital Sign - Last 24 Hours 03/21/20 03/21/20 03/21/20 03/21/20 11:00 15:00 19:00 21:41 Temp 97.5 97.5 97.9 97.5 97.5 97.9 Pulse 71 65 61 Resp 18 18 18 20 B/P (MAP) 134/72 (92) 115/70 (85) 153/71 (98) Pulse Ox 95 97 97 O2 Delivery Room Air Room Air Room Air Room Air 03/21/20 03/21/20 03/21/20 03/22/20 21:41 22:45 23:00 03:00 Temp 98.5 98.1 98.5 98.1 Pulse 68 72 75 Resp 20 18 18 B/P (MAP) 153/71 122/62 (82) 129/58 (81) Pulse Ox 97 98 O2 Delivery Room Air Room Air Room Air 03/22/20 07:00 Temp 97.8 97.8 Pulse 80 Resp 18 B/P (MAP) 131/73 (92) Pulse Ox 99 O2 Delivery Room Air Intake and Output 03/21/20 03/21/20 03/22/20 15:00 23:00 07:00 Intake Total 350 ml 250 ml 120 ml Balance 350 ml 250 ml 120 ml Justifications for Admission Other Justification ALVARO YEN MD Mar 22, 2020 10:30
[2020-03-22] MEDS: AMIODARONE HCL 200 MG TABLET. PO SCH (10:31)
[2020-03-22] MEDS: GLIMEPIRIDE 2 MG TABLET. PO SCH (10:31)
[2020-03-22] MEDS: LOSARTAN POTASSIUM 50 MG TABLET. PO SCH (10:31)
[2020-03-22] MEDS: LACTOBACILLUS RHAMNOSUS GG 1 CAPSULE. PO SCH (10:32)
[2020-03-22] MEDS: CLOPIDOGREL BISULFATE 75 MG TABLET PO SCH (10:32)
[2020-03-22] MEDS: METOPROLOL TART IMMED RELEASE 50 MG TABLET. PO SCH (10:32)
[2020-03-22] MEDS: POTASSIUM CHLORIDE 20 MEQ TABLET.ER. PO SCH (10:32)
[2020-03-22] MEDS: oxyCODONE/APAP 5/325 1 TAB TABLET PO SCH (10:32)
[2020-03-22] MEDS ORDERED: LINE600T12 PO (10:34)
--- NOTE | 2020-03-22 10:37 | SNU/HH DC ---
DISCHARGE WITH HOME HEALTH DISCHARGE INFORMATION: Discharge Date: Mar 22, 2020 Final Diagnosis: I and D left calf MRSA abscess Condition on Discharge: Stable HOME HEALTH: Face to Face: I certify this patient is under my care and that I, or a nurse practitioner or physician's pediatric medical assistant working with me, had a face to face encounter that meets the physician face to face encounter requirements with this patient on [03/22/20]. RN For Eval/Treatment: Yes Pt Meets Homebound Status: Limited distance walking POST DISCHARGE ORDERS: Activity Instructions for Disc: Other, see below Weight Bearing Status after Di: Other, see below DIET AFTER DISCHARGE: ADA Other wound/incision instructi: remove previous packing and place new packing daily to calf wound CHECKS AFTER DISCHARGE: Checks after discharge: Weigh Yourself Daily FOLLOW-UP: PCP to follow Home Health: dr. yen Follow up with: dr. yen next week Follow Up With: dr. Aguilar in 2 weeks CERTIFICATION STATEMENT: Certification Statement: Certification Statement: Based on the above finding, I certify that this patient is confined to the home and needs intermittent snf care, physical therapy and/or speech therapy, or continues to need occupational therapy.~ This patient is under my care, and I have initiated the establishment of the plan of care.~ This patient will be followed by myself or a community physician who will periodically review the plan of care. Home Meds Active Scripts Linezolid (ZYVOX) 600 Mg Tablet, 600 MG PO BID for MRSA abscess, #20 TAB Prov:ALVARO YEN MD 03/22/20 Amiodarone Hcl (AMIODARONE HCL) 200 Mg Tablet, 1 TAB PO DAILY for AFIB, #30 TAB 1 Refill Prov:MONALISA KHAN APRN 02/23/20 Nitroglycerin (NITROSTAT) 0.4 Mg Tab.subl, 0.4 MG SL PRN Q5MIN PRN for CHEST PAIN, #20 TAB 1 Refill Prov:MONALISA KHAN APRN 02/23/20 Clopidogrel Bisulfate (CLOPIDOGREL) 75 Mg Tablet, 75 MG PO DAILYWBKFT for cad, #30 TAB 4 Refills Prov:MONALISA KHAN APRN 02/23/20 Potassium Chloride (KLOR-CON M20) 20 Meq Tab.er.prt, 20 MEQ PO BIDWMEALS for kcl, #60 TAB.SR Prov:ALVARO YEN MD 09/18/19 Reported Medications Oxycodone HCl (Oxycodone HCl) 5 Mg Tablet, 5 MG PO BID for pain, TAB 02/22/20 Metoprolol Tartrate (METOPROLOL TARTRATE) 50 Mg Tablet, 1 TAB PO BID for htn, #60 TAB 5 Refills 02/22/20 [place]-3/Dha/Epa/Fish Oil (FISH OIL 500 MG SOFTGEL) 1 Each Capsule, 2 CAP PO DAILY for rx for 30 Days, #60 CAP 0 Refills 02/19/20 Triamterene/Hydrochlorothiazid (TRIAMTERENE-HCTZ 37.5-25 MG TB) 1 Each Tablet, 1 TAB PO DAILY for HTN 09/16/19 Rivaroxaban (XARELTO) 20 Mg Tablet, 20 MG PO DAILY for rx, TAB 05/01/17 Glimepiride (GLIMEPIRIDE) 2 Mg Tablet, 1 TAB PO DAILY, #30 TAB 5 Refills 05/01/17 Losartan Potassium (LOSARTAN POTASSIUM) 100 Mg Tablet, 100 MG PO DAILY, TAB 05/01/17 Diltiazem Hcl (CARTIA XT) 300 Mg Cap.er.24h, 300 MG PO DAILY, CAP.SR 05/01/17 Omeprazole (OMEPRAZOLE) 20 Mg Capsule.dr, 1 CAP PO DAILY, #30 CAP 5 Refills 03/25/17 Cholecalciferol (Vitamin D3) (VITAMIN D) 2,000 Unit Capsule, 1 CAP PO DAILY, #30 CAP 3 Refills 03/25/17 Discontinued Reported Medications Golimumab (SIMPONI ARIA) 50 Mg/4 Ml Vial, 200 MG IV UD for rx, EACH takes every 8 weeks 02/19/20 Leflunomide (LEFLUNOMIDE) 20 Mg Tablet, 0.5 TAB PO DAILY for ARTHRITIS 09/16/19 ALVARO YEN MD Mar 22, 2020 10:37
--- NOTE | 2020-03-22 10:41 | PDOC ---
Provider Note Date of Service: DATE: 03/22/20 TIME: 10:41 Provider Note discharge summary dictated # [id number] Justifications for Admission Other Justification ALVARO YEN MD Mar 22, 2020 10:41
--- NOTE | 2020-03-22 10:57 | DS ---
DATE OF DISCHARGE: CONSULTANTS: Dr. Angela and Dr. Jaron Munoz and Dr. Clark. PROCEDURE: Incision and drainage of a left calf abscess. FINAL DIAGNOSES: 1. Incision and drainage of an methicillin-resistant Staphylococcus aureus left calf abscess. 2. Diabetes mellitus type 2. 3. Rheumatoid arthritis. 4. Hypertension. 5. Hyperlipidemia. 6. Coronary artery disease. 7. Paroxysmal atrial fibrillation, on Xarelto. HOSPITAL COURSE: The patient is a 75-year-old white female with history of diabetes mellitus type 2, hypertension, hyperlipidemia, coronary artery disease, and rheumatoid arthritis, admitted to [facility] from my office on 03/18/2020 with an increasing size of a left calf soft tissue mass. It became red and tender for the last day or so and she denied any fever or chills. She did have an ultrasound of the left calf done a couple of weeks earlier and there was some soft tissue swelling there, but did not come to a head. The patient does take Xarelto for paroxysmal atrial fibrillation, also takes Plavix for coronary artery disease. She has a previous history of rheumatoid arthritis and bilateral total knee arthroplasties. She was admitted to [facility] on 03/18/2020. An ultrasound of the left calf showed that the swelling and the fluid collection was increased. She was seen by Dr. Angela did incision and drainage at bedside and pus was obtained. Cultures grew MRSA. The patient did receive IV antibiotics initially cefazolin, but switched to IV daptomycin and Rocephin by Infectious Disease and then switched to oral Zyvox today. The wound is intact. She will be dismissed to home today with home health to tack the wound once a day. She will make an appointment to see Dr. Sharma in the office next week and Dr. Angela in 2 weeks. She was dismissed on Zyvox 600 mg p.o. b.i.d. for 10 days and also will be dismissed on amiodarone 200 mg every day, multiple vitamin once a day, diltiazem CD 300 mg every day, fish oil 1 g every day, glimepiride 2 mg every day. She will start leflunomide 10 mg every day and 10 days when she completes her all antibiotics. She will continue with the losartan 100 mg every day, metoprolol tartrate 50 mg b.i.d., nitroglycerin 0.4 mg sublingual p.r.n., omeprazole 20 mg every day, oxycodone 5 mg b.i.d. p.r.n., potassium chloride 20 mEq every day, Dyazide 1 every day and vitamin D 2000 units every day and Xarelto 20 mg every day. ALVARO SHARMA MD DR: LUCINA/jason JOB#: [id number] / [id number]
--- NOTE | 2020-03-22 10:57 | NUR ---
SW following. Discussed with RN, pt from home alone, room air, ADA diet. Discharge orders for home with home health. Los Blankenship RN will meet with pt to discuss home health. Addendum: 03/22/20 at 1156 by GUSTAVO TELLES Pt accepted with [facility]. Clinicals and discharge orders faxed by Los Blankenship RN.
[2020-03-22 11:00] VITALS: BP 137/72
--- NOTE | 2020-03-22 15:34 | NUR ---
Discharge instructions given with follow up to Ree Sharma & Coreen as directed, [facility] for dressing changes daily, belongings packed by patient awaiting ride home
--- NOTE | 2020-03-22 15:45 | NUR ---
Discharge to home ambulatory with [facility] walk[facility], see instruction sheet for details
[2020-03-22] MEDS ORDERED: LINEZOLID 600 MG TABLET PO SCH (21:00)
== END 2020-03-22 15:56 | disposition home health service (06) | DRG 580 ==
LOC: 4 NORTH 18:18
PROVIDERS: ADMIT Internal Medicine; ATTEND Internal Medicine
PROC: 0J9P0ZZ Drainage of Left Lower Leg Subcutaneous Tissue and Fascia, Open Approach (ICD-10-PCS; principal; 2020-03-20)
DX: L02.416 Cutaneous abscess of left lower limb (principal); E44.1 Mild protein-calorie malnutrition; B95.62 Methicillin resistant Staphylococcus aureus infection as the cause of diseases classified elsewhere; E11.9 Type 2 diabetes mellitus without complications; E78.5 Hyperlipidemia, unspecified; I11.0 Hypertensive heart disease with heart failure; I25.10 Atherosclerotic heart disease of native coronary artery without angina pectoris; I48.0 Paroxysmal atrial fibrillation; I50.9 Heart failure, unspecified; M06.9 Rheumatoid arthritis, unspecified; Z79.01 Long term (current) use of anticoagulants; Z79.02 Long term (current) use of antithrombotics/antiplatelets; Z79.84 Long term (current) use of oral hypoglycemic drugs; Z79.899 Other long term (current) drug therapy; Z82.49 Family history of ischemic heart disease and other diseases of the circulatory system; Z88.1 Allergy status to other antibiotic agents; Z90.710 Acquired absence of both cervix and uterus; Z90.721 Acquired absence of ovaries, unilateral; Z96.653 Presence of artificial knee joint, bilateral; G89.29 Other chronic pain; K21.9 Gastro-esophageal reflux disease without esophagitis; M19.90 Unspecified osteoarthritis, unspecified site; Z88.8 Allergy status to other drugs, medicaments and biological substances
CPT/HCPCS: 36415; 71045; 73590; 76881; 80048; 80053; 82550; 82962; 85025; 87071; 87075; 87077; 87186; 93005; J0690; J0696; J0878; J1815; J3490; G0378

== ENCOUNTER 2020-03-27 16:41 | Emergency (ER) | payer MEDICARE, OTHER ==
[~2020-03-27] VITALS: Ht 154.9 cm; Wt 110.0 kg
[~2020-03-27 16:41] MED LIST changes: +LINE600T12 PO
[2020-03-27 17:00] VITALS: BP 168/97
--- NOTE | 2020-03-27 17:34 | PHYS DOC ---
Past Medical History Past Medical History: A-Fib, Arthritis, Diabetes-Type II, Hypertension, Other Additional Past Medical Histor: a fib rvr Past Surgical History: Hysterectomy, Oophorectomy Additional Past Surgical Histo: HEART STENTS, PELVIC PROLAPSE, CARPEL TUNNEL, X2 KNEE REPLACEMENTS Smoking Status: Never Smoker Alcohol Use: None Drug Use: None General Adult EDM: Chief Complaint: WOUND CHECK HPI: HPI: The history was obtained from the patient. Patient is a 75-year-old female with PMH diabetes, atrial fibrillation who presents with a chief complaint of wound evaluation. Patient states she was recently hospitalized for a left calf absces s. She states incision and drainage was performed as an inpatient. She states that she was discharged home with antibiotics. She states that she does have home health care nurses who evaluate her wound daily. She states that some of her home health care nurses were concerned that abscess could be redeveloping. She spoke with her primary care physician who encouraged to report to the emergency department. She states that the redness and pain has improved significantly since incision and drainage was performed. She notes she has a follow-up appoint with her primary care physician in 3 days. She states he has 5 days left of her antibiotics. He states he does have a home health care nurse that will evaluate her tomorrow. She notes that the drainage has decreased some from her wound. Denies any difficulty ambulating. No other complaints. Review of Systems: Review of Systems: Constitutional: Denies fever or chills. [] Eyes: Denies change in visual acuity. [] HENT: Denies nasal congestion or sore throat. [] Respiratory: Denies cough or shortness of breath. [] Cardiovascular: Denies chest pain or edema. [] GI: Denies abdominal pain, nausea, vomiting, bloody stools or diarrhea. [] : Denies dysuria. [] Musculoskeletal: Denies back pain or joint pain. [] Integument: Positive for open wound to the left calf Neurologic: Denies headache, focal weakness or sensory changes. [] Endocrine: Denies polyuria or polydipsia. [] Lymphatic: Denies swollen glands. [] Psychiatric: Denies depression or anxiety. [] Heart Score: Risk Factors: Risk Factors: DM, Current or recent (<one month) smoker, HTN, HLP, family history of CAD, obesity. Risk Scores: Score 0 - 3: 2.5% MACE over next 6 weeks - Discharge Home Score 4 - 6: 20.3% MACE over next 6 weeks - Admit for Clinical Observation Score 7 - 10: 72.7% MACE over next 6 weeks - Early Invasive Strategies Allergies: Allergies: Allergies Coded Allergies Type Severity Reaction Last Updated Verified amlodipine Allergy Intermediate 06/15/19 Yes atorvastatin Allergy Intermediate 06/15/19 Yes calcium Allergy Intermediate 09/16/19 Yes ciprofloxacin Allergy Intermediate 06/15/19 Yes ezetimibe Allergy Intermediate 06/15/19 Yes lisinopril Allergy Intermediate 06/15/19 Yes metformin Allergy Intermediate 06/15/19 Yes methotrexate Allergy Intermediate 12/15/15 Yes pravastatin Allergy Intermediate 12/15/15 Yes I S O L A T I O N *CONTACT* Allergy Unknown 03/23/20 Yes Physical Exam: PE: Constitutional: Well developed, well nourished, no acute distress, non-toxic appearance. [] HENT: Normocephalic, atraumatic, bilateral external ears normal, oropharynx moist, no oral exudates, nose normal. [] Eyes: PERRLA, EOMI, conjunctiva normal, no discharge. [] Neck: Normal range of motion, no tenderness, supple, no stridor. [] Cardiovascular:Heart rate regular rhythm, no murmur [] Lungs & Thorax: Bilateral breath sounds clear to auscultation [] Abdomen: soft, no tenderness, no masses, no pulsatile masses. [] Skin: Warm, dry, no erythema, no rash. [] Back: No tenderness, no CVA tenderness. [] Extremities: 1 x 1 cm draining wound noted to the medial aspect of the mid left calf just slightly anterior. Sanguinous output noted. Mildly indurated skin surrounding open wound. No surrounding erythema. No crepitus palpated. No increase in warmth. Neurologic: Alert and oriented X 3, normal motor function, normal sensory function, no focal deficits noted. [] Psychologic: Affect normal, judgement normal, mood normal. [] Current Patient Data: Vital Signs: Vital Signs Date Time Temp Pulse Resp B/P (MAP) Pulse Ox O2 Delivery O2 Flow Rate FiO2 03/27/20 17:00 98.1 74 18 168/97 (120) 97 Room Air 98.1 EKG: EKG: [] Radiology/Procedures: Radiology/Procedures: [] Course & Med Decision Making: Course & Med Decision Making Pertinent Labs and Imaging studies reviewed. (See chart for details) [] Patient is a very pleasant and well-appearing 75-year-old female who presents with chief complaint of wound evaluation. Oj vital signs unremarkable. Clinical exam noted above. Bedside ultrasound was performed and no signs of loculated or drainable fluid collection can be identified. Ultrasound consistent with cobblestoning and cellulitis. On exam patient's wound is currently open and sanguinous fluid can be expressed. Based on initial wound markings the patient's skin shows significant improvement. Very mild induration without erythema or warmth. No crepitus palpated. I do feel advanced imaging is indicated. I do feel laboratory dialysis will yield further diagnostic information. Per chart review patient was diagnosed with MRSA skin infection. She was discharged home with Zyvox. I did encourage her to continue to take this medication. Instructed her to follow-up with her primary care physician in the next 3 days. She does have home health who will evaluate her wound again tomorrow. Patient is agreeable to this plan. Return precautions discussed and understood. Stable for discharge home. Dragon Disclaimer: Dragon Disclaimer: This electronic medical record was generated, in whole or in part, using a voice recognition dictation system. Departure Departure Impression: Primary Impression: Wound check, abscess Disposition: 01 HOME, SELF-CARE Condition: STABLE Referrals: ALVARO YEN MD (PCP) Patient Instructions: Abscess, Care After Additional Instructions: Please follow-up with your primary care physician in the next 3 days at your regularly scheduled appointment. Justicifation of Admission Dx: Justifications for Admission: Justification of Admission Dx: N/A MARIBELL CROSS DO Mar 27, 2020 17:34
== END 2020-03-27 17:42 | disposition home or self-care (01) ==
LOC: ER 16:41
DX: L02.416 Cutaneous abscess of left lower limb (principal); I48.20 Chronic atrial fibrillation, unspecified; M19.90 Unspecified osteoarthritis, unspecified site; E11.9 Type 2 diabetes mellitus without complications; I10 Essential (primary) hypertension; Z90.710 Acquired absence of both cervix and uterus; Z90.89 Acquired absence of other organs; Z98.890 Other specified postprocedural states; Z88.8 Allergy status to other drugs, medicaments and biological substances; Z88.1 Allergy status to other antibiotic agents; Z88.6 Allergy status to analgesic agent; Z88.4 Allergy status to anesthetic agent
CPT/HCPCS: 99281

== ENCOUNTER → 2021-04-21 | Outpatient (CLI) | payer MEDICARE, OTHER ==
[~2021-04-21] MED LIST changes: -AMIO200T4 PO; +AMIO200T6 PO; -HYDR-2161 PO; +HYDR-3072 PO; +POTA-121 PO; -POTA20TA4 PO
--- NOTE | 2021-04-21 13:57 | CARD ---
MR#: [id number] Date of Study: 04/21/2021 Ordering Physician: ANNA LENZ, Referring Physician: ANNA LENZ, Tech: Lottie Jacques [facility] APPROVED REPORT EXAM: Two-dimensional and M-mode echocardiogram with Doppler and color Doppler. Other Information Quality : Technically LimitedHR: 69bpm Rhythm : NSR INDICATION Dyspnea RISK FACTORS Hypertension Obesity 2D DIMENSIONS RVDd3.2 (2.9-3.5cm)Left Atrium(2D)4.6 (1.6-4.0cm) IVSd1.5 (0.7-1.1cm)Aortic Root(2D)3.1 (2.0-3.7cm) LVDd3.9 (3.9-5.9cm)LVOT Diameter1.9 (1.8-2.4cm) PWd1.3 (0.7-1.1cm)LVDs3.2 (2.5-4.0cm) FS (%) 16.4 %SV22.8 ml Aortic Valve AoV Peak Cornelio.109.9cm/sAoV VTI24.6cm AO Peak GR.4.8mmHgLVOT Peak Cornelio.107.1cm/s AO Mean GR.3mmHgAVA (VMAX)2.87cm2 Mitral Valve MV E Kblazsbx35.1cm/sMV DECEL [id number] MV A Eiggnvvy20.1cm/sE/A Ratio2.8 Pulmonary Valve PV Peak Ydgddoyn35.1cm/s Tricuspid Valve TR P. Stsztjxj080ko/sTR Peak Gr.30mmHg LEFT VENTRICLE The left ventricle is normal size. There is mild to moderate concentric left ventricular hypertrophy. The left ventricular systolic function is normal. Estimated ejection fraction 55-60%. There is jose l LV segmental wall motion. Tissue Doppler imaging reveals moderate left ventricular diastolic dysfun ction. RIGHT VENTRICLE The right ventricle is normal size. There is normal right ventricular wall thickness. The right ventr icular systolic function is normal. ATRIA The left atrium size is normal. The right atrium is borderline dilated. The interatrial septum is int act with no evidence for an atrial septal defect or patent foramen ovale as noted on 2-D or Doppler i maging. AORTIC VALVE The aortic valve is normal in structure and function. Doppler and Color Flow revealed no significant aortic regurgitation. There is no significant aortic valvular stenosis. MITRAL VALVE The mitral valve is normal in structure and function. There is no evidence of mitral valve prolapse. There is no mitral valve stenosis. Doppler and Color-flow revealed mild to moderate mitral regurgitat ion. TRICUSPID VALVE The tricuspid valve is normal in structure and function. Doppler and Color Flow revealed mild tricusp id regurgitation. Estimated PAP 33 mmHg. There is no tricuspid valve stenosis. PULMONIC VALVE The pulmonary valve is normal in structure and function. Doppler and Color Flow revealed trace pulmon ic valvular regurgitation. GREAT VESSELS The aortic root is normal in size. The ascending aorta is normal in size. The IVC is normal in size a nd collapses >50% with inspiration. PERICARDIAL EFFUSION There is no evidence of significant pericardial effusion. Critical Notification Critical Value: No <Conclusion> The left ventricular systolic function is normal. Estimated ejection fraction 55-60%. There is normal LV segmental wall motion. Tissue Doppler imaging reveals moderate left ventricular diastolic dysfunction. Mild to moderate mitral regurgitation. Mild tricuspid regurgitation. Estimated PAP 33 mmHg. There is no evidence of significant pericardial effusion. Signed by : Raghavendra Ching, Electronically Approved : 04/21/2021 13:56:59
== END ==
LOC: ECHO 10:40
PROVIDERS: ATTEND Internal Medicine Cardiovascular Disease
DX: I08.1 Rheumatic disorders of both mitral and tricuspid valves (principal); I50.30 Unspecified diastolic (congestive) heart failure
CPT/HCPCS: 93306